=== PATIENT | male | born 1955 | race Caucasian/White ===

== ENCOUNTER 2017-09-30 18:08 | Inpatient (IN) | payer MEDICARE, MEDICAID ==
[2017-09-30 20:20] LABS: #Basophils 0.1 thou/uL (0.0-0.2); #Eosinphils 0.1 thou/uL (0.0-0.7); #Lymphocytes 2.4 thou/uL (1.20-3.40); #Monocytes 0.8 thou/uL (0.11-0.59); #Neutrophils 5.3 thou/uL (1.40-6.50); %Basophils 0.6 % (0.0-1.0); %Eosinophils 1.6 % (0.0-10.0); %Lymphocytes 27.9 % (21.0-51.0); %Monocytes 9.4 % (0.0-10.0); %Neutrophils 60.5 % (42.0-75.0); Hemoglobin 11.5 g/dL (14.0-18.0); Mean Corpuscular HGB CONC 32.8 g/dL (32.0-36.0); Mean Corpuscular Volume 88.3 fL (78.0-98.0); Mean Platelet Volume 5.9 fL (7.4-10.4); Platelet Count 207 thou/uL (130-400); RBC Distribution Width 13.7 % (11.5-14.5); Red Blood Cell (RBC) Count 3.98 mill/uL (4.70-6.10); White Blood Cell (WBC) Count 8.7 thou/uL (4.8-10.8)
[2017-09-30 20:42] LABS: ALT (SGPT) 8 U/L (8-55); AST (SGOT) 24 U/L (5-34); Albumin 3.3 g/dL (3.4-4.8); Alkaline Phosphatase 76 U/L (40-150); Anion Gap 13 mmol/L (10-20); BUN (Urea Nitrogen) 32 mg/dL (8.4-25.7); Bilirubin, Total 0.3 mg/dL (0.2-1.2); Calc. Creatinine Clearance 0 mL/min (70-130); Calcium 9.3 mg/dL (7.8-10.44); Carbon Dioxide 28 mmol/L (23-31); Chloride 96 mmol/L (98-107); Estimated GFR-MDRD 62; Globulin 5.5 g/dL (2.4-3.5); Glucose 188 mg/dL (80-115); Potassium 5.4 mmol/L (3.5-5.1); Protein, Total 8.8 g/dL (5.8-8.1); Sodium 132 mmol/L (136-145)
--- NOTE | 2017-09-30 20:57 | RAD ---
PORTABLE CHEST: 09/30/17 HISTORY: Sepsis protocol. Lungs appear clear with no evidence of infiltrate identified. The heart is mildly prominent. Vascula r markings are normal. IMPRESSION: No focal infiltrates seen on portable chest exam. POS: AGW
[2017-09-30 21:01] LABS: Bilirubin Negative (Negative); Blood, Urine Trace (Negative); Clarity CLOUDY (Clear); Glucose, Urine (Dipstick) 100 mg/dL (Negative); Leukocyte Large (Negative); Nitrite Negative (Negative); Protein, Urine (Dipstick) 30 mg/dL (Neg-Trace); pH, Urine 6.5 (5.0-9.0)
[2017-09-30 21:03] LABS: Bacteria/HPF None Seen HPF (None Seen); Hyaline Casts/LPF 0-3 HYALINE CAST LPF (0-3 Hyaline); RBC/HPF 0-3 HPF (0-3); Squamous Epithelial None Seen HPF (0-3)
[2017-09-30 21:04] LABS: Yeast-AUWi Flag 50.1 (0-25.0)
[2017-09-30] MEDS ORDERED: Clindamycin/D5W 900 mg/50 ml Premix Bag ONE (21:45)
[2017-09-30] MEDS ORDERED: Piperacillin/Tazobactam 4.5 GM VIAL ONE (21:45)
[2017-09-30] MEDS ORDERED: Sodium Chloride 0.9% 1,000 ML IV SCH (23:17)
[2017-10-01] MEDS ORDERED: Acetaminophen 325 MG TAB PO PRN (00:15)
[2017-10-01] MEDS ORDERED: HumaLOG 300 UNITS/3 ML VIAL SC PRN ×2 (00:24)
[2017-10-01] MEDS ORDERED: Dextrose 50% Abboject 50 ML SYRINGE SLOW IVP PRN (00:24)
[2017-10-01] MEDS ORDERED: Dextrose 5% in Water 1,000 ML IV PRN (00:24)
[2017-10-01] MEDS: Vancomycin HCl 1 GM in Premix Bag 1 BAG IVPB SCH ×2 (01:24→15:18)
[2017-10-01] MEDS: Lactated Ringer's 1,000 ML IV SCH ×3 (01:25→18:39)
--- NOTE | 2017-10-01 02:01 | PDOC.FPRHP ---
- History of Present Illness Chief Complaint: pressure ulcer History of Present Illness: Resident: Linda Glaser DO PCP: Juan Pettit DO Patient is a 62 yo M with PMH of T2DM, MR, HTN, HLD who presents from [facility] for evaluation of pressure ulcer. He is does not speak much and no family members are present at the time of evaluation, although per ER documentation has not had any fevers or signs of infection. He denies pain, change in urination, and trouble breathing. ED Course: In the ED he received Zosyn and Clindamycin as well as 1L NS. - Allergies/Adverse Reactions Allergies Allergy/AdvReac Type Severity Reaction Status Date / Time metformin Allergy Verified 10/01/17 02:11 - Home Medications Medication Instructions Recorded Confirmed Type Acetaminophen [Tylenol Extra 1,000 mg PO Q6H PRN 06/19/13 10/01/17 History Strength] Benzoyl Peroxide [Benzoyl Peroxide 1 applic TOP DAILY PRN 06/19/13 10/01/17 History 5% Wash] Clindamycin Phosphate [Clindamycin 1 applic TOP BID PRN 06/19/13 10/01/17 History Phosphate 1% Lotion] Docusate Sodium 100 mg PO DAILY 06/19/13 10/01/17 History Folic Acid 2 tab PO DAILY 06/19/13 10/01/17 History Furosemide [Lasix] 10 mg PO DAILY 06/19/13 10/01/17 History Insulin Aspart [NovoLOG Vial] 20 unit SQ TID 06/19/13 10/01/17 History Levothyroxine Sodium 100 mcg PO DAILY 06/19/13 10/01/17 History Lisinopril 20 mg PO HS 06/19/13 10/01/17 History Loratadine [Claritin] 10 mg PO HS PRN 06/19/13 10/01/17 History Milk Of Magnesia 80mg/mL Susp 30 ml PO DAILY PRN 06/19/13 10/01/17 History [Jacob' Milk Of Magnesia] Potassium Chloride 2 cap PO BID 06/19/13 10/01/17 History Triamcinolone Acetonide 1 applic TOP BID PRN 06/19/13 10/01/17 History [Triamcinolone Acetonide 0.1% Cream] ALButerol Sulfate [Ventolin Neb] 3 ml NEB Q4HR PRN 05/12/15 10/01/17 History Acyclovir [Zovirax 5% Ointment] 1 applic TOP TID PRN 05/12/15 10/01/17 History Container,Empty [Enema Bottle] 1 each CO DAILY PRN 05/12/15 10/01/[address] [Depakote] 20 ml PO BID 05/12/15 10/01/17 History Gabapentin [Neurontin] 300 mg PO TID 05/12/15 10/01/17 History Multivitamin [One-A-Day Essential] 1 tablet PO DAILY 05/12/15 10/01/17 History Mcfall-3 Acid Ethyl Esters [Lovaza] 1 gm PO BID 05/12/15 10/01/17 History Ranitidine HCl 150 mg PO DAILY 05/12/15 10/01/17 History Rosuvastatin [Crestor] 10 mg PO HS 05/12/15 10/01/17 History Tamsulosin HCl [Flomax] 0.4 mg PO HS 05/12/15 10/01/17 History guaiFENesin/Pseudoephedrne HCl 1 - 2 tab PO BID PRN 05/12/15 10/01/17 History [Mucinex D ER] sitaGLIPtin Phosphate [Januvia] 100 mg PO DAILY 05/12/15 10/01/17 History Acarbose 100 mg PO TID- 10/01/17 10/01/17 History Cephalexin [Keflex] 500 mg PO QID 10/01/17 10/01/17 History Cephalexin [Keflex] 500 mg PO QID 10/01/17 10/01/17 History - History PMHx: Mental Retardation T2DM Hypothyroidism Seizure DO HLD HTN PSHx: unk FHx: non-contributory Social: Lives at [facility]. - Review of Systems ROS unobtainable: due to mental status General: denies: fever/chills Respiratory: denies: shortness of breath Cardiovascular: denies: chest pain Genitourinary: reports: incontinence. denies: dysuria - Vital signs BP: 92/56 HR: 99 RR: 20 Tmax: 97.7 Pox: 98% on RA Wt: 90kg - Physical Exam Constitutional: NAD -Constitutional: AOx1, basically nonverbal, only responds with yes and no -HEENT: L eye with crusty yellow discharge and R eye remains closed at all times, dry MM Neck: supple Heart: RRR Lungs: CTAB, no respiratory distress, no wheezing, no retractions Abdomen: soft, non-tender, bowel sounds present Musculoskeletal: normal structure Neurological: no focal deficit -Skin: stage 3 pressure ulcer on L gluteal fold without pus drainage, and stage 1 ulcer which appears to be healing on R gluteal fold, surrounding erythema of the skin in these areas FMR H&P: Results - Labs Result Diagrams: 10/01/17 04:23 10/01/17 04:23 Lab results: WBC 8.7 thou/uL (4.8-10.8) 09/30/17 20:05 Hgb 11.5 g/dL (14.0-18.0) L 09/30/17 20:05 Hct 35.1 % (42.0-52.0) L 09/30/17 20:05 MCV 88.3 fL (78.0-98.0) 09/30/17 20:05 Plt Count 207 thou/uL (130-400) 09/30/17 20:05 Neutrophils % 60.5 % (42.0-75.0) 09/30/17 20:05 Sodium 132 mmol/L (136-145) L 09/30/17 20:05 Potassium 5.4 mmol/L (3.5-5.1) H 09/30/17 20:05 Chloride 96 mmol/L (98-107) L 09/30/17 20:05 Carbon Dioxide 28 mmol/L (23-31) 09/30/17 20:05 BUN 32 mg/dL (8.4-25.7) H 09/30/17 20:05 Creatinine 1.19 mg/dL (0.6-1.3) 09/30/17 20:05 Glucose 188 mg/dL (80-115) H 09/30/17 20:05 Lactic Acid 1.6 mmol/L (0.5-2.2) 09/30/17 20:05 Calcium 9.3 mg/dL (7.8-10.44) 09/30/17 20:05 Total Bilirubin 0.3 mg/dL (0.2-1.2) 09/30/17 20:05 AST 24 U/L (5-34) 09/30/17 20:05 ALT 8 U/L (8-55) 09/30/17 20:05 Alkaline Phosphatase 76 U/L (40-150) 09/30/17 20:05 Serum Total Protein 8.8 g/dL (5.8-8.1) H 09/30/17 20:05 Albumin 3.3 g/dL (3.4-4.8) L 09/30/17 20:05 Urine Ketones Negative mg/dL (Negative) 09/30/17 20:56 Urine Blood Trace (Negative) H 09/30/17 20:56 Urine Nitrite Negative (Negative) 09/30/17 20:56 Ur Leukocyte Esterase Large (Negative) H 09/30/17 20:56 Urine RBC 0-3 HPF (0-3) 09/30/17 20:56 Urine WBC Greater Than 50-TNTC HPF (0-3) H 09/30/17 20:56 Ur Squamous Epith Cells None Seen HPF (0-3) 09/30/17 20:56 Urine Bacteria None Seen HPF (None Seen) 09/30/17 20:56 - EKG Interpretation EKG: incomplete RBBB - Radiology Interpretation Chest x-ray Status: image reviewed by me, report reviewed by me Additional comment: no acute process FMR H&P: A/P - Problem List (1) Pressure ulcer Current Visit: Yes Status: Acute Code(s): L89.90 - PRESSURE ULCER OF UNSPECIFIED SITE, UNSPECIFIED STAGE (2) Sepsis due to urinary tract infection Current Visit: No Status: Acute Code(s): A41.9 - SEPSIS, UNSPECIFIED ORGANISM; N39.0 - URINARY TRACT INFECTION, SITE NOT SPECIFIED (3) Diabetes mellitus type 2, insulin dependent Current Visit: No Status: Chronic Code(s): E11.9 - TYPE 2 DIABETES MELLITUS WITHOUT COMPLICATIONS; Z79.4 - [facility] (CURRENT) USE OF INSULIN (4) HTN (hypertension) Current Visit: No Status: Chronic Code(s): I10 - ESSENTIAL (PRIMARY) HYPERTENSION Qualifiers: Hypertension type: essential hypertension Qualified Code(s): I10 - Essential (primary) hypertension (5) Hyperlipidemia Current Visit: No Status: Chronic Code(s): E78.5 - HYPERLIPIDEMIA, UNSPECIFIED Qualifiers: Hyperlipidemia type: mixed hyperlipidemia Qualified Code(s): E78.2 - Mixed hyperlipidemia (6) Hypothyroidism Current Visit: No Status: Chronic Code(s): E03.9 - HYPOTHYROIDISM, UNSPECIFIED Qualifiers: Hypothyroidism type: acquired Qualified Code(s): E03.9 - Hypothyroidism, unspecified (7) Seizure disorder Current Visit: No Status: Chronic Code(s): G40.909 - EPILEPSY, UNSP, NOT INTRACTABLE, WITHOUT STATUS EPILEPTICUS - Plan Sepsis 2/2 Pressure ulcer vs UTI - Patient with tachycardia and hypotension initially. 2 different sources: ulcer vs UTI. - blood and urine cx pending - S/p zosyn and clinda in ED, switch to Vanc and Zosyn - s/p 1 L in Ed, continues to be hypotensive, give 1 more liter and then maitenance - wound care and surgical consult for pressure ulcer. May need debridement. Normocytic Anemia - at baseline from prior visits - Fe studies suggest Anemia of Chronic Disease Hyperkalemia - hemoconcentrated at first lab draw - s/p 1 L now, redraw and consider Ca gluconate if continues to be high - EKG wnl MARIO - BUN/Cr suggests prerenal - give IVF and recheck Hypoalbuminemia - likely 2/2 malnutrition - consider prealbumin - doormaker consult - Ensures BID MR - makes obtaining hx difficult - call family in AM to discuss HTN - hypotensive now - hold home meds HLD - continue home meds T2DM - continue home insulin and SSI - CC diet Hypothyroidism - continue home meds Seizure DO - continue home meds VTE ppx: Lovenox Code Status: Full (discuss with family) Dispo: Likely >48h pending gen surg recs and sepsis resolution FMR H&P: Upper Level - Pertinent history 62 y/o M presenting from [place] for evaluation of sacral wounds found to be septic. No history provided by patient. No reports of fever per NH, only worsening sacral wound and low BPs. - Pertinent findings GEN: pt awake and alert lying in bed CARDIO: RRR, no MRG RESP: lungs CTAB, no wheezes or crackles EST: pt unable to move LE. no edema present. Pulses intact in LE - Plan Date/Time: 10/01/17 0201 IGeorge, have evaluated this patient and agree with findings/plan as outlined by internetworking technician resident. Pertinent changes/additions are listed here. # Sepsis 2/2 UTI vs sacral wound - Pressures have improved after IVF. Continue IVF and to monitor vitals - Continue IVF, broad spectrum abx - Blood/urine/wound cultures pending # Stage IV L Sacral Wound - Will place surgical consult for debridement # Hx/o Mental Retardation - Pt is bed bound and in NH care # T2DM: - Place on SSI and monitor BG # HTN - Hold BP meds while hypotensive # Seizure disorder - No Acute Issues Attending Addendum - Attending Addendum Date/Time: 10/01/17 1014 I personally evaluated the patient and discussed the management with Dr. Glaser I agree with the History, Examination, Assessment and Plan documented above with any addition or exceptions noted below.
[2017-10-01 03:48] VITALS: BMI 25.4
[2017-10-01 05:14] LABS: #Eosinphils 0.1 thou/uL (0.0-0.7); #Lymphocytes 2.2 thou/uL (1.20-3.40); #Monocytes 1.2 thou/uL (0.11-0.59); #Neutrophils 5.8 thou/uL (1.40-6.50); %Basophils 0.4 % (0.0-1.0); %Eosinophils 0.8 % (0.0-10.0); %Lymphocytes 23.6 % (21.0-51.0); %Monocytes 12.4 % (0.0-10.0); %Neutrophils 62.7 % (42.0-75.0); Hemoglobin 9.5 g/dL (14.0-18.0); Mean Corpuscular HGB CONC 32.8 g/dL (32.0-36.0); Mean Corpuscular Hemoglobin 28.9 pg (27.0-31.0); Mean Corpuscular Volume 88.2 fL (78.0-98.0); Mean Platelet Volume 5.8 fL (7.4-10.4); Platelet Count 178 thou/uL (130-400); RBC Distribution Width 13.5 % (11.5-14.5); Red Blood Cell (RBC) Count 3.27 mill/uL (4.70-6.10); White Blood Cell (WBC) Count 9.3 thou/uL (4.8-10.8)
[2017-10-01 05:21] LABS: Anion Gap 10 mmol/L (10-20); BUN (Urea Nitrogen) 31 mg/dL (8.4-25.7); Calc. Creatinine Clearance 85 mL/min (70-130); Calcium 8.7 mg/dL (7.8-10.44); Carbon Dioxide 26 mmol/L (23-31); Chloride 101 mmol/L (98-107); Estimated GFR-MDRD 84; Glucose 211 mg/dL (80-115); Potassium 5.3 mmol/L (3.5-5.1); Sodium 132 mmol/L (136-145)
[2017-10-01] MEDS: Levothyroxine Sodium 100 MCG TAB PO SCH (06:35)
[2017-10-01] MEDS: Piperacillin/Tazobactam 3.375 GM in Sodium Chloride 0.9% 100 ML IVPB SCH ×3 (06:36→18:10)
--- NOTE | 2017-10-01 06:54 | PDOC.EVN ---
Attending Addendum - Attending Addendum Date/Time: 10/01/17 0650 I personally evaluated the patient at appr 1150pm on 09/30/2017 and discussed the management with Dr. Glaser I agree with the History, Examination, Assessment and Plan documented above with any addition or exceptions noted below. 62 yo NH patient sent for further evaluation left sided stage 3 sacroiliac decubitus will admit for IV antibiotics and surgical consultation for formal debridement and wound care consultation.
[2017-10-01] MEDS ORDERED: Non-Formulary Item 1 EACH (Ranitidine Hcl [Ranitidine Hcl] 150 MG) PO SCH (09:00)
[2017-10-01] MEDS ORDERED: Famotidine 20 MG TAB PO SCH (09:00)
[2017-10-01] MEDS: HumaLOG 300 UNITS/3 ML VIAL SC SCH ×3 (10:54→17:38)
[2017-10-01] MEDS: Docusate 100 MG CAP PO SCH ×2 (10:55→21:00)
[2017-10-01] MEDS: Enoxaparin Sodium 40 MG/0.4 ML SYRINGE SC SCH (12:37)
[2017-10-01] MEDS: Divalproex Sodium DR 500 MG TAB PO SCH ×3 (12:37→23:20)
[2017-10-01] MEDS: Famotidine 20 MG TAB PO SCH ×2 (12:37→20:23)
[2017-10-01] MEDS: Gabapentin 300 MG CAP PO SCH ×3 (12:37→20:23)
[2017-10-01] MEDS: Folic Acid 1 MG TAB PO SCH (12:39)
--- NOTE | 2017-10-01 16:52 | RAD ---
TWO VIEWS SACRUM AND COCCYX: 10/01/17 HISTORY: Decubitus ulcer. Evaluate for osteomyelitis. COMPARISON: None. FINDINGS: There appears to be erosive change involving the distal aspect of the sacrum/coccyx. Possibility of i nfection in this region cannot be excluded. Better interrogation with MRI is recommended. IMPRESSION: Possible infection and erosion involving the distal sacrum/coccyx. POS: DERIK
[2017-10-01] MEDS: Tamsulosin HCl 0.4 MG CAP PO SCH (20:23)
[2017-10-01] MEDS: Lisinopril 10 MG TAB PO SCH (20:23)
[2017-10-01] MEDS: Rosuvastatin 20 MG TAB PO SCH (20:24)
[2017-10-01] MEDS: Sodium Chloride 0.9% 1,000 ML IV SCH (23:25)
[2017-10-02] MEDS: Vancomycin HCl 1 GM in Premix Bag 1 BAG IVPB SCH ×2 (01:53→13:11)
[2017-10-02] MEDS: Levothyroxine Sodium 100 MCG TAB PO SCH (05:16)
[2017-10-02] MEDS: Piperacillin/Tazobactam 3.375 GM in Sodium Chloride 0.9% 100 ML IVPB SCH ×6 (05:17→21:00)
[2017-10-02] MEDS: Sodium Chloride 0.9% 1,000 ML IV SCH ×4 (07:00→22:45)
[2017-10-02 07:24] LABS: #Basophils 0.1 thou/uL (0.0-0.2); #Eosinphils 0.1 thou/uL (0.0-0.7); #Lymphocytes 2.4 thou/uL (1.20-3.40); #Monocytes 0.7 thou/uL (0.11-0.59); #Neutrophils 2.9 thou/uL (1.40-6.50); %Basophils 1.5 % (0.0-1.0); %Eosinophils 1.7 % (0.0-10.0); %Lymphocytes 39.1 % (21.0-51.0); %Monocytes 11.7 % (0.0-10.0); %Neutrophils 46.1 % (42.0-75.0); Hemoglobin 9.6 g/dL (14.0-18.0); Mean Corpuscular HGB CONC 33.5 g/dL (32.0-36.0); Mean Corpuscular Hemoglobin 29.6 pg (27.0-31.0); Mean Corpuscular Volume 88.5 fL (78.0-98.0); Mean Platelet Volume 5.6 fL (7.4-10.4); Platelet Count 172 thou/uL (130-400); RBC Distribution Width 13.5 % (11.5-14.5); Red Blood Cell (RBC) Count 3.23 mill/uL (4.70-6.10); White Blood Cell (WBC) Count 6.2 thou/uL (4.8-10.8)
[2017-10-02 07:42] LABS: Anion Gap 11 mmol/L (10-20); BUN (Urea Nitrogen) 17 mg/dL (8.4-25.7); Calc. Creatinine Clearance 106 mL/min (70-130); Calcium 8.5 mg/dL (7.8-10.44); Carbon Dioxide 28 mmol/L (23-31); Chloride 103 mmol/L (98-107); Estimated GFR-MDRD Greater than 90; Glucose 135 mg/dL (80-115); Potassium 4.1 mmol/L (3.5-5.1); Sodium 138 mmol/L (136-145)
--- NOTE | 2017-10-02 09:52 | PDOC.FM ---
- Subjective Subjective: No acute events overnight. Pt denies pain and only complaint is he is hungry. - Objective Vital Signs & Weight: Weight Admit Weight 71.577 kg Weight 71.577 kg I&O: 10/01/17 10/02/17 10/03/17 06:59 06:59 06:59 Intake Total 952 800 Balance 952 800 Result Diagrams: 10/02/17 07:10 10/02/17 07:10 <Damien Pettit - Last Filed: 10/02/17 09:50> - Objective Vital Signs & Weight: Vital Signs (12 hours) Temp Pulse Resp Pulse Ox 10/02/17 08:00 98.5 F 80 16 98 Weight Admit Weight 71.577 kg Weight 71.577 kg I&O: 10/01/17 10/02/17 10/03/17 06:59 06:59 06:59 Intake Total 952 800 Balance 952 800 Result Diagrams: 10/02/17 07:10 10/02/17 07:10 <Andrew Barriga - Last Filed: 10/02/17 11:34> Phys Exam - Physical Examination Constitutional: NAD HEENT: PERRLA, sclera anicteric Neck: no nodes, no JVD Respiratory: no wheezing, no rales, no rhonchi, clear to auscultation bilateral Cardiovascular: RRR, no significant murmur, no rub Gastrointestinal: soft, non-tender, no distention, positive bowel sounds Musculoskeletal: no edema, pulses present Neurological: non-focal, moves all 4 limbs Skin: no rash, cap refill <2 seconds <Damien Pettit - Last Filed: 10/02/17 09:50> Dx/Plan (1) Pressure ulcer Code(s): L89.90 - PRESSURE ULCER OF UNSPECIFIED SITE, UNSPECIFIED STAGE Status : Acute (2) Sepsis due to urinary tract infection Code(s): A41.9 - SEPSIS, UNSPECIFIED ORGANISM; N39.0 - URINARY TRACT INFECTION, SITE NOT SPECIFIED Status: Resolved (3) Urinary tract infection Status: Acute QualifierTitle: Urinary tract infection type: acute cystitis Hematuria presence: with hematuria Qualified Code(s): N30.01 - Acute cystitis with hematuria (4) HTN (hypertension) Code(s): I10 - ESSENTIAL (PRIMARY) HYPERTENSION Status: Chronic QualifierTitle: Hypertension type: essential hypertension Qualified Code( s): I10 - Essential (primary) hypertension (5) Hyperlipidemia Code(s): E78.5 - HYPERLIPIDEMIA, UNSPECIFIED Status: Chronic QualifierTitle: Hyperlipidemia type: mixed hyperlipidemia Qualified Code( s): E78.2 - Mixed hyperlipidemia (6) Hypothyroidism Code(s): E03.9 - HYPOTHYROIDISM, UNSPECIFIED Status: Chronic QualifierTitle: Hypothyroidism type: acquired Qualified Code(s): E03.9 - Hypothyroidism, unspecified (7) Seizure disorder Code(s): G40.909 - EPILEPSY, UNSP, NOT INTRACTABLE, WITHOUT STATUS EPILEPTICUS Status: Chronic - Plan Plan: Sepsis 2/2 Pressure ulcer, sepsis resolved. Pressure ulcer persists - Patient with tachycardia and hypotension initially. 2 different sources: ulcer vs UTI. - blood and urine cx pending - S/p zosyn and clinda in ED, switch to Vanc and Zosyn -Sacrum coccyx xr showed possible osteo, will order MRI. Gen Surg consult pending - NPO Normocytic Anemia - at baseline from prior visits - Fe studies suggest Anemia of Chronic Disease Hyperkalemia - fluids switched from LR to NS, recheck in am. Given Kayex X1 MARIO - resolved. Hypoalbuminemia - likely 2/2 malnutrition - rest room matron consult - Ensures BID, currently NPO awaiting surgery consult HTN - stable, home meds held since currently NPO HLD - continue home meds T2DM - continue home insulin and SSI - CC diet Hypothyroidism - continue home meds Seizure DO - continue home meds <Damien Pettit - Last Filed: 10/02/17 09:50> (1) Pressure ulcer Code(s): L89.90 - PRESSURE ULCER OF UNSPECIFIED SITE, UNSPECIFIED STAGE Status : Acute (2) Diabetes mellitus type 2, insulin dependent Code(s): E11.9 - TYPE 2 DIABETES MELLITUS WITHOUT COMPLICATIONS; Z79.4 - [facility] (CURRENT) USE OF INSULIN Status: Chronic (3) HTN (hypertension) Code(s): I10 - ESSENTIAL (PRIMARY) HYPERTENSION Status: Chronic Qualifiers: Hypertension type: essential hypertension Qualified Code(s): I10 - Essential (primary) hypertension (4) Hyperlipidemia Code(s): E78.5 - HYPERLIPIDEMIA, UNSPECIFIED Status: Chronic Qualifiers: Hyperlipidemia type: mixed hyperlipidemia Qualified Code(s): E78.2 - Mixed hyperlipidemia (5) Hypothyroidism Code(s): E03.9 - HYPOTHYROIDISM, UNSPECIFIED Status: Chronic Qualifiers: Hypothyroidism type: acquired Qualified Code(s): E03.9 - Hypothyroidism, unspecified (6) Seizure disorder Code(s): G40.909 - EPILEPSY, UNSP, NOT INTRACTABLE, WITHOUT STATUS EPILEPTICUS Status: Chronic <Andrew Barriga - Last Filed: 10/02/17 11:34> Attending Addendum - Attending Addendum Date/Time: 10/02/17 1132 I personally evaluated the patient and discussed the management with Dr. Pettit I agree with the History, Examination, Assessment and Plan documented above with any addition or exceptions noted below.For MRI r/o osteo appreciate General surgery recommendation regard need for debridement. <Andrew Barriga - Last Filed: 10/02/17 11:34>
[2017-10-02] MEDS: HumaLOG 300 UNITS/3 ML VIAL SC SCH ×3 (10:26→16:59)
[2017-10-02] MEDS: Docusate 100 MG CAP PO SCH ×2 (10:27→21:00)
[2017-10-02] MEDS: Famotidine 20 MG TAB PO SCH ×2 (10:27→21:00)
[2017-10-02] MEDS: Folic Acid 1 MG TAB PO SCH (10:27)
[2017-10-02] MEDS: Divalproex Sodium DR 500 MG TAB PO SCH ×2 (10:27→21:00)
[2017-10-02] MEDS: Enoxaparin Sodium 40 MG/0.4 ML SYRINGE SC SCH (10:27)
[2017-10-02] MEDS: Gabapentin 300 MG CAP PO SCH ×3 (10:28→21:00)
[2017-10-02 12:29] LABS: Vancomycin, Trough 23.2 ug/mL
--- NOTE | 2017-10-02 13:20 | CON ---
DATE OF CONSULTATION: 10/02/2017 I have been consulted by the [facility] for a left buttock pressure ulcer. HISTORY OF PRESENT ILLNESS: This is a 62-year-old male with a history of chronic hypertension, type 2 diabetes, who is a resident [facility], who presents for evaluation of pressure ulcer , admitted to the [facility] for IV antibiotics, placed on IV antibiotics. He is unable to participate in the history exam, most of it is obtained from the chart. PAST MEDICAL HISTORY: Mental retardation, type 2 diabetes, hypothyroidism, seizure disorder, hyperte nsion. PAST SURGICAL HISTORY: PEG tube. SOCIAL HISTORY: Lives at [facility]. REVIEW OF SYSTEMS: Unable to obtain. PHYSICAL EXAMINATION: VITAL SIGNS: Blood pressure 110/70, his pulse is 80, respirations 16. He is afebrile. HEENT: Sclerae are anicteric. Oropharynx clear. NECK: No lymphadenopathy. CHEST: Clear. HEART: Regular rate and rhythm. ABDOMEN: Soft, nontender. PELVIS: Examination of his right buttock/ischial region reveals mild skin breakdown without obvious infection. Examination of the left side reveals there to be a stage II to stage III pressure ulcer. There is some minimal necrotic tissue at the base. No purulence, no abscess. No bulla or crepitanc e. LABORATORY AND X-RAY FINDINGS: White cell count is 6, hemoglobin is 9.6. Sodium 138, potassium 4.0, creatinine 0.74. ASSESSMENT: Left posterior buttock decubitus wound. PLAN: MRI to be done today unless that shows significant bone involvement likely does not need surgi tawanna debridement. I think that the wound can be managed with wound care and some enzymatic agents at first. We need to roll them and keep him off these wounds. We will follow with you.
--- NOTE | 2017-10-02 15:19 | MRI ---
PELVIC MRI WITHOUT IV CONTRAST: Date: 10/02/17 HISTORY: 62-year-old male with urinary tract infection, pressure ulcer x2, sepsis, hyponatremia, and hyperkale evan. Clinical concern for osteomyelitis. FINDINGS: Multiplanar, multisequence MRI examination of the pelvis is performed. There is a moderately distended, very trabeculated bladder, with a dilated left ureter visualized fro m the bladder extending up into a dilated left upper renal collecting system and associated left shea l hydronephrosis. This could be secondary to marked reflux or possibly some type of obstructing proce ss at the ureterovesical junction, although I do not see an obvious mass or calculus on this study. T here are some scattered areas of subcutaneous fat stranding noted surrounding the upper left thigh, a nteriorly, medially, laterally, and posteriorly, as well as some abnormal fat stranding in the workers compensation claims adjuster ior left perineal region with associated cutaneous finding. There appears to be a more remote appeari ng right perineal ulcer crater without a significant amount of adjacent abnormal fat stranding. There is a somewhat more focal area measuring approximately 2.8 x 4.3 cm of altered signal just caudal to the left inferior ischiopubic ramus, evidence for more focal phlegmon, but no evidence for an associa cate drainable abscess. No evidence for abnormal marrow signal to suggest osteomyelitis. There are yuliana e nonspecific edematous changes within the right and left obturator and adductor muscles, as well as right and left iliacus muscles. There is marked fatty replacement of the gluteal musculature, as well as other musculature of the upper thigh. The sacrum and coccyx region shows no evidence of abnormal marrow signal to suggest osteomyelitis. IMPRESSION: Moderately distended, very trabeculated urinary bladder, with some irregular bladder wall thickening, as well as fluid within a dilated left ureter, possibly related to reflux extending up into a dilate d left upper renal collecting system. Diffuse subcutaneous fat stranding the upper thigh, evidence fo r nonspecific cellulitis. Somewhat more focal area of abnormal soft tissue signal in the left upper p erineum, in fairly close proximity to the posterior portion of the left inferior ischial pubic ramus, probably focal phlegmon, without evidence for definitive drainable abscess or osteomyelitis. Old rig ht perineal ulcer/scar. Nonspecific edematous changes within right and left obturator and adductor an d iliacus musculature with severe muscle volume loss and fat replacement changes of the remaining mus culature of the pelvis, hips, and upper thighs. No evidence for osteomyelitis involving the sacrum or coccyx. POS: [facility]
[2017-10-02] MEDS: Lisinopril 10 MG TAB PO SCH (21:00)
[2017-10-02] MEDS: Tamsulosin HCl 0.4 MG CAP PO SCH (21:00)
[2017-10-02] MEDS: Rosuvastatin 20 MG TAB PO SCH (21:00)
[2017-10-03] MEDS: Piperacillin/Tazobactam 3.375 GM in Sodium Chloride 0.9% 100 ML IVPB SCH ×3 (00:47→14:23)
[2017-10-03] MEDS: Vancomycin HCl 1 GM in Premix Bag 1 BAG IVPB SCH (02:16)
[2017-10-03] MEDS: Levothyroxine Sodium 100 MCG TAB PO SCH (05:27)
--- NOTE | 2017-10-03 06:57 | PDOC.FM ---
- Subjective Subjective: Patient denies any pain. Nodded head when asked if he was hungry or wanted food. Per nurse, patient voided about 500mL immediately after placing chen overnight. - Objective MAR Reviewed: Yes Vital Signs & Weight: Vital Signs (12 hours) Temp Pulse Resp BP BP Pulse Ox 10/02/17 21:00 110/70 10/02/17 20:00 97.6 F 82 16 98 10/02/17 19:57 97.6 F 82 16 124/70 98 Weight Admit Weight 71.577 kg Weight 71.577 kg I&O: 10/01/17 10/02/17 10/03/17 06:59 06:59 06:59 Intake Total 151 240 5218 Output Total 1300 Balance 952 800 -100 Result Diagrams: 10/02/17 07:10 10/02/17 07:10 EKG Reviewed by me: Yes Radiology Reviewed by me: Yes Radiology: MRI of pelvis- No evidence of osteomyelitis or drainable abscess, just nonspecific cellulitis. Also noted a moderately distended, trabeculated bladder with irregular bladder wall thickening & a dilated L ureter w/ reflux. Phys Exam - Physical Examination Constitutional: NAD L-sided conjunctival injection with purulent discharge Respiratory: no wheezing, no rales, clear to auscultation bilateral Cardiovascular: RRR, no significant murmur Neurological: moves all 4 limbs Skin: no rash Deviation from normal: ~3cm healing eschar on R posterior inferior ischial pubis ramus. -: ~5-6cm stage III ulcer overlying L posterior inferior ischial ramus Dx/Plan (1) Pressure ulcer Code(s): L89.90 - PRESSURE ULCER OF UNSPECIFIED SITE, UNSPECIFIED STAGE Status : Acute Qualifiers: Pressure ulcer location: buttock Pressure ulcer stage: stage 3 Laterality : left Qualified Code(s): L89.323 - Pressure ulcer of left buttock, stage 3 Plan: Will continue with basic wound care per surgery recommendation. No debridement or I&D needed at this time. Will d/c IV Abx & discharge to residential with instructions to continue basic wound care. Proteus & enterococcus are likely just colonizing the wound rather than causing an infection and therefore do not require Abx treatment. (2) Sepsis affecting skin Code(s): A41.9 - SEPSIS, UNSPECIFIED ORGANISM Status: Acute Plan: Resolved. Patient has been hemodynamically stable since just after admission. Will continue with basic wound care for ulcer as stated above. Will advance to usual mechanical soft diet as tolerated and stop IVFs. (3) Urinary tract infection Status: Acute Qualifiers: Urinary tract infection type: acute cystitis Hematuria presence: with hematuria Qualified Code(s): N30.01 - Acute cystitis with hematuria Plan: Urinalysis significant for blood, WBCs & large Leuk. esterase. However, patient has not had any symptoms consistent with a UTI therefore does not require Abx treatment for this. Likely just asymptomatic bacteruria (4) Urinary retention with incomplete bladder emptying Code(s): R33.9 - RETENTION OF URINE, UNSPECIFIED Status: Chronic Plan: Will remove chen today and order bladder scans Q4H to ensure he can void on his own prior to discharge. Will continue home meds for BPH and check a baseline PSA before starting any new additional BPH meds. (5) Diabetes mellitus type 2, insulin dependent Code(s): E11.9 - TYPE 2 DIABETES MELLITUS WITHOUT COMPLICATIONS; Z79.4 - RETIREMENT (CURRENT) USE OF INSULIN Status: Chronic Plan: Will continue sliding scale insulin & home dose of insulin. (6) HTN (hypertension) Code(s): I10 - ESSENTIAL (PRIMARY) HYPERTENSION Status: Chronic Qualifiers: Hypertension type: essential hypertension Qualified Code(s): I10 - Essential (primary) hypertension Plan: Well controlled. Will continue home meds, lisinopril 20mg PO QD. (7) Hyperlipidemia Code(s): E78.5 - HYPERLIPIDEMIA, UNSPECIFIED Status: Chronic Qualifiers: Hyperlipidemia type: mixed hyperlipidemia Qualified Code(s): E78.2 - Mixed hyperlipidemia Plan: Will continue home dose of rosuvastatin 10mg QHS. (8) Hypothyroidism Code(s): E03.9 - HYPOTHYROIDISM, UNSPECIFIED Status: Chronic Qualifiers: Hypothyroidism type: acquired Qualified Code(s): E03.9 - Hypothyroidism, unspecified Plan: Will continue home dose of synthroid 100mcg QD. (9) Seizure disorder Code(s): G40.909 - EPILEPSY, UNSP, NOT INTRACTABLE, WITHOUT STATUS EPILEPTICUS Status: Chronic Plan: Will continue home dose of depakote 1000mg BID. (10) Eye infection Code(s): H44.009 - UNSPECIFIED PURULENT ENDOPHTHALMITIS, UNSPECIFIED EYE Status: Acute Qualifiers: Laterality: left Qualified Code(s): H44.002 - Unspecified purulent endophthalmitis, left eye Plan: Started on topical erythromycin QD to affected eye.
[2017-10-03 08:17] VITALS: BP 112/63; TEMP 98.5
[2017-10-03] MEDS: Sodium Chloride 0.9% 1,000 ML IV SCH (09:00)
--- NOTE | 2017-10-03 12:09 | HP ---
DATE OF SERVICE: 10/03/2017 This is an addendum to the note of Dr. Eunice Bowling. Mr. Felipe was admitted with a possible sacral ulcer infection and rule out osteomyelitis. His MRI d oes not demonstrate any evidence of osteomyelitis. His sacral wound does not appear to be infected, merely contaminated. He is clinically stable and will be discharged back to [facility] today.
[2017-10-03] MEDS ORDERED: Erythromycin Base 0.5% Oint 1 GM TUBE L EYE SCH (12:15)
[2017-10-03] MEDS: Docusate 100 MG CAP PO SCH (12:29)
[2017-10-03] MEDS: HumaLOG 300 UNITS/3 ML VIAL SC SCH ×2 (12:29→14:03)
[2017-10-03] MEDS: Divalproex Sodium DR 500 MG TAB PO SCH (12:29)
[2017-10-03] MEDS: Enoxaparin Sodium 40 MG/0.4 ML SYRINGE SC SCH (12:29)
[2017-10-03] MEDS: Gabapentin 300 MG CAP PO SCH ×2 (12:30→15:50)
[2017-10-03] MEDS: Folic Acid 1 MG TAB PO SCH (12:30)
[2017-10-03] MEDS: Famotidine 20 MG TAB PO SCH (12:30)
--- NOTE | 2017-10-03 13:58 | PRG ---
DATE OF SERVICE: 10/03/2017 Mr. Felipe's MRI showed no obvious osteomyelitis, distal most edematous changes in the area of the wo und. Physical exam is unchanged. His wounds were seen yesterday. My assessment is noninfected woun d with no obvious osteomyelitis. PLAN: Continue enzymatic local therapy, wet to dry or Medihoney. We will see on an as needed basis.
--- NOTE | 2017-10-04 08:25 | DIS-2 ---
DATE OF ADMISSION: 09/30/2017 DATE OF DISCHARGE: 10/03/2017 RESIDENT: Dr. Eunice Bowling. ADMITTING ATTENDING: Dr. Andrew Barriga. DISCHARGE ATTENDING: Dr. Miguel Lyman. CONSULTATIONS: 1. Dr. Brien Jenkins - General Surgery 2. speech evaluation 3. wound care. PROCEDURES: 1. x-ray of sacrum/coccyx- possible infection and erosion involving the distal sacrum/coccyx 2. MRI of pelvis- Moderately distended, very trabeculated bladder with irregular bladder wall thickening and possible reflux into the left upper renal collecting system. No evidence for definitive drainable abscess or osteomyelitis. PRIMARY DIAGNOSES: 1. sepsis secondary to urinary tract infection 2. pressure ulcer 3. left eye conjunctivitis 4. urinary tract infection 5. hyponatremia 6. hyperkalemia. SECONDARY DIAGNOSES: 1. chronic normocytic anemia 2. BPH 3. insulin-dependent type 2 diabetes mellitus 4. seizure disorder 5. hyperlipidemia 6. hypertension 7. hypothyroidism. DISCHARGE MEDICATIONS: 1. Loratadine 10 mg p.o. at bedtime p.r.n. 2. acetaminophen 500 mg p.o. q.6 hours p.r.n. 3. Milk of Magnesia 80 mg per mL suspension, 118 mL bottle, 30 mL p.o. daily p.r.n. 4. insulin aspart or NovoLog 20 units SQ t.i.d. 5. potassium chloride 10 mEq capsule 2 capsules p.o. b.i.d. 6. lisinopril 10 mg tablet 20 mg p.o. daily 7. furosemide 40 mg tab 10 mg p.o. daily 8. folic acid 0.4 mg tablet 2 tabs p.o. daily 9. docusate sodium 100 mg p.o. daily 10. levothyroxine sodium 100 mcg tablet p.o. daily 11. clindamycin, phosphate 60 mL bottle one application topical b.i.d. p.r.n. 12. triamcinolone acetonide 15 gram tube one application topically BID PRN 13. benzoyl peroxide 227 gram bottle 1 application topically daily p.r.n. 14. acyclovir 30 gram tube one application topically t.i.d. PRN 15. ranitidine HCL 300 mg tablet 150 mg p.o. daily 16. one multivitamin tablet p.o. daily 17. guaifenesin pseudoephedrine hydrochloride 600/60 mg tablet 1-2 tabs p.o. b.i.d. p.r.n. 18. omega 3 acid ethyl esters 1 gram p.o. b.i.d. 19. sitagliptin phosphate 100 mg p.o. daily 20. tamsulosin HCL 0.4 mg cap 0.8 mg p.o. daily 21. gabapentin 300 mg p.o. t.i.d. 22. Depakote 500 mg tablet 2 tablets p.o. b.i.d. 23. rosuvastatin 20 mg tablet 10 mg p.o. daily 24. albuterol sulfate 2.5 mg per 3 mL nebulized q.4 hours p.r.n. 25. acarbose 100 mg tablet 100 mg p.o. t.i.d. 26. Keflex 500 mg p.o. q.i.d. 27. erythromycin-base ointment 1g tube, apply thin layer in the left eye Q6H for 7 days 28. finasteride 5 mg tablet p.o. daily. DISCONTINUED MEDICATIONS: None. HOSPITAL COURSE: Mr. Felipe is a 62-year-old male with a past medical history significant for insulin-dependent type 2 diabetes, mental retardation, hypertension, hyperlipidemia, and BPH who presented to the ED on from [facility] for evaluation of a pressure ulcer. He did not speak very much and no family members who were present at the time of evaluation. However, he did deny any pain with urination or trouble breathing. Also per half-way, there were no reports of fever, just a worsening sacral wound and low blood pressures. Regarding the patient's sepsis, on admission he was found to be hypotensive and slightly tachycardic with a blood pressure of 92/56 and a heart rate of 99 with 2 possible sources of infection which included a stage III pressure ulcer on the left gluteal fold & a urinalysis significant for trace blood, large leukocyte esterase and greater than 50 white blood cells. In the ED, the patient was given 1 liter of normal saline and started on IV Zosyn and clindamycin. He was subsequently admitted to the floor and kept on Zosyn but switched from clindamycin to vancomycin. He was also started on IV NL Saline at a rate of 125mL/hr. By the day of discharge he was hemodynamically stable and afebrile. His blood and urine cultures were also negative and, consequently, both potential sources of infection were concluded to be sites that were simply colonized with bacteria and outpatient antibiotics were deemed not to be medically necessary. Regarding his pressure ulcer, the patient was started on IV antibiotics as outlined above and a sacrum/coccyx x-ray was obtained in the ED. The x-ray was determined to be inconclusive for a definitive diagnosis of drainable abscess or osteomyelitis. General surgery and wound care were both consulted and an MRI of the pelvis was ordered. The MRI did not show any signs of drainable abscess or osteomyelitis so surgery decided there was no need for debridement during his hospital stay. Wound cultures were positive for both proteus and enterococcus; however, the fact that the patient had negative blood cultures and was hemodynamically stable and afebrile prompted us to decide against continuing antibiotic therapy upon discharge. Per surgery's recommendation, the patient was instructed to use basic enzymatic local wound therapy, wet to dry or Medihoney upon discharge. Regarding the patient's electrolyte abnormalities, he was found to have a potassium of 5.4 on admission and was given 15g of kayexelate PO. By day of discharge his potassium was WNL at 4.1. The patient's sodium also normalized from 133 on admission to 138 on the day of discharge. Regarding the patient's BPH, he was noted to have a distended and trabeculated bladder with possible reflux into the left renal collecting system on MRI. In addition, the nurses reported constant dribbling of urine over the course of his hospital stay and requested that a Bran cath be placed in order to maintain adequate hygiene for proper wound care. However, the catheter was removed prior to discharge & the half-way was instructed to perform in and out straight caths PRN and to follow-up with a urologist on an outpatient basis if necessary. The patient was also discharged on a greater dose of tamsulosin and a new prescription for finasteride to help with his urinary retention. Lastly, a baseline PSA was ordered prior to discharge which should be reviewed prior to starting finasteride therapy. DISPOSITION: Stable DISCHARGE INSTRUCTIONS: 1. [facility] 2. Mechanical soft diet 3. Activity as tolerated 4. Follow-up recommended with Urology on an outpatient basis if urinary retention continued. Patient was stable and discharged to [facility] on a mechanical soft diet and allowed to do as much activity as tolerated. Follow up with Urology outpatient recommended if urinary retention continues to be a problem. MTDD
--- NOTE | 2017-10-08 16:14 | EKG ---
Test Reason : Blood Pressure : / mmHG Vent. Rate : 097 BPM Atrial Rate : 097 BPM P-R Int : 156 ms QRS Dur : 072 ms QT Int : 346 ms P-R-T Axes : 057 040 040 degrees QTc Int : 439 ms Normal sinus rhythm Low voltage QRS Borderline ECG Confirmed by JERMAINE STEEL ([id number]), purchasing expeditor SUSAN BALLESTEROS ([id number]) on 10/08/2017 4:13:54 PM Referred By: Confirmed By:JERMAINE STEEL
== END 2017-10-03 15:48 | DRG 871 ==
LOC: ERS 18:08 → 2NO 23:14 → ONC 10-01 18:36
PROVIDERS: ADMIT Family Medicine; ATTEND Family Medicine
DX: A41.9 Sepsis, unspecified organism (principal); L89.323 Pressure ulcer of left buttock, stage 3; N39.0 Urinary tract infection, site not specified; N17.9 Acute kidney failure, unspecified; E46 Unspecified protein-calorie malnutrition; E87.1 Hypo-osmolality and hyponatremia; H44.002 Unspecified purulent endophthalmitis, left eye; H10.9 Unspecified conjunctivitis; E87.5 Hyperkalemia; B96.89 Other specified bacterial agents as the cause of diseases classified elsewhere; E78.5 Hyperlipidemia, unspecified; G40.909 Epilepsy, unspecified, not intractable, without status epilepticus; E11.42 Type 2 diabetes mellitus with diabetic polyneuropathy; L89.220 Pressure ulcer of left hip, unstageable; L89.212 Pressure ulcer of right hip, stage 2; E03.9 Hypothyroidism, unspecified; L89.892 Pressure ulcer of other site, stage 2; R74.0 Nonspecific elevation of levels of transaminase and lactic acid dehydrogenase [LDH]; D64.9 Anemia, unspecified; N40.1 Benign prostatic hyperplasia with lower urinary tract symptoms; R39.14 Feeling of incomplete bladder emptying; F79 Unspecified intellectual disabilities; Z68.25 Body mass index [BMI] 25.0-25.9, adult; Z79.4 Long term (current) use of insulin
CPT/HCPCS: 36415; 36416; 51701; 71045; 72195; 72220; 80048; 80053; 80202; 81003; 81015; 83605; 84153; 85025; 85652; 86140; 87040; 87070; 87077; 87086; 87186; 87205; 93005; 96365; A4216; G8996-GN-CL; G8997-GN-CL; J1650; J2543; J3370; J3490; J7050

== ENCOUNTER 2017-11-28 15:57 | Inpatient (IN) | payer MEDICARE, MEDICAID ==
[2017-11-28] MEDS ORDERED: Acetaminophen 325 MG/10.15 ML UDCUP ONE (16:21)
[2017-11-28] MEDS ORDERED: Acetaminophen 500 MG TAB ONE (16:21)
[2017-11-28] MEDS ORDERED: Acetaminophen 325 MG Suppository ONE (16:22)
[2017-11-28] MEDS ORDERED: Acetaminophen 650 MG Suppository ONE (16:22)
[2017-11-28 16:38] LABS: #Eosinphils 0.1 thou/uL (0.0-0.7); #Lymphocytes 2.2 thou/uL (1.20-3.40); #Monocytes 1.8 thou/uL (0.11-0.59); #Neutrophils 12.4 thou/uL (1.40-6.50); %Basophils 0.2 % (0.0-1.0); %Eosinophils 0.3 % (0.0-10.0); %Lymphocytes 13.3 % (21.0-51.0); %Monocytes 11.1 % (0.0-10.0); %Neutrophils 75.1 % (42.0-75.0); Hemoglobin 10.8 g/dL (14.0-18.0); Mean Corpuscular HGB CONC 34.2 g/dL (32.0-36.0); Mean Corpuscular Volume 87.9 fL (78.0-98.0); Platelet Count 173 thou/uL (130-400); RBC Distribution Width 14.8 % (11.5-14.5); Red Blood Cell (RBC) Count 3.59 mill/uL (4.70-6.10); White Blood Cell (WBC) Count 16.5 thou/uL (4.8-10.8)
--- NOTE | 2017-11-28 16:58 | RAD ---
CHEST ONE VIEW: HISTORY: Chest pain. Emergency exam. COMPARISON: Chest radiograph from 09/30/2017. FINDINGS: The lungs are clear. No pneumothorax or effusion. The cardiac silhouette and mediastinal contour ar e within normal limits. No acute osseous abnormality. IMPRESSION: No significant change. POS: [facility]
[2017-11-28 17:05] LABS: ALT (SGPT) 19 U/L (8-55); AST (SGOT) 47 U/L (5-34); Albumin 2.8 g/dL (3.4-4.8); Alkaline Phosphatase 78 U/L (40-150); Anion Gap 15 mmol/L (10-20); BUN (Urea Nitrogen) 30 mg/dL (8.4-25.7); Bilirubin, Total 0.3 mg/dL (0.2-1.2); Calc. Creatinine Clearance 0 mL/min (70-130); Calcium 8.6 mg/dL (7.8-10.44); Carbon Dioxide 19 mmol/L (23-31); Chloride 104 mmol/L (98-107); Estimated GFR-MDRD 50; Globulin 4.3 g/dL (2.4-3.5); Glucose 210 mg/dL (80-115); Potassium 6.4 mmol/L (3.5-5.1); Protein, Total 7.1 g/dL (5.8-8.1); Sodium 132 mmol/L (136-145)
[2017-11-28] MEDS ORDERED: Cefepime 1 GM VIAL ONE (17:05)
[2017-11-28] MEDS ORDERED: Sodium Chloride 0.9% 0 ML ONE (17:06)
[2017-11-28] MEDS ORDERED: Cefepime 2 GM VIAL ONE (17:06)
[2017-11-28 17:26] LABS: Bilirubin Negative (Negative); Blood, Urine Large (Negative); Clarity TURBID (Clear); Glucose, Urine (Dipstick) Negative (Negative); Leukocyte Large (Negative); Nitrite Negative (Negative); Protein, Urine (Dipstick) 300 mg/dL (Neg-Trace); Specific Gravity, Urine 1.015 (1.002-1.036); Urobilinogen 0.2 mg/dL (0.2-1.0)
[2017-11-28 17:32] LABS: Bacteria/HPF 4+ HPF (None Seen); Squamous Epithelial 0-3 HPF (0-3)
[2017-11-28 17:36] LABS: Pathc Cast-AUWi Flag 124.44 (0-2.49); Yeast-AUWi Flag 857.8 (0-25.0)
[2017-11-28] MEDS ORDERED: Norepinephrine 8 MG/0.9% NS 250 ML ONE (17:46)
[2017-11-28 17:51] LABS: Hyaline Casts/LPF NONE SEEN LPF (0-3 Hyaline); Other Casts/LPF None Seen LPF (0-3 Hyaline); RBC/HPF 21-50 HPF (0-3)
[2017-11-28 17:52] LABS: Yeast-All Forms None Seen HPF (None Seen)
[2017-11-28] MEDS ORDERED: Insulin Regular 300 UNITS/3 ML VIAL ONE (17:59)
[2017-11-28] MEDS ORDERED: Dextrose 50% Abboject 50 ML SYRINGE ONE (17:59)
[2017-11-28] MEDS ORDERED: Sodium Bicarb 50 MEQ/50 ML Abboject 8.4% SYRINGE ONE (17:59)
[2017-11-28] MEDS ORDERED: Calcium Chloride 1 GM/10 ML Abboject SYRINGE ONE (17:59)
--- NOTE | 2017-11-28 18:35 | RAD ---
CHEST ONE VIEW: HISTORY: Central line placement. COMPARISON: Earlier exam on the same date. FINDINGS: The tip of a left subclavian central venous catheter overlies the superior vena cava. No evidence of pneumothorax. Other findings are stable. POS: [facility]
[2017-11-28 19:54] LABS: Anion Gap 10 mmol/L (10-20); BUN (Urea Nitrogen) 26 mg/dL (8.4-25.7); Calc. Creatinine Clearance 0 mL/min (70-130); Carbon Dioxide 22 mmol/L (23-31); Chloride 105 mmol/L (98-107); Estimated GFR-MDRD 68; Glucose 389 mg/dL (80-115); Potassium 4.2 mmol/L (3.5-5.1); Sodium 133 mmol/L (136-145)
--- NOTE | 2017-11-28 20:21 | PDOC.FPRHP ---
- History of Present Illness Chief Complaint: low BPs, AMS History of Present Illness: Mr. Fowler is a 62 yo M who was brought in by EMS from [facility] for hypotension, tachycardia, fever. Per EMS report pt. started acting woozy and measured SBP was 60/40. Patient non-verbal at time of examination and I was unable to elicit history from him. Per ED report was alert to painful stimuli but became alert to verbal stimuli upon arrival to ED. He is seen by Dr. Pettit who saw him on 11/10 and reported that pt. was on Vanc for C.diff. Patient' s sister was in room but she was unable to give much history as well. ED Course: Initial BP was 86/51, he was given 3L bolus of NS with BPs remaining in 60-70s and a MAP <65. Pt. had L subclavian line placed and was given lephophed. BPs improved to low 100s and MAP >65. UA showed bacteriuria, WBCs and pt was given Vanc 1g, Cefepime 2g, and levaquin 750mg. CXR was negative for acute changes. Chem showed hyperkalemia with K+ at 6.4 and EKG showed an isolated peaked T wave. Pt was given insulin/d5, calcium gluconate and admitted to CCU. - Allergies/Adverse Reactions Allergies Allergy/AdvReac Type Severity Reaction Status Date / Time metformin Allergy Verified 10/01/17 02:11 - Home Medications Medication Instructions Recorded Confirmed Type Acetaminophen [Tylenol Extra 1,000 mg PO Q6H PRN 06/19/13 10/01/17 History Strength] Benzoyl Peroxide [Benzoyl Peroxide 1 applic TOP DAILY PRN 06/19/13 10/01/17 History 5% Wash] Clindamycin Phosphate [Clindamycin 1 applic TOP BID PRN 06/19/13 10/01/17 History Phosphate 1% Lotion] Docusate Sodium 100 mg PO DAILY 06/19/13 10/01/17 History Folic Acid 2 tab PO DAILY 06/19/13 10/01/17 History Furosemide [Lasix] 10 mg PO DAILY 06/19/13 10/01/17 History Insulin Aspart [NovoLOG Vial] 20 unit SQ TID 06/19/13 10/01/17 History Levothyroxine Sodium 100 mcg PO DAILY 06/19/13 10/01/17 History Lisinopril 20 mg PO HS 06/19/13 10/01/17 History Loratadine [Claritin] 10 mg PO HS PRN 06/19/13 10/01/17 History Milk Of Magnesia 80mg/mL Susp 30 ml PO DAILY PRN 06/19/13 10/01/17 History [Jacob' Milk Of Magnesia] Potassium Chloride 2 cap PO BID 06/19/13 10/01/17 History Triamcinolone Acetonide 1 applic TOP BID PRN 06/19/13 10/01/17 History [Triamcinolone Acetonide 0.1% Cream] ALButerol Sulfate [Ventolin Neb] 3 ml NEB Q4HR PRN 05/12/15 10/01/17 History Acyclovir [Zovirax 5% Ointment] 1 applic TOP TID PRN 05/12/15 10/01/17 History Container,Empty [Enema Bottle] 1 each [place] DAILY PRN 05/12/15 10/01/[address] [Depakote] 20 ml PO BID 05/12/15 10/01/17 History Gabapentin [Neurontin] 300 mg PO TID 05/12/15 10/01/17 History Multivitamin [One-A-Day Essential] 1 tablet PO DAILY 05/12/15 10/01/17 History [place]-3 Acid Ethyl Esters [Lovaza] 1 gm PO BID 05/12/15 10/01/17 History Ranitidine HCl 150 mg PO DAILY 05/12/15 10/01/17 History Rosuvastatin [Crestor] 10 mg PO HS 05/12/15 10/01/17 History Tamsulosin HCl [Flomax] 0.4 mg PO HS 05/12/15 10/01/17 History guaiFENesin/Pseudoephedrne HCl 1 - 2 tab PO BID PRN 05/12/15 10/01/17 History [Mucinex D ER] sitaGLIPtin Phosphate [Januvia] 100 mg PO DAILY 05/12/15 10/01/17 History Acarbose 100 mg PO TID- 10/01/17 10/01/17 History Cephalexin [Keflex] 500 mg PO QID 10/01/17 10/01/17 History Cephalexin [Keflex] 500 mg PO QID 10/01/17 10/01/17 History Erythromycin Base 0.5% Oint 1 gm L EYE ONE 7 Days #1 tube 10/03/17 Rx [Erythromycin Base 0.5% Ophth Oint] Finasteride 5 mg PO DAILY #30 tablet 10/03/17 Rx Tamsulosin HCl [Flomax] 0.8 mg PO HS #30 cap 10/03/17 Rx - History PMHx: mental retardation, C.diff coloitis (resolved), seborrheic dermatitis, chronic constipation, HLD, chlamydial conjunctivitis, GERD, Diabetic peripheral neuropahty, Seizure disorder, Hypothyroidism, DM2, HTN, GERD PSHx: Dorsal slit for phimosis, urethral dilatin for stricture FHx: unable to obtain Social: Unable to elicit from pt. but per centricity record - Review of Systems ROS unobtainable: due to mental status - Vital signs BP: [114/55] HR: [94] RR: [18] Tmax: [97.1] Pox: [93]% on [3L] Wt: [74.3] - Physical Exam -Constitutional: Awake, fluctuating consciousness but not able to verbalize, A&O x 0 because unable to verbalize. GCS 9 (E2, V4, M6). HEENT: normocephalic and atraumatic -HEENT: left conjunctival growth on sclera with discharge, no conjunctival erythema Neck: supple, no JVD Heart: RRR, normal S1/S2, no murmurs/rubs/gallops Lungs: CTAB, no respiratory distress, good air movement Abdomen: soft, non-tender, bowel sounds present -Musculoskeletal: patient able to follow verbal commands with weak effort Neurological: CN II-XII intact Skin: capillary refill <2 seconds -Skin: sacral decubitus ulcer, unstable. but no overt signs of infection - erythema, purulence. back has multiple light brown papules. Heme/Lymphatic: no unusual bruising or bleeding, no petechia FMR H&P: Results - Labs Result Diagrams: 11/29/17 04:00 11/28/17 19:16 Lab results: WBC 16.5 thou/uL (4.8-10.8) H 11/28/17 16:25 Hgb 10.8 g/dL (14.0-18.0) L 11/28/17 16:25 Hct 31.6 % (42.0-52.0) L 11/28/17 16:25 MCV 87.9 fL (78.0-98.0) 11/28/17 16:25 Plt Count 173 thou/uL (130-400) 11/28/17 16:25 Neutrophils % 75.1 % (42.0-75.0) H 11/28/17 16:25 Sodium 133 mmol/L (136-145) L 11/28/17 19:16 Potassium 4.2 mmol/L (3.5-5.1) 11/28/17 19:16 Chloride 105 mmol/L (98-107) 11/28/17 19:16 Carbon Dioxide 22 mmol/L (23-31) L 11/28/17 19:16 BUN 26 mg/dL (8.4-25.7) H 11/28/17 19:16 Creatinine 1.10 mg/dL (0.6-1.3) 11/28/17 19:16 Glucose 389 mg/dL (80-115) H 11/28/17 19:16 Lactic Acid 3.2 mmol/L (0.5-2.2) H 11/28/17 16:25 Calcium 9.0 mg/dL (7.8-10.44) 11/28/17 19:16 Total Bilirubin 0.3 mg/dL (0.2-1.2) 11/28/17 16:25 AST 47 U/L (5-34) H 11/28/17 16:25 ALT 19 U/L (8-55) 11/28/17 16:25 Alkaline Phosphatase 78 U/L (40-150) 11/28/17 16:25 Serum Total Protein 7.1 g/dL (5.8-8.1) 11/28/17 16:25 Albumin 2.8 g/dL (3.4-4.8) L 11/28/17 16:25 Urine Ketones Negative mg/dL (Negative) 11/28/17 16:45 Urine Blood Large (Negative) H 11/28/17 16:45 Urine Nitrite Negative (Negative) 11/28/17 16:45 Ur Leukocyte Esterase Large (Negative) H 11/28/17 16:45 Urine RBC 21-50 HPF (0-3) H 11/28/17 16:45 Urine WBC Greater Than 50-TNTC HPF (0-3) H 11/28/17 16:45 Ur Squamous Epith Cells 0-3 HPF (0-3) 11/28/17 16:45 Urine Bacteria 4+ HPF (None Seen) H 11/28/17 16:45 - EKG Interpretation EKG: peaked T wave in V2, no ST elevations - Radiology Interpretation Chest x-ray Status: image reviewed by me, report reviewed by me FMR H&P: A/P - Problem List (1) Septic shock Current Visit: Yes Status: Acute Code(s): A41.9 - SEPSIS, UNSPECIFIED ORGANISM; R65.21 - SEVERE SEPSIS WITH SEPTIC SHOCK (2) Hyperkalemia Current Visit: Yes Status: Acute Code(s): E87.5 - HYPERKALEMIA (3) Lactic acidosis Current Visit: Yes Status: Acute Code(s): E87.2 - ACIDOSIS (4) MARIO (acute kidney injury) Current Visit: Yes Status: Acute Code(s): N17.9 - ACUTE KIDNEY FAILURE, UNSPECIFIED (5) Pressure ulcer Current Visit: Yes Status: Acute Code(s): L89.90 - PRESSURE ULCER OF UNSPECIFIED SITE, UNSPECIFIED STAGE (6) Diabetes mellitus type 2, insulin dependent Current Visit: No Status: Chronic Code(s): E11.9 - TYPE 2 DIABETES MELLITUS WITHOUT COMPLICATIONS; Z79.4 - LOSS CONTROL REPRESENTATIVE (CURRENT) USE OF INSULIN (7) HTN (hypertension) Current Visit: No Status: Chronic Code(s): I10 - ESSENTIAL (PRIMARY) HYPERTENSION Qualifiers: Hypertension type: essential hypertension Qualified Code(s): I10 - Essential (primary) hypertension (8) Mental retardation Current Visit: Yes Status: Acute Code(s): F79 - UNSPECIFIED INTELLECTUAL DISABILITIES (9) Chlamydial conjunctivitis Current Visit: Yes Status: Acute Code(s): A74.0 - CHLAMYDIAL CONJUNCTIVITIS (10) Seborrheic dermatitis Current Visit: Yes Status: Acute Code(s): L21.9 - SEBORRHEIC DERMATITIS, UNSPECIFIED - Plan 62 yo M with admitted for septic shock Septic shock 2/2 to UTI -likely source is UTI, confirmed with UA. Has a recent history of hospitalization for UTI -s/p vanc, levaquin and cefepime in ED. Will continue cefepime with blood Cx and urine cx pending. -procalcitonin wnl -CXR was negative for acute pulm. processes, other sources to consider is sacral /left buttock ulcer. Prior records show wound culture + for multiple organisms, but all senstive to vancomyin. Will continue vanc., can consider consulting wound care -Currently patient is stable at this time, GCS 9 at time of admission. Will admit to CCU to continue vasopressors. Will consult pulmonology in AM. Hyperkalemia, now resolved -K+ of 6.4 in ED, s/p calcium gluconate, sodium bicarb, 10 units insulin/d50 -Repeat BMP shows K+ at 4.2, recheck BMP in AM Lactic acidosis 2/2 UTI -LA 3.2, repeat lactic acid -expect to resolve with adqequate vasopressor support and treatment of UTI MARIO 2/2 end organ damage from septic shock -mIVF with LR@ 150 -Repeat BMP Seizure disorder -Pt. recently had depakote inc. to 1250mg BID -Depakote level within therapeutic range -Continue on home meds Hypothyroidism -TSH wnl, continue home meds IDDM -Hyperglycemia on admission with POC in 200s. Will continue SSI and accuchecks q2 Chronic microcytic anemia -Aware, patient stable with no signs of active bleeding. Continue to monitor with daily CBC Mental retardation -aware, no mgmt at this time Seborrheic dermatitis -aware, no mgmt at this time FMR H&P: Upper Level - Pertinent history 62 yo CM with a PMH of MR, HTN, IDDM2, recent treatment for c diff, and left buttock pressure ulcer presenting from [facility] for altered mental status , hypotension, fever, and tachycardia. EMS reports initial SBP in 70s. Please see plan for ER interventions. Pt's sister who is MPOA seen at bedside but has not visited patient in quite some time and states his mental status is near baseline. She knows he was recently treated for c diff with vancomycin but otherwise reports no problems or concerns. Further history unobtainable from patient. - Pertinent findings Vitals: BP 101/55 on levophed 13 mcg/min, HR 99, R 17, O2 99% on RA, Tmax 101.8 , wt 95kg Gen: well nourished in NAD, not communicative CV: tachycardic, regular rhythm, good S1, S2 Resp: good effort, no respiratory distress, CTAB Abd: BS+, soft, NTTP, no guarding, no rebound Skin: psoriatic changes to face, pressure ulcer to left buttock Neuro: GCS 12 (E3V3M6), PERRL, tone at baseline per sister EKG: sinus tachycardia 114, no ST changes, 1 isolated peaked T wave in V3 CXR: no acute process - Plan Date/Time: 11/28/172020 I, Andrés Stanley MD PGY3, have evaluated this patient and agree with findings/ plan as outlined by internet assessor resident. Pertinent changes/additions are listed here. 1. Septic shock likely secondary to UTI -Pt presented from [facility] with AMS, hypotension, tachycardia, and fever. Initial evaluation in ER revealed BP 86/51. Pt was adequately resuscitated with 3L NS, however, SBPs remained 60-70, lowest recorded 53/33 with MAP consistently <65. Pt had left subclavian CVC placed in ER and was started on levophed at that time. Vitals have responded well and MAP just above 65 at time of exam with levophed running at 13 mcg/min. -Initial evaluation revealed UTI as likely source with LE, WBC, and bacteria on UA. Blood and urine cultures obtained. Pt received vancomycin 1g, cefepime 2g, and levaquin 750mg. CXR showed no acute process. -Of note, pt was recently treated for clostridium difficile with 10 day course of PO vancomycin that was started on 11/09/17. Reports reveal diarrhea has resolved. -Pt also noted to have an unstageable left buttock pressure ulcer that could potentially be a source of infection. Review of previous wound, urine, and blood cultures reveal multiple bacteria but sensitive to vancomycin and cefepime , will continue at this time. -Admit to CCU for continued vasopressor support with goal MAP>65 and wean as tolerated. -Initial lactic acid 3.2. Procalcitonin and repeat lactic acid pending. -Pt is stable at this time and protecting airway, will plan on consulting pulmonology in AM. -Pt currently NPO awaiting speech evaluation. 2. Hyperkalemia in setting of IDDM2 -Potassium on presentation was 6.4. No EKG changes appreciated. -Pt received 1 amp of calcium gluconate, 1 amp of sodium bicarbonate, 10 units of humulin R, and 1 amp of D50. -Repeat BMP reveals K of 4.2. -CCU electrolyte protocol, plan to repeat BMP in AM. 3. Lactic acidosis secondary to #1 -Plan per above with IVF, repeat lactic acid pending. 4. MARIO likely secondary to #1 -Continue pt on mIVF with LR@150 -Repeat BMP also shows improvement in Cr and GFR -Continue to trend with AM BMP. 5. Left buttock pressure ulcer -Wound care consulted, appreciate assistance -Abx per above -Previous cultures revealed Proteus, MSSA, and Enterococcus. 6. Seizure disorder -Pt recently had depakote increased to 1250 mg BID -Check depakote level to ensure therapeutic range -Consideration for cause of AMS 7. Hypothyroidism -Potential cause of AMS, check TSH. 8. Chronic normocytic anemia -Stable, continue to monitor. 9. IDDM2 -Will initially proceed with accuchecks q2hr and space out if normalizing. -SSI. 10. Hx of HTN 11. Hx of MR CODE status: FULL, discussed with sister who is MPOA at bedside. disposition: Admit patient under inpatient status to CCU for anticipated length of stay greater than two midnights. Continue to monitor closely. Discussed case with admitting attending Dr. Ovidio Waldron.
[2017-11-28 20:35] LABS: Lactic Acid 1.5 mmol/L (0.5-2.2)
[2017-11-28] MEDS ORDERED: Dextrose 50% Abboject 50 ML SYRINGE SLOW IVP PRN (22:05)
[2017-11-28] MEDS ORDERED: Acetaminophen 650 MG Suppository PR PRN (22:05)
[2017-11-28] MEDS ORDERED: CCU Electrolyte Replacement 1 EACH FS SCH (22:05)
[2017-11-28] MEDS ORDERED: Norepinephrine 8 MG/0.9% NS 250 ML IVPB SCH (22:05)
[2017-11-28] MEDS ORDERED: Ondansetron HCl/PF 4 MG/2 ML Vial IVP PRN (22:05)
[2017-11-28] MEDS ORDERED: Dextrose 5% in Water 1,000 ML IV PRN (22:05)
[2017-11-28] MEDS ORDERED: HumaLOG 300 UNITS/3 ML VIAL SC PRN ×2 (22:05)
[2017-11-28 22:17] VITALS: BMI 23.5
[2017-11-28] MEDS ORDERED: Potassium Chloride 40 MEQ in Sodium Chloride 0.9% 250 ML 250 ML IVPB PRN (22:25)
[2017-11-28] MEDS ORDERED: Potassium Phosphate 9 MMOL in Sodium Chloride 0.9% 100 ML IVPB PRN (22:25)
[2017-11-28] MEDS ORDERED: CCU ELECTROLYTE REPLACEMENT PROTOCOL FS PRN (22:25)
[2017-11-28] MEDS ORDERED: Potassium Chloride 40 MEQ in Premix Bag 1 BAG IVPB PRN (22:25)
[2017-11-28] MEDS ORDERED: Magnesium 2 GM/NS 0.9% 100 ML 2 GM in Premix Bag 1 BAG IVPB PRN (22:25)
[2017-11-28] MEDS ORDERED: Potassium Phosphate 12 MMOL in Sodium Chloride 0.9% 250 ML 250 ML IV PRN (22:25)
[2017-11-28] MEDS ORDERED: Potassium Chloride 20 MEQ TAB PO PRN (22:25)
[2017-11-28] MEDS ORDERED: Potassium Phosphate 15 MMOL in Sodium Chloride 0.9% 250 ML 250 ML IV PRN (22:25)
[2017-11-28] MEDS ORDERED: Magnesium Oxide 400 MG TAB PO PRN ×2 (22:25)
[2017-11-28] MEDS ORDERED: Famotidine/PF 20 mg/2ml Vial SLOW IVP SCH (22:30)
[2017-11-28 22:32] LABS: Magnesium 2.2 mg/dL (1.6-2.6); Phosphorus 3.2 mg/dL (2.3-4.7); Valproic Acid (Depakene) 37.5 ug/mL (50.0-100.0)
[2017-11-28] MEDS: Lactated Ringer's 1,000 ML IV SCH (22:35)
[2017-11-28 23:44] LABS: Thyroid Stimulating Hormone 2.2043 uIU/mL (0.35-4.94)
[2017-11-29] MEDS ORDERED: Lactated Ringer's 1,000 ML IV SCH (01:15)
[2017-11-29 04:56] LABS: #Basophils 0.1 thou/uL (0.0-0.2); #Lymphocytes 2.2 thou/uL (1.20-3.40); #Monocytes 1.6 thou/uL (0.11-0.59); #Neutrophils 7.6 thou/uL (1.40-6.50); %Basophils 0.5 % (0.0-1.0); %Eosinophils 0.4 % (0.0-10.0); %Monocytes 13.6 % (0.0-10.0); %Neutrophils 66.4 % (42.0-75.0); Hemoglobin 9.5 g/dL (14.0-18.0); Mean Corpuscular HGB CONC 33.7 g/dL (32.0-36.0); Mean Corpuscular Hemoglobin 29.5 pg (27.0-31.0); Mean Corpuscular Volume 87.7 fL (78.0-98.0); Mean Platelet Volume 6.2 fL (7.4-10.4); Platelet Count 149 thou/uL (130-400); RBC Distribution Width 14.5 % (11.5-14.5); Red Blood Cell (RBC) Count 3.22 mill/uL (4.70-6.10); White Blood Cell (WBC) Count 11.4 thou/uL (4.8-10.8)
[2017-11-29] MEDS: Vancomycin HCl 1 GM in Premix Bag 1 BAG IVPB SCH ×2 (05:33→17:56)
[2017-11-29] MEDS: Lactated Ringer's 1,000 ML IV SCH ×4 (05:34→23:35)
[2017-11-29 06:01] LABS: Anion Gap 10 mmol/L (10-20); BUN (Urea Nitrogen) 23 mg/dL (8.4-25.7); Calc. Creatinine Clearance 106 mL/min (70-130); Calcium 9.2 mg/dL (7.8-10.44); Carbon Dioxide 28 mmol/L (23-31); Chloride 103 mmol/L (98-107); Estimated GFR-MDRD Greater than 90; Glucose 109 mg/dL (80-115); Potassium 4.5 mmol/L (3.5-5.1); Sodium 136 mmol/L (136-145)
--- NOTE | 2017-11-29 06:13 | PDOC.FM ---
- Subjective Subjective: Patient unable to give much history due to MR. Lying in bed comfortably in NAD. Denies any pain at this time. When asked what his name is he pointed to his bracelet. Per the nurse, he had no problems overnight. He was able to be weaned off of levophed at 0300 this AM. - Objective MAR Reviewed: Yes Vital Signs & Weight: Vital Signs (12 hours) Temp Pulse Resp Pulse Ox 11/29/17 04:00 97.9 F 11/29/17 00:00 98.1 F 11/28/17 22:05 99 11/28/17 22:00 97.6 F 11/28/17 21:30 97.6 F 86 15 100 Weight Weight 74.3 kg Most Recent Monitor Data Heart Rate from ECG 93 NIBP 107/69 NIBP BP-Mean 77 Respiration from ECG 17 SpO2 97 I&O: 11/27/17 11/28/17 11/29/17 06:59 06:59 06:59 Intake Total 1113.7 Output Total 865 Balance 248.7 Result Diagrams: 11/29/17 04:00 11/29/17 04:00 <Daphne Jeffery - Last Filed: 11/29/17 06:10> - Objective Vital Signs & Weight: Vital Signs (12 hours) Temp Pulse Resp 11/29/17 08:00 97.9 F 95 17 11/29/17 07:00 97.9 F 11/29/17 04:00 97.9 F 11/29/17 00:00 98.1 F Weight Weight 74.3 kg Most Recent Monitor Data Heart Rate from ECG 103 NIBP 139/75 NIBP BP-Mean 107 Respiration from ECG 15 SpO2 100 I&O: 11/28/17 11/29/17 11/30/17 06:59 06:59 06:59 Intake Total 1113.7 100 Output Total 865 180 Balance 248.7 -80 Result Diagrams: 11/29/17 04:00 11/29/17 04:00 <Donya Velazco - Last Filed: 11/29/17 11:05> Phys Exam - Physical Examination Constitutional: NAD (resting comfortably in bed on room air) cold appearing HEENT: moist MMs Neck: no nodes, supple Respiratory: no wheezing, no rales, no rhonchi, clear to auscultation bilateral Cardiovascular: RRR, no significant murmur, no rub Gastrointestinal: soft, non-tender, no distention, positive bowel sounds Musculoskeletal: no edema, pulses present Deviation from normal: MR, A&Ox1 Skin: normal turgor, cap refill <2 seconds <Daphne Jeffery - Last Filed: 11/29/17 06:10> Dx/Plan (1) Septic shock Code(s): A41.9 - SEPSIS, UNSPECIFIED ORGANISM; R65.21 - SEVERE SEPSIS WITH SEPTIC SHOCK Status: Acute (2) Urinary tract infection Status: Acute Qualifiers: Urinary tract infection type: acute cystitis Hematuria presence: with hematuria Qualified Code(s): N30.01 - Acute cystitis with hematuria (3) MARIO (acute kidney injury) Code(s): N17.9 - ACUTE KIDNEY FAILURE, UNSPECIFIED Status: Acute (4) Hyperkalemia Code(s): E87.5 - HYPERKALEMIA Status: Resolved (5) Lactic acidosis Code(s): E87.2 - ACIDOSIS Status: Resolved (6) Mental retardation Code(s): F79 - UNSPECIFIED INTELLECTUAL DISABILITIES Status: Acute (7) Pressure ulcer Code(s): L89.90 - PRESSURE ULCER OF UNSPECIFIED SITE, UNSPECIFIED STAGE Status : Acute Qualifiers: Pressure injury location: sacral region Pressure injury stage: unstageable Qualified Code(s): L89.150 - Pressure ulcer of sacral region, unstageable (8) Diabetes mellitus type 2, insulin dependent Code(s): E11.9 - TYPE 2 DIABETES MELLITUS WITHOUT COMPLICATIONS; Z79.4 - LONGTERM (CURRENT) USE OF INSULIN Status: Chronic (9) Seizure disorder Code(s): G40.909 - EPILEPSY, UNSP, NOT INTRACTABLE, WITHOUT STATUS EPILEPTICUS Status: Chronic - Plan Plan: Septic shock 2/2 to UTI UA showed large LE, >50WBC, 4+ bacteria, Large blood, 300 protein. Has a recent history of hospitalization for UTI as well as a h/o urinary retention 2/2 BPH. Initially hypotensive, tachycardic, tachypneic, and with WBC count of 16.5 and lactic acid of 3.2. Remained hypotensive despite fluid resuscitation with 3L NS. L subclavian central line placed in ED and pt was started on levophed. s/p vanc, levaquin and cefepime in ED. Other source to consider is sacral/left buttock ulcer. Prior records show wound culture + for multiple organisms, but all sensitive to vancomycin. -Continue cefepime and vanc -Blood Cx, Urine Cx -Consult wound care -LR @ 115 -Levophed was weaned off at 0300 this AM and BP's have been stable since that time. Hyperkalemia, resolved -K+ of 6.4 in ED (hemolyzed specimen), s/p calcium gluconate, sodium bicarb, 10 units insulin/d50 -Repeat BMP shows K+ at 4.2, recheck BMP in AM Lactic acidosis 2/2 UTI, resolved -LA 3.2, trended down to 1.5 s/p fluids MARIO -LR @ 115 -Monitor Seizure disorder -Pt recently had depakote increased -Continue on home meds Hypothyroidism -TSH wnl, continue home meds IDDM2 -Hyperglycemia on admission with POC in 200s. -Will continue SSI and accuchecks q4h Chronic microcytic anemia -Patient stable with no signs of active bleeding. -Continue to monitor with daily CBC Mental retardation -Sister is MPOA Lines/tubes: L subclavian CVC day 2, Bran day 2 GI ppx: Famotidine VTE ppx: Lovenox Code Status: Full Dispo: consider transfer to [facility] vs tele this PM if BP's remain stable <Daphne Jeffery - Last Filed: 11/29/17 06:10> Attending Addendum - Attending Addendum Date/Time: 11/29/17 1100 I personally evaluated the patient and discussed the management with Dr. Jeffery. I agree with the History, Examination, Assessment and Plan documented above with any addition or exceptions noted below- Patient denies any complaints. Afebrile BP 139/75 P 103 RR15 A/P: 1) Septic shock- resolved; off pressors and BP stable. 2) Sepsis secondary to UTI- continue current abx; urine and blood cultures pending. 3) MARIO- resolved. 4) DM- resume diet and home meds. 5) Seizure d/o - continue home meds. <Donya Velazco - Last Filed: 11/29/17 11:05>
[2017-11-29] MEDS ORDERED: Albuterol Sulfate 2.5 mg/3 ml Neb NEB PRN (06:35)
[2017-11-29 06:43] LABS: CKMB 5.4 ng/mL (0-6.6); Troponin I Less than 0.010 ng/mL (< 0.028)
[2017-11-29] MEDS ORDERED: Levothyroxine Sodium 100 MCG TAB PO SCH (07:15)
[2017-11-29] MEDS ORDERED: Cefepime 1 GM in Sodium Chloride 0.9% 100 ML IVPB SCH ×2 (09:00→11:00)
[2017-11-29] MEDS: Famotidine/PF 20 mg/2ml Vial SLOW IVP SCH ×2 (09:59→20:58)
[2017-11-29] MEDS: Docusate 100 MG CAP PO SCH (09:59)
[2017-11-29] MEDS: Erythromycin Base 0.5% Oint 1 GM TUBE L EYE SCH ×4 (09:59→21:03)
[2017-11-29] MEDS: Divalproex Sodium DR 500 MG TAB PO SCH ×2 (09:59→20:54)
[2017-11-29] MEDS: Enoxaparin Sodium 40 MG/0.4 ML SYRINGE SC SCH (10:00)
--- NOTE | 2017-11-29 10:36 | CON ---
DATE OF CONSULTATION: 11/29/2017 REASON FOR CONSULTATION: ICU placement and septic shock. HISTORY OF PRESENT ILLNESS: This is a 62-year-old male, who was brought in last night from the [facility] with septic shock. He was febrile and tachycardic and his blood pressure was as low as 60/40 . He was appropriately fluid resuscitated. He had a left subclavian central line placed and he was briefly on Levophed and that has now been weaned off. PAST MEDICAL HISTORY: 1. Mental retardation. 2. Recent Clostridium difficile colitis. 3. Diabetes mellitus, type 2. 4. Peripheral neuropathy. 5. Seizure disorder. 6. Hypothyroidism. 7. Hypotension. 8. Gastroesophageal reflux. PAST SURGICAL HISTORY: Dorsal slit for phimosis, ureteral dilatation of stricture. FAMILY MEDICAL HISTORY: Unknown. SOCIAL HISTORY: Does not abuse substances. Lives in a prison. REVIEW OF SYSTEMS: Cannot be obtained secondary to patient's mental status. MEDICATIONS PRIOR TO ADMISSION: Reviewed. Significant medications include folate, furosemide, NovoL og insulin, levothyroxine, lisinopril, albuterol, Depakote, Neurontin, ranitidine, Crestor, Flomax, J anuvia, acarbose, Keflex, finasteride, tamsulosin. PHYSICAL EXAMINATION: VITAL SIGNS: Temperature 97.9, pulse 93, blood pressure 107/69, O2 sat 97%, respiratory rate 17, int leopoldo since admission 1113 mL, output 865 mL, weight 163 pounds. GENERAL: He is awake. He is communicative. HEENT EXAM: Remarkable for some seborrheic changes on his cheeks. NECK: Without JVD. LUNGS: Clear without wheezing or rhonchi. CARDIAC: S1 and S2, regular. A 2/6 systolic murmur at the left sternal border. ABDOMEN: Soft, protuberant. GENITOURINARY: He has a Bran catheter in. EXTREMITIES: Without clubbing, cyanosis, or edema. He has an unstageable ulcer in the sacrum. LABORATORY AND X-RAY FINDINGS: White blood cell count 11.4, hematocrit 28.2, platelet count 149. So dium 136, potassium 4.5, chloride 103, CO2 of 28, BUN 23, creatinine 0.7, glucose 126. Troponin 0.01 . Cortisol 11.5. Urinalysis showed numerous red blood cells, too numerous to count white blood cell s. He had proteinuria. Valproic acid level was 37.5, which is below therapeutic range. Chest x-ray demonstrated no evidence of mass, effusion, or infiltrate. ASSESSMENT: 1. Septic shock. The likely source is urosepsis. Also, has a sacral decubitus ulcer that needs to be considered. 2. Inappropriately low cortisol for septic shock, which could indicate that he has relative adrenal insufficiency. 3. Anemia. 4. Mental retardation. 5. History of multiple medical problems as listed above including diabetes mellitus. PLAN: 1. The patient's blood pressure is now normalized. He is off vasopressors. I agree that he can be transferred out to the floor for continued antibiotic therapy. 2. ACTH stim test should be considered. 3. Agree with other aspects of medical care.
[2017-11-29] MEDS ORDERED: Cosyntropin 250 MCG VIAL SLOW IVP SCH (10:45)
[2017-11-29] MEDS ORDERED: Cefepime 2 GM in Sodium Chloride 0.9% 100 ML IVPB SCH (11:00)
[2017-11-29] MEDS ORDERED: Acetaminophen 325 MG TAB PO PRN (11:50)
[2017-11-29] MEDS: Ondansetron ODT 4 MG TAB SL SCH (20:56)
[2017-11-29] MEDS: Cefepime 2 GM in Sodium Chloride 0.9% 100 ML IVPB SCH (23:34)
[2017-11-30] MEDS: Erythromycin Base 0.5% Oint 1 GM TUBE L EYE SCH ×6 (01:03→21:03)
[2017-11-30 05:35] LABS: #Eosinphils 0.1 thou/uL (0.0-0.7); #Lymphocytes 2.9 thou/uL (1.20-3.40); #Monocytes 0.7 thou/uL (0.11-0.59); #Neutrophils 4.2 thou/uL (1.40-6.50); %Basophils 0.1 % (0.0-1.0); %Eosinophils 1.7 % (0.0-10.0); %Lymphocytes 36.5 % (21.0-51.0); %Monocytes 9.1 % (0.0-10.0); %Neutrophils 52.6 % (42.0-75.0); Hemoglobin 8.6 g/dL (14.0-18.0); Mean Corpuscular Hemoglobin 28.8 pg (27.0-31.0); Mean Corpuscular Volume 87.1 fL (78.0-98.0); Mean Platelet Volume 6.1 fL (7.4-10.4); Platelet Count 120 thou/uL (130-400); RBC Distribution Width 14.5 % (11.5-14.5); Red Blood Cell (RBC) Count 2.98 mill/uL (4.70-6.10)
[2017-11-30 05:52] LABS: Vancomycin, Trough 16.1 ug/mL
[2017-11-30 05:53] LABS: Anion Gap 13 mmol/L (10-20); BUN (Urea Nitrogen) 18 mg/dL (8.4-25.7); Calc. Creatinine Clearance 106 mL/min (70-130); Calcium 8.7 mg/dL (7.8-10.44); Carbon Dioxide 24 mmol/L (23-31); Chloride 104 mmol/L (98-107); Estimated GFR-MDRD Greater than 90; Glucose 121 mg/dL (80-115); Potassium 4.5 mmol/L (3.5-5.1); Sodium 136 mmol/L (136-145)
[2017-11-30] MEDS: Vancomycin HCl 1 GM in Premix Bag 1 BAG IVPB SCH (06:00)
[2017-11-30] MEDS: Levothyroxine Sodium 100 MCG TAB PO SCH (06:00)
--- NOTE | 2017-11-30 06:30 | PDOC.FM ---
- Subjective Subjective: Patient sleeping comfortably. Denies any pain, N/V, fevers, chills. He reports that he is tolerating food without difficulty. - Objective MAR Reviewed: Yes Vital Signs & Weight: Vital Signs (12 hours) Temp Pulse Resp BP Pulse Ox 11/30/17 04:00 98.4 F 101 H 18 94/59 L 97 11/30/17 00:00 98.0 F 94 18 101/62 94 L 11/29/17 20:00 98.6 F 101 H 18 11/29/17 19:27 98.6 F 101 H 18 113/74 96 Weight Admit Weight 73.936 kg Weight 74.3 kg Most Recent Monitor Data Heart Rate from ECG 107 NIBP 116/78 NIBP BP-Mean 88 Respiration from ECG 16 SpO2 97 I&O: 11/28/17 11/29/17 11/30/17 06:59 06:59 06:59 Intake Total 1113.7 1437 Output Total 865 1730 Balance 248.7 -293 Result Diagrams: 11/30/17 05:18 11/30/17 05:18 <Daphne Jeffery - Last Filed: 11/30/17 06:28> - Objective Vital Signs & Weight: Vital Signs (12 hours) Temp Pulse Resp BP Pulse Ox 11/30/17 07:37 96.8 F L 91 16 110/68 99 11/30/17 04:00 98.4 F 101 H 18 94/59 L 97 11/30/17 00:00 98.0 F 94 18 101/62 94 L Weight Admit Weight 73.936 kg Weight 74.3 kg Most Recent Monitor Data Heart Rate from ECG 107 NIBP 116/78 NIBP BP-Mean 88 Respiration from ECG 16 SpO2 97 I&O: 11/29/17 11/30/17 12/01/17 06:59 06:59 06:59 Intake Total 1113.7 1437 240 Output Total 865 1730 Balance 248.7 -293 240 Result Diagrams: 11/30/17 05:18 11/30/17 05:18 <Donya Velazco - Last Filed: 11/30/17 10:16> Phys Exam - Physical Examination Constitutional: NAD HEENT: moist MMs L eye with tearing and matting Respiratory: no wheezing, no rales, no rhonchi, clear to auscultation bilateral Cardiovascular: RRR, no significant murmur, no rub Gastrointestinal: soft, non-tender, no distention, positive bowel sounds Musculoskeletal: no edema, pulses present Neurological: non-focal, moves all 4 limbs Skin: normal turgor, cap refill <2 seconds Deviation from normal: reported unstageable sacral ulcer <Daphne Jeffery - Last Filed: 11/30/17 06:28> Dx/Plan (1) Septic shock Code(s): A41.9 - SEPSIS, UNSPECIFIED ORGANISM; R65.21 - SEVERE SEPSIS WITH SEPTIC SHOCK Status: Acute (2) Urinary tract infection Status: Acute Qualifiers: Urinary tract infection type: acute cystitis Hematuria presence: with hematuria Qualified Code(s): N30.01 - Acute cystitis with hematuria (3) MARIO (acute kidney injury) Code(s): N17.9 - ACUTE KIDNEY FAILURE, UNSPECIFIED Status: Resolved (4) Hyperkalemia Code(s): E87.5 - HYPERKALEMIA Status: Resolved (5) Lactic acidosis Code(s): E87.2 - ACIDOSIS Status: Resolved (6) Mental retardation Code(s): F79 - UNSPECIFIED INTELLECTUAL DISABILITIES Status: Acute (7) Pressure ulcer Code(s): L89.90 - PRESSURE ULCER OF UNSPECIFIED SITE, UNSPECIFIED STAGE Status : Acute Qualifiers: Pressure injury location: sacral region Pressure injury stage: unstageable Qualified Code(s): L89.150 - Pressure ulcer of sacral region, unstageable (8) Diabetes mellitus type 2, insulin dependent Code(s): E11.9 - TYPE 2 DIABETES MELLITUS WITHOUT COMPLICATIONS; Z79.4 - [employer] (CURRENT) USE OF INSULIN Status: Chronic (9) Seizure disorder Code(s): G40.909 - EPILEPSY, UNSP, NOT INTRACTABLE, WITHOUT STATUS EPILEPTICUS Status: Chronic - Plan Plan: Septic shock 2/2 to UTI UA showed large LE, >50WBC, 4+ bacteria, Large blood, 300 protein and is growing presumptive E. coli. Has a recent history of hospitalization for UTI as well as a h/o urinary retention 2/2 BPH. Initially hypotensive, tachycardic, tachypneic, and with WBC count of 16.5 and lactic acid of 3.2. Remained hypotensive despite fluid resuscitation with 3L NS. L subclavian central line placed in ED and pt was started on levophed. s/p vanc, levaquin and cefepime in ED. Other source to consider is sacral/left buttock ulcer. Prior records show wound culture + for multiple organisms, but all sensitive to vancomycin. -Continue cefepime and vanc, will tailor abx when sensitivities result -Blood Cx, Urine Cx -Consulted wound care -LR @ 115 -BP's have been stable off levophed for 24 hours, will d/c central line Hyperkalemia, resolved K+ of 6.4 in ED (hemolyzed specimen), s/p calcium gluconate, sodium bicarb, 10 units insulin/d50 in ED -Repeat K was WNL Lactic acidosis 2/2 UTI, resolved -LA 3.2, trended down to 1.5 s/p fluids MARIO, resolved -LR @ 115 -Monitor Seizure disorder -Pt recently had depakote increased -Continue on home meds Hypothyroidism -TSH wnl, continue home meds IDDM2 -Hyperglycemia on admission with POC in 200s. -Will continue SSI and accuchecks ACHS Chronic microcytic anemia -Patient stable with no signs of active bleeding. -Continue to monitor with daily CBC Mental retardation -Sister is MPOA Lines/tubes: L subclavian CVC day 3, Bran day 3 GI ppx: Famotidine VTE ppx: Lovenox Code Status: Full Dispo: d/c once sensitivities result from urine culture <Daphne Jeffery - Last Filed: 11/30/17 06:28> Attending Addendum - Attending Addendum Date/Time: 11/30/17 1013 I personally evaluated the patient and discussed the management with Dr. Jeffery I agree with the History, Examination, Assessment and Plan documented above with any addition or exceptions noted below- Pateint awake/alert. Afebrile VSS. A/P: 1) Sepsis secondary to E.coli UTI- continue IV abx for additional day and most likely transition to po tomorrow. 2) DM- stable; continue current meds. D/ c central line today if able to get peripheral access. <Donya Velazco - Last Filed: 11/30/17 10:16>
[2017-11-30] MEDS: Lactated Ringer's 1,000 ML IV SCH ×2 (08:47→16:27)
[2017-11-30] MEDS: Enoxaparin Sodium 40 MG/0.4 ML SYRINGE SC SCH (08:47)
[2017-11-30] MEDS: Famotidine/PF 20 mg/2ml Vial SLOW IVP SCH ×2 (08:48→21:03)
[2017-11-30] MEDS: Ondansetron ODT 4 MG TAB SL SCH ×2 (08:48→21:02)
[2017-11-30] MEDS: Docusate 100 MG CAP PO SCH (08:48)
[2017-11-30] MEDS: Divalproex Sodium DR 500 MG TAB PO SCH ×2 (08:57→21:02)
[2017-11-30] MEDS: Cefepime 2 GM in Sodium Chloride 0.9% 100 ML IVPB SCH ×2 (10:56→22:28)
--- NOTE | 2017-11-30 14:51 | EKG ---
Test Reason : Blood Pressure : / mmHG Vent. Rate : 114 BPM Atrial Rate : 114 BPM P-R Int : 146 ms QRS Dur : 070 ms QT Int : 336 ms P-R-T Axes : 045 013 044 degrees QTc Int : 463 ms Sinus tachycardia Low voltage QRS Borderline ECG Confirmed by DAVIS BUITRAGO ([id number]), science editor TESFAYE PIEDRA ([id number]) on 11/30/2017 2:51:16 PM Referred By: Confirmed By:DAVIS BUITRAGO
[2017-12-01] MEDS: Erythromycin Base 0.5% Oint 1 GM TUBE L EYE SCH ×4 (01:30→13:48)
[2017-12-01] MEDS: Lactated Ringer's 1,000 ML IV SCH (01:30)
[2017-12-01 04:54] LABS: #Eosinphils 0.2 thou/uL (0.0-0.7); #Lymphocytes 2.6 thou/uL (1.20-3.40); #Monocytes 0.7 thou/uL (0.11-0.59); #Neutrophils 3.4 thou/uL (1.40-6.50); %Basophils 0.1 % (0.0-1.0); %Eosinophils 2.9 % (0.0-10.0); %Monocytes 10.3 % (0.0-10.0); %Neutrophils 48.8 % (42.0-75.0); Hemoglobin 8.1 g/dL (14.0-18.0); Mean Corpuscular HGB CONC 33.4 g/dL (32.0-36.0); Mean Corpuscular Hemoglobin 29.4 pg (27.0-31.0); Mean Corpuscular Volume 87.8 fL (78.0-98.0); Mean Platelet Volume 6.4 fL (7.4-10.4); Platelet Count 136 thou/uL (130-400); RBC Distribution Width 14.5 % (11.5-14.5); Red Blood Cell (RBC) Count 2.77 mill/uL (4.70-6.10); White Blood Cell (WBC) Count 6.9 thou/uL (4.8-10.8)
[2017-12-01 05:13] LABS: Anion Gap 12 mmol/L (10-20); BUN (Urea Nitrogen) 17 mg/dL (8.4-25.7); Calc. Creatinine Clearance 115 mL/min (70-130); Calcium 8.4 mg/dL (7.8-10.44); Carbon Dioxide 25 mmol/L (23-31); Chloride 103 mmol/L (98-107); Estimated GFR-MDRD Greater than 90; Glucose 155 mg/dL (80-115); Potassium 4.1 mmol/L (3.5-5.1); Sodium 136 mmol/L (136-145)
[2017-12-01] MEDS: Levothyroxine Sodium 100 MCG TAB PO SCH (05:28)
--- NOTE | 2017-12-01 06:25 | PDOC.FM ---
- Subjective Subjective: Patient resting comfortably, denies any complaints. Reports that he is eating and drinking well. He denies any abdominal pain, fevers, chills. The nurse denies any issues overnight. - Objective MAR Reviewed: Yes Vital Signs & Weight: Vital Signs (12 hours) Temp Pulse Resp BP Pulse Ox 11/30/17 20:00 98.1 F 88 16 11/30/17 19:53 98.1 F 88 16 109/65 96 Weight Admit Weight 73.936 kg Weight 74.3 kg Most Recent Monitor Data Heart Rate from ECG 107 NIBP 116/78 NIBP BP-Mean 88 Respiration from ECG 16 SpO2 97 I&O: 11/29/17 11/30/17 12/01/17 06:59 06:59 06:59 Intake Total 1113.7 1437 720 Output Total 865 1730 650 Balance 248.7 -293 70 Result Diagrams: 12/01/17 04:07 12/01/17 04:07 <Daphne Jeffery - Last Filed: 12/01/17 06:22> - Objective Vital Signs & Weight: Vital Signs (12 hours) Temp Pulse Resp BP Pulse Ox 12/01/17 08:00 98.0 F 78 16 102/61 97 Weight Admit Weight 73.936 kg Weight 74.3 kg Most Recent Monitor Data Heart Rate from ECG 107 NIBP 116/78 NIBP BP-Mean 88 Respiration from ECG 16 SpO2 97 I&O: 11/30/17 12/01/17 12/02/17 06:59 06:59 06:59 Intake Total 1437 2400 360 Output Total 1730 1550 Balance -293 850 360 Result Diagrams: 12/01/17 04:07 12/01/17 04:07 <Donya Velazco - Last Filed: 12/01/17 09:48> Phys Exam - Physical Examination Constitutional: NAD HEENT: moist MMs L eye with tearing and matting Respiratory: no wheezing, no rales, no rhonchi, clear to auscultation bilateral Cardiovascular: RRR, no significant murmur, no rub Gastrointestinal: soft, non-tender, no distention, positive bowel sounds Musculoskeletal: no edema, pulses present Neurological: non-focal, moves all 4 limbs Skin: normal turgor, cap refill <2 seconds <Daphne Jeffery - Last Filed: 12/01/17 06:22> Dx/Plan (1) Septic shock Code(s): A41.9 - SEPSIS, UNSPECIFIED ORGANISM; R65.21 - SEVERE SEPSIS WITH SEPTIC SHOCK Status: Acute (2) Urinary tract infection Status: Acute Qualifiers: Urinary tract infection type: acute cystitis Hematuria presence: with hematuria Qualified Code(s): N30.01 - Acute cystitis with hematuria (3) MARIO (acute kidney injury) Code(s): N17.9 - ACUTE KIDNEY FAILURE, UNSPECIFIED Status: Resolved (4) Hyperkalemia Code(s): E87.5 - HYPERKALEMIA Status: Resolved (5) Lactic acidosis Code(s): E87.2 - ACIDOSIS Status: Resolved (6) Mental retardation Code(s): F79 - UNSPECIFIED INTELLECTUAL DISABILITIES Status: Acute (7) Pressure ulcer Code(s): L89.90 - PRESSURE ULCER OF UNSPECIFIED SITE, UNSPECIFIED STAGE Status : Acute Qualifiers: Pressure injury location: sacral region Pressure injury stage: unstageable Qualified Code(s): L89.150 - Pressure ulcer of sacral region, unstageable (8) Diabetes mellitus type 2, insulin dependent Code(s): E11.9 - TYPE 2 DIABETES MELLITUS WITHOUT COMPLICATIONS; Z79.4 - MCFP (CURRENT) USE OF INSULIN Status: Chronic (9) Seizure disorder Code(s): G40.909 - EPILEPSY, UNSP, NOT INTRACTABLE, WITHOUT STATUS EPILEPTICUS Status: Chronic - Plan Plan: Septic shock 2/2 to UTI UA showed large LE, >50WBC, 4+ bacteria, Large blood, 300 protein and grew E. coli. Has a recent history of hospitalization for UTI as well as a h/o urinary retention 2/2 BPH. Initially hypotensive, tachycardic, tachypneic, and with WBC count of 16.5 and lactic acid of 3.2. Remained hypotensive despite fluid resuscitation with 3L NS. L subclavian central line placed in ED and pt was started on levophed that has since been discontinued. s/p vanc, levaquin and cefepime in ED. -Will d/c IV abx today and switch to PO -Blood Cx, Urine Cx -d/c IVF Hyperkalemia, resolved K+ of 6.4 in ED (hemolyzed specimen), s/p calcium gluconate, sodium bicarb, 10 units insulin/d50 in ED -Repeat K was WNL Lactic acidosis 2/2 UTI, resolved -LA 3.2, trended down to 1.5 s/p fluids MARIO, resolved -Monitor Seizure disorder -Pt recently had depakote increased -Continue on home meds Hypothyroidism -TSH wnl, continue home meds IDDM2 -Hyperglycemia on admission with POC in 200s. -Will continue SSI and accuchecks ACHS Chronic microcytic anemia -Patient stable with no signs of active bleeding. -Continue to monitor with daily CBC Mental retardation -Sister is MPOA Lines/tubes: Bran day 4 GI ppx: Famotidine VTE ppx: Lovenox Code Status: Full Dispo: d/c back to NH on PO abx <Daphne Jeffery - Last Filed: 12/01/17 06:22> Attending Addendum - Attending Addendum Date/Time: 12/01/17 8619 I personally evaluated the patient and discussed the management with Dr. Jeffery I agree with the History, Examination, Assessment and Plan documented above with any addition or exceptions noted below- patient without complaints. Afebrile VSS. A/P: 1) Septic shock secondary to E.coli UTI- resolved. 2) Sepsis secondary to E. coli UTI- resolving; transition to po abx and D/c to NH today to complete abx course. 3) MARIO-resolved. 4) DM- stable. <Donya Velazco - Last Filed: 12/01/17 09:48>
[2017-12-01] MEDS: Famotidine/PF 20 mg/2ml Vial SLOW IVP SCH (07:50)
[2017-12-01] MEDS: Ondansetron ODT 4 MG TAB SL SCH (07:50)
[2017-12-01] MEDS: Enoxaparin Sodium 40 MG/0.4 ML SYRINGE SC SCH (07:50)
[2017-12-01] MEDS: Docusate 100 MG CAP PO SCH (07:51)
[2017-12-01] MEDS: Divalproex Sodium DR 500 MG TAB PO SCH (08:55)
[2017-12-01] MEDS: Cefepime 2 GM in Sodium Chloride 0.9% 100 ML IVPB SCH (11:07)
[2017-12-01 11:35] VITALS: BP 98/62; TEMP 97.6
--- NOTE | 2017-12-01 23:59 | DIS-2 ---
DATE OF ADMISSION: 11/28/2017 DATE OF DISCHARGE: 12/01/2017 ADMITTING ATTENDING: Ovidio Waldron M.D. DISCHARGE ATTENDING: Donya Velazco M.D. ADMITTING RESIDENT: Lucrecia Juan MD DISCHARGE RESIDENT: Daphne Jeffery MD CONSULTATIONS: Dr. Romo with Pulmonology. PROCEDURE: A left subclavian central line on 11/28/2017. PRIMARY DIAGNOSES: 1. Septic shock. 2. Urinary tract infection. 3. Hyperkalemia. 4. Lactic acidosis. 5. Acute kidney injury. SECONDARY DIAGNOSES: 1. Seizure disorder. 2. Hypothyroidism. 3. Insulin-dependent diabetes, type 2. 4. Chronic microcytic anemia. 5. Mental retardation. DISCHARGE MEDICATIONS: 1. Bactrim DS 1 p.o. b.i.d. for 7 days. 2. Albuterol sulfate 3 mL nebs q.4 hours p.r.n. shortness of breath or wheezing. 3. Depakote 1000 mg p.o. b.i.d. 4. Docusate 100 mg p.o. daily. 5. Erythromycin 0.5% ointment 1 gram in the left eye for 7 days. 6. Synthroid 100 mcg p.o. daily. 7. Acarbose 100 mg p.o. t.i.d. with meals. 8. Acyclovir 5% ointment, topical t.i.d. p.r.n. 9. Keflex 500 mg p.o. q.i.d. 10. Finasteride 5 mg p.o. daily. 11. Folic acid 0.8 mg p.o. daily. 12. Furosemide 10 mg p.o. daily. 13. Gabapentin 300 mg p.o. t.i.d. 14. NovoLog 20 units subcu t.i.d., with meals. 15. Lisinopril 20 mg p.o. at bedtime. 16. Loratadine 10 mg p.o. at bedtime, p.r.n. allergies. 17. Potassium chloride 20 mEq p.o. b.i.d. 18. Ranitidine 150 mg p.o. daily. 19. Rosuvastatin 10 mg p.o. at bedtime. 20. Januvia 100 mg p.o. daily. 21. Tamsulosin 0.8 mg p.o. at bedtime. DISCONTINUED MEDICATIONS: None. HISTORY OF PRESENT ILLNESS AND HOSPITAL COURSE: This is a 62-year-old male with past medical history of seizure disorder, mental retardation, who is a resident at [facility], who presented to the ER due to feeling woozy and was found to have a blood pressure of 60/40. He was found on present ation to the ER to be in septic shock with hypotension, tachycardia, tachypnea, fever. He had elevat ed white blood cell count to 16.5. The patient was fluid resuscitated, but remained hypotensive, so a left subclavian central line was placed and the patient was started on Levophed. The patient was a lso started on vancomycin and cefepime. The patient was found to have urinary tract infection with l eukocyte esterase, bacteria, white cells in his urine. The patient improved significantly after bein g started on antibiotics, fluids, and pressors. The patient was admitted to the ICU and monitored th ere. His Levophed was able to be weaned off by the next morning after his admission, and his blood p ressures remained stable. The patient remained afebrile the rest of his admission. His urine cultur e grew out E. coli, resistant only to ampicillin and nitrofurantoin. The patient was able to tolerat e p.o. and had good urine output. Patient's MARIO resolved and his lactic acidosis resolved. Patient will be discharged to the senior care on Bactrim for a 7-day course. DISPOSITION: Stable. DISCHARGE INSTRUCTIONS: 1. Location: To [facility]. 2. Diet: Diabetic diet. 3. Activity: As tolerated. 4. Followup: With Dr. Pettit within 3 days.
== END 2017-12-01 16:00 | DRG 871 ==
LOC: ERS 15:57 → CCU 21:31 → T4-B 11-29 13:11
PROVIDERS: ADMIT Family Medicine; ATTEND Family Medicine
PROC: 02HV33Z Insertion of Infusion Device into Superior Vena Cava, Percutaneous Approach (ICD-10-PCS; principal; 2017-11-28)
DX: A41.9 Sepsis, unspecified organism (principal); R65.21 Severe sepsis with septic shock; N39.0 Urinary tract infection, site not specified; E87.2 Acidosis; N17.9 Acute kidney failure, unspecified; E87.5 Hyperkalemia; G40.909 Epilepsy, unspecified, not intractable, without status epilepticus; Z79.4 Long term (current) use of insulin; D50.9 Iron deficiency anemia, unspecified; F79 Unspecified intellectual disabilities; E03.9 Hypothyroidism, unspecified; L89.150 Pressure ulcer of sacral region, unstageable; E11.622 Type 2 diabetes mellitus with other skin ulcer; E11.42 Type 2 diabetes mellitus with diabetic polyneuropathy; K21.9 Gastro-esophageal reflux disease without esophagitis; B96.20 Unspecified Escherichia coli [E. coli] as the cause of diseases classified elsewhere
CPT/HCPCS: 36415; 36416; 71045; 80048; 80053; 80164; 80202; 80400; 81003; 81015; 82533; 82553; 83605; 83735; 84100; 84145; 84443; 84484; 85025; 87040; 87077; 87086; 87149; 87186; 93005; 94760; A4216; G8978-GP-CN; G8979-GP-CL; G8987-GO-CM; G8988-GO-CM; G8989-GO-CM; G8996-GN-CK; G8997-GN-CK; J0692; J0834; J1650; J1815; J1956; J3370; J7050; Q0162; S0028

== ENCOUNTER 2017-12-14 15:41 | Emergency (ER) | payer MEDICARE, MEDICAID ==
[2017-12-14 17:18] LABS: CKMB 2.2 ng/mL (0-6.6); Troponin I Less than 0.010 ng/mL (< 0.028)
[2017-12-14 17:23] LABS: #Eosinphils 0.3 thou/uL (0.0-0.7); #Lymphocytes 3.8 thou/uL (1.20-3.40); #Monocytes 0.7 thou/uL (0.11-0.59); #Neutrophils 3.3 thou/uL (1.40-6.50); %Basophils 0.5 % (0.0-1.0); %Eosinophils 3.4 % (0.0-10.0); %Lymphocytes 46.7 % (21.0-51.0); %Monocytes 8.4 % (0.0-10.0); Hemoglobin 10.6 g/dL (14.0-18.0); Mean Corpuscular HGB CONC 33.9 g/dL (32.0-36.0); Mean Corpuscular Hemoglobin 30.4 pg (27.0-31.0); Mean Corpuscular Volume 89.6 fL (78.0-98.0); Mean Platelet Volume 6.9 fL (7.4-10.4); Platelet Count 163 thou/uL (130-400); RBC Distribution Width 14.9 % (11.5-14.5); Red Blood Cell (RBC) Count 3.48 mill/uL (4.70-6.10)
[2017-12-14 17:47] LABS: ALT (SGPT) 15 U/L (8-55); AST (SGOT) 30 U/L (5-34); Albumin 3.5 g/dL (3.4-4.8); Alkaline Phosphatase 69 U/L (40-150); Anion Gap 14 mmol/L (10-20); BUN (Urea Nitrogen) 24 mg/dL (8.4-25.7); Bilirubin, Total 0.2 mg/dL (0.2-1.2); Calc. Creatinine Clearance 0 mL/min (70-130); Calcium 9.2 mg/dL (7.8-10.44); Carbon Dioxide 25 mmol/L (23-31); Chloride 98 mmol/L (98-107); Estimated GFR-MDRD 89; Globulin 3.9 g/dL (2.4-3.5); Glucose 126 mg/dL (80-115); Magnesium 1.9 mg/dL (1.6-2.6); Potassium 4.9 mmol/L (3.5-5.1); Protein, Total 7.4 g/dL (5.8-8.1); Sodium 132 mmol/L (136-145)
--- NOTE | 2017-12-14 18:15 | RAD ---
SINGLE VIEW OF THE CHEST: 12/14/17 COMPARISON: 11/28/17 HISTORY: Hypertension. FINDINGS: Single view of the chest shows a normal sized cardiomediastinal silhouette. There is no evidence of c onsolidation, mass, or pleural effusion. Scoliotic curvature and degenerative changes are seen in the spine. IMPRESSION: No evidence of acute cardiopulmonary disease. POS: [facility]
[2017-12-14 19:04] LABS: Bilirubin Negative (Negative); Blood, Urine Negative (Negative); Clarity CLEAR (Clear); Glucose, Urine (Dipstick) Negative (Negative); Leukocyte Negative (Negative); Nitrite Negative (Negative); Protein, Urine (Dipstick) Negative (Neg-Trace); Specific Gravity, Urine 1.008 (1.002-1.036); Urobilinogen 0.2 mg/dL (0.2-1.0); pH, Urine 6.5 (5.0-9.0)
== END 2017-12-14 21:10 | disposition home or self-care (01) ==
LOC: ERS 15:41
DX: I95.9 Hypotension, unspecified (principal); K21.9 Gastro-esophageal reflux disease without esophagitis; E03.9 Hypothyroidism, unspecified; E78.5 Hyperlipidemia, unspecified; I10 Essential (primary) hypertension; G40.909 Epilepsy, unspecified, not intractable, without status epilepticus; E66.9 Obesity, unspecified; Z79.899 Other long term (current) drug therapy; Z79.4 Long term (current) use of insulin
CPT/HCPCS: 36415; 51701; 71045; 80053; 81003; 82553; 83605; 83735; 83880; 84443; 84484; 85025; 87040; 87086; 93005; 96360; 96361

== ENCOUNTER 2017-12-19 12:10 | Inpatient (IN) | payer MEDICARE, MEDICAID ==
[2017-12-19] MEDS ORDERED: Acetaminophen 650 MG Suppository ONE (12:29)
[2017-12-19 12:44] LABS: Bilirubin Negative (Negative); Blood, Urine Moderate (Negative); Clarity TURBID (Clear); Glucose, Urine (Dipstick) Negative (Negative); Leukocyte Large (Negative); Nitrite Positive (Negative); Protein, Urine (Dipstick) 300 mg/dL (Neg-Trace); Specific Gravity, Urine 1.012 (1.002-1.036); Urobilinogen 0.2 mg/dL (0.2-1.0)
[2017-12-19 12:46] LABS: Hyaline Casts/LPF 4-6 HYALINE CAST LPF (0-3 Hyaline); RBC/HPF 21-50 HPF (0-3); Squamous Epithelial None Seen HPF (0-3)
[2017-12-19 12:48] LABS: Yeast-AUWi Flag 231.2 (0-25.0)
[2017-12-19 13:02] LABS: CKMB 1.4 ng/mL (0-6.6); Troponin I Less than 0.010 ng/mL (< 0.028)
[2017-12-19 13:04] LABS: Band 34 % (5-11); Hemoglobin 10.4 g/dL (14.0-18.0); Lymphocytes 20 % (21-51); MDiff Complete? YES; Mean Corpuscular HGB CONC 31.6 g/dL (32.0-36.0); Mean Corpuscular Hemoglobin 28.6 pg (27.0-31.0); Mean Corpuscular Volume 90.6 fL (78.0-98.0); Mean Platelet Volume 7.3 fL (7.4-10.4); Metamyelocyte 2 % (0-0); Monocytes 27 % (0-10); Myelocyte 1 % (0-0); Neutrophil 15 % (42-75); PLT Morphology Comment Appears Decreased; Platelet Count 106 thou/uL (130-400); Polychromasia SLIGHT = 2-3 cells (100X) (0-2/hpf); RBC Distribution Width 14.8 % (11.5-14.5); Red Blood Cell (RBC) Count 3.63 mill/uL (4.70-6.10); Toxic Granulation SLIGHT; White Blood Cell (WBC) Count 6.6 thou/uL (4.8-10.8)
[2017-12-19 13:11] LABS: Bacteria/HPF 4+ HPF (None Seen); Yeast-All Forms None Seen HPF (None Seen)
[2017-12-19 13:20] LABS: Albumin 3.5 g/dL (3.4-4.8)
[2017-12-19 13:22] LABS: Calcium 9.5 mg/dL (7.8-10.44); Chloride 101 mmol/L (98-107); Potassium 4.6 mmol/L (3.5-5.1); Sodium 134 mmol/L (136-145)
[2017-12-19 13:23] LABS: Globulin 4.3 g/dL (2.4-3.5); Glucose 73 mg/dL (80-115); Protein, Total 7.8 g/dL (5.8-8.1)
[2017-12-19 13:24] LABS: Anion Gap 19 mmol/L (10-20); Carbon Dioxide 19 mmol/L (23-31)
[2017-12-19 13:25] LABS: Bilirubin, Total 0.3 mg/dL (0.2-1.2)
[2017-12-19 13:26] LABS: Alkaline Phosphatase 59 U/L (40-150); Calc. Creatinine Clearance 0 mL/min (70-130); Estimated GFR-MDRD 63
[2017-12-19 13:27] LABS: BUN (Urea Nitrogen) 29 mg/dL (8.4-25.7)
[2017-12-19 13:28] LABS: AST (SGOT) 43 U/L (5-34)
[2017-12-19 13:29] LABS: ALT (SGPT) 17 U/L (8-55); CK (CPK) 392 U/L (30-200); Lipase 49 U/L (8-78)
[2017-12-19] MEDS ORDERED: Norepinephrine 8 MG/0.9% NS 250 ML ONE (13:35)
[2017-12-19] MEDS ORDERED: Piperacillin/Tazobactam 4.5 GM VIAL ONE (13:55)
--- NOTE | 2017-12-19 13:58 | RAD ---
CHEST 1 VIEW: Date: 12/19/17 HISTORY: Hypotension. COMPARISON: Chest radiograph dated 12/14/17. FINDINGS: Right IJ central venous catheter is in place, tip projecting over the right atrium. Patient is rotate d to the left. IMPRESSION: Uncomplicated placement right IJ central venous catheter. POS: [facility]
[2017-12-19] MEDS ORDERED: EPINEPHrine 1 MG/ML AMP ONE (14:03)
[2017-12-19] MEDS ORDERED: Acetaminophen 325 MG TAB PO PRN ×2 (18:08→18:16)
[2017-12-19] MEDS ORDERED: Ondansetron ODT 4 MG TAB PO PRN (18:08)
[2017-12-19] MEDS ORDERED: Ondansetron HCl/PF 4 MG/2 ML Vial IVP PRN ×2 (18:08→18:16)
[2017-12-19 18:10] LABS: Troponin I Less than 0.010 ng/mL (< 0.028)
[2017-12-19] MEDS ORDERED: Norepinephrine 8 MG/0.9% NS 250 ML IVPB SCH (18:15)
[2017-12-19] MEDS ORDERED: Sodium Chloride 0.9% 1,000 ML IV SCH (18:15)
[2017-12-19] MEDS ORDERED: Ondansetron ODT 4 MG TAB SL PRN (18:16)
[2017-12-19] MEDS ORDERED: Dextrose 5% in Water 1,000 ML IV PRN (18:18)
[2017-12-19] MEDS ORDERED: HumaLOG 300 UNITS/3 ML VIAL SC PRN (18:18)
[2017-12-19] MEDS ORDERED: Dextrose 50% Abboject 50 ML SYRINGE SLOW IVP PRN (18:18)
--- NOTE | 2017-12-19 19:31 | PDOC.FPRHP ---
- History of Present Illness Chief Complaint: Fever, hypotension History of Present Illness: Patient presents from [facility] for fever. Otherwise no other history available. Patient A&Ox1 and does not speak much, which is reported to be baseline. Hypotension noted in ED with systolic BP 60s-80s. Failure to respond with adequate fluid resuscitation, R IJ placed and started on levophed drip. - Allergies/Adverse Reactions Allergies Allergy/AdvReac Type Severity Reaction Status Date / Time metformin Allergy Verified 10/01/17 02:11 - Home Medications Medication Instructions Recorded Confirmed Type Acetaminophen [Tylenol Extra 1,000 mg PO Q6H PRN 06/19/13 12/19/17 History Strength] Benzoyl Peroxide [Benzoyl Peroxide 1 applic TOP DAILY PRN 06/19/13 12/19/17 History 5% Wash] Clindamycin Phosphate [Clindamycin 1 applic TOP BID PRN 06/19/13 12/19/17 History Phosphate 1% Lotion] Docusate Sodium 100 mg PO DAILY 06/19/13 12/19/17 History Folic Acid 2 tab PO DAILY 06/19/13 12/19/17 History Furosemide [Lasix] 10 mg PO DAILY 06/19/13 12/19/17 History Insulin Aspart [NovoLOG Vial] 20 unit SQ AC 06/19/13 12/19/17 History Lisinopril 20 mg PO HS 06/19/13 12/19/17 History Loratadine [Claritin] 10 mg PO HS PRN 06/19/13 12/19/17 History Milk Of Magnesia 80mg/mL Susp 30 ml PO DAILY PRN 06/19/13 12/19/17 History [Jacob' Milk Of Magnesia] Potassium Chloride 2 cap PO BID 06/19/13 12/19/17 History Triamcinolone Acetonide 1 applic TOP BID PRN 06/19/13 12/19/17 History [Triamcinolone Acetonide 0.1% Cream] ALButerol Sulfate [Ventolin Neb] 3 ml NEB Q4HR PRN 05/12/15 12/19/17 History Acyclovir [Zovirax 5% Ointment] 1 applic TOP TID PRN 05/12/15 12/19/17 History Container,Empty [Enema Bottle] 1 each [place] DAILY PRN 05/12/15 12/19/[address] [Depakote] 25 ml PO BID 05/12/15 12/19/17 History Gabapentin [Neurontin] 300 mg PO TID 05/12/15 12/19/17 History Multivitamin [One-A-Day Essential] 1 tablet PO DAILY 05/12/15 12/19/17 History Ranitidine HCl 150 mg PO DAILY 05/12/15 12/19/17 History Rosuvastatin [Crestor] 10 mg PO HS 05/12/15 12/19/17 History sitaGLIPtin Phosphate [Januvia] 100 mg PO DAILY 05/12/15 12/19/17 History Acarbose 100 mg PO TID-WM 10/01/17 12/19/17 History Sulfamethoxazole/Trimethoprim 1 each PO BID #14 tablet 12/01/17 12/19/17 Rx [Bactrim Ds Tablet] Finasteride 5 mg PO DAILY 12/19/17 12/19/17 History Levothyroxine Sodium [Synthroid] 100 mcg PO DAILY 12/19/17 12/19/17 History Echo-3 Acid Ethyl Esters [Lovaza] 2 gm PO BID 12/19/17 12/19/17 History Salicylic Acid [Selsun Blue 1 applic TOP ASDIR 12/19/17 12/19/17 History Naturals 3% Shampoo] Tamsulosin HCl [Flomax] 0.8 mg PO HS 12/19/17 12/19/17 History guaiFENesin/Pseudoephedrne HCl 1 - 2 tab PO BID PRN 12/19/17 12/19/17 History [Mucinex D] - History PMHx: mental retardation, seborrheic dermatitis, chronic constipation, GERD, seizure disorder, diabetic peripheral neuropathy, T2DM, HTN, hypothyroid, HLD, hx of c diff colitis PSHx: urethral dilation for stricture, dorsal slit for phimosis FHx: unknown Social: Lives at [facility]. - Review of Systems ROS unobtainable: due to mental status - Vital signs BP: 130/70 HR: 89 RR: 17 Tmax: 98.6 Pox: 96% on 2L Wt: 73 kg - Physical Exam Constitutional: NAD, other (Oriented x1) HEENT: normocephalic and atraumatic -HEENT: chronic, abnormal L eye, no exudate Heart: RRR, normal S1/S2 Lungs: CTAB, no respiratory distress, good air movement Abdomen: soft, non-tender, bowel sounds present -Neurological: unable to move LE bilaterally -Skin: chronic sacral decubitus ulcer Heme/Lymphatic: no unusual bruising or bleeding FMR H&P: Results - Labs Result Diagrams: 12/20/17 04:00 12/20/17 04:00 Lab results: WBC 6.6 thou/uL (4.8-10.8) 12/19/17 12:21 Hgb 10.4 g/dL (14.0-18.0) L 12/19/17 12:21 Hct 32.9 % (42.0-52.0) L 12/19/17 12:21 MCV 90.6 fL (78.0-98.0) 12/19/17 12:21 Plt Count 106 thou/uL (130-400) L 12/19/17 12:21 Band Neuts % (Manual) 34 % (5-11) H 12/19/17 12:21 Sodium 134 mmol/L (136-145) L 12/19/17 12:21 Potassium 4.6 mmol/L (3.5-5.1) 12/19/17 12:21 Chloride 101 mmol/L (98-107) 12/19/17 12:21 Carbon Dioxide 19 mmol/L (23-31) L 12/19/17 12:21 BUN 29 mg/dL (8.4-25.7) H 12/19/17 12:21 Creatinine 1.18 mg/dL (0.6-1.3) 12/19/17 12:21 Glucose 73 mg/dL (80-115) L 12/19/17 12:21 Lactic Acid 1.7 mmol/L (0.5-2.2) 12/19/17 12:21 Calcium 9.5 mg/dL (7.8-10.44) 12/19/17 12:21 Total Bilirubin 0.3 mg/dL (0.2-1.2) 12/19/17 12:21 AST 43 U/L (5-34) H 12/19/17 12:21 ALT 17 U/L (8-55) 12/19/17 12:21 Alkaline Phosphatase 59 U/L (40-150) 12/19/17 12:21 Creatine Kinase 392 U/L (30-200) H 12/19/17 12:21 CK-MB (CK-2) 1.4 ng/mL (0-6.6) 12/19/17 12:21 Serum Total Protein 7.8 g/dL (5.8-8.1) 12/19/17 12:21 Albumin 3.5 g/dL (3.4-4.8) 12/19/17 12:21 Lipase 49 U/L (8-78) 12/19/17 12:21 Urine Ketones Negative mg/dL (Negative) 12/19/17 12:35 Urine Blood Moderate (Negative) H 12/19/17 12:35 Urine Nitrite Positive (Negative) H 12/19/17 12:35 Ur Leukocyte Esterase Large (Negative) H 12/19/17 12:35 Urine RBC 21-50 HPF (0-3) H 12/19/17 12:35 Urine WBC Greater Than 50-TNTC HPF (0-3) H 12/19/17 12:35 Ur Squamous Epith Cells None Seen HPF (0-3) 12/19/17 12:35 Urine Bacteria 4+ HPF (None Seen) H 12/19/17 12:35 FMR H&P: A/P - Plan 62 yo M presenting from [place] for fever and hypotension admitted for sepsis and UTI. Septic shock 2/2 UTI - Tachycardia, hypotension unresponsive to fluid rescucitation, R IJ placed in ED, on pressors - levophed drip @ 19. wean as tolerated to maintain MAP >65 - will consult pulmonology in am - received 2L in ED, continue maintenance LR @ 110. Will consider increasing rate if pressor unable to be weaned. - UA pos for UTI, Ucx pending - vanc and zosyn started in ED, continue. May consider deescalating. - chen in place, will monitor for adequate urine output Chronic decubitus ulcer - wound care consulted - appears to have worsened since last admission - unknown if wound infection could additionally be contributing to presentation - thiamine and vitamin C for wound healing - nutrition consulted for recommendations T2DM - continue home meds - accuchecks - mild SSI Normocytic anemia, chronic - Hg 10.4 on admission, at baseline when compared to previous - monitor CBC Mental retardation - appears to be at baseline Hypothyroid - continue home synthroid GERD - continue home med HLD - continue home statin HTN - hold home lisinopril Hx urine retention - cehn in place, held home flomax Chronic constipation - continue home bowel regimen Epilepsy - continue home depakote Diet: CC Ppx: Lovenox Dispo: admit to ICU FMR H&P: Upper Level - Pertinent history 62M resident of [facility] who presents for fever and hypotension. Patient with a recent history of hospitalization for sepsis due to UTI. Patient initially presented with systolic blood pressures around 80 mmHg. Despite adequate IVF resuscitation (30cc/kg) his pressures did not improve. A right IJ CVC was placed and a norepinephrine drip was started. Patient is arousable and will answer yes/no questions. He will localize to pain and follow basic commands. According to his PCP, his baseline is A&Ox1 and he speaks very little. ED:Vanc 1G, Zosyn 4.5G, Tylenol 650mg, NS 2L, levophed gtt - Pertinent findings Vitals: 112/60 mmHg 91 bpm 16 RR 96 % on 1L Gen: A&Ox1; somnolent HEENT: left palpebral swelling CV: RRR; no murmurs Pulm: CTA-B Abd: soft; non tender; non distended neuro: follows commands; answers simple questions; localizes pain - Plan Date/Time: 12/19/171928 1. Septic Shock 2/2 UTI -continue levaphed gtt and titrate down per protocol -consult pulmonology in am -continue IVF, empiric antibiotics, and monitor need for second pressor -cultures pending 2. Decubitus ulcer -wound care consulted to probe wound and assess need for osteo work up -cover with empiric antibiotics as mentioned above 3. Lactic Acidosis -continue IVF 4. DMII -continue home meds -accuchecks qACHS -mild SSI I, Alex Garcia, have evaluated this patient and agree with findings/plan as outlined by analytics intern resident. Pertinent changes/additions are listed here. Attending Addendum - Attending Addendum Date/Time: 12/20/17 0808. Seen on 12/19, day of admission. I personally evaluated the patient and discussed the management with Dr. Rebollar and Jose. I agree with and repeated the History, Examination, Assessment and Plan documented above with any addition or exceptions noted below. Septic shock d/t urinary source with stg 3 decubitus and multiple comorbidities. Continue IVF, IVABx, levophed to maintain map >65. NC to maintain sats. 45 minutes of critical care time.
[2017-12-19 20:32] LABS: Troponin I Less than 0.010 ng/mL (< 0.028)
[2017-12-19] MEDS: Piperacillin/Tazobactam 3.375 GM in Sodium Chloride 0.9% 100 ML IVPB SCH (21:02)
[2017-12-19] MEDS: Lactated Ringer's 1,000 ML IV SCH (21:02)
[2017-12-20] MEDS ORDERED: Vancomycin HCl 1 GM in Sodium Chloride 0.9% 250 ML 300 ML IVPB SCH (01:45)
[2017-12-20] MEDS: Vancomycin HCl 1 GM in Premix Bag 1 BAG IVPB SCH ×2 (02:03→13:35)
[2017-12-20] MEDS: Piperacillin/Tazobactam 3.375 GM in Sodium Chloride 0.9% 100 ML IVPB SCH ×4 (02:03→21:49)
[2017-12-20] MEDS: Lactated Ringer's 1,000 ML IV SCH ×4 (04:12→15:32)
[2017-12-20 04:44] LABS: Anion Gap 12 mmol/L (10-20); BUN (Urea Nitrogen) 18 mg/dL (8.4-25.7); Calc. Creatinine Clearance 112 mL/min (70-130); Calcium 8.6 mg/dL (7.8-10.44); Carbon Dioxide 23 mmol/L (23-31); Chloride 106 mmol/L (98-107); Estimated GFR-MDRD Greater than 90; Glucose 121 mg/dL (80-115); Sodium 137 mmol/L (136-145)
[2017-12-20] MEDS ORDERED: BENZOYL PEROXIDE TOP PRN (05:13)
[2017-12-20] MEDS ORDERED: Albuterol Sulfate 2.5 mg/3 ml Neb NEB PRN (05:13)
[2017-12-20] MEDS ORDERED: Loratadine 10 MG TAB PO PRN (05:13)
[2017-12-20] MEDS ORDERED: CLINDAMYCIN PHOSPHATE TOP PRN (05:13)
[2017-12-20] MEDS ORDERED: Milk Of Magnesia 30 ML UDCUP PO PRN (05:13)
[2017-12-20] MEDS ORDERED: SALICYLIC ACID TOP SCH (05:15)
[2017-12-20 05:20] LABS: Band 33 % (5-11); Eosinophils 1 % (0-10); Hemoglobin 9.3 g/dL (14.0-18.0); Lymphocytes 20 % (21-51); MDiff Complete? YES; Mean Corpuscular HGB CONC 32.7 g/dL (32.0-36.0); Mean Corpuscular Hemoglobin 29.4 pg (27.0-31.0); Mean Platelet Volume 6.8 fL (7.4-10.4); Monocytes 13 % (0-10); Neutrophil 31 % (42-75); PLT Morphology Comment Appears Decreased; Platelet Count 99 thou/uL (130-400); RBC Distribution Width 14.5 % (11.5-14.5); Red Blood Cell (RBC) Count 3.17 mill/uL (4.70-6.10); White Blood Cell (WBC) Count 6.6 thou/uL (4.8-10.8)
--- NOTE | 2017-12-20 06:28 | PDOC.FM ---
- Subjective Subjective: Patient is more alert and talkative this morning per nursing staff. He recognized some old nurses from his NH. He is responding to questions appropriately. Overnight, he has been weaned down to 1mcg of Levophed. He did require O2 overnight for what sounds like some underlying TRACY with snoring and desaturations off O2. This morning, patient denies any pain. - Objective MAR Reviewed: Yes Vital Signs & Weight: Vital Signs (12 hours) Temp Pulse Ox 12/20/17 04:00 99.2 F 12/20/17 00:00 97.6 F 12/19/17 20:53 100 12/19/17 20:00 97.7 F 100 Weight Weight 69.5 kg Most Recent Monitor Data Heart Rate from ECG 88 NIBP 114/77 NIBP BP-Mean 89 Respiration from ECG 19 SpO2 100 I&O: 12/18/17 12/19/17 12/20/17 06:59 06:59 06:59 Intake Total 2177 Output Total 1365 Balance 812 Result Diagrams: 12/20/17 04:00 12/20/17 04:00 Radiology Reviewed by me: Yes <Linda Glaser - Last Filed: 12/20/17 07:54> - Objective Vital Signs & Weight: Vital Signs (12 hours) Temp Pulse Ox 12/20/17 07:29 100 12/20/17 07:00 98.6 F 12/20/17 04:00 99.2 F 12/20/17 00:00 97.6 F Weight Admit Weight 69.4 kg Weight 69.5 kg Most Recent Monitor Data Heart Rate from ECG 102 NIBP 81/57 NIBP BP-Mean 65 Respiration from ECG 25 SpO2 100 I&O: 12/19/17 12/20/17 12/21/17 06:59 06:59 06:59 Intake Total 2177 2064 Output Total 1400 355 Balance 777 1709 Result Diagrams: 12/20/17 04:00 12/20/17 04:00 <Andrew Barriga - Last Filed: 12/20/17 11:47> Phys Exam - Physical Examination Constitutional: NAD HEENT: moist MMs L eye with some conjunctival injection and matting Neck: no nodes, supple, full ROM Respiratory: no wheezing, no rales, no rhonchi Cardiovascular: RRR, no significant murmur distended, guarding, ttp throughout, not able to assess rebound Musculoskeletal: no edema, pulses present does not move LE (baseline per hx), UE strength 5/5 b/l, slow to respond MR at baseline. Deviation from normal: AOx2 Deviation from normal: deep ulceration 3-4cm, of L proximal posterior thigh at gluteal crease -: no drainage or surrounding erythema <Linda Glaser - Last Filed: 12/20/17 07:54> Dx/Plan (1) Septic shock Code(s): A41.9 - SEPSIS, UNSPECIFIED ORGANISM; R65.21 - SEVERE SEPSIS WITH SEPTIC SHOCK Status: Acute (2) Urinary tract infection Status: Acute Qualifiers: Urinary tract infection type: acute cystitis Hematuria presence: with hematuria Qualified Code(s): N30.01 - Acute cystitis with hematuria (3) Pressure ulcer Code(s): L89.90 - PRESSURE ULCER OF UNSPECIFIED SITE, UNSPECIFIED STAGE Status : Acute Qualifiers: Laterality: left (4) MARIO (acute kidney injury) Code(s): N17.9 - ACUTE KIDNEY FAILURE, UNSPECIFIED Status: Resolved (5) Mental retardation Code(s): F79 - UNSPECIFIED INTELLECTUAL DISABILITIES Status: Acute (6) Diabetes mellitus type 2, insulin dependent Code(s): E11.9 - TYPE 2 DIABETES MELLITUS WITHOUT COMPLICATIONS; Z79.4 - FINANCE EXECUTIVE (CURRENT) USE OF INSULIN Status: Chronic (7) Hypothyroidism Code(s): E03.9 - HYPOTHYROIDISM, UNSPECIFIED Status: Chronic Qualifiers: Hypothyroidism type: acquired Qualified Code(s): E03.9 - Hypothyroidism, unspecified (8) Seizure disorder Code(s): G40.909 - EPILEPSY, UNSP, NOT INTRACTABLE, WITHOUT STATUS EPILEPTICUS Status: Chronic (9) Distended abdomen Code(s): R14.0 - ABDOMINAL DISTENSION (GASEOUS) Status: Acute - Plan Plan: Septic Shock 2/2 UTI: - initially presented with tachycardia, hypotension, and fever at [place]. Has been afebrile since admission, HR normalized, and BP at goal MAP. - WBC wnl but with significant left shift ( bands 33), LA wnl. - started on Vanc and Zosyn, consider transitioning to Cefepime with last UTI sensitivities. - Pulm consult for CCU admission - urine, blood cx pending, prior isolation of E. Coli at last admission - with recurrent UTI's and no chen use, concern for retention. Chen in place at this time. Patient currently on Finasteride, continue. - Wean off Levophed, will watch this afternoon and if pressures hold, can transfer to [facility]. Abdominal Distension: - Patient with guarding and overt distension - will get KUB to evaluate. Ulceration of L Proximal Posterior Thigh - likely from strap from lift at [place]. - Wound care consulted - wound cx pending. - I do not believe this to be the primary source. MARIO, resolved - Cr 0.68 today Hx of Urinary Retention - evaluate further with KUB and prostate exam. Plan for bladder scans once the chen is out. - continue finasteride - review med list for any medications that can exacerbate this issue. Chronic Anemia - stable from prior admissions DM2 - SSI - home meds of Acarbose and Alogliptin HTN: - hold home Lisinopril while hypotensive HLD: - continue home statin Hypothyroidism - continue home Synthroid Epilepsy - Continue home Depakote MR Marly CHAVEZ is sister who reports full code. DVT PPx: Lovenox GI PPx: Pepcid IVF: LR @ 110 Lines: R IJ central line (12/19) Code Status: Full PCP: Juan Pettit DO at [facility] Dispo: d/c pending stable blood pressures and resolution to baseline. <Linda Glaser - Last Filed: 12/20/17 07:54> Attending Addendum - Attending Addendum Date/Time: 12/20/17 1144 I personally evaluated the patient and discussed the management with Dr. Glaser I agree with the History, Examination, Assessment and Plan documented above with any addition or exceptions noted below. Patient BP improved stable off pressors should be stable transfer out of unit at this time. Wound care consulted for left sided sacral decubitus ,regard urosepsis will await urine C& S prior to change antibiotic profile (prior E. Coli ) note history of urinary retention now complicated UTI will need further evaluation with repeated episodes. <Anrdew Barriga - Last Filed: 12/20/17 11:47>
[2017-12-20] MEDS: Levothyroxine Sodium 100 MCG TAB PO SCH (06:50)
[2017-12-20] MEDS: HumaLOG 300 UNITS/3 ML VIAL SC SCH ×3 (08:10→16:04)
[2017-12-20] MEDS: Divalproex Sodium 250 MG (DR) TAB PO SCH ×2 (08:17→21:53)
[2017-12-20] MEDS: Multivit, Therapeutic 1 TAB PO SCH (08:18)
[2017-12-20] MEDS: Finasteride 5 MG TAB PO SCH (08:18)
[2017-12-20] MEDS: Folic Acid 1 MG TAB PO SCH (08:19)
[2017-12-20] MEDS: Alogliptin 25 MG TAB PO SCH (08:19)
[2017-12-20] MEDS: Docusate 100 MG CAP PO SCH (08:19)
[2017-12-20] MEDS: Gabapentin 300 MG CAP PO SCH ×3 (08:19→21:50)
[2017-12-20] MEDS: Famotidine 20 MG TAB PO SCH (08:19)
[2017-12-20] MEDS: Fish Oil 1,000 MG CAP PO SCH ×2 (08:20→21:49)
[2017-12-20] MEDS: Potassium Chloride 20 MEQ TAB PO SCH ×2 (08:20→16:04)
[2017-12-20] MEDS: Enoxaparin Sodium 40 MG/0.4 ML SYRINGE SC SCH (08:22)
[2017-12-20] MEDS: ASCORBIC ACID IVPB SCH ×2 (08:44→22:02)
[2017-12-20] MEDS: SODIUM CHLORIDE 0.9% IVPB SCH ×2 (08:44→22:02)
[2017-12-20] MEDS ORDERED: Furosemide 20 MG TAB PO SCH (09:00)
--- NOTE | 2017-12-20 10:16 | RAD ---
ABDOMEN 1 VIEW: HISTORY: A 62-year-old male with a history of abdominal distention. FINDINGS: There is some minimal gas and fecal material in the colon. There does appear to be some air in nondi lated small bowel as well as some air in the stomach. There is bone demineralization with arthrosis changes of both hip joints and lumbar spine spondylosis. IMPRESSION: Nonspecific abdomen gas pattern. No overt bowel obstruction. Significant bone demineralization with arthrosis changes of the hips and lumbar spondylosis. Consider additional imaging depending upon co ncern. POS: [facility]
--- NOTE | 2017-12-20 14:19 | CON ---
DATE OF CONSULTATION: 12/20/2017 HISTORY: David Felipe is a 62-year-old gentleman who has a significant learning disability. He is f unctionally I am told to a small child. He presented with fever upon referral from [place] [facility]. He has a limited ability to speak and responds in one word sentences when asked direct questions. He is very pleasant and cooperative. He has had a central line placed and was initially placed on pressors, but with volume resuscitation was very quickly weaned off pressors. PAST MEDICAL HISTORY: 1. Remarkable for chronic decubitus ulcer. He had a workup in October for sacral osteomyelitis. An MR I of his sacrum did not show bone infection according to one of the old notes. 2. History of diabetes. 3. History of seizure disorder. 4. Lipid disorder. 5. Hypertension. 6. History of severe learning disability. He apparently has always required care. I think his near est relative is his sister. 7. History of admissions in the past for intravascular volume depletion. 8. History of peripheral neuropathy. 9. History of reflux disease. 10. History of hypothyroidism. 11. History of urethral stricture requiring dilation in the past. ALLERGIES: It is reported in the that he has metformin intolerance. FAMILY HISTORY: Noncontributory, cannot accurately be obtained from him. SOCIAL HISTORY: He is a nonsmoker, nondrinker. REVIEW OF SYSTEMS: Not accurately obtainable. PHYSICAL EXAMINATION: VITAL SIGNS: Heart rate 74, blood pressure 78/56, respiratory rate 26, O2 sats 88. HEENT: Pupils react. Sclerae is anicteric. Extraocular movements appear to be full. GENERAL: He is cooperative. He has an intention tremor. LUNGS: Remarkable for clear breath sounds. HEART: Regular rhythm. S1 and S2 are normal. ABDOMEN: Soft and nontender. EXTREMITIES: Without clubbing, cyanosis, or asymmetry. He moves all of his extremities equal. NEURO: A true neurological exam cannot be performed. LABORATORY: White count 6.6, hemoglobin 9.3, platelets 99,000. Electrolytes were normal. IMPRESSION: 1. Intravascular volume depletion. 2. ? Urinary tract infection. Straight cath of his bladder did not reveal a single pathogen. There are multiple organisms that are being grown. Culture of his sacral decubitus was revealing a gram ne gative mariella which is not surprising. PLAN: If he remains stable he can be transferred out of the Critical Care Unit to a medical bed. An tibiotics can be simplified as cultures come back. Apparently has some purulent drainage out of his urethra. Urology consultation might be an issue. I would take him off of his diuretic. He is on a tiny dose of Lasix and with his intravascular volum e depletion and living in a detention he probably does not need to be on a diuretic. His pressors have been weaned off. He will continue with his thyroid replacement. It is not clear to me why he is on thiamine IV. I do ubt vancomycin is needed in this setting. As long as his decubitus ulcer is not draining purulent ex udate and does not appear infected, we probably need to keep antibiotics as simple as possible. If he remains stable throughout the afternoon he can be transferred to a medical bed. This is a 70-minute consult, 50% of the time was spent in coordinating care.
[2017-12-20] MEDS ORDERED: Lactated Ringer's 1,000 ML IV SCH (15:00)
--- NOTE | 2017-12-20 17:26 | ULT ---
RENAL ULTRASOUND: 12/20/17 HISTORY: Evaluate for hydronephrosis versus obstructive uropathy. COMPARISON: None. TECHNIQUE: Sagittal and transverse imaging of the kidneys is performed. FINDINGS: Bilaterally, no hydronephrosis. Right kidney measures 10.8 x 5.4 x 5.8 cm. Left kidney measures 1.3 x 5.2 x 5.3 cm. Both kidneys have a normal cortical echotexture. Limited evaluation of the urinary bladder due to Bran catheterization. The bladder wall appears to be markedly thickened. IMPRESSION: Marked thickening of the urinary bladder. Consider cystoscopy. No evidence of hydronephrosis. POS: [facility]
[2017-12-20] MEDS: Rosuvastatin 10 MG TAB PO SCH (21:50)
[2017-12-21] MEDS: Lactated Ringer's 1,000 ML IV SCH ×2 (01:03→06:16)
[2017-12-21] MEDS: Piperacillin/Tazobactam 3.375 GM in Sodium Chloride 0.9% 100 ML IVPB SCH ×4 (03:03→20:14)
[2017-12-21 03:15] LABS: Vancomycin, Trough 12.9 ug/mL
[2017-12-21 03:29] LABS: Anion Gap 11 mmol/L (10-20); BUN (Urea Nitrogen) 14 mg/dL (8.4-25.7); Calc. Creatinine Clearance 127 mL/min (70-130); Calcium 8.2 mg/dL (7.8-10.44); Carbon Dioxide 24 mmol/L (23-31); Chloride 103 mmol/L (98-107); Estimated GFR-MDRD Greater than 90; Glucose 77 mg/dL (80-115); Potassium 3.3 mmol/L (3.5-5.1); Sodium 135 mmol/L (136-145)
[2017-12-21] MEDS: Vancomycin HCl 1 GM in Premix Bag 1 BAG IVPB SCH (03:30)
[2017-12-21] MEDS ORDERED: Vancomycin HCl 1.25 GM in Premix Bag 1 BAG IVPB SCH (03:31)
[2017-12-21 03:34] LABS: Band 24 % (5-11); Eosinophils 1 % (0-10); Hemoglobin 7.9 g/dL (14.0-18.0); Lymphocytes 33 % (21-51); MDiff Complete? YES; Mean Corpuscular HGB CONC 32.3 g/dL (32.0-36.0); Mean Corpuscular Hemoglobin 29.1 pg (27.0-31.0); Mean Corpuscular Volume 90.2 fL (78.0-98.0); Mean Platelet Volume 7.3 fL (7.4-10.4); Monocytes 12 % (0-10); Neutrophil 30 % (42-75); PLT Morphology Comment Appears Decreased; Platelet Count 74 thou/uL (130-400); RBC Distribution Width 14.5 % (11.5-14.5); Red Blood Cell (RBC) Count 2.72 mill/uL (4.70-6.10); White Blood Cell (WBC) Count 5.4 thou/uL (4.8-10.8)
[2017-12-21] MEDS ORDERED: Vancomycin HCl 1.25 GM in Sodium Chloride 0.9% 250 ML 250 ML IVPB SCH ×2 (05:00→14:00)
[2017-12-21] MEDS: Levothyroxine Sodium 100 MCG TAB PO SCH (06:15)
--- NOTE | 2017-12-21 06:38 | PDOC.FM ---
- Subjective Subjective: Patient is doing well this morning, denies pain. BP's have been stable overnight. Nursing staff reports no issues. Yesterday did have some purulent drainage from urethra. Otherwise no issues. - Objective MAR Reviewed: Yes Vital Signs & Weight: Vital Signs (12 hours) Temp Pulse Resp BP BP Pulse Ox 12/21/17 04:09 97.4 F L 84 18 99/60 99 12/21/17 00:03 97.1 F L 77 20 91/61 99 12/20/17 19:40 97.8 F 80 20 98/57 L 96 Weight Admit Weight 69.4 kg Weight 78.7 kg Most Recent Monitor Data Heart Rate from ECG 86 NIBP 75/45 NIBP BP-Mean 55 Respiration from ECG 22 SpO2 96 I&O: 12/19/17 12/20/17 12/21/17 06:59 06:59 06:59 Intake Total 2177 7425 Output Total 1400 1430 Balance 777 5995 Result Diagrams: 12/21/17 01:40 12/21/17 01:40 <Linda Glaser - Last Filed: 12/21/17 06:46> - Objective Vital Signs & Weight: Vital Signs (12 hours) Temp Pulse Resp BP Pulse Ox 12/21/17 07:53 99 12/21/17 07:16 97.0 F L 71 17 103/67 97 12/21/17 04:09 97.4 F L 84 18 99/60 99 12/21/17 00:03 97.1 F L 77 20 91/61 99 Weight Admit Weight 69.4 kg Weight 78.7 kg Most Recent Monitor Data Heart Rate from ECG 86 NIBP 75/45 NIBP BP-Mean 55 Respiration from ECG 22 SpO2 96 I&O: 12/20/17 12/21/17 12/22/17 06:59 06:59 06:59 Intake Total 2177 7425 360 Output Total 1400 1430 Balance 777 5995 360 Result Diagrams: 12/21/17 01:40 12/21/17 01:40 <Andrew Barriga - Last Filed: 12/21/17 10:13> Phys Exam - Physical Examination Constitutional: NAD HEENT: moist MMs Respiratory: no wheezing, no rales, clear to auscultation bilateral Cardiovascular: RRR, no significant murmur Gastrointestinal: soft, non-tender, positive bowel sounds Musculoskeletal: no edema, pulses present does not move LE (baseline), moves UE. Psychiatric: normal affect Deviation from normal: AOx1 Skin: cap refill <2 seconds <Linda Glaser - Last Filed: 12/21/17 06:46> Dx/Plan (1) Urinary tract infection Status: Acute Qualifiers: Urinary tract infection type: acute cystitis Hematuria presence: with hematuria Qualified Code(s): N30.01 - Acute cystitis with hematuria (2) Dehydration Code(s): E86.0 - DEHYDRATION Status: Resolved (3) Pressure ulcer Code(s): L89.90 - PRESSURE ULCER OF UNSPECIFIED SITE, UNSPECIFIED STAGE Status : Acute Qualifiers: Laterality: left (4) MARIO (acute kidney injury) Code(s): N17.9 - ACUTE KIDNEY FAILURE, UNSPECIFIED Status: Resolved (5) Septic shock Code(s): A41.9 - SEPSIS, UNSPECIFIED ORGANISM; R65.21 - SEVERE SEPSIS WITH SEPTIC SHOCK Status: Resolved (6) Mental retardation Code(s): F79 - UNSPECIFIED INTELLECTUAL DISABILITIES Status: Acute (7) Diabetes mellitus type 2, insulin dependent Code(s): E11.9 - TYPE 2 DIABETES MELLITUS WITHOUT COMPLICATIONS; Z79.4 - CHCF (CURRENT) USE OF INSULIN Status: Chronic (8) Hypothyroidism Code(s): E03.9 - HYPOTHYROIDISM, UNSPECIFIED Status: Chronic Qualifiers: Hypothyroidism type: acquired Qualified Code(s): E03.9 - Hypothyroidism, unspecified (9) Seizure disorder Code(s): G40.909 - EPILEPSY, UNSP, NOT INTRACTABLE, WITHOUT STATUS EPILEPTICUS Status: Chronic - Plan Plan: Recurrent UTI: (shock resolved) - initially presented with tachycardia, hypotension, and fever at [place]. Has been afebrile since admission, HR normalized, and BP at goal MAP. - WBC wnl but with significant left shift yesterday, improved today - started on Vanc and Zosyn, consider transitioning to Cefepime with last UTI sensitivities. - Pulm consult for CCU admission, appreciate recs - urine, blood cx pending, prior isolation of E. Coli at last admission - with recurrent UTI's and no chen use, concern for retention. Chen in place at this time. Patient currently on Finasteride, continue. Consult urology today. - Okay to transfer to telemetry today. - Renal US shows thickened bladder wall. Volume Depletion: (resolved) - d/c IVF. Ulceration of L Proximal Posterior Thigh - likely from strap from lift at [place]. - Wound care consulted - wound cx pending. - I do not believe this to be the primary source. Thrombocytopenia - today is 70. Continue Lovenox with increased risk of DVT's. Likely due to acute reaction vs some dilution. - continue to trend MARIO, resolved - Cr 0.68 today Hx of Urinary Retention - evaluate further with KUB and prostate exam. Plan for bladder scans once the chen is out. - continue finasteride - review med list for any medications that can exacerbate this issue. Chronic Anemia - stable from prior admissions DM2 - SSI - home meds of Acarbose and Alogliptin HTN: - hold home Lisinopril while hypotensive HLD: - continue home statin Hypothyroidism - continue home Synthroid Epilepsy - Continue home Depakote MR Marly CHAVEZ is sister who reports full code. DVT PPx: Lovenox GI PPx: Pepcid IVF: LR @ 110 Lines: R IJ central line (12/19) Code Status: Full PCP: Juan Pettit, at [facility] Dispo: d/c pending Urology consult and urine/blood cx results. <Linda Glaser - Last Filed: 12/21/17 06:46> Attending Addendum - Attending Addendum Date/Time: 12/21/17 1009 I personally evaluated the patient and discussed the management with I agree with the History, Examination, Assessment and Plan documented above with any addition or exceptions noted below. patient responding well to fluid challenge note probable dilutional effects on blood counts will continue to trend . Pending urine sensitivity regard conversion antibiotic choice and wound care. Diabetes management with basal and short acting insulin as needed. Urology consultation for any further recommendations with BPH and note bladder wall thickening questionable sign interstitial cystitis. <Andrew Barriga - Last Filed: 12/21/17 10:13>
[2017-12-21] MEDS: SODIUM CHLORIDE 0.9% IVPB SCH (08:32)
[2017-12-21] MEDS: ASCORBIC ACID IVPB SCH (08:32)
[2017-12-21] MEDS: Famotidine 20 MG TAB PO SCH (08:35)
[2017-12-21] MEDS: Divalproex Sodium 250 MG (DR) TAB PO SCH ×2 (08:36→20:15)
[2017-12-21] MEDS: Enoxaparin Sodium 40 MG/0.4 ML SYRINGE SC SCH (08:36)
[2017-12-21] MEDS: Alogliptin 25 MG TAB PO SCH (08:37)
[2017-12-21] MEDS: Folic Acid 1 MG TAB PO SCH (08:37)
[2017-12-21] MEDS: Finasteride 5 MG TAB PO SCH (08:37)
[2017-12-21] MEDS: Gabapentin 300 MG CAP PO SCH ×3 (08:37→20:15)
[2017-12-21] MEDS: Multivit, Therapeutic 1 TAB PO SCH (08:37)
[2017-12-21] MEDS: Fish Oil 1,000 MG CAP PO SCH ×2 (08:37→20:15)
[2017-12-21] MEDS: Docusate 100 MG CAP PO SCH (08:37)
[2017-12-21] MEDS: Potassium Chloride 20 MEQ TAB PO SCH ×2 (08:37→16:37)
[2017-12-21] MEDS ORDERED: Potassium Chloride 20 MEQ TAB PO SCH (10:30)
[2017-12-21 11:11] LABS: Magnesium 1.4 mg/dL (1.6-2.6); Phosphorus 3.2 mg/dL (2.3-4.7)
--- NOTE | 2017-12-21 18:35 | PRG ---
DATE OF SERVICE: 12/21/2017 Mr. Felipe feels about the same. He is intermittently tachypneic, but denies having labored respirations. This afternoon, he was afeb rile, heart rate 70, respiratory rate 16, oximetry 98 on 2 liters, blood pressure 99/74. Cultures have been reviewed. He is growing Proteus from his urine. He also growing Proteus from his buttocks which I suspect is urinary contamination of his decubitus ulcer. He is in no distress. He has been fed by the nurses when I rounded on him today. His white count is 5.4, hemoglobin 7.9, platelets 74,000. Electrolytes are unremarkable. IMPRESSION: 1. Severe learning disability with large decubitus ulcer. 2. Intravascular volume depletion on presentation. 3. Diabetes. 4. Hypothyroidism. 5. History of seizure disorder. PLAN: Continue current care. Antimicrobial therapy that should be simplified as soon as possible. He appears to be hemodynamically stable and can probably transfer to a non-monitored bed. There is n o real clear indication for heart monitoring at this point.
[2017-12-21] MEDS: Rosuvastatin 10 MG TAB PO SCH (20:15)
[2017-12-22] MEDS: Piperacillin/Tazobactam 3.375 GM in Sodium Chloride 0.9% 100 ML IVPB SCH ×2 (03:26→09:17)
[2017-12-22 03:38] LABS: #Eosinphils 0.1 thou/uL (0.0-0.7); #Lymphocytes 1.2 thou/uL (1.20-3.40); #Monocytes 0.6 thou/uL (0.11-0.59); #Neutrophils 2.6 thou/uL (1.40-6.50); %Basophils 0.5 % (0.0-1.0); %Eosinophils 1.8 % (0.0-10.0); %Lymphocytes 27.7 % (21.0-51.0); %Monocytes 12.8 % (0.0-10.0); %Neutrophils 57.2 % (42.0-75.0); Hemoglobin 8.4 g/dL (14.0-18.0); Mean Corpuscular HGB CONC 31.8 g/dL (32.0-36.0); Mean Corpuscular Hemoglobin 28.8 pg (27.0-31.0); Mean Corpuscular Volume 90.5 fL (78.0-98.0); Mean Platelet Volume 7.9 fL (7.4-10.4); Platelet Count 81 thou/uL (130-400); RBC Distribution Width 14.7 % (11.5-14.5); Red Blood Cell (RBC) Count 2.91 mill/uL (4.70-6.10); White Blood Cell (WBC) Count 4.5 thou/uL (4.8-10.8)
[2017-12-22 03:54] LABS: Anion Gap 11 mmol/L (10-20); BUN (Urea Nitrogen) 12 mg/dL (8.4-25.7); Calc. Creatinine Clearance 142 mL/min (70-130); Calcium 8.3 mg/dL (7.8-10.44); Carbon Dioxide 27 mmol/L (23-31); Chloride 102 mmol/L (98-107); Estimated GFR-MDRD Greater than 90; Glucose 104 mg/dL (80-115); Potassium 4.2 mmol/L (3.5-5.1); Sodium 136 mmol/L (136-145)
[2017-12-22] MEDS: Levothyroxine Sodium 100 MCG TAB PO SCH (06:07)
[2017-12-22 07:28] VITALS: TEMP 98
--- NOTE | 2017-12-22 08:45 | PDOC.FM ---
- Subjective Subjective: Pt doing well. Denies any problems at this time. Eating well. BP have remained stable. No acute events overnight. Unable to obtain fully accurate hx due to pts mental disability. - Objective MAR Reviewed: Yes Vital Signs & Weight: Vital Signs (12 hours) Temp Pulse Resp BP Pulse Ox 12/22/17 08:00 98 12/22/17 07:27 98.0 F 84 25 H 91/54 L 98 12/22/17 03:57 97.4 F L 83 16 100/66 97 12/22/17 00:10 79 92/63 12/21/17 23:55 98.2 F 77 18 83/51 L 100 Weight Admit Weight 69.4 kg Weight 80.4 kg Most Recent Monitor Data Heart Rate from ECG 86 NIBP 75/45 NIBP BP-Mean 55 Respiration from ECG 22 SpO2 96 I&O: 12/21/17 12/22/17 12/23/17 06:59 06:59 06:59 Intake Total 7425 2418 Output Total 1430 700 Balance 5995 1718 Result Diagrams: 12/22/17 03:25 12/22/17 03:25 Radiology Reviewed by me: Yes Radiology: Renal U/S shows bladder thickening and recommends cystoscopy. <Tariq Lao - Last Filed: 12/22/17 08:47> - Objective Vital Signs & Weight: Vital Signs (12 hours) Temp Pulse Resp BP Pulse Ox 12/22/17 08:00 98 12/22/17 07:27 98.0 F 84 25 H 91/54 L 98 12/22/17 03:57 97.4 F L 83 16 100/66 97 12/22/17 00:10 79 92/63 12/21/17 23:55 98.2 F 77 18 83/51 L 100 Weight Admit Weight 69.4 kg Weight 80.4 kg Most Recent Monitor Data Heart Rate from ECG 86 NIBP 75/45 NIBP BP-Mean 55 Respiration from ECG 22 SpO2 96 I&O: 12/21/17 12/22/17 12/23/17 06:59 06:59 06:59 Intake Total 7425 2418 Output Total 1430 700 Balance 5995 1718 Result Diagrams: 12/22/17 03:25 12/22/17 03:25 <Andrew Barriga - Last Filed: 12/22/17 11:37> Phys Exam - Physical Examination Constitutional: NAD HEENT: PERRLA, moist MMs Neck: no nodes, supple, full ROM Respiratory: no wheezing, clear to auscultation bilateral Cardiovascular: RRR, no significant murmur, no rub Gastrointestinal: soft Mildly distended. Pt reports some pain to palpation Musculoskeletal: no edema, pulses present Neurological: non-focal, moves all 4 limbs Psychiatric: normal affect Deviation from normal: Pt sacral wound ulcer dressed at this time. No sign of redness -: No sign of increasing infection <Tariq Lao - Last Filed: 12/22/17 08:47> Dx/Plan (1) Urinary tract infection Status: Acute Qualifiers: Urinary tract infection type: acute cystitis Hematuria presence: with hematuria Qualified Code(s): N30.01 - Acute cystitis with hematuria (2) Dehydration Code(s): E86.0 - DEHYDRATION Status: Resolved (3) Mental retardation Code(s): F79 - UNSPECIFIED INTELLECTUAL DISABILITIES Status: Acute (4) Pressure ulcer Code(s): L89.90 - PRESSURE ULCER OF UNSPECIFIED SITE, UNSPECIFIED STAGE Status : Acute Qualifiers: Laterality: left (5) Diabetes mellitus type 2, insulin dependent Code(s): E11.9 - TYPE 2 DIABETES MELLITUS WITHOUT COMPLICATIONS; Z79.4 - SENIOR MATERIALS SCIENTIST (CURRENT) USE OF INSULIN Status: Chronic (6) HTN (hypertension) Code(s): I10 - ESSENTIAL (PRIMARY) HYPERTENSION Status: Chronic Qualifiers: Hypertension type: essential hypertension Qualified Code(s): I10 - Essential (primary) hypertension (7) Hyperlipidemia Code(s): E78.5 - HYPERLIPIDEMIA, UNSPECIFIED Status: Chronic Qualifiers: Hyperlipidemia type: mixed hyperlipidemia Qualified Code(s): E78.2 - Mixed hyperlipidemia (8) Hypothyroidism Code(s): E03.9 - HYPOTHYROIDISM, UNSPECIFIED Status: Chronic Qualifiers: Hypothyroidism type: acquired Qualified Code(s): E03.9 - Hypothyroidism, unspecified (9) Urinary retention with incomplete bladder emptying Code(s): R33.9 - RETENTION OF URINE, UNSPECIFIED Status: Chronic (10) Septic shock Code(s): A41.9 - SEPSIS, UNSPECIFIED ORGANISM; R65.21 - SEVERE SEPSIS WITH SEPTIC SHOCK Status: Resolved - Plan Plan: Recurrent UTI: (shock resolved) - initially presented with tachycardia, hypotension, and fever at [place]. Has been afebrile since admission, HR normalized, and BP at goal MAP. - started on Vanc and Zosyn, per sensitivities could transition to a cephalosporin - Pulm consult for CCU admission, appreciate recs - urine- Proteus growth. Has some resistance. sensitive to current tx. -Blood cx-NGTD - with recurrent UTI's and no chen use, concern for retention. Chen in place at this time. Patient currently on Finasteride, continue. -Renal U/S shows wall thickening and recommends cystosocopy. Urology consulted- Dr. Salas. Awaiting recs. Volume Depletion: (resolved) - d/c IVF. Ulceration of L Proximal Posterior Thigh -Has had for months - Wound care consulted - wound cx shows proteus and E. coli Thrombocytopenia - staying stable. Continue with lovenox as high risk of clotting - continue to trend MARIO, resolved -Cr stable. Continue to trend Hx of Urinary Retention - continue finasteride Chronic Anemia - stable from prior admissions DM2 - SSI - home meds of Alogliptin. d/c acarbose as sugars on low side HTN: - hold home Lisinopril while hypotensive HLD: - continue home statin Hypothyroidism - continue home Synthroid Epilepsy - Continue home Depakote MR Marly CHAVEZ is sister who reports full code. <Tariq Lao - Last Filed: 12/22/17 08:47> Attending Addendum - Attending Addendum Date/Time: 12/22/17 [id number] I personally evaluated the patient and discussed the management with Dr. Lao I agree with the History, Examination, Assessment and Plan documented above with any addition or exceptions noted below.Pending Urology rec rec continue chen and po antibiotic for 10 additional days. Will need to encourage adequate po fluid intake at [place] and should be ready for discharge soon. <Andrew Barriga - Last Filed: 12/22/17 11:37>
[2017-12-22] MEDS ORDERED: Ascorbic Acid 500 mg Chewable Tablet PO SCH (09:00)
[2017-12-22] MEDS: Enoxaparin Sodium 40 MG/0.4 ML SYRINGE SC SCH (09:17)
[2017-12-22] MEDS: Alogliptin 25 MG TAB PO SCH (09:18)
[2017-12-22] MEDS: Famotidine 20 MG TAB PO SCH (09:18)
[2017-12-22] MEDS: Fish Oil 1,000 MG CAP PO SCH (09:18)
[2017-12-22] MEDS: Folic Acid 1 MG TAB PO SCH (09:18)
[2017-12-22] MEDS: Gabapentin 300 MG CAP PO SCH ×2 (09:18→14:29)
[2017-12-22] MEDS: Docusate 100 MG CAP PO SCH (09:18)
[2017-12-22] MEDS: Multivit, Therapeutic 1 TAB PO SCH (09:18)
[2017-12-22] MEDS: Finasteride 5 MG TAB PO SCH (09:18)
[2017-12-22] MEDS: Divalproex Sodium 250 MG (DR) TAB PO SCH (09:19)
[2017-12-22] MEDS: Potassium Chloride 20 MEQ TAB PO SCH (09:19)
[2017-12-22] MEDS ORDERED: Cephalexin 250 MG CAP PO SCH ×2 (10:45→21:00)
[2017-12-22 11:50] VITALS: BP 98/58
[2017-12-22 14:31] VITALS: BMI 30.4
--- NOTE | 2017-12-22 17:28 | PRG ---
DATE OF SERVICE: 12/22/2017 SUBJECTIVE: Mr. David Felipe states he is feeling fine. He is tentatively on the schedule to be [facility]. He is going back with a Bran. He has no complaints. OBJECTIVE: VITAL SIGNS: Have been stable. LUNGS: Clear. IMPRESSION: 1. Large decubitus present on admission. 2. Frequent urinary tract infections, being discharged with a Bran. PLAN: At some point in time, he probably needs to be evaluated by Urology. It is unclear to me whet her or not a suprapubic catheter would be appropriate, but it would eliminate the hygiene issues asso ciated with his decubitus ulcer and his urine. It is unclear why he is having frequent urinary tract infections, but it may be prostate related. In any event, he appears to be medically stable for dis charge, but he will need close outpatient followup.
--- NOTE | 2017-12-23 00:10 | CON ---
DATE OF CONSULTATION: 12/22/2017 HISTORY OF PRESENT ILLNESS: This is a 62-year-old white male who I was asked to see by the [facility]. I actually saw him yesterday as well as today, I am dictating the consult today . He was admitted on 12/19/2017 with sepsis. He is a senior care patient because of mental retarda tion. He came in with hypertension. In the emergency room, blood pressures in the 60s to the 80s, w as not responding well. He had a central line placed and was actually started on a Levophed drip. Waldemar gergg has a sacral decubitus I believe, and that was cultured, and he had a urine culture set up. The de cubitus grew out a Proteus and an E. coli. The urine culture grew out a Providencia and a Proteus. The Providencia had sensitivities to amikacin, cefepime, ceftazidime, ceftriaxone, Mefoxin and pipera cillin/tazobactam. The Proteus had sensitivities to nearly all antibiotics except for Bactrim, samantha lones and Macrodantin. He was placed on piperacillin/tazobactam and then was switched I believe to K eflex prior to discharge. His white blood cell count when he came in was normal; however, he did hav e a left shift. He maintained a normal blood pressure and pulse after I think the first night of his admission. He did have a renal ultrasound done and that ultrasound I reviewed. He had no evidence of hydronephrosis. He had no evidence of urinary tract calculi or renal cyst or solid masses. There was some nondistention of the bladder. He did have a Bran catheter in place and then felt that the bladder wall was thickened. This was I think one of the reasons that Urology was consulted. In add ition to that, the other was that he was admitted with sepsis for a urinary tract infection in late A ugust of this year. At which point, his urine grew out an E. coli that was resistant to Macrodantin and ampicillin/Augmentin. On that admission plus this admission, he had no positive blood cultures. PAST MEDICAL HISTORY: As mentioned, he has mental retardation, he is obese, I do not think he is amb ulatory. I am assuming his bladder is normally maintained with a diaper. He does have a history of diabetes, history of seizure disorder, hypertension, hyperlipidemia, peripheral neuropathy, reflux di sease, hypothyroidism. He has a distant history of urethral stricture disease; in fact, I saw him, I think 4 years ago for this and we required urethral dilatation at time of the cystoscopy that was ot herwise normal. He had an MRI in evaluation of the decubitus and it is not felt to be osteomyelitis. ALLERGIES: He may have an allergy to METFORMIN. SOCIAL HISTORY: He does not smoke, does not drink. PHYSICAL EXAMINATION: ABDOMEN: His abdomen is obese. EXTREMITIES: His lower extremities are obese. GENITOURINARY: He does have some edema of the scrotum and penis, the penis is somewhat buried. It i s probably circumcised, although there is some swelling of the foreskin, but not paraphimosis. The g lans looks normal. The Bran catheter is indwelling. His urine is clear. The testicles are both de scended without any mass or tenderness on exam. IMPRESSION AND PLAN: 1. Two urinary tract infections in the last 2 months, different organisms with an upper tract study showed no evidence of hydronephrosis or stones. 2. Uncertainty as to whether the patient empties his bladder or not. He is going to go home with a catheter in, I think for a week, and I would like to go ahead and get a cystoscopic exam set up for h im, I can do this as an outpatient. Ultimately this catheter cannot be left in, I think he has a set up for urethral erosion as well as for possible lower urinary tract abscesses including epididymo-or chitis or periurethral abscess. It would be difficult to place a suprapubic tube on him using lousy technique because of his size and it would seem that an open procedure for this would put him at some risks in terms of anesthetic, what we can do though if it was under the opinion of his primary care team that it would be better to have his urine diverted rather having urinating into a diaper, then maricruz gregg could consider getting Radiology to pass a suprapubic tube under CT guidance. I think this would p robably be better addressed from his primary care physician as time goes on. In any event, I think t hat he will need to be placed back in a diaper once his Bran was discontinued and that it would be n ice if he could actually check some residual urines with a bladder scan to see how well he is emptyin g. He is I think currently on finasteride, which is a medicine for lower urinary tract symptoms and he is also on Flomax. So he is already on these medications and if he is having trouble with emptyin g while still on those, then a suprapubic tube may be a reasonable option for him. So, right now I t hink the only thing he definitely needs is to get a cystoscopic exam set up and will look at getting that set up to my office, I do not know that we will be able to do that in the office with his mental state, I think we will prior have to set up to be done as an outpatient in and out, I would like to do it once he has been on appropriate antibiotics for at least a week .
== END 2017-12-22 14:58 | DRG 871 ==
LOC: ERS 12:10 → CCU 17:05 → IMCU/EMU 12-20 18:08
PROVIDERS: ADMIT Emergency Medicine; ATTEND Emergency Medicine
PROC: 02H633Z Insertion of Infusion Device into Right Atrium, Percutaneous Approach (ICD-10-PCS; principal; 2017-12-19)
PROC: 3E043XZ Introduction of Vasopressor into Central Vein, Percutaneous Approach (ICD-10-PCS; 2017-12-19)
DX: A41.9 Sepsis, unspecified organism (principal); L89.153 Pressure ulcer of sacral region, stage 3; R65.21 Severe sepsis with septic shock; E87.2 Acidosis; N30.01 Acute cystitis with hematuria; N17.9 Acute kidney failure, unspecified; L97.129 Non-pressure chronic ulcer of left thigh with unspecified severity; E86.0 Dehydration; E11.42 Type 2 diabetes mellitus with diabetic polyneuropathy; F79 Unspecified intellectual disabilities; D69.6 Thrombocytopenia, unspecified; I10 Essential (primary) hypertension; K59.09 Other constipation; K21.9 Gastro-esophageal reflux disease without esophagitis; G40.909 Epilepsy, unspecified, not intractable, without status epilepticus; B96.4 Proteus (mirabilis) (morganii) as the cause of diseases classified elsewhere; B96.20 Unspecified Escherichia coli [E. coli] as the cause of diseases classified elsewhere; B96.89 Other specified bacterial agents as the cause of diseases classified elsewhere; D64.9 Anemia, unspecified; E66.9 Obesity, unspecified; E03.9 Hypothyroidism, unspecified; E78.5 Hyperlipidemia, unspecified; Z68.30 Body mass index [BMI] 30.0-30.9, adult; G47.33 Obstructive sleep apnea (adult) (pediatric); Z79.4 Long term (current) use of insulin
CPT/HCPCS: 36415; 36416; 36556; 51701; 71045; 74018; 76770; 80048; 80053; 80202; 81003; 81015; 82553; 83605; 83690; 83735; 84100; 84484; 85025; 87070; 87077; 87086; 87186; 87205; 96361; 96365; 96366; 96368; G8996-GN-CJ; G8997-GN-CI; J0171; J1650; J2543; J3370; J3411; J7050

== ENCOUNTER 2017-12-30 06:02 | Day surgery (SDC) | payer MEDICARE, MEDICAID ==
[2017-12-29 14:34] VITALS: BMI 28.5
[2017-12-30] MEDS ORDERED: Midazolam HCl 2 mg/2 ml Vial ONE (06:43)
[2017-12-30] MEDS ORDERED: Fentanyl 100 MCG/2 ML VIAL ONE (06:43)
[2017-12-30 07:00] LABS: #Eosinphils 0.2 thou/uL (0.0-0.7); #Lymphocytes 3.1 thou/uL (1.20-3.40); #Monocytes 1.2 thou/uL (0.11-0.59); #Neutrophils 6.9 thou/uL (1.40-6.50); %Basophils 0.2 % (0.0-1.0); %Eosinophils 1.8 % (0.0-10.0); %Lymphocytes 27.1 % (21.0-51.0); %Monocytes 10.6 % (0.0-10.0); %Neutrophils 60.2 % (42.0-75.0); Hemoglobin 10.1 g/dL (14.0-18.0); Mean Corpuscular HGB CONC 30.8 g/dL (32.0-36.0); Mean Corpuscular Volume 90.7 fL (78.0-98.0); Platelet Count 291 thou/uL (130-400); RBC Distribution Width 15.7 % (11.5-14.5); Red Blood Cell (RBC) Count 3.62 mill/uL (4.70-6.10); White Blood Cell (WBC) Count 11.5 thou/uL (4.8-10.8)
[2017-12-30 07:08] LABS: INR-International Normal Ratio 1.1; PTT 36.9 SEC (22.9-36.1)
[2017-12-30 07:21] LABS: Anion Gap 12 mmol/L (10-20); BUN (Urea Nitrogen) 13 mg/dL (8.4-25.7); Calc. Creatinine Clearance 129 mL/min (70-130); Calcium 9.4 mg/dL (7.8-10.44); Carbon Dioxide 27 mmol/L (23-31); Chloride 98 mmol/L (98-107); Estimated GFR-MDRD Greater than 90; Glucose 91 mg/dL (80-115); Potassium 3.9 mmol/L (3.5-5.1); Sodium 133 mmol/L (136-145)
[2017-12-30] MEDS ORDERED: Iothalamate Meglumine 60% 50 ML VIAL FS ONE ×2 (07:30→12:33)
[2017-12-30] MEDS ORDERED: CEFAZOLIN/Water 2 GM/20 ML SYRINGE ONE (07:33)
[2017-12-30] MEDS ORDERED: Ondansetron HCl/PF 4 MG/2 ML Vial ONE (08:48)
--- NOTE | 2017-12-30 09:29 | OP ---
DATE OF PROCEDURE: 12/30/2017 PREOPERATIVE DIAGNOSES: Recent urinary tract infections. History of some microscopic hematuria, pyu vaishnavi and history of renal ultrasound showing some thickening of the bladder wall. POSTOPERATIVE DIAGNOSES: Recent urinary tract infections. History of some microscopic hematuria, py uria and history of renal ultrasound showing some thickening of the bladder wall. PROCEDURE PERFORMED: Cystoscopy, bilateral retrograde. SURGEON: Dr. Tom Montero. ANESTHETIC: General. ESTIMATED BLOOD LOSS: Minimal. DRAINS PLACED: A 16 Puerto Rican Bran catheter with 20 mL in balloon. FINDINGS: There is no evidence of urethral stricture. He had a urethral stricture 4 years ago, but there is no evidence of stricture. Currently, he has a wide open prostatic urethra and a small prost ate. He had 1+ bladder trabeculation, two ureteral orifices with clear reflux. No evidence of bladd er tumor, foreign body, or stone. Retrograde studies revealed no persistent filling defect or area o f obstruction. The left ureter and renal caliceal system are mildly dilated compared to the right, b ut each side drains well and there is no bloody drainage from either side. OPERATIVE TECHNIQUE: After obtaining written and verbal consent from the patient's sister and after receiving IV antibiotics, he was taken to the operating suite. He was placed in supine position on t he treatment table. General anesthetic, oral intubation was given. He was then placed in the dorsal lithotomy position and sterilely prepped and draped. The C-arm was brought in for imaging. Cystosc opy was performed with a 22 Puerto Rican sheath. His indwelling Bran catheter had been removed and then h e was sterilely prepped and draped. A 22 [place] sheath was passed, well lubricated under direct visi on with aid of 30-degree lens and a video camera and monitor through the male urethra and into the bl adder. The bladder was filled and emptied and examined with both the 30 and the 70 degree lens. Goi ng back to the 30 degree lens, we brought in a 5-Puerto Rican cone tip catheter and flushed with contrast, it was placed into the right ureteral orifice about a centimeter and contrast was injected in a retro grade manner slowly filling out this collecting system and ureter and drainage films were taken. Als o, the left side was done in the same way. These were sent for permanent reading and my impression i s already mentioned above. At this point, the bladder was drained. Instruments were removed. Bran catheter was sterilely placed 20 mL were placed in the balloon. A rectal exam was done that reveals no rectal lesions. Prostate that is small and of normal texture without evidence of fluctuance or n odularity. The patient was taken out of the dorsal lithotomy position, awakened, extubated, and take n by stretcher to the recovery room.
--- NOTE | 2017-12-30 09:55 | RAD ---
RETROGRADE URETEROGRAM: HISTORY: Urinary tract obstruction. FINDINGS/IMPRESSION: Intraoperative fluoroscopy was provided for retrograde study as performed by Dr. Montero. Spot fluoro scopic images show contrast opacification of a nondilated left ureter and renal collecting system. N o filling defects are reliably demonstrated. Subtle irregularity along the distal ureter is noted bu t could represent peristalsis. Correlation with real-time imaging is required. POS: DERIK
[2017-12-30] MEDS ORDERED: ePHEDrine/0.9% NaCl/PF SYRINGE 50 mg/10 ml ONE (15:23)
[2017-12-30] MEDS ORDERED: Lidocaine 1% PF 5 ML VIAL ONE (15:23)
[2017-12-30] MEDS ORDERED: Glycopyrrolate 0.2 MG/ML 5 ML SYRINGE ONE (15:23)
[2017-12-30] MEDS ORDERED: PHENYLEPHRINE-NS 100 MCG/ML 10 ML SYRINGE ONE (15:23)
[2017-12-30] MEDS ORDERED: PROPOFOL 200 MG/20 ML VIAL ONE (15:23)
== END 2017-12-30 10:42 | disposition home or self-care (01) ==
LOC: SDC 06:02
PROVIDERS: ATTEND Urology
PROC: 0TJB8ZZ Inspection of Bladder, Via Natural or Artificial Opening Endoscopic (ICD-10-PCS; principal; 2017-12-30)
PROC: BT14ZZZ Fluoroscopy of Kidneys, Ureters and Bladder (ICD-10-PCS; 2017-12-30)
DX: R31.0 Gross hematuria (principal); N39.0 Urinary tract infection, site not specified; E11.9 Type 2 diabetes mellitus without complications; E66.9 Obesity, unspecified; I10 Essential (primary) hypertension; Z88.8 Allergy status to other drugs, medicaments and biological substances
CPT/HCPCS: 36415; 74420; 80048; 85025; 85610; 85730; 96374; J2001; J2250; J2405; J2704; J3010; Q9961

== ENCOUNTER 2018-04-17 14:37 | Outpatient (CLI) | payer MEDICARE, MEDICAID ==
--- NOTE | 2018-04-17 16:32 | PRG ---
DATE OF SERVICE: 04/17/2018 HISTORY: Mr. David Felipe is a 62-year-old gentleman, who presents to the [facility] for evaluation of a wound of the left ischium. Since the patient's last visit, the patient underwent intraoperative debridement of the ulceration including bone on 02/06/[address] Gould. The patient underwent intraoperative debridement after technetium triple-phase bone scan revealed osteomyelitis of the left ischial tuberosity. The patient upon discharge from [facility], was transferred to [facility], where he is receiving negative pressure therapy. The patient has also received IV antibiotics as per Dr. Denzel Cage of Infectious Diseases. PHYSICAL EXAMINATION: VITAL SIGNS: Temperature 97.8, pulse 83, respirations 14, and blood pressure 142/93. BACK: A pressure ulceration of the left ischium is present, which measures approximately 3.2 x 6.0 cm. Necrotic and nonviable tissue present within the wound margins was debrided with an excisional full-thickness debridement. No purulent drainage is associated with the wound. No cellulitis of the left ischial region is appreciated. No maceration of the skin of the periwound is noted. No bone is palpable within the wound margins on exam today. ASSESSMENT AND PLAN: 1. Left ischial pressure ulceration as described above. Negative pressure therapy will be continued with dressing changes of the wound VAC 3 times per week at [facility]. Santyl may also be applied to the wound bed at the time of wound VAC dressing changes. I will discuss the treatment plan with Dr. Paez. 2. MR. 3. Hypertension. 4. Diabetes mellitus. 5. Seizure disorder. 6. Hypothyroidism. 7. Gastroesophageal reflux disease. 8. Anemia. Job ID: [id number]
[2018-04-20] MEDS ORDERED: Sodium Chloride 0.9% 15 ML NEB ONE (14:01)
== END 2018-04-17 14:38 | disposition home or self-care (01) ==
LOC: WCC 14:37
PROVIDERS: ATTEND Family Medicine
DX: E11.622 Type 2 diabetes mellitus with other skin ulcer (principal); L89.899 Pressure ulcer of other site, unspecified stage; I34.0 Nonrheumatic mitral (valve) insufficiency; I10 Essential (primary) hypertension; G40.909 Epilepsy, unspecified, not intractable, without status epilepticus; E03.9 Hypothyroidism, unspecified; K21.9 Gastro-esophageal reflux disease without esophagitis; D64.9 Anemia, unspecified
CPT/HCPCS: 11042

== ENCOUNTER 2018-05-05 03:14 | Inpatient (IN) | payer MEDICARE, MEDICAID ==
[2018-05-05] MEDS ORDERED: Rocuronium Bromide 10 MG/ML (10ML VIAL) ONE (03:22)
[2018-05-05] MEDS ORDERED: Acetaminophen 650 MG Suppository ONE (03:29)
[2018-05-05 04:07] LABS: Actual Bicarbonate (HCO3a) 14.9 mEq/L (22-28); Analyzer IN Cardio ER; Base Excess (BEa) -8.7 mEq/L (-2.0 to +3.0); CO2 Tension 26.4 mmHg (35.0-45.0); Calcium, Ionized 1.11 mmol/L (1.12-1.30); Carboxyhemoglobin (COHb) 0.3 gm% (0.0-3.0); Hemoglobin (Hb) 13.4 g/dL (14.0-18.0); O2 Tension (PaO2) 347.6 mmHg (> 80.0); Potassium - ABG Lab 5.35 mmol/L (3.70-5.30); pH, Arterial 7.37 (7.35-7.45)
[2018-05-05 04:15] LABS: Puncture Site LRA
[2018-05-05 04:19] LABS: Hemoglobin 12.9 g/dL (14.0-18.0); Mean Corpuscular HGB CONC 31.2 g/dL (32.0-36.0); Mean Corpuscular Hemoglobin 25.8 pg (27.0-31.0); Mean Corpuscular Volume 82.9 fL (78.0-98.0); Mean Platelet Volume 9.3 fL (7.4-10.4); Platelet Count 233 thou/uL (130-400); RBC Distribution Width 16.1 % (11.5-14.5); White Blood Cell (WBC) Count 13.1 thou/uL (4.8-10.8)
[2018-05-05] MEDS ORDERED: Piperacillin/Tazobactam 4.5 GM VIAL ONE (04:29)
[2018-05-05] MEDS ORDERED: methylPREDNISolone Sod Succ/PF 125 MG/2 ML VIAL ONE (04:29)
[2018-05-05] MEDS ORDERED: fentaNYL Citrate/PF 2,000 MCG in Sodium Chloride 0.9% 60 ML IV SCH (04:30)
[2018-05-05 04:31] LABS: INR-International Normal Ratio 1.8; PTT 46.4 SEC (22.9-36.1); Prothrombin Time 20.9 SEC (12.0-14.7)
[2018-05-05 04:34] LABS: Base Excess-Venous -7.2 mmol/L (0 (+/- 2.5)); Bicarbonate (HCO3v) 18.5 mmol/L (22.0-29.0); CO2 Tension (PvCO2) 37.5 mmHg (41.0-51.0); Calcium, Ionized 1.09 mmol/L (1.12-1.32); Hemoglobin - Calc 14.6 g/dL (12.0-18.0); O2 Tension (PvO2) 99.4 mmHg (35.0-45.0); T. Carbon Dioxide 19.7 mmol/L (1.0-85.0); pH (Venous) 7.302 (7.35-7.45)
[2018-05-05 04:39] LABS: Acetaminophen Less than 6.0 mcg/mL (10.0-30.0); Alcohol Less than 10 mg/dL (Less than 10); Salicylate Less than 8.0 mg/dL (15.0-30.0)
[2018-05-05] MEDS ORDERED: Vasopressin 40 UNIT, Admixture Fee 1 EACH in Sodium Chloride 0.9% 100 ML IV SCH (04:45)
[2018-05-05 04:50] LABS: ALT (SGPT) 13 U/L (8-55); AST (SGOT) 32 U/L (5-34); Albumin 2.2 g/dL (3.4-4.8); Alkaline Phosphatase 108 U/L (40-150); Anion Gap 21 mmol/L (10-20); BUN (Urea Nitrogen) 46 mg/dL (8.4-25.7); Bilirubin, Total 0.4 mg/dL (0.2-1.2); Calc. Creatinine Clearance 0 mL/min (70-130); Calcium 7.6 mg/dL (7.8-10.44); Carbon Dioxide 18 mmol/L (23-31); Chloride 110 mmol/L (98-107); Estimated GFR-MDRD 42; Globulin 2.2 g/dL (2.4-3.5); Glucose 326 mg/dL (80-115); Lipase 15 U/L (8-78); Magnesium 1.5 mg/dL (1.6-2.6); Protein, Total 4.4 g/dL (5.8-8.1); Sodium 143 mmol/L (136-145)
[2018-05-05 05:03] LABS: Band 53 % (5-11); Dohle Bodies SLIGHT; Lymphocytes 21 % (21-51); MDiff Complete? YES; Metamyelocyte 2 % (0-0); Monocytes 12 % (0-10); Myelocyte 4 % (0-0); Neutrophil 7 % (42-75); Platelet Morphology Comment Appears Adequate; Reactive Lymphocytes 1 % (0-10); Reflex for Review?? YES; Toxic Granulation SLIGHT; Vacuoles SLIGHT
[2018-05-05 05:09] LABS: Bilirubin Moderate (Negative); Blood, Urine Small (Negative); Clarity TURBID (Clear); Glucose, Urine (Dipstick) 100 mg/dL (Negative); Leukocyte Moderate (Negative); Nitrite Positive (Negative); Protein, Urine (Dipstick) 100 mg/dL (Neg-Trace); Specific Gravity, Urine 1.033 (1.002-1.036)
[2018-05-05 05:15] LABS: Yeast-AUWi Flag 1857.2 (0-25.0)
[2018-05-05 05:16] LABS: Pathc Cast-AUWi Flag 35.39 (0-2.49)
[2018-05-05 05:20] LABS: Medtox Reader # READER 1
[2018-05-05 05:21] LABS: Cocaine Metabolite Screen Not Detected (NotDetected); Phencyclidine (PCP) Not Detected (NotDetected); THC/Cannabinoid Screen Not Detected (NotDetected)
[2018-05-05 05:22] LABS: Amphetamine Detected (NotDetected); Barbiturates Screen Not Detected (NotDetected); Benzodiazepine Screen Not Detected (NotDetected); Medtox Control Line Valid? VALID (VALID); Methadone Not Detected (NotDetected); Methamphetamine Not Detected (NotDetected); Opiate Screen Not Detected (NotDetected); Oxycodone Screen Not Detected (NotDetected); Tricyclic Screen Not Detected (NotDetected)
[2018-05-05 05:34] LABS: Phosphorus 3.2 mg/dL (2.3-4.7)
[2018-05-05 05:44] LABS: Renal Epithelial 0-3 HPF (0-3)
[2018-05-05 05:45] LABS: Bacteria/HPF 1+ HPF (None Seen); Crystals/HPF 2+ AMORPH URATES HPF (Negative); Hyaline Casts/LPF 0-3 HYALINE CAST LPF (0-3 Hyaline); Trichomonas/HPF None Seen HPF (None Seen); Yeast-All Forms None Seen HPF (None Seen)
[2018-05-05 05:46] LABS: Other Casts/LPF 0-3 COARSE GRAN LPF (0-3 Hyaline)
[2018-05-05 05:47] LABS: Transitional Epithelial NONE SEEN HPF (0-3)
[2018-05-05 05:48] LABS: Oval Fat Bodies/HPF None Seen HPF (None Seen)
[2018-05-05] MEDS ORDERED: Acetaminophen 650 MG Suppository PR PRN (06:09)
[2018-05-05] MEDS ORDERED: Acetaminophen 325 MG TAB PO PRN (06:09)
[2018-05-05] MEDS ORDERED: CCU Electrolyte Replacement 1 EACH FS SCH (06:11)
[2018-05-05] MEDS ORDERED: Ventilator Sedation Protocol 1 EACH FS SCH (06:15)
--- NOTE | 2018-05-05 06:32 | PDOC.FPRHP ---
- History of Present Illness Chief Complaint: Unresponsive History of Present Illness: DH is a 62 year old with profound mental retardation and recurrent UTIs presents to the ED after being found unresponsive at [facility]. Per ER records, pt was found unresponsive at 2:15 am. Upon arrival to ED he was only responsive to manual stimuli. He was hypotensive and bradycardic and had a fever of 103 per EMS. He was given atrophine and push doses of pressors and epi prior to arrival in ED. He was sedated and intubated in ED. He was given Vanc, Zosyn, 1L NS, Solumedrol, and started on Levophed. 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 He had debridement and woundvac placed and was discharged to [facility] with 6 weeks of IV abx (Vanc, Rocephin, and Flagyl). Was discharged on 04/19 to [facility]. ED Course: As described above. - Allergies/Adverse Reactions Allergies Allergy/AdvReac Type Severity Reaction Status Date / Time metformin Allergy Verified 12/29/17 14:35 - Home Medications Medication Instructions Recorded Confirmed Type Acetaminophen [Tylenol Extra 1,000 mg PO Q6H PRN 06/19/13 12/29/17 History Strength] Benzoyl Peroxide [Benzoyl Peroxide 1 applic TOP DAILY PRN 06/19/13 12/29/17 History 5% Wash] Clindamycin Phosphate [Clindamycin 1 applic TOP BID PRN 06/19/13 12/29/17 History Phosphate 1% Lotion] Docusate Sodium 100 mg PO DAILY 06/19/13 12/29/17 History Folic Acid 2 tab PO DAILY 06/19/13 12/29/17 History Insulin Aspart [NovoLOG Vial] 20 unit SQ AC 06/19/13 12/29/17 History Loratadine [Claritin] 10 mg PO HS PRN 06/19/13 12/29/17 History Milk Of Magnesia 80mg/mL Susp 30 ml PO DAILY PRN 06/19/13 12/29/17 History [Jacob' Milk Of Magnesia] Potassium Chloride 2 cap PO BID 06/19/13 12/29/17 History Triamcinolone Acetonide 1 applic TOP BID PRN 06/19/13 12/29/17 History [Triamcinolone Acetonide 0.1% Cream] ALButerol Sulfate [Ventolin Neb] 3 ml NEB Q4HR PRN 05/12/15 12/29/17 History Acyclovir [Zovirax 5% Ointment] 1 applic TOP TID PRN 05/12/15 12/29/17 History Container,Empty [Enema Bottle] 1 each WA DAILY PRN 05/12/15 12/29/[address] [Depakote] 25 ml PO BID 05/12/15 12/29/17 History Gabapentin [Neurontin] 300 mg PO TID 05/12/15 12/29/17 History Multivitamin [One-A-Day Essential] 1 tablet PO DAILY 05/12/15 12/29/17 History Ranitidine HCl 150 mg PO DAILY 05/12/15 12/29/17 History Rosuvastatin [Crestor] 10 mg PO HS 05/12/15 12/29/17 History Sulfamethoxazole/Trimethoprim 1 each PO BID #14 tablet 12/01/17 12/29/17 Rx [Bactrim Ds Tablet] Finasteride 5 mg PO DAILY 12/19/17 12/29/17 History Levothyroxine Sodium [Synthroid] 100 mcg PO DAILY 12/19/17 12/29/17 History Salicylic Acid [Selsun Blue 1 applic TOP ASDIR 12/19/17 12/29/17 History Naturals 3% Shampoo] Tamsulosin HCl [Flomax] 0.8 mg PO HS 12/19/17 12/29/17 History Cephalexin [Keflex] 500 mg PO BID #20 cap 12/22/17 12/29/17 Rx Furosemide [Lasix] 0.5 tab PO DAILY 12/29/17 12/29/17 History Lisinopril [Zestril] 1 tab PO HS 12/29/17 12/29/17 History Winona-3 Acid Ethyl Esters [Lovaza] 1 cap PO BID 12/29/17 12/29/17 History Sulfamethoxazole/Trimethoprim 1 tab PO BID 12/29/17 12/29/17 History [Bactrim DS] guaiFENesin/Pseudoephedrne HCl 1 tab PO BID PRN 12/29/17 12/29/17 History [Mucinex D ER] sitaGLIPtin Phosphate [Januvia] 1 tab PO DAILY 12/29/17 12/29/17 History - History PMHx: Hypertension, Hyperlipidemia, Seizure disorder, GERD, Cognitive impairment , Chronic constipation, Hypothyroidism, Diabetes Mellitus, Chronic sacral decubitus ulcer s/p debridement PSHx: Dorsal slit for phimosis, urethral dilation for stricture, sacral decubitus ulcer debridement FHx: Non-contributory Social: [place] resident since 2008. Sister (Laxmi Berger) is MPOA - Review of Systems ROS unobtainable: due to endotracheal tube - Vital signs BP: 85/58 HR: 126 Tmax: 103.2 Pox: 97% on Vent Wt: 75 kg - Physical Exam Constitutional: other (Intubated and sedated) HEENT: other (left corneal abrasion) Heart: other (tachycardic; no murmurs, rubs, or gallops) Lungs: CTAB Abdomen: soft, bowel sounds present (moderately distended, tympany), other (d) Musculoskeletal: other (lower extremities contracted) -Skin: wound vac to left ischium. Heme/Lymphatic: no unusual bruising or bleeding, no purpura FMR H&P: Results - Labs Result Diagrams: 05/05/18 03:55 05/05/18 03:55 Lab results: WBC 13.1 thou/uL (4.8-10.8) H 05/05/18 03:55 Hgb 12.9 g/dL (14.0-18.0) L 05/05/18 03:55 Hct 41.4 % (42.0-52.0) L 05/05/18 03:55 MCV 82.9 fL (78.0-98.0) 05/05/18 03:55 Plt Count 233 thou/uL (130-400) 05/05/18 03:55 Band Neuts % (Manual) 53 % (5-11) H 05/05/18 03:55 ABG pH 7.37 (7.35-7.45) 05/05/18 04:00 ABG pCO2 26.4 mmHg (35.0-45.0) L 05/05/18 04:00 ABG pO2 347.6 mmHg (> 80.0) H 05/05/18 04:00 VBG pCO2 37.5 mmHg (41.0-51.0) L 05/05/18 04:03 VBG pO2 99.4 mmHg (35.0-45.0) H 05/05/18 04:03 Sodium 143 mmol/L (136-145) 05/05/18 03:55 Potassium 6.0 mmol/L (3.5-5.1) H 05/05/18 03:55 Chloride 110 mmol/L (98-107) H 05/05/18 03:55 Carbon Dioxide 18 mmol/L (23-31) L 05/05/18 03:55 BUN 46 mg/dL (8.4-25.7) H 05/05/18 03:55 Creatinine 1.67 mg/dL (0.7-1.3) H 05/05/18 03:55 Glucose 326 mg/dL (80-115) H 05/05/18 03:55 Lactic Acid 8.6 mmol/L (0.5-2.2) H* 05/05/18 03:55 Calcium 7.6 mg/dL (7.8-10.44) L 05/05/18 03:55 Total Bilirubin 0.4 mg/dL (0.2-1.2) 05/05/18 03:55 AST 32 U/L (5-34) 05/05/18 03:55 ALT 13 U/L (8-55) 05/05/18 03:55 Alkaline Phosphatase 108 U/L (40-150) 05/05/18 03:55 Serum Total Protein 4.4 g/dL (5.8-8.1) L 05/05/18 03:55 Albumin 2.2 g/dL (3.4-4.8) L 05/05/18 03:55 Lipase 15 U/L (8-78) 05/05/18 03:55 Urine Ketones Trace mg/dL (Negative) H 05/05/18 04:54 Urine Blood Small (Negative) H 05/05/18 04:54 Urine Nitrite Positive (Negative) H 05/05/18 04:54 Ur Leukocyte Esterase Moderate (Negative) H 05/05/18 04:54 Urine RBC 7-10 HPF (0-3) H 05/05/18 04:54 Urine WBC 7-10 HPF (0-3) H 05/05/18 04:54 Ur Squamous Epith Cells 4-6 HPF (0-3) H 05/05/18 04:54 Urine Bacteria 1+ HPF (None Seen) H 05/05/18 04:54 FMR H&P: A/P - Problem List (1) Mental retardation Current Visit: No Status: Acute Code(s): F79 - UNSPECIFIED INTELLECTUAL DISABILITIES (2) Seizure disorder Current Visit: No Status: Chronic Code(s): G40.909 - EPILEPSY, UNSP, NOT INTRACTABLE, WITHOUT STATUS EPILEPTICUS - Plan Septic Shock - will admit to ICU. Per ER record, Pulmonology made aware of patient. - pt sedated and intubated in ED. - s/p 5L NS. Pt now on vasopressors. Urine output has improved. Will wean pressors as tolerated. - source presumably urinary given UA. CXR/CT abd/pelvis appear negative, official reads pending. - will treat empirically with Vanc/Zosyn. - strict Is&Os. Will repeat Lactate. - Vent managment per pulm Hyperkalemia - no EKG changes. - Will administer Ca to protect cardiac myocytes. - will hold off on lasx given hypovolemia; will hold off on lactulose/ kayexalate given profound diarrhea - will repeat BMP. Acute renal failure - likely related to hypoperfusion from sepsis. - will repeat BMP Chronic UTIs - continue IV antibiotics. - may consider discussion with Dr. Regan. Diarrhea - purulent fecal material - will check for C diff, given recent hospitalization. Diabetes Mellitus - will resume home regimen Seizure disorder - resume home meds. Hypothyroidism -resume home meds. Hyperlipidemia - continue home meds DVT PPx: Heparin GI PPx: Protonix. Addendum - Attending - Attending Attestation Date/Time: 05/05/18 0109 I personally evaluated the patient and discussed the management with Dr. Manley I agree with the History, Examination, Assessment and Plan documented above with any addition or exceptions noted below.Osteomyelitis left ischial confirmed during last admit this patient with 2 different medical records and need to be merged for future clarity of medical record review.Previous concern/ discussion placement of suprapubic cath. Patient family aware of severity of disease and discussing revised code status at benefits; of this point patient continues full code status.
[2018-05-05] MEDS ORDERED: DISCONTINUE PREVIOUS NARCOTIC PAIN MEDICATIONS AND BENZODIAZEPINES FS SCH (06:57)
[2018-05-05] MEDS ORDERED: Lorazepam 2 MG/ML VIAL SLOW IVP PRN (06:57)
[2018-05-05] MEDS ORDERED: Morphine 2 MG/ML SYRINGE SLOW IVP PRN (06:57)
[2018-05-05] MEDS ORDERED: Fentanyl BOLUS 250 ML IVPB PRN (06:57)
[2018-05-05] MEDS ORDERED: Propofol BOLUS 1,000 MG/100 ML VIAL IV PRN (06:57)
[2018-05-05] MEDS ORDERED: Potassium Phosphate 9 MMOL in Sodium Chloride 0.9% 100 ML IVPB PRN (06:59)
[2018-05-05] MEDS ORDERED: Potassium Phosphate 12 MMOL in Sodium Chloride 0.9% 250 ML 250 ML IV PRN (06:59)
[2018-05-05] MEDS ORDERED: Potassium Chloride 40 MEQ in Sodium Chloride 0.9% 250 ML 250 ML IVPB PRN (06:59)
[2018-05-05] MEDS ORDERED: Magnesium 2 GM/NS 0.9% 100 ML 2 GM in Premix Bag 1 BAG IVPB PRN (06:59)
[2018-05-05] MEDS ORDERED: Potassium Chloride 20 MEQ TAB PO PRN (06:59)
[2018-05-05] MEDS ORDERED: Magnesium Oxide 400 MG TAB PO PRN ×2 (06:59)
[2018-05-05] MEDS ORDERED: CCU ELECTROLYTE REPLACEMENT PROTOCOL FS PRN (06:59)
[2018-05-05] MEDS ORDERED: Potassium Phosphate 15 MMOL in Sodium Chloride 0.9% 250 ML 250 ML IV PRN (06:59)
[2018-05-05 07:10] LABS: Lactic Acid 6.4 mmol/L (0.5-2.2)
[2018-05-05] MEDS ORDERED: Sodium Chloride 0.9% 1,000 ML IV SCH (07:15)
--- NOTE | 2018-05-05 07:26 | PDOC.EVN ---
Addendum - Attending - Attending Attestation Date/Time: 05/05/18 5207 I personally evaluated the patient and discussed the management with Dr. Valentin Manley I agree with the separate resident History, Examination, Assessment and Plan documented for specific detail please refer Resident HX & PE 62 yo MR Male found unresponsive at [facility].last known responsive approxiamately 1 hour previously. Patient with BP 48/30 HR 30s given atropine and two epinephrine by EMS Patient at arrival with temp 103.2 patient intubated and CL placed and fluid resuscitated with 6L NS and started on levophed and vasopressin drips, Vancomycin and zosyn administered. Blood and urine cultures obtained Lab: Lactate 8.6 BUN 46/creatinine 1.6 coags prolonged Exam intubated unresponsive BP 75/50 HR 115 left eye with questionable corneal ulceration Lungs Clear Heart sinus tachycardia abdomen slightly distended , soft BS diminished chen in place left ishial sacral region with tunneling wound. Patient was admitted Dec 19, 2017 with urosepsis hx recurrent UTI cystoscopy per Dr Salas no obvious pathology for repeated UTI pt did have hx urethral stricture in past. PMHX MR,HTN,DM2 Hypothyroidism SZ d/o dyslipidemia. Patient currently full code discussed with MPOA sister Laxmi Berger the critical status of patient. Patient after last discharge with swing bed at [place] x 6 weeks had prolonged antibiotic for ? osteomyletis then transferred to [facility]. Patient in grave condition septic shock with probable Urinary source verse osteomyelitis. will be move to CCU attempt improve BP more fluids and repeat lactate level. rec check stool for C. Dificile and appreciate care per Critical care /policy specialist.
[2018-05-05] MEDS ORDERED: Calcium Gluc 4.6 MEQ/10 ML (100 MG/ML) SLOW IVP ONE (07:40)
--- NOTE | 2018-05-05 08:13 | CT ---
PRELIMINARY REPORT/[facility]/EMERGENTY AFTER-HOURS PROCEDURE CT Head Without Contrast EXAM DATE/TIME: 05/05/2018 5:41 AM CLINICAL HISTORY: 62 years old, male; Signs and symptoms; Other: Unresponsive, sepsis; Patient HX: Patient found unresp onsive, sepsis TECHNIQUE: Axial computed tomography images of the head/brain without contrast. COMPARISON: No relevant prior studies available. FINDINGS: Brain: Normal. No hemorrhage. No significant white matter disease. No edema. Ventricles: Normal. No ventriculomegaly. Bones/joints: Unremarkable. No acute fracture. Sinuses: Mild mucosal thickening is seen in the left maxilla sinus and ethmoid air cells. Mastoid air cells: Visualized mastoid air cells are unremarkable. No mastoid effusion. Soft tissues: Unremarkable. IMPRESSION: 1. No acute findings. 2. Nonspecific mucosal thickening in the left maxillary sinus and ethmoid air cells. Thank you for allowing us to participate in the care of your patient. Dictated and Authenticated by: Hannah Rodriguez MD 05/05/2018 6:15 AM Central Time ([place] & [place]) CT HEAD NONCONTRAST PERFORMED ON AN EMERGENCY BASIS: 05/05/2018 0542 HOURS HISTORY: Unresponsive. Altered mental status. COMPARISON: 07/24/2014 FINDINGS: I agree with the preliminary report by Dr. Green from [facility]. Chronic type findings are s table. No acute intracranial abnormalities are demonstrated. POS: [facility]
--- NOTE | 2018-05-05 08:15 | CT ---
PRELIMINARY REPORT/[facility]/EMERGENTY AFTER-HOURS PROCEDURE CT Abdomen and Pelvis Without Contrast EXAM DATE/TIME: 05/05/2018 5:44 AM CLINICAL HISTORY: 62 years old, male; Condition or disease; Other: Sepsis, unresponsive. ; Patient HX: Patient was foun d unresponsive, sepsis. TECHNIQUE: Axial computed tomography images of the abdomen and pelvis without contrast. Coronal reformatted images were created and reviewed. COMPARISON: No relevant prior studies available. FINDINGS: Tubes, catheters and devices: The NG tube ends in the stomach. A right-sided femoral line is seen. Mi ld air within the vein around the catheter is nonspecific. Lower thorax: Bibasilar opacities likely represent atelectasis or infection. Bilateral small pleural effusions are seen. ABDOMEN: Liver: Normal. No mass. Gallbladder and bile ducts: Normal. No calcified stones. No ductal dilation. Pancreas: Normal. No ductal dilation. Spleen: Normal. No splenomegaly. Adrenals: Normal. No mass. Kidneys and ureters: Normal. No hydronephrosis. Stomach and bowel: Moderate wall thickening involving the colon worse in the ascending colon and cecu m likely represents colitis. Moderate wall thickening involving the rectum and sigmoid colon with ext ensive surrounding fat stranding likely represents of colitis. The sigmoid colon is moderately dilated but is not show definite evidence of volvulus. Appendix: No evidence of appendicitis. PELVIS: Bladder: Moderate urinary bladder wall thickening the is likely underdistention. Cystitis is not excl uded. A Bran catheter is seen in the urinary bladder. Reproductive: Unremarkable as visualized. ABDOMEN and PELVIS: Intraperitoneal space: No evidence of free air in the abdomen. Bones/joints: Moderate degenerative changes affect the spine. Mild levoscoliosis of the thoracolumbar junction is seen. Soft tissues: Unremarkable. Vasculature: Mild atherosclerotic calcifications affect the aorta and its branches. Lymph nodes: Normal. No enlarged lymph nodes. IMPRESSION: 1. Evaluation of the upper abdomen is limited due to streak artifacts. 2. Moderate wall thickening involving the colon worse in the ascending colon and cecum likely represe nts colitis. Moderate wall thickening involving the rectum and sigmoid colon with extensive surroundi ng fat stranding likely represents colitis. The sigmoid colon is moderately dilated but is not show definite evidence of volvulus. Differential diagnosis includes infectious, ischemic or inflammat ory. A colonoscopy is recommended to exclude malignancy after the acute episode has subsided. 3. Moderate urinary bladder wall thickening is likely due to underdistention. Cystitis is not exclude d. 4. Right-sided femoral line. Mild air within the femoral vein around the line may be due to line plac ement. 5. Bibasilar opacities likely represent atelectasis or infection. Bilateral small pleural effusions. Thank you for allowing us to participate in the care of your patient. Dictated and Authenticated by: Hannah Rodriguez MD 05/05/2018 6:44 AM Central Time ([place] & [place]) FINAL REPORT CT ABDOMEN AND PELVIS NONCONTRAST PERFORMED ON AN EMERGENCY BASIS: Date: 05/05/18 Time: 0545 hours HISTORY: Unresponsive. Abdominal pain. Sepsis. FINDINGS: Findings agree with the preliminary report by Joel. No CT evidence of urinary tract obstruction or ca lcification. Lack of contrast decreases sensitivity of exam for other abnormalities. Circumferential wall thickening and adjacent inflammation involving primarily the cecum and rectum. Clinical correlat ion regarding other signs and symptoms of multifocal colitis is required. Cause is not apparent. POS: DERIK
[2018-05-05] MEDS ORDERED: Norepinephrine 8 MG/0.9% NS 250 ML ONE (08:31)
--- NOTE | 2018-05-05 08:31 | RAD ---
AP CHEST: HISTORY: Bradycardia, unresponsive. Post femoral line placement. COMPARISON: 12/19/2017 FINDINGS: ET tube and NG tube have been placed. The lungs appear well aerated and clear. No infiltrate or vas cular congestion is seen. IMPRESSION: No acute lung process. POS: OFF
[2018-05-05] MEDS ORDERED: Enoxaparin Sodium 40 MG/0.4 ML SYRINGE SC SCH (09:00)
[2018-05-05] MEDS ORDERED: Piperacillin/Tazobactam 2.25 GM in Sodium Chloride 0.9% 100 ML IVPB SCH (09:00)
[2018-05-05] MEDS: Heparin 5,000 UNITS/ML VIAL SC SCH ×3 (09:17→21:21)
[2018-05-05] MEDS: Pantoprazole 40 MG VIAL IVP SCH (09:18)
--- NOTE | 2018-05-05 10:08 | CON ---
DATE OF CONSULTATION: 05/05/2018 PULMONARY CRITICAL CARE CONSULTATION TIME SPENT: 45 minutes critical care time. CONSULTING PHYSICIAN: [facility]. REASON FOR CONSULTATION: Septic shock, respiratory failure. HISTORY OF PRESENT ILLNESS: The patient is a 62-year-old male, who came to the emergency room earlier today with profound hypotension. He was intubated. Central line was placed in the right femoral area. He was started on vasopressor therapy and has received over 6 L of fluids. He has been cared for by Dr. Reese in our group in the past. He is currently on mechanical ventilation. PAST MEDICAL HISTORY: 1. Mental retardation. 2. Clostridium difficile colitis. 3. Diabetes mellitus type 2. 4. Peripheral neuropathy. 5. Seizure disorder. 6. Hypothyroidism. 7. Hypertension. 8. Gastroesophageal reflux. PAST SURGICAL HISTORY: 1. Dorsal slit for phimosis of the penis. 2. Ureteral dilation of stricture. SOCIAL HISTORY: Apparently, lives in a snf. Does not abuse substances. FAMILY MEDICAL HISTORY: Unknown. REVIEW OF SYSTEMS: Cannot be obtained secondary to the patient's mental status. MEDICATIONS LIST: 1. Acarbose. 2. Albuterol. 3. Claritin. 4. Clindamycin gel. 5. Crestor. 6. Docusate. 7. Folate. 8. Gabapentin. 9. Januvia. 10. Lasix. 11. Lisinopril. 12. Lovaza. 13. Milk of magnesia. 14. Mucinex D. 15. Multivitamin. 16. NovoLog. 17. Potassium chloride. 18. Depakene. 19. Finasteride. 20. Ranitidine. 21. Synthroid. 22. Tamsulosin. 23. Tylenol. PHYSICAL EXAMINATION: VITAL SIGNS: Blood pressure 85/50, pulse 123, O2 saturation 100%, respiratory rate 16. He is currently intubated and on mechanical ventilation. HEENT: Pupils reactive. Sclerae anicteric. Oropharynx, endotracheal tube in place. NECK: No JVD. LUNGS: Clear to auscultation anteriorly. CARDIOVASCULAR: S1 and S2. Tachycardic. ABDOMEN: Distended. Bowel sounds quiet. EXTREMITIES: No clubbing or cyanosis. He has a large left ischial stage IV decubitus ulcer. He has a stage I right medial malleolus ulcer on his foot. LABORATORY DATA: White blood cell count 13.1, hemoglobin 12, hematocrit 41.4, and platelet count 233, with 53% bands. INR is 1.8. PH 7.37, pCO2 of 26, pO2 of 347, on SIMV rate 16, tidal volume 500, PEEP 5, pressure support 10, FiO2 100%. Sodium 144, potassium 6.0, chloride 116, CO2 of 18, BUN 46, creatinine 1.6, lactate 8.3. ASSESSMENT: 1. The patient is presenting with septic shock, which may be from stage IV decubitus ulcer. Clostridium difficile colitis would also have to be in the differential given his diarrhea. 2. Other medical problems as listed above. 3. Hyperkalemia, which is probably being aggravated by the metabolic acidosis. RECOMMENDATIONS: 1. Continue mechanical ventilation at current settings. 2. Broad-spectrum IV antibiotics. 3. If Clostridium difficile toxin is positive, then start oral vancomycin. 4. Recheck potassium later today. 5. Start vitamin C and thiamine for sepsis. 6. Vasopressors as needed. 7. Consider starting steroids for refractory hypotension if necessary. Job ID: [id number]
[2018-05-05 10:53] LABS: Lactic Acid 6.8 mmol/L (0.5-2.2)
[2018-05-05 11:02] LABS: Anion Gap 18 mmol/L (10-20); BUN (Urea Nitrogen) 35 mg/dL (8.4-25.7); Calc. Creatinine Clearance 64 mL/min (70-130); Calcium 7.6 mg/dL (7.8-10.44); Carbon Dioxide 12 mmol/L (23-31); Chloride 117 mmol/L (98-107); Estimated GFR-MDRD 60; Glucose 317 mg/dL (80-115); Potassium 5.4 mmol/L (3.5-5.1); Sodium 142 mmol/L (136-145)
[2018-05-05] MEDS ORDERED: Dextrose 50% Abboject 50 ML SYRINGE SLOW IVP PRN (11:03)
[2018-05-05] MEDS ORDERED: Dextrose 5% in Water 1,000 ML IV PRN (11:03)
[2018-05-05 11:07] LABS: Troponin I 0.011 ng/mL (< 0.028)
[2018-05-05] MEDS: Insulin Regular 300 UNITS/3 ML VIAL SC PRN ×4 (12:53→23:57)
[2018-05-05] MEDS: Norepinephrine 8 MG/250 ML IVPB SCH ×2 (13:03→20:12)
[2018-05-05] MEDS: Piperacillin/Tazobactam 3.375 GM in Sodium Chloride 0.9% 100 ML IVPB SCH ×3 (13:13→23:57)
[2018-05-05 13:45] LABS: Troponin I 0.014 ng/mL (< 0.028)
[2018-05-05 15:44] LABS: Potassium 5.5 mmol/L (3.5-5.1)
[2018-05-05] MEDS: Vancomycin HCl 1 GM in Premix Bag 1 BAG IVPB SCH (17:28)
[2018-05-05] MEDS: Acetaminophen 650 MG/20.3 ML UDCUP PO PRN (17:28)
[2018-05-06] MEDS ORDERED: Sodium Chloride 0.9% 1,000 ML IV SCH (00:30)
[2018-05-06] MEDS ORDERED: Lactated Ringer's 1,000 ML IV SCH ×4 (00:30→13:00)
[2018-05-06] MEDS: metroNIDAZOLE 500 MG in Premix Bag 1 BAG IVPB SCH ×3 (03:05→17:06)
[2018-05-06] MEDS: Acetaminophen 650 MG/20.3 ML UDCUP PO PRN ×2 (04:02→12:52)
[2018-05-06] MEDS: Insulin Regular 300 UNITS/3 ML VIAL SC PRN ×6 (04:02→23:35)
[2018-05-06] MEDS: Norepinephrine 8 MG/250 ML IVPB SCH ×4 (04:32→20:49)
[2018-05-06 04:55] LABS: Anion Gap 15 mmol/L (10-20); BUN (Urea Nitrogen) 44 mg/dL (8.4-25.7); Calc. Creatinine Clearance 56 mL/min (70-130); Calcium 7.2 mg/dL (7.8-10.44); Carbon Dioxide 16 mmol/L (23-31); Chloride 119 mmol/L (98-107); Estimated GFR-MDRD 51; Glucose 283 mg/dL (80-115); Potassium 4.4 mmol/L (3.5-5.1); Sodium 146 mmol/L (136-145)
[2018-05-06 05:30] LABS: Anisocytosis SLIGHT = 6-15 cells (100X) (0-5/hpf); Band 31 % (5-11); Hemoglobin 13.5 g/dL (14.0-18.0); Hypochromia SLIGHT = 6-15 cells (100X) (0-5/hpf); Lymphocytes 27 % (21-51); MDiff Complete? YES; Mean Corpuscular HGB CONC 30.7 g/dL (32.0-36.0); Mean Corpuscular Hemoglobin 25.6 pg (27.0-31.0); Mean Corpuscular Volume 83.3 fL (78.0-98.0); Mean Platelet Volume 9.1 fL (7.4-10.4); Metamyelocyte 5 % (0-0); Monocytes 6 % (0-10); Neutrophil 30 % (42-75); Platelet Count 247 thou/uL (130-400); Platelet Morphology Comment Appears Adequate; RBC Distribution Width 16.5 % (11.5-14.5); Reactive Lymphocytes 1 % (0-10); Red Blood Cell (RBC) Count 5.27 mill/uL (4.70-6.10); Toxic Granulation SLIGHT; Vacuoles SLIGHT; White Blood Cell (WBC) Count 16.6 thou/uL (4.8-10.8)
[2018-05-06] MEDS: Piperacillin/Tazobactam 3.375 GM in Sodium Chloride 0.9% 100 ML IVPB SCH ×4 (05:34→23:23)
[2018-05-06] MEDS: Vancomycin HCl 1 GM in Premix Bag 1 BAG IVPB SCH ×2 (05:36→16:28)
[2018-05-06] MEDS ORDERED: metroNIDAZOLE 500 MG in Premix Bag 1 BAG IVPB SCH (06:00)
--- NOTE | 2018-05-06 07:12 | PDOC.FM ---
- Subjective Subjective: 62M, ICU day 2, seen for sepsis, possible source include diabetic skin ulcer, osteomyelitis and UTI. Per nursing, overnight he had lowering urinary output, inadequate for body weight. Intervention with increased fluid, LR. He also had issue with fever, with highest of 103.2F. He was treated with tylenol, cooling blanket, repeat culture and addition of flagyl to cover anerobes. His map has remain stable above 60. Nuerologically, nursing state he appear to be unchanged, eye open, respond to pain, nods yes/no though not always appropriately. - Objective MAR Reviewed: Yes Vital Signs & Weight: Vital Signs (12 hours) Pulse Resp BP Pulse Ox 05/06/18 06:39 134 H 91/69 05/06/18 06:00 13 05/06/18 04:00 13 05/06/18 03:14 124 H 116/72 05/06/18 02:00 13 05/06/18 00:00 18 05/05/18 22:16 142 H 05/05/18 22:00 16 05/05/18 20:00 15 100 05/05/18 19:16 135 H 86/60 L 100 Weight Admit Weight 71.214 kg Weight 34.292 kg Most Recent Monitor Data Heart Rate from ECG 131 NIBP 86/66 NIBP BP-Mean 72 Respiration from ECG 15 SpO2 100 I&O: 05/05/18 05/06/18 05/07/18 06:59 06:59 06:59 Intake Total 2476 Output Total 1385 Balance 1091 Result Diagrams: 05/06/18 04:00 05/06/18 04:00 EKG Reviewed by me: Yes Radiology Reviewed by me: Yes Phys Exam - Physical Examination Constitutional: NAD HEENT: moist MMs, sclera anicteric Neck: no nodes, supple Respiratory: no wheezing, no rales, no rhonchi Ventilator Cardiovascular: RRR, no significant murmur, no rub Tachy, NSR. Gastrointestinal: soft, non-tender, positive bowel sounds Distended, tympanic on percussion 1+ edema GCS 9, withdraw, spontaneous eye open Deviation from normal: Awake, responds to outside stimuli. Not sedated Deviation from normal: See wound care notes in regard to pressure wound Dx/Plan (1) Septic shock Code(s): A41.9 - SEPSIS, UNSPECIFIED ORGANISM; R65.21 - SEVERE SEPSIS WITH SEPTIC SHOCK Status: Resolved Plan: - Today has improved as patient responded to vasopressin, levophed and fluid. Map has been consistently above 60 - Treatment of suspected underlying infection is being covered with vanc, zosyn and flagyl. - Will continue to monitor and escalate with steroid as needed. Have already tried thiamin and vit c. (2) Urinary tract infection Status: Acute Qualifiers: Urinary tract infection type: acute cystitis Hematuria presence: with hematuria Qualified Code(s): N30.01 - Acute cystitis with hematuria Plan: Recent hospitialization shows e. coli and proteus infection. Past sensitivity will be covered by zosyn Plan to continue with current abx, adjust pending culture. (3) Pressure ulcer Code(s): L89.90 - PRESSURE ULCER OF UNSPECIFIED SITE, UNSPECIFIED STAGE Status : Acute Qualifiers: Laterality: left Plan: Please see nursing note. As of now, noted to have sacral ulcer, illiac crest ulcer and heel ulcer. Abx used will cover for most skin infection. Continue wound care. (4) Diabetes mellitus type 2, insulin dependent Code(s): E11.9 - TYPE 2 DIABETES MELLITUS WITHOUT COMPLICATIONS; Z79.4 - LONGTERM (CURRENT) USE OF INSULIN Status: Chronic Plan: Patient is currently NPO due to need for vent, his critically ill state. Covering with SSI insulin. Required 37 unit last night. His glucose is currently 283. Once patient is appropriate for feeding, will gradually switch to long acting/ home medication to cover. (5) Hyperlipidemia Code(s): E78.5 - HYPERLIPIDEMIA, UNSPECIFIED Status: Chronic Qualifiers: Hyperlipidemia type: mixed hyperlipidemia Qualified Code(s): E78.2 - Mixed hyperlipidemia Plan: Chronic issue on admission. Resume home med when patient not NPO. (6) Hypothyroidism Code(s): E03.9 - HYPOTHYROIDISM, UNSPECIFIED Status: Chronic Qualifiers: Hypothyroidism type: acquired Qualified Code(s): E03.9 - Hypothyroidism, unspecified Plan: Chronic stable issue. TSH in appropriate range on admission Restart home med when patient is no longer NPO (7) Seizure disorder Code(s): G40.909 - EPILEPSY, UNSP, NOT INTRACTABLE, WITHOUT STATUS EPILEPTICUS Status: Chronic Plan: Chronic issue on admission. Have had no seizure activity At this time, plan to reconcil med, and convert to IV if there is an alternative. (8) Hyperkalemia Code(s): E87.5 - HYPERKALEMIA Status: Resolved Plan: Improved from 5.5 to 4.4. Considered resolved. Will continue with daily lab and reevaluate as needed. (9) Metabolic acidosis Code(s): E87.2 - ACIDOSIS Status: Acute Plan: Improving. Bicarb from 12 to 16. ABG is 7.3. CO2 37. Will continue with LR (10) Mental retardation Code(s): F79 - UNSPECIFIED INTELLECTUAL DISABILITIES Status: Acute Plan: Chronic stable issue. Plan to get in touch with family to help establish baseline
[2018-05-06] MEDS: Heparin 5,000 UNITS/ML VIAL SC SCH ×3 (08:52→20:16)
[2018-05-06] MEDS: Pantoprazole 40 MG VIAL IVP SCH (08:52)
[2018-05-06] MEDS: fentaNYL Citrate/PF 2,000 MCG in Sodium Chloride 0.9% 60 ML IV SCH (08:53)
[2018-05-06] MEDS: Dextrose 5% in Water 1,000 ML IV SCH ×2 (10:02→20:51)
--- NOTE | 2018-05-06 10:44 | PRG ---
DATE OF SERVICE: 05/06/2018 SERVICE: Pulmonary Medicine. INTERVAL HISTORY: The patient is doing fine from respiratory standpoint. Breathing comfortably. He has no complaints of chest pain, nausea, vomiting, fevers, or chills. He is responsive. He is following some simple commands and moving all 4 extremities. There has been no interval change to his condition. He remains on a little bit of Levophed, but we are titrating off this medicine through time. PHYSICAL EXAMINATION: VITAL SIGNS: Afebrile with a T-max of 103.2, pulse 138, respirations 15, saturation 100% on 37% FiO2 and PEEP of 5. GENERAL: The patient is awake and alert, in no apparent distress. LUNGS: Decent air entry. Rhonchi are present. There is no prolonged expiratory phase or wheezing present. HEART: Normal rate and regular. ABDOMEN: Soft, nontender, nondistended. Bowel sounds are positive. MUSCULOSKELETAL: No cyanosis or clubbing. There is trace to 1+ pitting in the bilateral lower extremities noted. NEUROLOGIC: Grossly nonfocal. He has been witnessed to move all 4 extremities and following some simple commands. He is comfortably overbreathing the ventilator and his pupils are equal, round, and reactive. LABORATORY DATA: WBC 16.2, hemoglobin 13.5, platelets 247,000. Band count is falling off to 31%. Creatinine 1.41 and once again gently uptrending, BUN 44, chloride 119, sodium 146, calcium 7.2, glucose 243. Coag-negative staph is growing in 1 out of 2. Urine culture is otherwise unremarkable. ASSESSMENT: 1. Septic shock. 2. Cellulitis. 3. Stage IV decubitus ulcer. 4. Acute kidney injury. DISCUSSION AND PLAN: We will continue to wean away pressors as tolerated. The patient's sodium and chloride have gone up significantly. As such, we will introduce some free water to prevent additional hypernatremia or hyperchloremia. The patient will remain on mechanical ventilation today. His abdomen is increasingly distended. As such, we will keep a close eye on this and if things turn for the worse, additional imaging of the belly will be considered. Pulmonary Critical Care will continue to follow along otherwise. CRITICAL CARE TIME: 30 minutes. Job ID: [id number]
[2018-05-06] MEDS ORDERED: Hydrocortisone Sod Succ/PF 100 mg/2 ml Vial ONE (12:44)
[2018-05-06 13:02] LABS: Actual Bicarbonate (HCO3a) 11.7 mEq/L (22-28); Base Excess (BEa) -13.7 mEq/L (-2.0 to +3.0); CO2 Tension 26.8 mmHg (35.0-45.0); Calcium, Ionized 1.07 mmol/L (1.12-1.30); Carboxyhemoglobin (COHb) 0.8 gm% (0.0-3.0); Hemoglobin (Hb) 13.2 g/dL (14.0-18.0); O2 Tension (PaO2) 113.6 mmHg (> 80.0); Potassium - ABG Lab 4.56 mmol/L (3.70-5.30); pH, Arterial 7.26 (7.35-7.45)
[2018-05-06 13:04] LABS: Puncture Site LRA
[2018-05-06] MEDS: SYSTANE 3.5 GM TUBE EA EYE PRN (13:25)
[2018-05-06] MEDS: Hydrocortisone Sod Succ/PF 100 mg/2 ml Vial IVP SCH ×2 (17:06→23:24)
[2018-05-06] MEDS: Vancomycin HCl 25 MG/ML Oral PO SCH (20:16)
[2018-05-07] MEDS: Acetaminophen 650 MG/20.3 ML UDCUP PO PRN ×3 (00:26→23:14)
[2018-05-07] MEDS: metroNIDAZOLE 500 MG in Premix Bag 1 BAG IVPB SCH ×3 (02:24→18:47)
[2018-05-07] MEDS: Norepinephrine 8 MG/250 ML IVPB SCH ×6 (02:46→21:10)
[2018-05-07 04:24] LABS: Anion Gap 18 mmol/L (10-20); BUN (Urea Nitrogen) 44 mg/dL (8.4-25.7); Calc. Creatinine Clearance 20 mL/min (70-130); Calcium 6.4 mg/dL (7.8-10.44); Carbon Dioxide 11 mmol/L (23-31); Chloride 113 mmol/L (98-107); Estimated GFR-MDRD 36; Glucose 169 mg/dL (80-115); Potassium 4.8 mmol/L (3.5-5.1); Sodium 137 mmol/L (136-145)
[2018-05-07 04:27] LABS: Band 52 % (5-11); Eosinophils 1 % (0-10); Hemoglobin 13.6 g/dL (14.0-18.0); Lymphocytes 13 % (21-51); MDiff Complete? YES; Mean Corpuscular HGB CONC 30.4 g/dL (32.0-36.0); Mean Corpuscular Hemoglobin 25.5 pg (27.0-31.0); Mean Corpuscular Volume 83.6 fL (78.0-98.0); Mean Platelet Volume 10.3 fL (7.4-10.4); Metamyelocyte 3 % (0-0); Monocytes 3 % (0-10); Neutrophil 28 % (42-75); Nucleated RBC 1 % (0); Platelet Count 142 thou/uL (130-400); Platelet Morphology Comment Appears Adequate; RBC Distribution Width 17.4 % (11.5-14.5); Red Blood Cell (RBC) Count 5.35 mill/uL (4.70-6.10); Toxic Granulation SLIGHT; Vacuoles SLIGHT; White Blood Cell (WBC) Count 33.6 thou/uL (4.8-10.8)
[2018-05-07] MEDS: Vancomycin HCl 1 GM in Premix Bag 1 BAG IVPB SCH (04:37)
[2018-05-07] MEDS: Insulin Regular 300 UNITS/3 ML VIAL SC PRN (04:45)
[2018-05-07] MEDS ORDERED: Vancomycin HCl 1 GM in Premix Bag 1 BAG IVPB SCH (05:00)
[2018-05-07] MEDS: Piperacillin/Tazobactam 3.375 GM in Sodium Chloride 0.9% 100 ML IVPB SCH ×4 (05:33→23:14)
[2018-05-07] MEDS: Hydrocortisone Sod Succ/PF 100 mg/2 ml Vial IVP SCH ×4 (05:33→23:14)
[2018-05-07] MEDS: Dextrose 5% in Water 1,000 ML IV SCH (05:45)
--- NOTE | 2018-05-07 07:30 | PDOC.FM ---
- Subjective Subjective: Overnight, there has been no major acute event per nursing. It does appear he required a fluid bolus overnight and his levophed has been increased to maximum of 30 mcg and vasopressin at 0.04. His recorded urine output is about 15 ml/hr and there were recorded fever requiring cooling blanket. - Objective MAR Reviewed: Yes Vital Signs & Weight: Vital Signs (12 hours) Temp Pulse Resp BP Pulse Ox 05/07/18 07:01 121 H 94/74 05/07/18 06:00 13 100 05/07/18 04:00 101.1 F H 15 05/07/18 03:43 127 H 05/07/18 02:00 13 05/07/18 00:00 100.7 F H 12 05/06/18 22:59 126 H 78/63 L 05/06/18 22:00 12 05/06/18 20:00 99.8 F H 10 L 100 Weight Admit Weight 71.214 kg Weight 81 kg Most Recent Monitor Data Heart Rate from ECG 123 NIBP 93/71 NIBP BP-Mean 78 Respiration from ECG 15 SpO2 100 I&O: 05/06/18 05/07/18 05/08/18 06:59 06:59 06:59 Intake Total 2476 6237.8 Output Total 1385 1515 Balance 1091 4722.8 Result Diagrams: 05/07/18 03:45 05/07/18 03:45 Radiology Reviewed by me: Yes Phys Exam - Physical Examination Constitutional: NAD HEENT: moist MMs Entubated. Left eye is always open, being covered to prevent drying out PERRL. Neck: no nodes Rhonchi on auscultation Cardiovascular: RRR Tachycardic Gastrointestinal: soft, non-tender, positive bowel sounds Distended, tympanic sound on precussion 1+ pitting edema GCS 9, intubated, withdraw, spontaneous eye opening Deviation from normal: intubated, not vocal or respond to command Deviation from normal: Decubitis ulcer, unchanged from previously Dx/Plan (1) Sepsis Code(s): A41.9 - SEPSIS, UNSPECIFIED ORGANISM Status: Acute Plan: Patient has required increased pressors and fluid bolus. His map is currently stable over 65. He has received thiamin, vit c and steroid. Abx is being continued broadly, with new addition of vancomycin orally for c diff diarrhea Vanc IV is being held as he is supratherapeutic. Will resume dosage likely tomorrow after repeat trough. He continues to receive 150 D5. 1 L bolus this morning for pressure. His renal function doesn't appear to be improving, low urine output. Partly could be due to pressor use and will consider additional fluid bolus Family came by last night. Will discuss with family when they are next available on patient's current condition (2) Urinary tract infection Status: Acute Qualifiers: Urinary tract infection type: acute cystitis Hematuria presence: with hematuria Qualified Code(s): N30.01 - Acute cystitis with hematuria Plan: Recent hospitalization shows e. coli and proteus infection. Past sensitivity will be covered by zosyn Today, culture found gram positive cocci, consider strep/staph. Both should be covered by vancomycin. At this time, will continue with current coverage but will adjust as culture results finalize. (3) Pressure ulcer Code(s): L89.90 - PRESSURE ULCER OF UNSPECIFIED SITE, UNSPECIFIED STAGE Status : Acute Qualifiers: Laterality: left Plan: Please see wound care note. As of now, noted to have sacral ulcer, illiac crest ulcer and heel ulcer. Abx used will cover for most skin infection. Continue wound care. (4) Diabetes mellitus type 2, insulin dependent Code(s): E11.9 - TYPE 2 DIABETES MELLITUS WITHOUT COMPLICATIONS; Z79.4 - DYNAMICS AX TECHNICAL ARCHITECT (CURRENT) USE OF INSULIN Status: Chronic Plan: Patient is currently NPO due to need for vent, his critically ill state. He is getting D5 by IV Covering with SSI insulin. For past day, his glucose is usuall ybetween 150-200. Once patient is appropriate for feeding, will gradually switch to long acting/ home medication to cover. (5) Hyperlipidemia Code(s): E78.5 - HYPERLIPIDEMIA, UNSPECIFIED Status: Chronic Qualifiers: Hyperlipidemia type: mixed hyperlipidemia Qualified Code(s): E78.2 - Mixed hyperlipidemia Plan: Chronic issue on admission. Resume home med when patient not NPO. (6) Hypothyroidism Code(s): E03.9 - HYPOTHYROIDISM, UNSPECIFIED Status: Chronic Qualifiers: Hypothyroidism type: acquired Qualified Code(s): E03.9 - Hypothyroidism, unspecified Plan: Chronic stable issue. TSH in appropriate range on admission Restart home med when patient is no longer NPO (7) Seizure disorder Code(s): G40.909 - EPILEPSY, UNSP, NOT INTRACTABLE, WITHOUT STATUS EPILEPTICUS Status: Chronic Plan: Chronic issue on admission. Have had no seizure activity (8) Metabolic acidosis Code(s): E87.2 - ACIDOSIS Status: Acute Plan: Metabolic acidosis status is fluctuating. His fluid is now D5 to minimize acidosis. His sodium drop by 9 in 24 hours. Will monitor sodium. (9) Mental retardation Code(s): F79 - UNSPECIFIED INTELLECTUAL DISABILITIES Status: Acute Plan: Chronic stable issue. Plan to get in touch with family to help establish baseline (10) C. difficile diarrhea Code(s): A04.72 - ENTEROCOLITIS D/T CLOSTRIDIUM DIFFICILE, NOT SPCF RECUR Status: Acute Plan: Test returned for toxin positive. He has now been started on vancomycin orally.
[2018-05-07] MEDS: Heparin 5,000 UNITS/ML VIAL SC SCH ×3 (09:24→20:00)
[2018-05-07] MEDS: Pantoprazole 40 MG VIAL IVP SCH (09:25)
[2018-05-07] MEDS ORDERED: Dextrose 5% in Water 1,000 ML IV SCH (09:25)
[2018-05-07] MEDS: Vancomycin HCl 25 MG/ML Oral PO SCH ×4 (09:27→19:59)
--- NOTE | 2018-05-07 09:38 | PRG ---
DATE OF SERVICE: 05/07/2018 SERVICE: Pulmonary Medicine. INTERVAL HISTORY: We had a lot issues with the patient's blood pressure yesterday. Ultimately, he was titrated up on 2 separate pressors, we started up stress dose of steroids. Ultimately, his blood pressure stabilized ever so slightly. We found out that the C diff was never collected. We finally sent that thing off, it came back positive. He ended up getting put on appropriate antibiotic therapy. The patient cannot provide any additional elements of the history right now, he requires a little bit of sedation to maintain comfort. Otherwise, there has been no interval change to his condition. PHYSICAL EXAMINATION: VITAL SIGNS: T-max 101.3. Pulse 119, blood pressure 100/63, respirations 15, saturation 100% on 27% FiO2 and PEEP of 5. GENERAL: The patient is intubated and sedated. HEENT: Normocephalic and atraumatic. Sclerae white. Conjunctivae pink. Oral mucosa is moist without lesions. LUNGS: Decent air entry. No prolonged expiratory phase or wheezing is appreciated. HEART: Normal rate and regular. ABDOMEN: Soft. Tender to palpation. A little distended. Bowel sounds are hypoactive. GENITOURINARY: Rban catheter in place. NEUROLOGICAL: Nonfocal. LABORATORY DATA: WBC 33.6, and up-trending. Hemoglobin 13.6, platelets 142, 000. Band count is increasing once again to 52% on top of 28% neutrophils. Creatinine 1.92 and significantly up trending, BUN 44. Basic metabolic profile is otherwise unremarkable. Calcium 6.4. Vancomycin 42. Gram-positive cocci growing in the urine, central line is growing coag-negative Staph. Other blood cultures negative. C diff antigen and toxin are both positive. ASSESSMENT: 1. Septic shock. 2. Urinary tract infection secondary to gram-positive cocci. 3. Clostridium difficile colitis. 4. Stage IV decubitus ulcer. 5. Acute kidney injury. 6. Toxicity with vancomycin. DISCUSSION AND PLAN: I will discontinue the vancomycin altogether. The acute kidney injury is likely secondary to acute tubular necrosis, secondary to low blood pressure, in combination with vancomycin toxicity. That being said, I think it is reasonable for us to do ultrasound of the kidneys, and check eosinophils of the urine. We can spend the urine and look it under microscope to make certain we see the appropriate cast. Urine electrolytes can also be obtained. I will replace the patient's calcium. Otherwise, supportive care and avoiding additional nephrotoxins is indicated. At this point, there is no acute indication for dialysis intervention. Pulmonary Critical Care will continue to follow along. Critical care time: 30 minutes. Job ID: [id number] [id number]
[2018-05-07] MEDS: Calcium Gluc 4.6 MEQ/10 ML (100 MG/ML) SLOW IVP SCH ×2 (10:48→13:02)
[2018-05-07 12:39] LABS: Creatinine, Urine 69.16 mg/dL (63-166)
[2018-05-08] MEDS: metroNIDAZOLE 500 MG in Premix Bag 1 BAG IVPB SCH ×3 (02:16→16:37)
[2018-05-08] MEDS: Norepinephrine 8 MG/250 ML IVPB SCH ×3 (02:17→16:45)
[2018-05-08] MEDS: Hydrocortisone Sod Succ/PF 100 mg/2 ml Vial IVP SCH ×4 (05:24→22:59)
[2018-05-08] MEDS: Piperacillin/Tazobactam 3.375 GM in Sodium Chloride 0.9% 100 ML IVPB SCH (05:24)
--- NOTE | 2018-05-08 05:45 | PDOC.FM ---
- Subjective Subjective: Pt intubated at this time. Nurse denies any acute events overnight. Denies any elevated fevers overnight. Pt not in any acute distress at this time. Unable to obtain further ROS due to pt being intubated - Objective MAR Reviewed: Yes Vital Signs & Weight: Vital Signs (12 hours) Temp Pulse Resp BP Pulse Ox 05/08/18 04:00 16 05/08/18 03:33 110 H 05/08/18 02:00 16 05/08/18 00:00 100.5 F H 17 05/07/18 22:52 112 H 101/64 05/07/18 22:00 15 05/07/18 20:00 99.8 F H 12 100 05/07/18 18:52 109 H 05/07/18 18:00 12 Weight Admit Weight 71.214 kg Weight 81.4 kg Most Recent Monitor Data Heart Rate from ECG 108 NIBP 95/69 NIBP BP-Mean 77 Respiration from ECG 17 SpO2 100 I&O: 05/06/18 05/07/18 05/08/18 06:59 06:59 06:59 Intake Total 2476 6237.8 2573.6 Output Total 1385 1515 641 Balance 1091 4722.8 1932.6 Result Diagrams: 05/08/18 Unknown 05/08/18 Unknown EKG Reviewed by me: Yes (Tachycardic) Radiology Reviewed by me: Yes (No new imaging to review at this time. ) Phys Exam - Physical Examination Constitutional: NAD HEENT: PERRLA, moist MMs Neck: no nodes, supple Ventilator sounds noted. No acute crackles Cardiovascular: no significant murmur, no rub Tachycardic Gastrointestinal: soft, no distention, positive bowel sounds Musculoskeletal: no edema, pulses present Unable to fully assess Skin: no rash, normal turgor, cap refill <2 seconds Dx/Plan (1) Sepsis Code(s): A41.9 - SEPSIS, UNSPECIFIED ORGANISM Status: Acute (2) Urinary tract infection Status: Acute Qualifiers: Urinary tract infection type: acute cystitis Hematuria presence: with hematuria Qualified Code(s): N30.01 - Acute cystitis with hematuria (3) C. difficile diarrhea Code(s): A04.72 - ENTEROCOLITIS D/T CLOSTRIDIUM DIFFICILE, NOT SPCF RECUR Status: Acute (4) Metabolic acidosis Code(s): E87.2 - ACIDOSIS Status: Acute (5) Pressure ulcer Code(s): L89.90 - PRESSURE ULCER OF UNSPECIFIED SITE, UNSPECIFIED STAGE Status : Acute Qualifiers: Laterality: left (6) Diabetes mellitus type 2, insulin dependent Code(s): E11.9 - TYPE 2 DIABETES MELLITUS WITHOUT COMPLICATIONS; Z79.4 - NEURO INTENSIVIST PHYSICIAN (CURRENT) USE OF INSULIN Status: Chronic (7) HTN (hypertension) Code(s): I10 - ESSENTIAL (PRIMARY) HYPERTENSION Status: Chronic Qualifiers: Hypertension type: essential hypertension Qualified Code(s): I10 - Essential (primary) hypertension (8) Hyperlipidemia Code(s): E78.5 - HYPERLIPIDEMIA, UNSPECIFIED Status: Chronic Qualifiers: Hyperlipidemia type: mixed hyperlipidemia Qualified Code(s): E78.2 - Mixed hyperlipidemia (9) MARIO (acute kidney injury) Code(s): N17.9 - ACUTE KIDNEY FAILURE, UNSPECIFIED Status: Resolved (10) Sepsis due to urinary tract infection Code(s): A41.9 - SEPSIS, UNSPECIFIED ORGANISM; N39.0 - URINARY TRACT INFECTION, SITE NOT SPECIFIED Status: Resolved - Plan Plan: Sepsis Patient has required increased pressors and fluid bolus. His map is currently stable over 65. Have decreased levophed dose at this time. He has received thiamin, vit c and steroid. Abx is being continued broadly, with new addition of vancomycin orally for c diff diarrhea Vanc IV is being held as he is supratherapeutic. Will d/c at this time as concern for ATN D5 @ 75 mls hr. Will increased at this time. -WBC elevated yesterday. Trended down today. Sens to current tx. His renal function doesn't appear to be improving, low urine output. Likely due to recent Vanc and decreased blood flow. Will possibly consult nephrology if continues to worsen. will continue to monitor at this time. Palliative care consulted to help with goals of care discussion with family. Urinary tract infection Pt Urine Cx shows E. Faecalis. Sensitive to current tx. Blood culture found gram positive cocci, consider strep/staph. Blood cx /2. Likely contaminant. Will await final results At this time, will continue with current coverage but will adjust as culture results finalize. MARIO 2/2 ATN Believed to have ATN at this time. critical care believes we need to stop Vancomycin at this time. Possibly consult nephrology at this time. Pressure ulcer Please see wound care note. As of now, noted to have sacral ulcer, illiac crest ulcer and heel ulcer. Abx used will cover for most skin infection. Continue wound care. Diabetes mellitus type 2, insulin dependent Patient is currently NPO due to need for vent, his critically ill state. D5@ 75mls/hr. Covering with SSI insulin. Once patient is appropriate for feeding, will gradually switch to long acting/ home medication to cover. Hyperlipidemia Chronic issue on admission. Resume home med when patient not NPO. Hypothyroidism Chronic stable issue. TSH in appropriate range on admission Restart home med when patient is no longer NPO Seizure disorder Chronic issue on admission. Have had no seizure activity Metabolic acidosis Metabolic acidosis status is fluctuating. CO2 decreased to 9 this AM. Increased Anion Gap. On abx per above. Mental retardation Chronic stable issue. C. difficile diarrhea Test returned for toxin positive. He has now been started on vancomycin orally. Addendum - Attending - Attending Attestation Date/Time: 05/08/18 [id number] I personally evaluated the patient and discussed the management with Dr. Lao. I agree with the History, Examination, Assessment and Plan documented above with any addition or exceptions noted below. Patient here with septic shock secondary to enterococcus UTI in setting of chronic UTI. Continues on appropriate abx therapy per culture results. PCT checked and is downtrending which is reassuring. Suspect ATN given hypotension and worsening creatinine. No indication for HD at this rime but will need to withhold further nephrotoxins. His urine output is borderline, and acidosis worsening. I suspect he is still volume down and is the reason for continued need for pressors. WBC finally downtrending and fever curve lower. Will also need to complete therapy for Cdiff colitis, which could be further contributing to his leukocytosis and critical illness. Continue specialist recs but overall maintain current course pending clinical change. Increase fluid rate somewhat.
[2018-05-08 06:28] LABS: Anion Gap 20 mmol/L (10-20); BUN (Urea Nitrogen) 52 mg/dL (8.4-25.7); Calc. Creatinine Clearance 42 mL/min (70-130); Calcium 6.5 mg/dL (7.8-10.44); Chloride 112 mmol/L (98-107); Estimated GFR-MDRD 32; Glucose 150 mg/dL (80-115); Magnesium 1.7 mg/dL (1.6-2.6); Phosphorus 6.5 mg/dL (2.3-4.7); Potassium 4.6 mmol/L (3.5-5.1); Sodium 136 mmol/L (136-145)
[2018-05-08 06:33] LABS: Carbon Dioxide 9 mmol/L (23-31)
[2018-05-08 07:00] LABS: Actual Bicarbonate (HCO3a) 9.3 mEq/L (22-28); Base Excess (BEa) -15.2 mEq/L (-2.0 to +3.0); Calcium, Ionized 0.99 mmol/L (1.12-1.30); Carboxyhemoglobin (COHb) 0.9 gm% (0.0-3.0); Hemoglobin (Hb) 12.8 g/dL (14.0-18.0); Potassium - ABG Lab 4.25 mmol/L (3.70-5.30); pH, Arterial 7.28 (7.35-7.45)
[2018-05-08 07:18] LABS: Band 23 % (5-11); Crenated RBC SLIGHT = 1-5 cells (100X) (None Seen); Elliptocytes SLIGHT = 2-5 cells (100X) (0-1/hpf); Hemoglobin 13.1 g/dL (14.0-18.0); Lymphocytes 8 % (21-51); MDiff Complete? YES; Mean Corpuscular HGB CONC 30.9 g/dL (32.0-36.0); Mean Corpuscular Hemoglobin 25.6 pg (27.0-31.0); Mean Platelet Volume 7.8 fL (7.4-10.4); Metamyelocyte 3 % (0-0); Monocytes 3 % (0-10); Neutrophil 63 % (42-75); Platelet Count 65 thou/uL (130-400); Platelet Morphology Comment Appears Decreased; RBC Distribution Width 17.5 % (11.5-14.5); Red Blood Cell (RBC) Count 5.12 mill/uL (4.70-6.10); Toxic Granulation SLIGHT; Vacuoles MODERATE; White Blood Cell (WBC) Count 20.1 thou/uL (4.8-10.8)
[2018-05-08 07:38] LABS: Puncture Site LRA
--- NOTE | 2018-05-08 07:39 | PRG ---
DATE OF SERVICE: 05/08/2018 TIME: 35 minutes critical care time. SUBJECTIVE: The patient remains intubated on mechanical ventilation. He is on a vasopressin and norepinephrine drip both at maximum doses. OBJECTIVE: VITAL SIGNS: His temperature is 100.0 with a T-max of 100.8, pulse of 106, blood pressure of 100/62. A 24-hour intake 3711, output 986. Weight 179 pounds. HEENT: Remarkable for periorbital edema. NECK: No adenopathy, JVD, or bruits. LUNGS: Clear anteriorly. CARDIAC: S1, S2. Slightly tachycardic. No murmur. ABDOMEN: Soft. Nontender to palpation. EXTREMITIES: Edematous. LABORATORY DATA: Sodium 136, potassium 4.6, chloride 112, CO2 of 9, anion gap is 20, BUN 52, creatinine 2.1, glucose 150. CBC was not done. So far on cultures, we have coag-negative Staph, Enterococcus faecalis, and C. diff toxin. ASSESSMENT: 1. Acute respiratory failure requiring mechanical ventilation. 2. Severe metabolic acidosis, which is worsening. 3. Septic shock. 4. Clostridium difficile colitis. 5. Stage IV decubitus ulcer. 6. Acute kidney injury. PLAN: 1. In my opinion, the patient is not weanable until his hemodynamics have improved. 2. Adjust dose of Zosyn given developing renal insufficiency. 3. Try to wean basal pressures at all possible. 4. See if we can put the patient on bicarbonate given the severe metabolic acidosis. Job ID: [id number]
[2018-05-08] MEDS: Sodium Bicarbonate 100 MEQ in Dextrose 5% in Water 1,000 ML IV SCH ×2 (08:04→22:48)
[2018-05-08] MEDS ORDERED: Dextrose 5 % And 0.9 % NaCl 1,000 ML IV SCH (08:30)
[2018-05-08] MEDS: Heparin 5,000 UNITS/ML VIAL SC SCH ×2 (08:49→15:58)
[2018-05-08] MEDS: Pantoprazole 40 MG VIAL IVP SCH (09:52)
--- NOTE | 2018-05-08 10:04 | PRG ---
DATE OF SERVICE: ADDENDUM: Please see the note from Dr. Cruz, for which I concur. The patient was seen, evaluated, examined, and discussed with the residents by bedside. SUBJECTIVE: This is an unfortunate 62-year-old, currently in ICU for assumed urosepsis, septic shock basically needing pressors including vasopressin and Levophed. Still spiking fevers up to 103, so Flagyl was added to the vancomycin and Zosyn just for better coverage. Starting to have diarrhea and negative C. diff on him. Urine output decreased a little bit, so increase in fluids was given. Appreciate Pulmonary's input on this obviously as he is still on the ventilator. No major change in physical exam on him. Cultures are still pending and I will probably dictate a lot of our management. But for now, we will keep him obviously in the unit on the ventilator. Job ID: [id number]
[2018-05-08] MEDS: Vancomycin HCl 25 MG/ML Oral PO SCH ×4 (10:09→20:34)
--- NOTE | 2018-05-08 10:14 | PRG ---
DATE OF SERVICE: ADDENDUM: Please see note from Dr. Cruz, for which I agree. Basically, he has had no improvement over the last 24 hours. Actually needed higher pressors this morning, even up to 40 mcg of Levophed to get his blood pressure up, although in the room and it come up to 102/66 by the time we saw him. The low urinary output, likely acute tubular necrosis, injury to his kidneys as the creatinine had bumped up some. Now has C. diff in his stool. Creatinine is up to 1.9. On exam, chest has decreased breath sounds and just fairly coarse with occasional crackles and is intubated and still getting pressors. Abdomen is a little bit distended as well, but some bowel sounds. So basically, the plan is to keep him intubated obviously still on maximum pressors. Seems to be having some multisystem issues. His creatinine is elevating. Treating the C. diff with p.o. vancomycin. He is still on IV vancomycin until we get his cultures back from his blood and urine. Family has been notified and understand that he has a very grave prognosis at this point in time, considering all the numerous medical issues that are going on after this significant infection and appreciate raw shellfish preparer input and help on this case. Job ID: [id number]
[2018-05-08] MEDS: Piperacillin/Tazobactam 2.25 GM in Sodium Chloride 0.9% 100 ML IVPB SCH ×3 (14:02→22:10)
[2018-05-08] MEDS: Insulin Regular 300 UNITS/3 ML VIAL SC PRN ×4 (14:07→23:46)
[2018-05-08] MEDS ORDERED: Piperacillin/Tazobactam 3.375 GM VIAL ONE (21:49)
[2018-05-09] MEDS: Norepinephrine 8 MG/250 ML IVPB SCH ×3 (00:51→21:01)
[2018-05-09] MEDS: metroNIDAZOLE 500 MG in Premix Bag 1 BAG IVPB SCH ×3 (02:17→17:40)
[2018-05-09] MEDS: Hydrocortisone Sod Succ/PF 100 mg/2 ml Vial IVP SCH ×4 (05:10→23:05)
[2018-05-09] MEDS: Piperacillin/Tazobactam 2.25 GM in Sodium Chloride 0.9% 100 ML IVPB SCH ×3 (06:12→21:01)
[2018-05-09] MEDS: Insulin Regular 300 UNITS/3 ML VIAL SC PRN ×5 (06:19→23:12)
[2018-05-09 06:41] LABS: Hemoglobin 12.6 g/dL (14.0-18.0); Mean Corpuscular HGB CONC 30.7 g/dL (32.0-36.0); Mean Corpuscular Hemoglobin 25.1 pg (27.0-31.0); Mean Platelet Volume 6.3 fL (7.4-10.4); Platelet Count 62 thou/uL (130-400); RBC Distribution Width 17.6 % (11.5-14.5); Red Blood Cell (RBC) Count 5.02 mill/uL (4.70-6.10); White Blood Cell (WBC) Count 16.8 thou/uL (4.8-10.8)
[2018-05-09 06:45] LABS: Anion Gap 18 mmol/L (10-20); BUN (Urea Nitrogen) 59 mg/dL (8.4-25.7); Calc. Creatinine Clearance 45 mL/min (70-130); Calcium 6.1 mg/dL (7.8-10.44); Carbon Dioxide 14 mmol/L (23-31); Chloride 109 mmol/L (98-107); Estimated GFR-MDRD 33; Glucose 199 mg/dL (80-115); Magnesium 2.5 mg/dL (1.6-2.6); Phosphorus 5.7 mg/dL (2.3-4.7); Potassium 3.8 mmol/L (3.5-5.1); Sodium 137 mmol/L (136-145)
[2018-05-09 06:58] LABS: Band 21 % (5-11); Lymphocytes 5 % (21-51); MDiff Complete? YES; Monocytes 5 % (0-10); Myelocyte 2 % (0-0); Neutrophil 67 % (42-75); Platelet Morphology Comment Appears Decreased; Toxic Granulation SLIGHT
[2018-05-09 07:12] LABS: Actual Bicarbonate (HCO3a) 12.3 mEq/L (22-28); Base Excess (BEa) -11.6 mEq/L (-2.0 to +3.0); Calcium, Ionized 0.94 mmol/L (1.12-1.30); Hemoglobin (Hb) 12.5 g/dL (14.0-18.0); O2 Tension (PaO2) 91.2 mmHg (> 80.0); Potassium - ABG Lab 3.55 mmol/L (3.70-5.30); pH, Arterial 7.34 (7.35-7.45)
[2018-05-09 07:14] LABS: ALV-art Gradient 86.195 (0-20); CO2 Tension 23.5 mmHg (35.0-45.0); Puncture Site LR
--- NOTE | 2018-05-09 07:37 | PDOC.FM ---
- Subjective Subjective: Pt intubated at this time. Off sedation and not very responsive. Nurse reports BP dropping a little bit overnight and having to increase pressors. Nurse reports pt getting much more edematous all over, overnight. - Objective MAR Reviewed: Yes Vital Signs & Weight: Vital Signs (12 hours) Temp Pulse Resp BP Pulse Ox 05/09/18 07:00 97.8 F 05/09/18 06:49 81 113/68 05/09/18 06:00 15 05/09/18 04:00 14 05/09/18 03:36 80 05/09/18 02:00 13 05/09/18 00:50 87 80/48 L 05/09/18 00:00 97.8 F 13 05/08/18 22:00 12 05/08/18 20:00 98.8 F 16 100 Weight Admit Weight 71.214 kg Weight 83.2 kg Most Recent Monitor Data Heart Rate from ECG 87 NIBP 124/88 NIBP BP-Mean 100 Respiration from ECG 15 SpO2 100 I&O: 05/08/18 05/09/18 05/10/18 06:59 06:59 06:59 Intake Total 3711.6 3773.2 Output Total 986 675 20 Balance 2725.6 3098.2 -20 Result Diagrams: 05/09/18 05:20 05/09/18 05:20 EKG Reviewed by me: Yes (Sinus tachycardia) Radiology Reviewed by me: Yes (No new imaging at this time) Phys Exam - Physical Examination Constitutional: NAD HEENT: PERRLA, moist MMs Hard to auscultate. Rales noted bilaterally Cardiovascular: RRR, no significant murmur, no rub Pt moderately distended. Has pitting edema all over Musculoskeletal: pulses present +1-2 pitting edema in extremities and abdomen Unable to fully assess due to intubation and mental state Deviation from normal: Intubated Deviation from normal: Sacral ulcer red. no sign redness or increasing infection. Dx/Plan (1) Sepsis Code(s): A41.9 - SEPSIS, UNSPECIFIED ORGANISM Status: Acute (2) Urinary tract infection Status: Acute Qualifiers: Urinary tract infection type: acute cystitis Hematuria presence: with hematuria Qualified Code(s): N30.01 - Acute cystitis with hematuria (3) C. difficile diarrhea Code(s): A04.72 - ENTEROCOLITIS D/T CLOSTRIDIUM DIFFICILE, NOT SPCF RECUR Status: Acute (4) Metabolic acidosis Code(s): E87.2 - ACIDOSIS Status: Acute (5) Pressure ulcer Code(s): L89.90 - PRESSURE ULCER OF UNSPECIFIED SITE, UNSPECIFIED STAGE Status : Acute Qualifiers: Laterality: left (6) Diabetes mellitus type 2, insulin dependent Code(s): E11.9 - TYPE 2 DIABETES MELLITUS WITHOUT COMPLICATIONS; Z79.4 - [facility] (CURRENT) USE OF INSULIN Status: Chronic (7) HTN (hypertension) Code(s): I10 - ESSENTIAL (PRIMARY) HYPERTENSION Status: Chronic Qualifiers: Hypertension type: essential hypertension Qualified Code(s): I10 - Essential (primary) hypertension (8) Hyperlipidemia Code(s): E78.5 - HYPERLIPIDEMIA, UNSPECIFIED Status: Chronic Qualifiers: Hyperlipidemia type: mixed hyperlipidemia Qualified Code(s): E78.2 - Mixed hyperlipidemia (9) MARIO (acute kidney injury) Code(s): N17.9 - ACUTE KIDNEY FAILURE, UNSPECIFIED Status: Resolved (10) Sepsis due to urinary tract infection Code(s): A41.9 - SEPSIS, UNSPECIFIED ORGANISM; N39.0 - URINARY TRACT INFECTION, SITE NOT SPECIFIED Status: Resolved - Plan Plan: Sepsis Patient has required increased pressors. His map is currently stable over 65. Pressors had to be slightly increased overnight. Abx is being continued broadly, with new addition of vancomycin orally for c diff diarrhea Vanc IV is being held as he is supratherapeutic. Will d/c at this time as concern for ATN D/c IV fluids for short period as pt is very edematous all over. Pt recieving lots of fluids through pressors and abx. -WBC Trended down today. Sens to current tx. Cr trending down this am. ATN suspected due Likely due to recent Vanc and decreased blood flow. Will possibly consult nephrology if continues to worsen. Palliative care consulted to help with goals of care discussion with family- Pt still full code at this time. Urinary tract infection Pt Urine Cx shows E. Faecalis. Sensitive to current tx. Blood culture found gram positive cocci, consider strep/staph. Blood cx 1/2. Likely contaminant. At this time, will continue with current coverage but will adjust as culture results finalize. MARIO 2/2 ATN Believed to have ATN at this time. Cr improved this AM. Will continue to monitor. Fluids held for short period due to increasing edema. Continue to trend urine output. Pressure ulcer Please see wound care note. As of now, noted to have sacral ulcer, illiac crest ulcer and heel ulcer. Abx used will cover for most skin infection. Continue wound care. Diabetes mellitus type 2, insulin dependent Patient is currently NPO due to need for vent, his critically ill state. Covering with SSI insulin. Once patient is appropriate for feeding, will gradually switch to long acting/ home medication to cover. Hyperlipidemia Chronic issue on admission. Resume home med when patient not NPO. Hypothyroidism Chronic stable issue. TSH in appropriate range on admission Restart home med when patient is no longer NPO Seizure disorder Chronic issue on admission. Have had no seizure activity Metabolic acidosis Metabolic acidosis status is fluctuating. CO2 decreased to improved to 14 today. Given sodium bicarb. On abx per above. Mental retardation Chronic stable issue. C. difficile diarrhea Test returned for toxin positive. He has now been started on vancomycin orally. Addendum - Attending - Attending Attestation Date/Time: 05/09/18 3969 I personally evaluated the patient and discussed the management with Dr. Lao. I agree with the History, Examination, Assessment and Plan documented above with any addition or exceptions noted below. Patient continues to be critically ill. Continues on treatment for septic shock 2/2 enterococcus as well as Cdiff colitis. Continues on appropriate abx therapy. PCT downtrending which is reassuring, but patient continues to require dual pressor support to maintain appropriate MAP. Fluids decreased due to mild volume overload. Cr downtrending some and hopeful that urine output will increase. Acidemia somewhat improved with bicarb drip that is now being held. WBC downtrending. UOP marginal. Continue abx, BP support, and will consult GI due to concern for possible complications associated with Cdiff colitis. Prognosis guarded to poor. Palliative care on board.
--- NOTE | 2018-05-09 08:26 | PRG ---
DATE OF SERVICE: 05/09/2018 SUBJECTIVE: The patient remains intubated on mechanical ventilation. There have been no acute changes overnight. OBJECTIVE: VITAL SIGNS: On exam, his temperature is 97.8, pulse 87, blood pressure 124/80, O2 saturation 100%, respiratory rate 13. Intake in 24 hours 3773, output 675. Weight 183 pounds. NEUROLOGIC: He will respond to commands by squeezing with his hands. HEENT: There is a cataract formation in his left eye. Oropharynx, he has an endotracheal tube in place. NECK: No JVD. LUNGS: Fairly clear breath sounds anteriorly. CARDIAC: S1 and S2, regular. ABDOMEN: Distended, tympanic, slightly painful to palpation. EXTREMITIES: Edematous throughout. LABORATORY DATA: White blood cell count is down to 16.8, hemoglobin 12.6, hematocrit 41.2, platelet count 62. A pH 7.34, pCO2 of 23, pO2 of 91, that is on SIMV, pressure control with a rate of 7, inspiratory pressure of 9, FiO2 of 29%. Sodium 137, potassium 3.8, chloride 109, CO2 of 14, BUN 59, creatinine 2.0, glucose 199. His procalcitonin level was 7.43. Vancomycin trough 2 days ago was 42. ASSESSMENT: 1. Septic shock, thought secondary to Clostridium difficile colitis. Still requiring 2 vasopressors. 2. Acute respiratory failure requiring mechanical ventilation. 3. Severe metabolic acidosis, which is somewhat better after bicarbonate administration. 4. Stage IV decubitus ulcer. 5. Acute kidney injury. PLAN: 1. I will speak with Residency Service. I think the patient may benefit from a GI consult. I am somewhat worried about him having necrotizing colitis from the Clostridium difficile and perhaps needing a colonoscopy for further workup to rule out bowel. 2. Continue the IV antibiotics as you are doing. 3. He is not weanable from mechanical ventilation. 4. Try to wean vasopressors. 5. He needs nutritional support at some point, and at this time, I would not give him tube feeds. I think TPN will be reasonable to start given that he has been almost 5 days without nutritional support. Job ID: [id number]
[2018-05-09 08:28] LABS: PTT 34.4 SEC (22.9-36.1)
[2018-05-09 08:29] LABS: INR-International Normal Ratio 1.5; Prothrombin Time 18.6 SEC (12.0-14.7)
--- NOTE | 2018-05-09 08:36 | RAD ---
KUB: HISTORY: Colon distention. Clostridium difficile colitis. COMPARISON: 12/20/2017 FINDINGS: A single view of the abdomen shows a nonspecific, nonobstructed bowel gas pattern. There is an air-f illed loop of sigmoid colon. No small bowel loops are distended or air-filled. An NG tube is seen i n the stomach. A central venous catheter is seen in the right inguinal region. A catheter is seen i n the urinary bladder. IMPRESSION: Nonspecific, nonobstructed bowel gas pattern. POS: DERIK
[2018-05-09] MEDS: Vancomycin HCl 25 MG/ML Oral PO SCH ×4 (08:45→21:01)
[2018-05-09 08:46] LABS: Cholesterol Less than 9 mg/dl (< 200 Desired); HDL Cholesterol Less than 8 mg/dL (>60 Neg Risk); Triglycerides 35 mg/dL (Less than 150)
[2018-05-09] MEDS: Pantoprazole 40 MG VIAL IVP SCH (08:46)
[2018-05-09] MEDS: POTASSIUM ACETATE IV SCH (13:47)
[2018-05-09] MEDS: [UNRECOGNIZED DRUG - OTHER] IV SCH (13:47)
[2018-05-09] MEDS: CALCIUM CHLORIDE IV SCH (13:47)
[2018-05-09] MEDS: SODIUM ACETATE IV SCH (13:47)
[2018-05-09] MEDS: Propofol 1,000 MG/100 ML VIAL IV PRN ×2 (16:51→18:01)
--- NOTE | 2018-05-09 18:10 | CON ---
DATE OF CONSULTATION: 05/09/2018 REASON FOR CONSULTATION: Clostridium difficile infection with possible megacolon. CONSULTING PHYSICIAN: Dr. Tariq Lao. HISTORY OF PRESENT ILLNESS: The patient is a 62-year-old male with past medical history of mental retardation, recurrent UTIs with recent admission for urosepsis, E coli bacteremia, stage IV sacral decubitus ulceration with resultant osteomyelitis, diabetes, hypertension, hyperlipidemia, GERD, hypothyroidism, and seizure disorder, initially presenting with altered mental status. The patient is currently intubated, but not sedated and unable to contribute any meaningful information to my evaluation with all information obtained from chart review. Per chart review, the patient was found unresponsive at the shelter he resides at [place]. On May 05, 2018, EMS was called to the scene, where he was minimally responsive to noxious stimuli and noted to be hypotensive and bradycardic with a fever of 103. He was subsequently transferred to [facility] and en route, was placed on pressor support, intubated and sedated. During the course of this hospitalization, he has been noted to have blood cultures positive for coagulase-negative Staph, urine culture positive for enterococcus faecalis, but more recently was noted to have watery stools that were tested and positive for Clostridium difficile. Upon evaluation of the patient's diarrhea, he was subsequently placed on oral vancomycin versus via an OG tube at 125 mg q.i.d., but over the course of the last 24 to 48 hours, has been having increased abdominal distention concerning for toxic megacolon. At the current point in time, the patient is minimally responsive again, minimally responsive to questioning, but does not appear to be in any acute distress and currently the working diagnosis is septic shock secondary to Clostridium difficile colitis requiring vasopressor support and aggressive antibiotic therapy associated with severe metabolic acidosis. REVIEW OF SYSTEMS: Review of systems cannot be obtained due to the patient's intubated status. PAST MEDICAL HISTORY: As per HPI. PAST SURGICAL HISTORY: Urethral dilation for stricture, sacral decubitus ulcer debridement, and phimosis repair. FAMILY HISTORY: Could not find any mention of any GI malignancies per chart review. SOCIAL HISTORY: No mention of tobacco, alcohol, or illicit drug use per chart review with the patient being a shelter resident since 2008. OUTPATIENT MEDICATIONS: Reviewed. ALLERGIES: METFORMIN. PHYSICAL EXAMINATION: VITAL SIGNS: Temperature 97.8, pulse 89, blood pressure 114/79, respiratory rate 18, and saturating 97% on mechanical ventilation. GENERAL: The patient is lying in bed, in no apparent distress, unable to contribute any meaningful responses except to noxious stimuli. NECK: Supple. No scleral icterus noted. CARDIOVASCULAR: Regular rate and rhythm with no discernible murmurs, gallops, or rubs. RESPIRATORY: Coarse breath sounds heard in all lung hensley consistent with mechanical ventilation. ABDOMEN: Hypoactive bowel sounds, mildly tense to palpation that is tympanic to percussion and noted to be significantly distended on visual examination. Mild tenderness to palpation in the midepigastric region. EXTREMITIES: 2+ bilateral lower extremity edema extending up into the groin as well as significant scrotal edema. LABORATORY DATA: CBC with a white blood cell count of 16.8, hemoglobin 12.6, hematocrit 41.2, and platelets are 62. INR 1.5. Chemistry with a sodium of 137, potassium 3.8, chloride 109, CO2 of 14, BUN 59, creatinine 2.04, and glucose 199. Stool studies positive for Clostridium difficile with urine culture positive for E faecalis and blood cultures positive for coag-negative staph, but repeat blood cultures since admission have been negative to date. IMAGING DATA: CT of the abdomen and pelvis obtained on May 05, 2018 showed bilateral small pleural effusions, moderate wall thickening of the colon, worse in the ascending colon and cecum, moderate wall thickening involving the rectum and sigmoid colon was also seen with extensive fat stranding in this region. Moderate dilation was also seen of the sigmoid colon with no free air in the abdomen. KUB obtained on May 09, 2018 showed air-filled loops of sigmoid colon, but no evidence of free air or perforation. ASSESSMENT AND PLAN: The patient is a 62-year-old male with past medical history of mental retardation, recurrent UTIs with history of urosepsis, E coli bacteremia, stage IV decubitus ulcerations with osteomyelitis, hypertension, hyperlipidemia, seizure disorder, GERD, hypothyroidism, and diabetes, presenting with septic shock related to severe/fulminant Clostridium difficile colitis. Clostridium difficile colitis. The patient is presenting with a history of being found unresponsive in the shelter with an elevated fever and white blood cell count shortly after admission with stool studies positive for Clostridium difficile. He was subsequently placed on oral vancomycin 125 mg daily along with IV metronidazole 500 mg t.i.d. as part of treatment for this condition. However, he does have evidence on CT scan on admission and more recently KUB of significant abdominal distention and more importantly colonic distention centered around the sigmoid colon. At this point, there does not appear to be any findings consistent with perforation or necrotizing colitis, but the most recent CT scan was on admission that could confirm this diagnosis. At this point, I would consider this severe/fulminant Clostridium difficile associated disease and would require aggressive therapy in terms of antibiotic administration as well as probable colorectal surgery consultation. Colonoscopy is not indicated at this time due to increased risk of perforation with any endoscopic instrumentation in light of an active C diff infection. RECOMMENDATIONS: 1. Would obtain an updated CT scan of the abdomen and pelvis to evaluate for possible perforation versus pneumatosis coli that may indicate necrotizing colitis. 2. Would obtain an LDH/lactate level again to help further delineate if there is possible necrotizing colitis. 3. Would continue IV metronidazole 500 mg t.i.d., but given his fulminant disease, would increase oral vancomycin to 500 mg q.i.d. 4. Would consult General Surgery Service for evaluation of this patient in case surgical evaluation/resection is needed. 5. There are no plans for colonoscopy intervention given a significantly increased risk of perforation associated with this modality. We will continue to follow. Please call with any questions. Job ID: [id number]
--- NOTE | 2018-05-09 18:20 | CT ---
NONCONTRAST ENHANCED CT IMAGES ABDOMEN AND PELVIS: 05/09/18 HISTORY: Patient has ischemic bowel and C. Difficile. Oral and IV contrast was not given. CT images abdomen and pelvis demonstrate small bilateral pleural effusions. Bibasilar areas of atelec tasis seen. A moderate amount of free intraperitoneal fluid is seen. The liver and spleen are unremarkable. There is an NG tube in place. The gallbladder and pancreas are unremarkable. Adrenal glands are unremarkable. No evidence of a renal calculi seen. No evidence of hydronephrosis s een. The loops of small bowel are not significantly dilated. There is marked and extensive thickening, compatible with extensive colitis throughout the entire col on involving the ascending, transverse, descending and sigmoid colon. No evidence of periaortic lymphadenopathy seen. Calcification seen in the abdominal aorta. IMPRESSION: Extensive and marked colonic wall thickening concerning for extensive colitis. Edema is seen in the s ubcutaneous fat and extends into the scrotum. Rectal tube as well as indwelling Bran catheter are al so in place. There is also a right femoral central line in place. Coronary artery calcification seen in the origin of the LAD. POS: [facility]
[2018-05-10] MEDS: metroNIDAZOLE 500 MG in Premix Bag 1 BAG IVPB SCH ×3 (01:33→18:27)
[2018-05-10] MEDS: Piperacillin/Tazobactam 2.25 GM in Sodium Chloride 0.9% 100 ML IVPB SCH ×3 (05:26→21:40)
[2018-05-10] MEDS: Hydrocortisone Sod Succ/PF 100 mg/2 ml Vial IVP SCH ×3 (05:26→20:36)
[2018-05-10] MEDS: Insulin Regular 300 UNITS/3 ML VIAL SC PRN ×3 (05:53→22:17)
[2018-05-10 06:32] LABS: Anion Gap 17 mmol/L (10-20); BUN (Urea Nitrogen) 69 mg/dL (8.4-25.7); Calc. Creatinine Clearance 46 mL/min (70-130); Calcium 6.3 mg/dL (7.8-10.44); Carbon Dioxide 13 mmol/L (23-31); Chloride 108 mmol/L (98-107); Estimated GFR-MDRD 35; Glucose 367 mg/dL (80-115); Magnesium 1.9 mg/dL (1.6-2.6); Phosphorus 4.4 mg/dL (2.3-4.7); Potassium 3.1 mmol/L (3.5-5.1); Sodium 135 mmol/L (136-145)
[2018-05-10 06:36] LABS: Anisocytosis SLIGHT = 6-15 cells (100X) (0-5/hpf); Band 17 % (5-11); Hemoglobin 12.9 g/dL (14.0-18.0); Lymphocytes 14 % (21-51); MDiff Complete? YES; Mean Corpuscular HGB CONC 31.6 g/dL (32.0-36.0); Mean Corpuscular Hemoglobin 25.7 pg (27.0-31.0); Mean Corpuscular Volume 81.4 fL (78.0-98.0); Mean Platelet Volume 7.5 fL (7.4-10.4); Monocytes 6 % (0-10); Neutrophil 63 % (42-75); Platelet Count 58 thou/uL (130-400); Platelet Morphology Comment Appears Decreased; RBC Distribution Width 17.4 % (11.5-14.5); Red Blood Cell (RBC) Count 5.03 mill/uL (4.70-6.10); White Blood Cell (WBC) Count 9.6 thou/uL (4.8-10.8)
[2018-05-10] MEDS: Potassium Chloride 40 MEQ in Premix Bag 1 BAG IVPB PRN (06:45)
--- NOTE | 2018-05-10 07:46 | PRG ---
DATE OF SERVICE: 05/10/2018 TIME SPENT: 35 minutes critical care time. SUBJECTIVE: The patient remains intubated on mechanical ventilation. He has been successfully weaned off of the vasopressin and Levophed. OBJECTIVE: VITAL SIGNS: On exam, his temperature is 97.8, pulse 112, blood pressure 106/74. A 24-intake 3618, output 990. Weight 180 pounds. HEENT: Remarkable for cataract, left eye. Oropharynx with ET tube and OG tube in place. NECK: No JVD. LUNGS: Clear anteriorly. CARDIOVASCULAR: S1, S2. Slightly tachycardic. ABDOMEN: Distended, tympanic. No bowel sounds. EXTREMITIES: Edematous. LABORATORY DATA: White blood cell count 9.6, hemoglobin 12, hematocrit 40.9, and platelet count 58. ABG pending. Sodium 135, potassium 3.1, chloride 108, CO2 of 13, BUN 69, creatinine 1.9, glucose 367. ASSESSMENT: 1. Acute respiratory failure, requiring mechanical ventilation. 2. Severe colitis. 3. Clostridium difficile positive. 4. Continued metabolic acidosis. 5. Stage IV decubitus ulcer. 6. Acute kidney injury. 7. Hypokalemia. 8. Hyperglycemia. PLAN: 1. I have added NPH to his sliding scale insulin. 2. Trial CPAP, but I do not think he is a candidate for extubation. 3. General surgical consultation. 4. Continue TPN. Job ID: [id number]
--- NOTE | 2018-05-10 08:04 | PDOC.FM ---
- Subjective Subjective: Pt intubated but not sedated at this time. Unable to obtain ROS due to intubation and mental state. Nurse reports doing well overnight. No acute events. Has weaned off vasopressin. Working on weaning off levophed. - Objective MAR Reviewed: Yes Vital Signs & Weight: Vital Signs (12 hours) Temp Pulse Resp BP 05/10/18 07:42 119 H 118/86 05/10/18 06:00 22 H 05/10/18 05:00 97.8 F 05/10/18 04:00 24 H 05/10/18 02:00 23 H 05/10/18 00:00 97.9 F 23 H 05/09/18 22:00 20 Weight Admit Weight 71.214 kg Weight 81.9 kg Most Recent Monitor Data Heart Rate from ECG 112 NIBP 106/74 NIBP BP-Mean 84 Respiration from ECG 20 SpO2 98 I&O: 05/09/18 05/10/18 05/11/18 06:59 06:59 06:59 Intake Total 3773.2 3618.2 Output Total 675 990 Balance 3098.2 2628.2 Result Diagrams: 05/10/18 05:25 05/10/18 05:25 EKG Reviewed by me: Yes (Tachycardic) Radiology Reviewed by me: Yes (Extensive, marked colonic wall thickening concern for extensive colitis) Phys Exam - Physical Examination Constitutional: NAD HEENT: PERRLA, moist MMs Neck: no nodes, supple Respiratory: no wheezing, clear to auscultation bilateral Ventilatro sounds noted Cardiovascular: no significant murmur, no rub Regular rhythm. tachy rate Pt winces to palpation. Belly very taught. Belly very distended Pitting edema noted in abdomen, on arms and in lower extremities Unable to fully assess due to patient mental state Deviation from normal: Pt able to react when I speak to him. Skin: no rash, normal turgor, cap refill <2 seconds Dx/Plan (1) Sepsis Code(s): A41.9 - SEPSIS, UNSPECIFIED ORGANISM Status: Acute (2) Urinary tract infection Status: Acute Qualifiers: Urinary tract infection type: acute cystitis Hematuria presence: with hematuria Qualified Code(s): N30.01 - Acute cystitis with hematuria (3) C. difficile diarrhea Code(s): A04.72 - ENTEROCOLITIS D/T CLOSTRIDIUM DIFFICILE, NOT SPCF RECUR Status: Acute (4) Metabolic acidosis Code(s): E87.2 - ACIDOSIS Status: Acute (5) Pressure ulcer Code(s): L89.90 - PRESSURE ULCER OF UNSPECIFIED SITE, UNSPECIFIED STAGE Status : Acute Qualifiers: Laterality: left (6) Diabetes mellitus type 2, insulin dependent Code(s): E11.9 - TYPE 2 DIABETES MELLITUS WITHOUT COMPLICATIONS; Z79.4 - FPC (CURRENT) USE OF INSULIN Status: Chronic (7) HTN (hypertension) Code(s): I10 - ESSENTIAL (PRIMARY) HYPERTENSION Status: Chronic Qualifiers: Hypertension type: essential hypertension Qualified Code(s): I10 - Essential (primary) hypertension (8) Hyperlipidemia Code(s): E78.5 - HYPERLIPIDEMIA, UNSPECIFIED Status: Chronic Qualifiers: Hyperlipidemia type: mixed hyperlipidemia Qualified Code(s): E78.2 - Mixed hyperlipidemia (9) MARIO (acute kidney injury) Code(s): N17.9 - ACUTE KIDNEY FAILURE, UNSPECIFIED Status: Resolved (10) Sepsis due to urinary tract infection Code(s): A41.9 - SEPSIS, UNSPECIFIED ORGANISM; N39.0 - URINARY TRACT INFECTION, SITE NOT SPECIFIED Status: Resolved - Plan Plan: Sepsis Patient has continued to be weaned off pressors. WBC improving. Abx is being continued broadly, with new addition of vancomycin orally for c diff diarrhea. Increased dose of oral vanc per GI Vanc IV is being held as he is supratherapeutic. Will d/c at this time as concern for ATN D/c IV fluids for short period as pt is very edematous all over. Pt recieving lots of fluids through pressors and abx. Cr trending down this am. ATN suspected due Likely due to recent Vanc and decreased blood flow. Will possibly consult nephrology if continues to worsen. Palliative care consulted to help with goals of care discussion with family- Pt still full code at this time. Colitis 2/2 C.diff w/ concern of Necrotizing Colitis -GI consulted- Roberto- follow recs. Oral Vanc dose continued at this time. -CT abdomen findings noted above. -General Surgery consulted- will await recs Urinary tract infection Pt Urine Cx shows E. Faecalis. Sensitive to current tx. Blood culture found gram positive cocci, consider strep/staph. Blood cx 1/2. Likely contaminant. At this time, will continue with current coverage but will adjust as culture results finalize. MARIO 2/2 ATN Believed to have ATN at this time. Cr improved this AM. Will continue to monitor. Fluids held for short period due to increasing edema. Continue to trend urine output. Pressure ulcer Please see wound care note. As of now, noted to have sacral ulcer, illiac crest ulcer and heel ulcer. Abx used will cover for most skin infection. Continue wound care. Diabetes mellitus type 2, insulin dependent Patient is currently NPO due to need for vent, his critically ill state. Switched to NPH insulin as TPN was started for nutrition. Once patient is appropriate for feeding, will gradually switch to long acting/ home medication to cover. Hyperlipidemia Chronic issue on admission. Resume home med when patient not NPO. Hypothyroidism Chronic stable issue. TSH in appropriate range on admission Restart home med when patient is no longer NPO Seizure disorder Chronic issue on admission. Have had no seizure activity Metabolic acidosis Metabolic acidosis status is fluctuating. CO2 decreased to improved to 13 today. Stable On abx per above. Mental retardation Chronic stable issue. Addendum - Attending - Attending Attestation Date/Time: 05/10/18 9432 I personally evaluated the patient and discussed the management with Dr. Lao. I agree with the History, Examination, Assessment and Plan documented above with any addition or exceptions noted below. Continues to be minimally responsible and continues on ventilator. Some changes related to infection appear to be improving. PCT continues to downtrend, WBC downtrending, and patient has been afebrile for 24 hours now. Cultures showing Enterococcus UTI and Cdiff colitis as likely causes of his septic shock. Currently off pressors and making urine. His abdominal distention is worse associated with possible megacolon from Cdiff. Awaiting GI and Gen Surg recs. TPN started yesterday and patient hyperglycemic likely 2/2 that as well as steroid use. Insulin started today. Prognosis poor and will communicate that with the family today.
[2018-05-10 08:06] LABS: Actual Bicarbonate (HCO3a) 11.7 mEq/L (22-28); Calcium, Ionized 0.96 mmol/L (1.12-1.30); Hemoglobin (Hb) 12.5 g/dL (14.0-18.0); O2 Tension (PaO2) 68.8 mmHg (> 80.0); Potassium - ABG Lab 3.73 mmol/L (3.70-5.30); pH, Arterial 7.34 (7.35-7.45)
[2018-05-10 08:10] LABS: ALV-art Gradient 110.595 (0-20); CO2 Tension 21.9 mmHg (35.0-45.0); Puncture Site LRA
[2018-05-10] MEDS: Vancomycin HCl 25 MG/ML Oral PO SCH ×3 (08:28→20:37)
[2018-05-10] MEDS: Pantoprazole 40 MG VIAL IVP SCH (08:28)
[2018-05-10] MEDS ORDERED: Norepinephrine 8 MG/0.9% NS 250 ML ONE (10:56)
[2018-05-10] MEDS ORDERED: Fentanyl 250 MCG/5 ML VIAL ONE (10:56)
[2018-05-10] MEDS ORDERED: Midazolam HCl 2 mg/2 ml Vial ONE (10:56)
[2018-05-10] MEDS: NPH, Human Insulin Isophane 300 UNIT/3 ML VIAL SC SCH ×2 (11:33→20:52)
[2018-05-10] MEDS ORDERED: Calcium Chloride 1 GM/10 ML Abboject SYRINGE ONE ×3 (11:49→17:53)
[2018-05-10] MEDS ORDERED: Rocuronium Bromide 10 MG/ML (10ML VIAL) ONE (11:49)
[2018-05-10] MEDS ORDERED: EPINEPHrine 1 MG/10 ML Abboject SYRINGE ONE (11:49)
[2018-05-10] MEDS ORDERED: PHENYLEPHRINE-NS 100 MCG/ML 10 ML SYRINGE ONE (11:49)
[2018-05-10] MEDS ORDERED: Esmolol 100 MG/10 ML VIAL ONE (11:49)
--- NOTE | 2018-05-10 12:15 | CON ---
DATE OF CONSULTATION: 05/10/2018 HISTORY: This is a 62-year-old man with history of severe mental retardation. The patient was admitted on 05/05/2018, having been found unresponsive at the alf in [place]. His initial presentation was consistent with acute severe sepsis with septic shock requiring vasopressor and inotropic support. The patient has a history of recurrent urinary tract infection. He was most recently discharged from the hospital on 04/19/2018, following a prolonged hospitalization in February of 2018 for urosepsis and stage IV decubitus ulcer, which required surgical debridement. Although, the patient is currently on no vasopressor or inotropic support since last night, he is being treated for Clostridium difficile colitis. His urinary output has been marginal at approximately 0.3 mL/kg per hour. Overall, the renal function remains abnormal at 35, albeit stable. Note that the patient had a normal GFR back in December of 2017. Currently, the patient is somnolent on mechanical ventilator support. He is able to squeeze my hand on command. The [place] Coma Scale therefore is noted at E4, M6, V1T. PAST MEDICAL HISTORY: Pertinent for severe mental retardation, essential hypertension, chronic constipation, type 2 diabetes mellitus, hyperlipidemia, multiple urinary tract infections, chronic sacral/ischial decubitus ulcers. PAST SURGICAL HISTORY: Pertinent for excisional debridement of sacral and ischial decubitus ulcers, dilatation of urethral stricture, and dorsal slit for phimosis. REVIEW OF SYSTEMS: Could not be obtained as the patient is currently on mechanical ventilator support. PHYSICAL EXAMINATION: GENERAL: This reveals a 62-year-old man with history of profound mental retardation, who is somnolent, but appears to be in no acute distress at the time of my evaluation. VITAL SIGNS: Current vital signs include blood pressure 111/80, pulse 114, respiratory rate 23, maximum temperature in last 24 hours is 98.2 degrees Fahrenheit, and oxygen saturation is 100% on FiO2 of 28% on mechanical ventilator support. HEENT: Pupils are equal, round, and reactive to light bilaterally. He has no jugular venous distention noted. HEART: Reveals regular rate with sinus tachycardia. No murmurs or gallops auscultated. LUNGS: Clear to auscultation bilaterally. Breathing, regular and nonlabored. ABDOMEN: Markedly distended and firm. He has no peritoneal signs on examination nevertheless. Bowel sounds are absent. EXTREMITIES: 2+ radial and pedal pulses. He has bilateral pedal and ankle edema present. NEUROLOGICAL: Reveals no significant focal deficits present. Lower extremities could not be tested. The patient was previously wheelchair-bound and it appears that there is a poor lower extremity movements at baseline. LABORATORY DATA: Pertinent laboratory findings today includes a CBC with 9600 white blood cells, hemoglobin and hematocrit of 12.9 and 40.9 respectively. Platelet count is 58,000. Differential count as follows; 63 segmented neutrophils, 17 bands, 14 lymphocytes, and 6 monocytes. Metabolic profile; sodium 135, potassium is 3.1, chloride is 108, bicarbonate is 13, BUN 69, creatinine is 1.96, glucose is 367, phosphorus is 4.4, magnesium is 1.9. Pre-albumin is low at 8.0. CT scan of the abdomen and pelvis, which was obtained yesterday reveals markedly distended colon with significant colonic wall thickening. There is extensive amount of mesenteric fat stranding. There is a moderate amount of free fluid within the peritoneal cavity. No pneumoperitoneum or pneumatosis intestinalis is noted. IMPRESSIONS: 1. Acute toxic megacolon. 2. Stable acute tubular necrosis secondary to acute septicemia. RECOMMENDATIONS: Given this patient's baseline comorbidities and potential for recurrent urinary tract infection or requiring antibiotic exposure, it is unlikely that this patient's Clostridium difficile colitis will resolve with just medical management. Furthermore, this patient's profound abdominal distention makes it unlikely for ventilatory liberation. All these combined with the risk for perforation and associated increase in morbidity and mortality lead me to conclude that a total colectomy with permanent ileostomy is warranted at this juncture. There is also a secondary benefit to colectomy with ileostomy in this patient given his history of immobility, stage IV sacral decubitus ulcer, and history of chronic constipation. The above findings and recommendations have been discussed with the patient's sister, Laxmi Berger by telephone conversation. I provided her a second option, which is to continue to observe the patient in hopes that this condition will resolve. I think this is less likely. The patient's sister have indicated understanding of information I provided her today. She favors proceeding with total colectomy with permanent ileostomy. I did answer all her questions. Thank you again, Dr. Mejia, for allowing me the opportunity to participate in the care of this patient. Job ID: [id number]
[2018-05-10] MEDS ORDERED: Sodium Bicarbonate 2.5 MEQ/5 ML VIAL ONE (14:21)
[2018-05-10] MEDS ORDERED: Sodium Bicarb 50 MEQ/50 ML Abboject 8.4% SYRINGE ONE (14:21)
[2018-05-10] MEDS ORDERED: Insulin Regular 300 UNITS/3 ML VIAL ONE (14:58)
--- NOTE | 2018-05-10 16:27 | PRG ---
DATE OF SERVICE: 05/10/2018 REASON FOR CONSULTATION: Clostridium difficile colitis with megacolon. SUBJECTIVE: The patient had already been taken to the operating room for a total colectomy at the time of evaluation. Per chart review, there were no acute events or problems overnight with the patient being able to be weaned from pressor support. However, he was evaluated by the General Surgery Service, who felt that the patient was in impending risk for perforation and was taken urgently to the operating room for subtotal colectomy. OBJECTIVE: VITAL SIGNS: Temperature 98.2, pulse 115, blood pressure 118/80, respiratory rate 25, and saturating 100% on mechanical ventilation. Physical exam unable to perform due to the patient had already been in the OR. LABORATORY DATA: CBC with a white blood cell count of 9.6, hemoglobin 12.9, hematocrit 40.9, and platelets 58. Chemistry with a sodium of 135, potassium 3.1, chloride 108, CO2 of 13, BUN 69, creatinine 1.96, and glucose 367. IMAGING DATA: CT of the abdomen and pelvis obtained on May 09, 2018, showed extensive marked colonic wall thickening consistent with extensive colitis with edema seen in the subcutaneous fat and extending into the rectum. There was also moderate amount of free intraperitoneal fluid seen with the bowel management system also seen in place. ASSESSMENT AND PLAN: The patient is a 62-year-old male with past medical history of mental retardation, recurrent UTIs with history of urosepsis, E coli bacteremia, stage IV decubitus ulceration with osteomyelitis, hypertension, hyperlipidemia, seizure disorder, GERD, hypothyroidism, and diabetes, presenting with septic shock related to severe/fulminant Clostridium difficile colitis with megacolon. Clostridium difficile colitis. The patient initially presented to the hospital after [facility] with elevated fever and white blood cell count, seen after transferred the patient to the [facility]. Infectious stool studies were positive for Clostridium difficile and he was subsequently placed on oral vancomycin of 125 mg 4 times daily along with IV metronidazole. However, recent CT scan showed significant/marked colonic wall thickening as well as significant distention of the colonic wall consistent with megacolon. Given the impending risk of perforation and further decompensation, the patient was evaluated by the General Surgery Service and taken urgently to the operating room for subtotal colectomy and ileostomy placement. At this point, there was no evidence of necrotizing colitis seen on the most recent CT scan, and while he was on aggressive antibiotic therapy, I think a surgical approach with subtotal colectomy is reasonable at this time. RECOMMENDATIONS: 1. We would continue IV metronidazole 500 t.i.d. and oral vancomycin for 7 days after subtotal colectomy to ensure antibiotic therapy. 2. Agree with subtotal colectomy for removal of the colon given marked dilation of the colon and megacolon. 3. Colonoscopy would not have been a reasonable option due to increased risk of perforation and/or complication. We will sign off at this time. Please call with any additional questions. Job ID: [id number]
[2018-05-10 16:51] LABS: INR-International Normal Ratio 1.4; PTT 33.6 SEC (22.9-36.1); Prothrombin Time 17.5 SEC (12.0-14.7)
[2018-05-10] MEDS: CALCIUM CHLORIDE IV SCH (16:58)
[2018-05-10] MEDS: SODIUM ACETATE IV SCH (16:58)
[2018-05-10] MEDS: [UNRECOGNIZED DRUG - OTHER] IV SCH (16:58)
[2018-05-10] MEDS: POTASSIUM ACETATE IV SCH (16:58)
[2018-05-10] MEDS: fentaNYL Citrate/PF 2,000 MCG in Sodium Chloride 0.9% 60 ML IV SCH (17:01)
[2018-05-10 17:13] LABS: Anisocytosis SLIGHT = 6-15 cells (100X) (0-5/hpf); Band 8 % (5-11); Hemoglobin 9.6 g/dL (14.0-18.0); Hypochromia SLIGHT = 6-15 cells (100X) (0-5/hpf); Lymphocytes 2 % (21-51); MDiff Complete? YES; Mean Corpuscular HGB CONC 32.8 g/dL (32.0-36.0); Mean Corpuscular Volume 85.4 fL (78.0-98.0); Mean Platelet Volume 10.1 fL (7.4-10.4); Monocytes 1 % (0-10); Neutrophil 89 % (42-75); Platelet Count 76 thou/uL (130-400); Platelet Morphology Comment Appears Decreased; RBC Distribution Width 15.3 % (11.5-14.5); Red Blood Cell (RBC) Count 3.42 mill/uL (4.70-6.10); Toxic Granulation SLIGHT; White Blood Cell (WBC) Count 10.5 thou/uL (4.8-10.8)
[2018-05-10 17:23] LABS: Actual Bicarbonate (HCO3a) 14.4 mEq/L (22-28); Base Excess (BEa) -9.1 mEq/L (-2.0 to +3.0); CO2 Tension 23.5 mmHg (35.0-45.0); O2 Tension (PaO2) 103.1 mmHg (> 80.0)
[2018-05-10 17:24] LABS: Carboxyhemoglobin (COHb) 1.2 gm% (0.0-3.0); Hemoglobin (Hb) 8.6 g/dL (14.0-18.0)
[2018-05-10 17:25] LABS: ALV-art Gradient 74.295 (0-20); Calcium, Ionized 1.03 mmol/L (1.12-1.30); Potassium - ABG Lab 2.81 mmol/L (3.70-5.30); Puncture Site LINE
[2018-05-10] MEDS ORDERED: Sodium Bicarb 50 MEQ/50 ML VIAL ONE ×2 (17:52→17:54)
[2018-05-10] MEDS: Norepinephrine 8 MG/250 ML IVPB SCH (20:48)
--- NOTE | 2018-05-10 20:51 | OP ---
DATE OF PROCEDURE: 05/10/2018 PREOPERATIVE DIAGNOSES: Acute toxic megacolon secondary to Clostridium difficile colitis. POSTOPERATIVE DIAGNOSES: Acute toxic megacolon secondary to Clostridium difficile colitis. PROCEDURES PERFORMED: 1. Exploratory laparotomy. 2. Total colectomy with end ileostomy. ANESTHESIA: General endotracheal. ESTIMATED BLOOD LOSS: 500 mL. FLUIDS GIVEN: Two units packed red blood cells, 2 units fresh frozen plasma, 6 packs of platelets, and 2000 mL of crystalloids. COUNTS: Sponge and instrument counts were verified as correct x2. COMPLICATIONS: None apparent at the time of operation. INDICATIONS FOR OPERATION: This is a 62-year-old man, who was recently admitted with acute septic shock secondary to Clostridium difficile colitis. Abdomen is markedly distended and firm. Renal function has remained abnormal since admission. CT scan of the abdomen and pelvis, which was obtained yesterday revealed a markedly distended and thick-walled colon with extensive amount of intraperitoneal inflammation. Decision was made to bring the patient to the operating room for a total colectomy with ileostomy. Findings are consistent with a markedly distended colon, thick-walled completely sucked in to both lateral gutters as well as the hepatic and splenic flexures. This required meticulous, but tedious dissection resulted in extensive amount of oozing from the operative field. Preoperatively, the patient was known with thrombocytopenia. Therefore, a transfusion of platelet was anticipated once oozing of blood from the venous bed was noted. DESCRIPTION OF PROCEDURE: Informed consent obtained from the patient's sister, power of consumer attorney, the patient was brought to the operating room and placed in supine position. Following general anesthesia, abdomen was sterilely prepped and draped in usual fashion. A midline incision was made using #10 scalpel. The incision was carried through subcutaneous tissues maintaining hemostasis using cautery. The fascia was incised midline exposing the peritoneum beneath, which was grasped x2 with hemostats. Peritoneal cavity was sharply entered using Metzenbaum scissors. Over 4 L of straw-colored ascites was readily evacuated from the peritoneal cavity. Incision was then extended superiorly and inferiorly. Bookwalter was put in place to gain exposure. Small bowel was run from ligament of Treitz down to terminal ileum. No pathology identified. Normal ecstatic appendix was noted in the usual anatomic location. All the colon from the cecum through the ascending, transverse, descending, and sigmoid colon and rectum were markedly thick walled. The rectum was markedly dilated. There was no evidence of necrotizing infection, especially from the cirrhosis surface. Clearly, no evidence of a bowel perforation. Decision was made to proceed with direct colectomy. Evaluation of the colon revealed extensive amount of entrapment and adhesion from the inflammation involving both lateral gutters, as well as the hepatic and splenic flexures. We proceeded first to mobilize the right colon along the white line of Toldt using Metzenbaum scissors alternated with cautery. We then made a rent at the distal ileum approximately 6 inches from the ileocecal junction through the mesenteric rent. MARKIE stapler was introduced and bowel was divided. The remainder of the colon was then mobilized upwards. The hepatic flexure was taken down. Care was taken to avoid injury to underlying duodenum. The remainder of the colon was then mobilized free in the transverse colon from the gastrocolic ligament. Splenic flexure was taken down again using Metzenbaum scissors alternated with cautery. The left colon was then mobilized along the white line of Toldt using Metzenbaum scissors alternated with cautery. This mobilization was carried down to the level of the rectosigmoid junction. We were then able to dissect the proximal rectum approximately 2 inches below the peritoneal reflection. We created a rent through the mesorectum, through this a MARKIE stapler was introduced and the rectum was serially divided. Mesentery of the entire colon was then serially divided using LigaSure device. The markedly enlarged colon was passed off the operative field followed by transmission to Pathology. There was a significant amount of oozing from all the raw surfaces in the operative field. We were able to maintain pressures using the multiple laparotomy packs until Anesthesia was able to catch up with transfusion of blood, platelets, and fresh frozen plasma. At this juncture, the operative field was reinspected, good hemostasis was noted in place. The abdomen was then copiously irrigated clear with saline solution and minor bleeding points were controlled using cautery. The raw surface over the inferolateral aspect of the liver was noted with oozing. Hemostasis was achieved here using Arixtra. We used the Arixtra also in the lateral gutters. All laparotomy pads and instruments were removed and accounted for. The previous nasogastric tube was palpated within the gastric lumen. Finding no other pathology, exploration was terminated. A core incision was made in the right lower quadrant in the area chosen for placement of ileostomy. I then introduced a tonsil clamp through this to create a defect through the fascia. The fascia defect was dilated to 2 fingerbreadths. Evie forceps was introduced into the peritoneal cavity through this cord defect grasping the staple end of the terminal ileum, which was pulled through and secured within the abdominal cavity using stay sutures of 3-0 silk. Fascia was then approximated in the midline using a running stitch of #1 single stranded PDS. Subcutaneous tissue was irrigated clear with saline solution, perfected hemostasis using cautery. Skin was closed using ned. Sterile dressing was applied here. I then excised the staple line over the distal ileum and the functional Nell ileostomy was perfected using interrupted sutures of 2-0 chromic. Ostomy appliance was put in place. The patient tolerated this operation without any apparent complication and was returned to the intensive care unit in critical, but stable condition. Job ID: [id number]
[2018-05-11] MEDS: metroNIDAZOLE 500 MG in Premix Bag 1 BAG IVPB SCH ×3 (02:21→17:05)
[2018-05-11] MEDS: Norepinephrine 8 MG/250 ML IVPB SCH ×2 (02:22→22:34)
[2018-05-11 05:16] LABS: Anion Gap 16 mmol/L (10-20); BUN (Urea Nitrogen) 69 mg/dL (8.4-25.7); Calc. Creatinine Clearance 52 mL/min (70-130); Calcium 7.6 mg/dL (7.8-10.44); Carbon Dioxide 18 mmol/L (23-31); Chloride 114 mmol/L (98-107); Estimated GFR-MDRD 41; Glucose 503 mg/dL (80-115); Magnesium 1.4 mg/dL (1.6-2.6); Phosphorus 1.9 mg/dL (2.3-4.7); Potassium 2.5 mmol/L (3.5-5.1); Sodium 145 mmol/L (136-145)
[2018-05-11 05:20] LABS: Band 3 % (5-11); Hemoglobin 7.5 g/dL (14.0-18.0); Lymphocytes 9 % (21-51); MDiff Complete? YES; Mean Corpuscular HGB CONC 34.7 g/dL (32.0-36.0); Mean Corpuscular Volume 80.6 fL (78.0-98.0); Mean Platelet Volume 10.7 fL (7.4-10.4); Monocytes 1 % (0-10); Neutrophil 87 % (42-75); Platelet Count 74 thou/uL (130-400); RBC Distribution Width 16.7 % (11.5-14.5); Red Blood Cell (RBC) Count 2.68 mill/uL (4.70-6.10); White Blood Cell (WBC) Count 7.6 thou/uL (4.8-10.8)
[2018-05-11] MEDS: Piperacillin/Tazobactam 2.25 GM in Sodium Chloride 0.9% 100 ML IVPB SCH ×3 (05:20→22:33)
[2018-05-11] MEDS: Potassium Chloride 40 MEQ in Premix Bag 1 BAG IVPB PRN ×3 (06:04→17:06)
[2018-05-11] MEDS: Insulin Regular 300 UNITS/3 ML VIAL SC PRN ×3 (06:04→15:11)
--- NOTE | 2018-05-11 07:11 | PDOC.FM ---
- Subjective Subjective: Pt intubated at this time and has history of mental delay. Unable to obtain full ROS. Pt responds to name and able to look my way in response. Pt on rate of 15 of levophed. Nurse reports unable to wean overnight. - Objective MAR Reviewed: Yes Vital Signs & Weight: Vital Signs (12 hours) Temp Resp Pulse Ox 05/11/18 06:00 20 05/11/18 04:00 20 05/11/18 02:00 20 05/11/18 00:00 20 05/10/18 22:00 20 05/10/18 20:00 20 05/10/18 19:45 97.9 F 20 100 05/10/18 19:35 100 Weight Admit Weight 71.214 kg Weight 81.3 kg Most Recent Monitor Data Heart Rate from ECG 122 NIBP 64/35 NIBP BP-Mean 44 Respiration from ECG 20 SpO2 100 I&O: 05/10/18 05/11/18 05/12/18 06:59 06:59 06:59 Intake Total 3618.2 3455 37.3 Output Total 990 1700 Balance 2628.2 1755 37.3 Result Diagrams: 05/11/18 04:35 05/11/18 04:35 EKG Reviewed by me: Yes (Tachycardic) Radiology Reviewed by me: Yes (No new imaging to review today) Phys Exam - Physical Examination Constitutional: NAD HEENT: PERRLA Neck: no JVD, supple, full ROM Respiratory: no wheezing Mild rales noted bilaterally. Venilator sounds noted Cardiovascular: no significant murmur, no rub Pt sinus tachycardic. Gastrointestinal: positive bowel sounds Incision dressed at this time. No sign of drainage or redness at this time. Mildly distended. Ileostomy draining at this time. Musculoskeletal: pulses present +2 pitting edema up to scrotum Unable to fully assess due to intubation and mental delay Skin: no rash, normal turgor, cap refill <2 seconds Dx/Plan (1) Toxic megacolon due to Clostridium difficile Code(s): A04.72 - ENTEROCOLITIS D/T CLOSTRIDIUM DIFFICILE, NOT SPCF RECUR Status: Acute (2) Sepsis Code(s): A41.9 - SEPSIS, UNSPECIFIED ORGANISM Status: Acute (3) Urinary tract infection Status: Acute Qualifiers: Urinary tract infection type: acute cystitis Hematuria presence: with hematuria Qualified Code(s): N30.01 - Acute cystitis with hematuria (4) C. difficile diarrhea Code(s): A04.72 - ENTEROCOLITIS D/T CLOSTRIDIUM DIFFICILE, NOT SPCF RECUR Status: Acute (5) Metabolic acidosis Code(s): E87.2 - ACIDOSIS Status: Acute (6) Pressure ulcer Code(s): L89.90 - PRESSURE ULCER OF UNSPECIFIED SITE, UNSPECIFIED STAGE Status : Acute Qualifiers: Laterality: left (7) Diabetes mellitus type 2, insulin dependent Code(s): E11.9 - TYPE 2 DIABETES MELLITUS WITHOUT COMPLICATIONS; Z79.4 - LONGTERM (CURRENT) USE OF INSULIN Status: Chronic (8) HTN (hypertension) Code(s): I10 - ESSENTIAL (PRIMARY) HYPERTENSION Status: Chronic Qualifiers: Hypertension type: essential hypertension Qualified Code(s): I10 - Essential (primary) hypertension (9) Hyperlipidemia Code(s): E78.5 - HYPERLIPIDEMIA, UNSPECIFIED Status: Chronic Qualifiers: Hyperlipidemia type: mixed hyperlipidemia Qualified Code(s): E78.2 - Mixed hyperlipidemia (10) MARIO (acute kidney injury) Code(s): N17.9 - ACUTE KIDNEY FAILURE, UNSPECIFIED Status: Resolved (11) Sepsis due to urinary tract infection Code(s): A41.9 - SEPSIS, UNSPECIFIED ORGANISM; N39.0 - URINARY TRACT INFECTION, SITE NOT SPECIFIED Status: Resolved - Plan Plan: Toxic Megacolon 2/2 C. diff infection -Post Op Day 1 total colectomy with ileostomy. Ileostomy draining at this time. -Will continue for 7 days of abx, Flagyl and oral Vancomycin to cover for infection Per GI -GI consulted- Sultz- follow recs -General Surgery Consulted- Ohaju- follow recs Sepsis Pt tachycardic with hypotension requiring pressors. Abx is being continued broadly, Oral Vanc Vanc IV was discontinued early in stay as he was supratherapeutic. And concern caused ATN Cr trending down this am. ATN suspected due Likely due to recent Vanc and decreased blood flow. Palliative care consulted to help with goals of care discussion with family- Pt still full code at this time. Urinary tract infection Pt Urine Cx shows E. Faecalis. Sensitive to current tx. Blood culture found gram positive cocci, consider strep/staph. Blood cx /2. Likely contaminant. At this time, will continue with current coverage- sens to current treatment MARIO 2/2 ATN Believed to have ATN at this time. Cr improved this AM. Will continue to monitor. Continue to trend urine output. Improving this moringin Pressure ulcer Please see wound care note. As of now, noted to have sacral ulcer, illiac crest ulcer and heel ulcer. Abx used will cover for most skin infection. Continue wound care. Diabetes mellitus type 2, insulin dependent Pt TPN restarted a few days ago. Blood glucose very high. May want to stop for the time. Being. NPH 20 units BID. Will add Levemir 5 units. Will continue to adjust blood glucose regimen at this time. Hyperlipidemia Chronic issue on admission. Resume home med when patient not NPO. Hypothyroidism Chronic stable issue. TSH in appropriate range on admission Restart home med when patient is no longer NPO Seizure disorder Chronic issue on admission. Have had no seizure activity Metabolic acidosis Metabolic acidosis status is fluctuating. CO2 improved. Likely due to infectious state and recent surgery. On abx per above. Mental retardation Chronic stable issue. Addendum - Attending - Attending Attestation Date/Time: 05/11/18 0904 I personally evaluated the patient and discussed the management with Dr. Lao. I agree with the History, Examination, Assessment and Plan documented above with any addition or exceptions noted below. Patient currently PD1 from total colectomy and end ileostomy due to septic shock and toxic megacolon from Cdiff colitis. Good ileostomy output this morning. He is back on pressors and having issues maintaining his BP. He is making adequate urine and creatinine stable from yesterday. Hypokalemia noted and likely secondary to increase pressor use. WBC and PCT downtrending, continuing on Vanc and Zosyn for Cdiff and for his enterococcus UTI. Continues to need ventilatory supoort. Family interested in discussing DNR status today and will have that conversation with them. S/p blood transfusion during surgery yesterday and Hgb running low and may necessitate another transfusion.
[2018-05-11 07:21] LABS: Actual Bicarbonate (HCO3a) 17.1 mEq/L (22-28); Base Excess (BEa) -4.9 mEq/L (-2.0 to +3.0); Calcium, Ionized 1.06 mmol/L (1.12-1.30); Carboxyhemoglobin (COHb) 1.7 gm% (0.0-3.0); Hemoglobin (Hb) 7.3 g/dL (14.0-18.0); Potassium - ABG Lab 2.69 mmol/L (3.70-5.30); pH, Arterial 7.52 (7.35-7.45)
[2018-05-11 07:22] LABS: CO2 Tension 21.2 mmHg (35.0-45.0); Puncture Site ALINE
[2018-05-11] MEDS ORDERED: NPH, Human Insulin Isophane 300 UNIT/3 ML VIAL SC SCH ×2 (07:45→21:00)
[2018-05-11] MEDS ORDERED: Calcium Gluconate 10 MEQ in Sodium Chloride 0.9% 100 ML IVPB SCH (08:00)
--- NOTE | 2018-05-11 08:15 | PRG ---
DATE OF SERVICE: 05/11/2018 TIME SPENT: 35 minutes of critical care time. SUBJECTIVE: This patient remains intubated on mechanical ventilation. He had a colectomy yesterday. OBJECTIVE: VITAL SIGNS: His temperature is 99.1 with no fever overnight, blood pressure 121/57, O2 sat 99%, and pulse 106. Intake for 24 hours 3455, output 1700. HEENT: He has cloudy cataract, left eye. Oropharynx had ET tube and OG tube in place. NECK: No JVD. LUNGS: Clear anteriorly. CARDIAC: S1 and S2, regular, but tachycardic. ABDOMEN: Softer. There is a colostomy present in left lower quadrant. EXTREMITIES: No clubbing, cyanosis, or edema. LABORATORY DATA: PH of 7.52, pCO2 of 21, pO2 of 95 on SIMV rate of 20, tidal volume of 500, PEEP 5, pressure support 10, and FiO2 of 29%. White blood cell count 7.6, hemoglobin 7.5, and hematocrit 21.6. INR 1.4. Sodium 145, potassium 2.5, chloride 114, CO2 of 18, BUN 69, creatinine 1.7, and glucose 503. Pre-albumin is 11.0. ASSESSMENT: 1. Septic shock secondary to Clostridium difficile colitis. 2. Severe anemia postoperative and surgery yesterday. 3. Acute respiratory failure, requiring mechanical ventilation. 4. Hyperglycemia secondary to sepsis, TPN administration. PLAN: The patient will receive blood today. We will go ahead and recalibrate his TPN as to add more insulin. I have also gone up in NPH insulin. I have adjusted mechanical ventilation parameters downward. Primary Care Team needs to talk to family as they understood the DNAR status. Job ID: [id number]
[2018-05-11] MEDS: Hydrocortisone Sod Succ/PF 100 mg/2 ml Vial IVP SCH ×2 (08:48→20:07)
[2018-05-11] MEDS: Pantoprazole 40 MG VIAL IVP SCH (08:49)
[2018-05-11] MEDS ORDERED: Levemir Flexpen 100 UNITS/ML PEN SC SCH (09:00)
[2018-05-11] MEDS ORDERED: Insulin Glargine 5 UNITS in Pre-Filled Syringe 1 EACH SC SCH (09:00)
[2018-05-11] MEDS: Vancomycin HCl 25 MG/ML Oral PO SCH ×4 (09:20→20:06)
[2018-05-11 09:28] LABS: Actual Bicarbonate (HCO3a) 15.4 mEq/L (22-28); Analyzer IN Cardio OR; Base Excess (BEa) -9.8 mEq/L (-2.0 to +3.0); CO2 Tension 31.6 mmHg (35.0-45.0); Carboxyhemoglobin (COHb) 0.3 gm% (0.0-3.0); Hemoglobin (Hb) 11.7 g/dL (14.0-18.0); O2 Tension (PaO2) 444.2 mmHg (> 80.0); Potassium - ABG Lab 2.52 mmol/L (3.70-5.30); pH, Arterial 7.31 (7.35-7.45)
[2018-05-11 09:29] LABS: Actual Bicarbonate (HCO3v) 13 mEq/L (22-28); Analyzer IN Cardio OR; Base Excess -14.7 mEq/L (-2.0 to +3.0); Calcium, Ionized 0.93 mmol/L (1.16-1.32); Chloride (ABG LAB) 109 mmol/L (98-106); Hemoglobin (Hb) 8.9 g/dL (13.1-17.2); Potassium - ABG Lab 3.51 mmol/L (3.70-5.30); Sodium 133.3 mmol/L (133-146)
[2018-05-11 09:29] LABS: Actual Bicarbonate (HCO3a) 13.4 mEq/L (22-28); Analyzer IN Cardio OR; Base Excess (BEa) -12.7 mEq/L (-2.0 to +3.0); CO2 Tension 31.8 mmHg (35.0-45.0); Calcium, Ionized 1.25 mmol/L (1.12-1.30); Carboxyhemoglobin (COHb) 0.6 gm% (0.0-3.0); Hemoglobin (Hb) 12.6 g/dL (14.0-18.0); O2 Tension (PaO2) 416.4 mmHg (> 80.0); Potassium - ABG Lab 3.34 mmol/L (3.70-5.30)
[2018-05-11 09:30] LABS: Puncture Site ALINE
[2018-05-11 09:30] LABS: pH (venous) 7.14 (7.32-7.43)
[2018-05-11 09:31] LABS: Puncture Site ALINE; pH, Arterial 7.24 (7.35-7.45)
[2018-05-11 11:53] LABS: Potassium 2.9 mmol/L (3.5-5.1)
[2018-05-11] MEDS: POTASSIUM ACETATE IV SCH (13:14)
[2018-05-11] MEDS: SODIUM ACETATE IV SCH (13:14)
[2018-05-11] MEDS: [UNRECOGNIZED DRUG - OTHER] IV SCH (13:14)
[2018-05-11] MEDS ORDERED: [UNRECOGNIZED DRUG - OTHER] IV SCH (14:00)
[2018-05-11] MEDS ORDERED: SODIUM ACETATE IV SCH (14:00)
[2018-05-11] MEDS ORDERED: POTASSIUM ACETATE IV SCH (14:00)
--- NOTE | 2018-05-11 15:07 | PRG ---
DATE OF SERVICE: 05/11/2018 SUBJECTIVE: The patient is a 62-year-old male with history of severe mental retardation. Yesterday, we were consulted by nanosystems engineer, Dr. Mejia due to concerns for diverticulitis with toxic megacolon and potential perforation. The patient was taken back for ex lap with total colectomy and ileostomy. Today, he is postop day #1. Currently the patient's BP is stable but overnight dropped and was placed back on Levophed. Per Dr. Mejia, antibiotics are being continued to ensure clearance of the C. diff infection. OBJECTIVE: VITAL SIGNS: Heart rate 114, blood pressure 156/91, MAPs 112, respiratory rate currently intubated, O2 saturation 96. GENERAL: The patient is resting in bed and currently intubated for respiratory ventilation. His eyes are opened, however, he is verbally nonresponsive at this time, which is his baseline due to history of severe mental retardation. HEENT: Unremarkable. HEART: Tachycardic with no murmurs or gallops. ABDOMEN: Soft, nontender. Active bowel sounds. Mildly distended. Ex lap incision was covered by bandaging, which got clean and dry with no active signs of infection or bleeding. Permanent ileostomy is present, which showing adequate drainage. Ostomy site shows no signs of infection with pink, moist, and [id number] consistency of intestine. EXTREMITIES: Upper extremities, able to squeeze fingers when verbally commanded. However, no other movement, which is per patient's baseline. : Presence of Bran catheter within scrotal swelling. LUNGS: Currently mechanically ventilated. LABORATORY FINDINGS: WBC 7.6, hemoglobin 7.5, hematocrit 21.6, platelets 74, neutrophils 87%, bands 3%. Sodium 145, potassium 2.5, chloride 114, carbon dioxide 18, BUN 69, creatinine 1.72. GFR 41, glucose 503, calcium 7.6, phosphorus 1.9. Magnesium 1.4. DIAGNOSTIC FINDINGS: There are no new diagnostic imaging to review this morning. ASSESSMENT: 1. Acute toxic megacolon status post colectomy with permanent ileostomy, postop day #1. 2. Stable acute tubular necrosis secondary to acute septicemia. 3. Hypokalemia. 4. Hyperglycemia in the setting of insulin-dependent diabetes mellitus 2. 5. Hypophosphatemia. 6. Hypomagnesemia. 7. Anemia. PLAN: 1. To receive two PRBCs today. 2. Diverticulitis and toxic megacolon status post ex lap with permanent ileostomy. Continue caring and cleaning of the ostomy site. Continue to monitor for signs of infection. We will reassess in the morning. Continue antibiotics per Dr. Mejia recommendations. 3. Electrolyte derangements: ICU electrolyte replacement protocol in place. ICU team plans to replace as appropriate. The patient was examined by Dr. Manley and plan discussed with the team. Job ID: [id number] [facility]
[2018-05-11 15:32] LABS: Potassium 3.3 mmol/L (3.5-5.1)
[2018-05-12] MEDS: Insulin Regular 300 UNITS/3 ML VIAL SC PRN ×7 (00:14→23:40)
[2018-05-12] MEDS: metroNIDAZOLE 500 MG in Premix Bag 1 BAG IVPB SCH ×3 (02:31→17:25)
[2018-05-12] MEDS: fentaNYL Citrate/PF 2,000 MCG in Sodium Chloride 0.9% 60 ML IV SCH (04:38)
[2018-05-12 05:39] LABS: Band 11 % (5-11); Lymphocytes 19 % (21-51); MDiff Complete? YES; Mean Corpuscular HGB CONC 34.1 g/dL (32.0-36.0); Mean Corpuscular Hemoglobin 28.2 pg (27.0-31.0); Mean Corpuscular Volume 82.8 fL (78.0-98.0); Mean Platelet Volume 10.3 fL (7.4-10.4); Metamyelocyte 2 % (0-0); Monocytes 3 % (0-10); Neutrophil 65 % (42-75); Platelet Count 92 thou/uL (130-400); Platelet Morphology Comment Appears Decreased; RBC Distribution Width 16.1 % (11.5-14.5); Red Blood Cell (RBC) Count 3.91 mill/uL (4.70-6.10); White Blood Cell (WBC) Count 10.7 thou/uL (4.8-10.8)
[2018-05-12 05:44] LABS: Anion Gap 11 mmol/L (10-20); BUN (Urea Nitrogen) 59 mg/dL (8.4-25.7); Calc. Creatinine Clearance 73 mL/min (70-130); Calcium 7.8 mg/dL (7.8-10.44); Carbon Dioxide 22 mmol/L (23-31); Chloride 117 mmol/L (98-107); Estimated GFR-MDRD 60; Glucose 399 mg/dL (80-115); Magnesium 1.6 mg/dL (1.6-2.6); Potassium 3.6 mmol/L (3.5-5.1); Sodium 146 mmol/L (136-145)
[2018-05-12 05:47] LABS: Phosphorus 1.4 mg/dL (2.3-4.7)
[2018-05-12] MEDS: Piperacillin/Tazobactam 2.25 GM in Sodium Chloride 0.9% 100 ML IVPB SCH (05:54)
--- NOTE | 2018-05-12 06:10 | PDOC.FM ---
- Subjective Subjective: Pt still intubated today. Pt more active and alert. Responds to name. Appears to have some pain when you palpate his abdomen. Nurse reports getting more agitated overnight and having to go up on fentanyl. No other acute events overnight. Unable to obtain further ROS due to intubation and mental delay - Objective MAR Reviewed: Yes Vital Signs & Weight: Vital Signs (12 hours) Temp Pulse Resp BP Pulse Ox 05/12/18 04:00 97 F L 05/12/18 02:33 80 137/63 05/12/18 02:00 15 05/12/18 00:00 98.1 F 15 05/11/18 22:54 103 H 138/72 05/11/18 22:00 15 05/11/18 20:00 98.5 F 18 97 05/11/18 18:47 76 135/64 Weight Admit Weight 71.214 kg Weight 81.3 kg Most Recent Monitor Data Heart Rate from ECG 114 NIBP 124/72 NIBP BP-Mean 89 Respiration from ECG 21 SpO2 100 I&O: 05/10/18 05/11/18 05/12/18 06:59 06:59 06:59 Intake Total 3618.2 3455 2238.3 Output Total 990 1700 2250 Balance 2628.2 1755 -11.7 Result Diagrams: 05/12/18 05:20 05/12/18 05:20 EKG Reviewed by me: Yes Radiology Reviewed by me: Yes (No new imaging to review) Phys Exam - Physical Examination Constitutional: NAD HEENT: PERRLA, moist MMs Neck: no nodes, supple, full ROM Cardiovascular: RRR, no significant murmur, no rub Moderately distended, Tender to palpation Ileostomy draining, Incision dry, dressed and intact. no redness +3 pitting edema in legs. +2 in hands. Scrotom still very swollen Unable to fully assess Deviation from normal: Pt more alert and agitated this morning Skin: no rash Dx/Plan (1) Toxic megacolon due to Clostridium difficile Code(s): A04.72 - ENTEROCOLITIS D/T CLOSTRIDIUM DIFFICILE, NOT SPCF RECUR Status: Acute (2) Sepsis Code(s): A41.9 - SEPSIS, UNSPECIFIED ORGANISM Status: Acute (3) Urinary tract infection Status: Acute Qualifiers: Urinary tract infection type: acute cystitis Hematuria presence: with hematuria Qualified Code(s): N30.01 - Acute cystitis with hematuria (4) C. difficile diarrhea Code(s): A04.72 - ENTEROCOLITIS D/T CLOSTRIDIUM DIFFICILE, NOT SPCF RECUR Status: Acute (5) Metabolic acidosis Code(s): E87.2 - ACIDOSIS Status: Acute (6) Pressure ulcer Code(s): L89.90 - PRESSURE ULCER OF UNSPECIFIED SITE, UNSPECIFIED STAGE Status : Acute Qualifiers: Laterality: left (7) Diabetes mellitus type 2, insulin dependent Code(s): E11.9 - TYPE 2 DIABETES MELLITUS WITHOUT COMPLICATIONS; Z79.4 - SALESPERSON TERRAZZO TILES (CURRENT) USE OF INSULIN Status: Chronic (8) HTN (hypertension) Code(s): I10 - ESSENTIAL (PRIMARY) HYPERTENSION Status: Chronic Qualifiers: Hypertension type: essential hypertension Qualified Code(s): I10 - Essential (primary) hypertension (9) Hyperlipidemia Code(s): E78.5 - HYPERLIPIDEMIA, UNSPECIFIED Status: Chronic Qualifiers: Hyperlipidemia type: mixed hyperlipidemia Qualified Code(s): E78.2 - Mixed hyperlipidemia (10) MARIO (acute kidney injury) Code(s): N17.9 - ACUTE KIDNEY FAILURE, UNSPECIFIED Status: Resolved (11) Sepsis due to urinary tract infection Code(s): A41.9 - SEPSIS, UNSPECIFIED ORGANISM; N39.0 - URINARY TRACT INFECTION, SITE NOT SPECIFIED Status: Resolved - Plan Plan: Toxic Megacolon 2/2 C. diff infection -Post Op Day 2 total colectomy with ileostomy. Ileostomy draining at this time. -Will continue for 7 days of abx, Flagyl and oral Vancomycin to cover for infection Per GI -GI consulted- Roberto- follow recs -General Surgery Consulted- Ohaju- follow recs Sepsis (resolved) Abx is being continued broadly, Oral Vanc Vanc IV was discontinued early in stay as he was supratherapeutic. And concern caused ATN Cr trending down this am. ATN suspected due Likely due to recent Vanc and decreased blood flow. Palliative care consulted to help with goals of care discussion with family- Pt still full code at this time. Urinary tract infection Pt Urine Cx shows E. Faecalis. Sensitive to current tx. Blood culture found gram positive cocci, consider strep/staph. Blood cx /2. Likely contaminant. At this time, will continue with current coverage- sens to current treatment MARIO 2/2 ATN Believed to have ATN at this time. Cr improved this AM. Will continue to monitor. Continue to trend urine output. Having good urine output at this time. Pressure ulcer Please see wound care note. As of now, noted to have sacral ulcer, illiac crest ulcer and heel ulcer. Abx used will cover for most skin infection. Continue wound care. Diabetes mellitus type 2, insulin dependent Pt TPN restarted a few days ago. Blood glucose still elevated. NPH increased. will want to increase insulin in the TPN today. Also still receiving Hydrocortisone Hyperlipidemia Chronic issue on admission. Resume home med when patient not NPO. Hypothyroidism Chronic stable issue. TSH in appropriate range on admission -continue home meds when able Seizure disorder Chronic issue on admission. Have had no seizure activity Metabolic acidosis (resolved) CO2 improved. Likely due to infectious state and recent surgery. On abx per above. Mental retardation Chronic stable issue. Addendum - Attending - Attending Attestation Date/Time: 05/12/18 9487 I personally evaluated the patient and discussed the management with Dr. Lao. I agree with the History, Examination, Assessment and Plan documented above with any addition or exceptions noted below. Patient has been successfully weaned from Levophed again this morning. He is more awake and requiring more fentanyl for sedation. Labs continue to trend down , continue Zosyn, Flagyl, and PO Vanc for Cdiff and Enterococcus coverage. PCT pending but has continued to downtrend. Blood sugars remain uncontrolled, will increase TPN insulin as well as NPH today. Renal values improve and UOP continues to remain adequate. Ileostomy making good output, patient has some voluntary guarding on abdominal exam. H/H stable.
[2018-05-12 07:44] LABS: Actual Bicarbonate (HCO3a) 21.8 mEq/L (22-28); Base Excess (BEa) -1.7 mEq/L (-2.0 to +3.0); CO2 Tension 32.5 mmHg (35.0-45.0); Carboxyhemoglobin (COHb) 0.4 gm% (0.0-3.0); O2 Tension (PaO2) 88.6 mmHg (> 80.0); Potassium - ABG Lab 3.42 mmol/L (3.70-5.30); pH, Arterial 7.44 (7.35-7.45)
[2018-05-12 07:45] LABS: ALV-art Gradient 77.545 (0-20); Puncture Site LINE
[2018-05-12] MEDS ORDERED: Magnesium Sulfate 3 GM, Potassium Phosphate 30 MMOL in Sodium Chloride 0.9% 250 ML 250 ML IVPB SCH (08:00)
--- NOTE | 2018-05-12 08:38 | PRG ---
DATE OF SERVICE: 05/12/2018 TIME SPENT: 35 minutes of critical care time. SUBJECTIVE: The patient is awake. He is lifting his head off the bed. He is looking around today. OBJECTIVE: VITAL SIGNS: On exam, his temperature is 97.2 with no fever overnight, pulse 108, blood pressure 135/80. A 24-hour intake 3545, output 2400. HEENT EXAM: He has a cataract, left eye. Oropharynx, there is an endotracheal tube in place. NECK: No adenopathy or JVD. LUNGS: Coarse breath sounds anteriorly bilaterally. CARDIOVASCULAR: S1, S2. Slightly tachycardic. ABDOMEN: Slightly distended. Tender. Ileostomy site noted, looks to be healing well. EXTREMITIES: 3+ edema throughout. LABORATORY DATA: Sodium 146, potassium 3.6, chloride 117, CO2 of 22, BUN 59, creatinine 1.2, glucose 399. Pre-albumin 13. PH 7.44, pCO2 of 32, PO2 88 on SIMV rate of 15, PEEP of 5, pressure support 10, FiO2 29%. White blood cell count 10.7, hematocrit 32.4, and platelet count 92. ASSESSMENT: 1. Acute respiratory failure, requiring mechanical ventilation. 2. Septic shock secondary to Clostridium difficile colitis. This is now resolving. 3. Severe anemia, which is improved after transfusion yesterday. 4. Hyperglycemia secondary to sepsis, TPN administration. PLAN: 1. The patient's insulin was increased. 2. Will begin trying spontaneous breathing trial to see if we can work toward extubation. 3. Begin diuresing. 4. Replace electrolytes. 5. Discontinue A-line. 6. The patient may need another central line. We will speak to the residents about that. Job ID: [id number]
[2018-05-12] MEDS: Vancomycin HCl 25 MG/ML Oral PO SCH ×4 (08:45→20:50)
[2018-05-12] MEDS: Pantoprazole 40 MG VIAL IVP SCH (08:46)
[2018-05-12] MEDS: NPH, Human Insulin Isophane 300 UNIT/3 ML VIAL SC SCH ×2 (08:53→20:47)
[2018-05-12] MEDS: Hydrocortisone Sod Succ/PF 100 mg/2 ml Vial IVP SCH ×2 (08:59→20:46)
[2018-05-12] MEDS: Furosemide 40 MG/4 ML VIAL SLOW IVP SCH (09:00)
[2018-05-12] MEDS: [UNRECOGNIZED DRUG - OTHER] IV SCH (13:56)
[2018-05-12] MEDS: SODIUM ACETATE IV SCH (13:56)
[2018-05-12] MEDS: POTASSIUM ACETATE IV SCH (13:56)
--- NOTE | 2018-05-12 15:11 | PRG ---
DATE OF SERVICE: 05/12/2018 SUBJECTIVE: The patient was seen this morning, sitting up in bed, and intubated. No signs of acute distress. Off Levophed since 4 a.m. today. Positive small amount of stool coming from his ileostomy. The patient had no acute events overnight. Midline dressing intact and unsoiled. PHYSICAL EXAMINATION: VITAL SIGNS: Blood pressure 135/99, heart rate 111, respirations 16, oxygen saturation 100%, and temperature 95.4. GENERAL: Alert male, sitting up in bed and intubated. NEUROLOGIC: Gross motor and sensation intact. Pupils equal, round, and reactive to light. PULMONARY: Intubated with clear equal breath sounds bilaterally. Equal chest rise and fall. HEART: Tachycardic, but with regular rhythm. No murmurs, gallops, or rubs. GI: Abdomen is soft, appropriately tender to palpation, minimally distended. Ileostomy in right lower quadrant appears nonnecrotic and well-healing. Midline abdominal wound clean, dry, and intact. EXTREMITIES: Gross motor sensation intact. 2+ pulses in all extremities. 2+ swelling noted in bilateral lower extremities. LABORATORY FINDINGS: White count 10.7, hemoglobin 11.0, hematocrit 32.4, and platelets 92. Sodium 146, potassium 3.6, chloride 111, carbon dioxide 22, BUN 59, creatinine 1.32, glucose 399, phosphorus 1.4, and magnesium 1.6. DIAGNOSTIC FINDINGS: There are no diagnostic findings to report. ASSESSMENT: 1. Clostridium difficile colitis. 2. Acute toxic megacolon, status post total colectomy and ileostomy. 3. Electrolyte derangements. 4. Urinary tract infection, septic shock, acute tubular necrosis. PLAN: The patient is status post total colectomy and ileostomy. Ileostomy appears to be well perfused and non-necrotic. Has a small amount of stool and gas in bag. Continue dressing to midline incision for now. We will discontinue midline ned 7 to 10 days' postop. Continue electrolyte replacement per ICU Team. Continue antibiotics per ICU Team. Surgery will continue to evaluate the patient's wounds and provide support to the ICU Team. The patient was seen and examined by Dr. Oliveira this morning during rounds. Job ID: [id number]
[2018-05-13] MEDS: metroNIDAZOLE 500 MG in Premix Bag 1 BAG IVPB SCH ×3 (01:20→17:47)
[2018-05-13] MEDS: Insulin Regular 300 UNITS/3 ML VIAL SC PRN ×4 (04:29→21:19)
[2018-05-13 06:27] LABS: #Eosinphils 0.1 thou/uL (0.0-0.7); #Lymphocytes 1.6 thou/uL (1.20-3.40); #Monocytes 0.5 thou/uL (0.11-0.59); #Neutrophils 9.7 thou/uL (1.40-6.50); %Basophils 0.2 % (0.0-1.0); %Eosinophils 0.7 % (0.0-10.0); %Lymphocytes 13.6 % (21.0-51.0); %Monocytes 4.1 % (0.0-10.0); %Neutrophils 81.4 % (42.0-75.0); Hemoglobin 10.6 g/dL (14.0-18.0); Mean Corpuscular HGB CONC 32.9 g/dL (32.0-36.0); Mean Corpuscular Volume 85.2 fL (78.0-98.0); Mean Platelet Volume 10.1 fL (7.4-10.4); Platelet Count 122 thou/uL (130-400); RBC Distribution Width 16.4 % (11.5-14.5); Red Blood Cell (RBC) Count 3.79 mill/uL (4.70-6.10); White Blood Cell (WBC) Count 11.9 thou/uL (4.8-10.8)
[2018-05-13 06:41] LABS: Anion Gap 13 mmol/L (10-20); BUN (Urea Nitrogen) 57 mg/dL (8.4-25.7); Calc. Creatinine Clearance 109 mL/min (70-130); Calcium 7.5 mg/dL (7.8-10.44); Carbon Dioxide 24 mmol/L (23-31); Chloride 117 mmol/L (98-107); Estimated GFR-MDRD 90; Glucose 258 mg/dL (80-115); Magnesium 2.1 mg/dL (1.6-2.6); Phosphorus 2.8 mg/dL (2.3-4.7); Sodium 150 mmol/L (136-145)
[2018-05-13 06:45] LABS: Base Excess (BEa) 1.5 mEq/L (-2.0 to +3.0); CO2 Tension 40.5 mmHg (35.0-45.0); Calcium, Ionized 1.11 mmol/L (1.12-1.30); Carboxyhemoglobin (COHb) 0.9 gm% (0.0-3.0); Hemoglobin (Hb) 11.1 g/dL (14.0-18.0); O2 Tension (PaO2) 75.1 mmHg (> 80.0); Potassium - ABG Lab 3.74 mmol/L (3.70-5.30); pH, Arterial 7.43 (7.35-7.45)
[2018-05-13 06:46] LABS: ALV-art Gradient 81.045 (0-20); Puncture Site RRA
--- NOTE | 2018-05-13 07:17 | PDOC.FM ---
- Subjective Subjective: Pt intubated at this time. Pt alert and responds to his name. No acute events reported by nursing. No acute concerns at this time. - Objective MAR Reviewed: Yes Vital Signs & Weight: Vital Signs (12 hours) Temp Pulse Resp BP Pulse Ox 05/13/18 06:39 114 H 05/13/18 06:00 19 05/13/18 04:00 16 05/13/18 03:00 97.6 F 05/13/18 02:52 92 88/41 L 05/13/18 02:00 10 L 05/13/18 00:00 11 L 05/12/18 23:00 97.4 F L 05/12/18 22:45 95 130/74 05/12/18 22:00 12 05/12/18 20:00 11 L 98 05/12/18 19:17 114 H 130/97 H Weight Admit Weight 71.214 kg Weight 85.8 kg Most Recent Monitor Data Heart Rate from ECG 106 NIBP 142/80 NIBP BP-Mean 100 Respiration from ECG 14 SpO2 97 I&O: 05/12/18 05/13/18 05/14/18 06:59 06:59 06:59 Intake Total 3549.3 3410.4 Output Total 2400 2285 Balance 1149.3 1125.4 Result Diagrams: 05/13/18 06:16 05/13/18 06:16 EKG Reviewed by me: Yes (Tachycardic) Radiology Reviewed by me: Yes (CXR official read pending. Appears to have some decreased lung volume) Phys Exam - Physical Examination Constitutional: NAD Neck: no nodes, supple, full ROM Respiratory: no wheezing Some mild rales noted bilaterally. Cardiovascular: no significant murmur, no rub Tachycardic, regular rhythme Slightly distneded. Ileostomy draining. Some mild drainage from incision No sign of redness or infection Musculoskeletal: pulses present +4 edema in LE. Scrotum swollen. +2 pitting edema in UE Unable to fully assess due to mental delay and intubation Lymphatic: no nodes Deviation from normal: Pt has underlying mental delay Skin: no rash, normal turgor, cap refill <2 seconds Dx/Plan (1) Toxic megacolon due to Clostridium difficile Code(s): A04.72 - ENTEROCOLITIS D/T CLOSTRIDIUM DIFFICILE, NOT SPCF RECUR Status: Acute (2) Sepsis Code(s): A41.9 - SEPSIS, UNSPECIFIED ORGANISM Status: Acute (3) Urinary tract infection Status: Acute Qualifiers: Urinary tract infection type: acute cystitis Hematuria presence: with hematuria Qualified Code(s): N30.01 - Acute cystitis with hematuria (4) C. difficile diarrhea Code(s): A04.72 - ENTEROCOLITIS D/T CLOSTRIDIUM DIFFICILE, NOT SPCF RECUR Status: Acute (5) Metabolic acidosis Code(s): E87.2 - ACIDOSIS Status: Acute (6) Pressure ulcer Code(s): L89.90 - PRESSURE ULCER OF UNSPECIFIED SITE, UNSPECIFIED STAGE Status : Acute Qualifiers: Laterality: left (7) Diabetes mellitus type 2, insulin dependent Code(s): E11.9 - TYPE 2 DIABETES MELLITUS WITHOUT COMPLICATIONS; Z79.4 - SENIOR CARE (CURRENT) USE OF INSULIN Status: Chronic (8) HTN (hypertension) Code(s): I10 - ESSENTIAL (PRIMARY) HYPERTENSION Status: Chronic Qualifiers: Hypertension type: essential hypertension Qualified Code(s): I10 - Essential (primary) hypertension (9) Hyperlipidemia Code(s): E78.5 - HYPERLIPIDEMIA, UNSPECIFIED Status: Chronic Qualifiers: Hyperlipidemia type: mixed hyperlipidemia Qualified Code(s): E78.2 - Mixed hyperlipidemia - Plan Plan: Toxic Megacolon 2/2 C. diff infection -Post Op Day 3 total colectomy with ileostomy. Ileostomy draining at this time. -Will continue for 7 days of abx, Flagyl and oral Vancomycin to cover for infection Per GI -GI consulted- Roberto- follow recs -General Surgery Consulted- Ohaju- follow recs Sepsis (resolved) Abx is being continued broadly, Oral Vanc Vanc IV was discontinued early in stay as he was supratherapeutic. And concern caused ATN. ATN suspected due Likely due to recent Vanc and decreased blood flow. Cr trending down this am. Palliative care consulted to help with goals of care discussion with family- Pt DNR at this time. Urinary tract infection Pt Urine Cx shows E. Faecalis. Sensitive to current tx. Blood culture found gram positive cocci, consider strep/staph. Blood cx 1/2. Likely contaminant. At this time, will continue with current coverage- sens to current treatment MARIO 2/2 ATN Pt had ATN Cr normal at this time. Continue to trend urine output. Having adequate urine output Pressure ulcer Please see wound care note. As of now, noted to have sacral ulcer, illiac crest ulcer and heel ulcer. Abx used will cover for most skin infection. Continue wound care. Diabetes mellitus type 2, insulin dependent Pt TPN restarted a few days ago. Blood glucose still elevated. will want to increase insulin needs at this time as Blood sugar still elevated Also still receiving Hydrocortisone Hypernatremia -On minimal fluids and TPN. Na 150. will want to continue to trend. Hyperlipidemia Chronic issue on admission. -continue home meds Hypothyroidism Chronic stable issue. TSH in appropriate range on admission -continue home meds Seizure disorder Chronic issue on admission. Have had no seizure activity Metabolic acidosis (resolved) CO2 improved. Likely due to infectious state and recent surgery. On abx per above. Mental retardation Chronic stable issue.
--- NOTE | 2018-05-13 08:36 | RAD ---
SINGLE VIEW OF THE CHEST: COMPARISON: 05/05/2018. HISTORY: Ventilated patient with respiratory failure. FINDINGS: A single view of the chest shows a normal-size cardiomediastinal silhouette. An endotracheal tube is seen with its tip in good position between the clavicles. An NG tube is seen in the stomach. There is no evidence of consolidation or mass. There may be a small left pleural effusion. IMPRESSION: Small left pleural effusion. POS: MITZY
--- NOTE | 2018-05-13 09:06 | PRG ---
DATE OF SERVICE: 05/13/2018 SUBJECTIVE: David Felipe remains in the ICU, intubated on the vent, minimum responsive. Opens his eyes. He is on low-dose fentanyl at 40 mcg/hour. OBJECTIVE: VITAL SIGNS: His temperature is 98, respirations 14, pulse 103, blood pressure is 132/60, sats 100%. CHEST: Extensive rhonchi and crackles. CARDIAC: Sinus tach. ABDOMEN: Distended, but soft. LABORATORY DATA: White count 14686, H and H 10 and 32, platelet count is normal. His PO2 is 75, pCO2 40_PH 7.43. X-ray shows a left-sided infiltrate. His sodium is 150. BUN and creatinine now slightly elevated. IMPRESSION: 1. Status post septic shock, Clostridium difficile, slowly improving. 2. Respiratory failure, left-sided infiltrate. 3. Encephalopathy, azotemia. Continue present supportive care, CPAP trial. Unless he is more awake, he will not be weaned. _START empiric neb treatments because he has extensive rhonchi. P.o. vancomycin, supportive care. One-half hour of critical time. Job ID: [id number] MTDD
[2018-05-13] MEDS: Hydrocortisone Sod Succ/PF 100 mg/2 ml Vial IVP SCH ×2 (09:07→21:15)
[2018-05-13] MEDS: Furosemide 40 MG/4 ML VIAL SLOW IVP SCH (09:07)
[2018-05-13] MEDS: NPH, Human Insulin Isophane 300 UNIT/3 ML VIAL SC SCH ×2 (09:08→21:18)
[2018-05-13] MEDS: Pantoprazole 40 MG VIAL IVP SCH (09:08)
--- NOTE | 2018-05-13 09:50 | PRG ---
DATE OF SERVICE: Mr. Felipe is a very unfortunate 62-year-old white man, who is in the ICU status post septic shock with C. diff. He also had respiratory failure and encephalopathy with azotemia. We are continuing supportive care. His current clinical status is stable. Blood pressure is 113/60, and he is afebrile. We will continue to follow with the Intensive Care service. Job ID: [id number]
[2018-05-13] MEDS: Vancomycin HCl 25 MG/ML Oral PO SCH ×4 (10:31→21:14)
[2018-05-13] MEDS: fentaNYL Citrate/PF 2,000 MCG in Sodium Chloride 0.9% 60 ML IV SCH (10:35)
[2018-05-13] MEDS: [UNRECOGNIZED DRUG - OTHER] IV SCH (14:16)
[2018-05-13] MEDS: SODIUM ACETATE IV SCH (14:16)
[2018-05-13] MEDS: POTASSIUM ACETATE IV SCH (14:16)
--- NOTE | 2018-05-13 14:48 | PRG ---
DATE OF SERVICE: 05/13/2018 SUBJECTIVE: The patient was seen this morning sitting up in bed and intubated. No acute signs of distress. Not on any new pressors. Positive stool in the ileostomy bag. The patient had no acute events overnight. Midline dressing was clean, dry, and intact. OBJECTIVE: VITAL SIGNS: Temperature 98.1, blood pressure 145/77, respirations 15, heart rate 118, oxygen saturation 98%, currently on ventilator. GENERAL: Alert male, sitting up in bed and intubated. NEUROLOGIC: Gross motor and sensation intact. Pupils are equal, round, reactive to light. PULMONARY: Intubated with clear breath sounds bilaterally. Equal chest rise and fall. HEART: Regular rate and rhythm. No murmurs, gallops, or rubs. GI: Abdomen is soft, appropriately tender to palpation, minimally distended. Ileostomy in right lower quadrant appears nonnecrotic and well-healing. Midline abdominal wound is clean, dry, and intact. EXTREMITIES: Gross motor and sensation intact. 2+ pulses in all extremities. 2+ swelling noted in bilateral lower extremities. LABORATORY FINDINGS: White blood cell count 11.9, hemoglobin 10.6, hematocrit 32.3, platelets 122. Sodium 150, potassium 4.0, chloride 117, carbon dioxide 24, BUN 27, creatinine 0.86, glucose 258. DIAGNOSTIC FINDINGS: There are no diagnostic findings to report. ASSESSMENT: 1. Clostridium difficile colitis. 2. Acute toxic megacolon, status post total colectomy and ileostomy. 3. Electrolyte derangements. 4. Urinary tract infection, septic shock, acute tubular necrosis. PLAN: The patient is status post total colectomy and ileostomy. Ileostomy appears to be well perfused and non-necrotic, has positive stool in the bag along with a little bit of gas. Continue dressing changes to midline for now. We will discontinue midline ned on postop day #7 to #10. Continue electrolyte replacement per ICU Team. Continue antibiotics per ICU Team. Surgery will continue to evaluate the patient's wound and provide supportive care to the ICU Team. The patient was seen and examined by Dr. Oliveira this morning during rounds. Job ID: [id number]
--- NOTE | 2018-05-13 15:34 | EKG ---
Test Reason : Blood Pressure : / mmHG Vent. Rate : 161 BPM Atrial Rate : 161 BPM P-R Int : 116 ms QRS Dur : 072 ms QT Int : 248 ms P-R-T Axes : 031 -10 036 degrees QTc Int : 405 ms Sinus tachycardia Inferior infarct , age undetermined Abnormal ECG Confirmed by ARNALDO HUI M.D. ([id number]), department editor TESFAYE PIEDRA ([id number]) on 05/13/2018 3:34:01 PM Referred By: Confirmed By:ARNALDO HUI M.D.
[2018-05-14] MEDS: Insulin Regular 300 UNITS/3 ML VIAL SC PRN ×2 (00:23→05:14)
[2018-05-14] MEDS: metroNIDAZOLE 500 MG in Premix Bag 1 BAG IVPB SCH ×3 (01:13→17:38)
[2018-05-14] MEDS ORDERED: Lorazepam 2 MG/ML VIAL SLOW IVP PRN (02:26)
[2018-05-14 06:59] LABS: Actual Bicarbonate (HCO3a) 27.7 mEq/L (22-28); Base Excess (BEa) 3.7 mEq/L (-2.0 to +3.0); CO2 Tension 39.9 mmHg (35.0-45.0); Calcium, Ionized 1.11 mmol/L (1.12-1.30); Carboxyhemoglobin (COHb) 0.6 gm% (0.0-3.0); Potassium - ABG Lab 3.61 mmol/L (3.70-5.30); pH, Arterial 7.46 (7.35-7.45)
[2018-05-14 07:01] LABS: Puncture Site RRA
[2018-05-14 07:03] LABS: ALV-art Gradient 89.895 (0-20)
--- NOTE | 2018-05-14 07:14 | PDOC.FM ---
- Subjective Subjective: Pt intubated at this time. Unable to obtain full ROS. Nurse reports patient had 2 episodes of seizure activity. He is now back on assist control on the ventilator. Not on any pressors. - Objective MAR Reviewed: Yes Vital Signs & Weight: Vital Signs (12 hours) Temp Pulse Resp BP Pulse Ox 05/14/18 06:39 107 H 05/14/18 06:00 15 05/14/18 04:00 15 05/14/18 03:00 98.4 F 05/14/18 02:22 97 92/53 L 05/14/18 02:00 15 05/14/18 00:18 116 H 15 98 05/14/18 00:00 98.3 F 15 05/13/18 22:08 101 H 94/64 05/13/18 22:00 15 05/13/18 20:00 98.1 F 10 L 100 Weight Admit Weight 71.214 kg Weight 85.2 kg Most Recent Monitor Data Heart Rate from ECG 101 NIBP 97/59 NIBP BP-Mean 71 Respiration from ECG 15 SpO2 100 I&O: 05/13/18 05/14/18 05/15/18 06:59 06:59 06:59 Intake Total 3410.4 2910 Output Total 2285 2275 Balance 1125.4 635 Result Diagrams: 05/13/18 06:16 05/13/18 06:16 EKG Reviewed by me: Yes (tachycardic) Radiology Reviewed by me: Yes (05/13 cxray- small pleural effusion) Phys Exam - Physical Examination Constitutional: NAD HEENT: PERRLA, moist MMs Neck: no nodes, supple Crackles and rales noted bilaterally Cardiovascular: no significant murmur, no rub Regular Rhythm, Tachycardic Moderately distended. Ileostomy draining Incision dressed, no drainage, bleeding or dehiscence noted +4 pitting edema in LE. +2 edema in arms. Testicles still swollen Skin: no rash Dx/Plan (1) Toxic megacolon due to Clostridium difficile Code(s): A04.72 - ENTEROCOLITIS D/T CLOSTRIDIUM DIFFICILE, NOT SPCF RECUR Status: Acute (2) Sepsis Code(s): A41.9 - SEPSIS, UNSPECIFIED ORGANISM Status: Acute (3) Urinary tract infection Status: Acute Qualifiers: Urinary tract infection type: acute cystitis Hematuria presence: with hematuria Qualified Code(s): N30.01 - Acute cystitis with hematuria (4) C. difficile diarrhea Code(s): A04.72 - ENTEROCOLITIS D/T CLOSTRIDIUM DIFFICILE, NOT SPCF RECUR Status: Acute (5) Metabolic acidosis Code(s): E87.2 - ACIDOSIS Status: Acute (6) Pressure ulcer Code(s): L89.90 - PRESSURE ULCER OF UNSPECIFIED SITE, UNSPECIFIED STAGE Status : Acute Qualifiers: Laterality: left (7) Diabetes mellitus type 2, insulin dependent Code(s): E11.9 - TYPE 2 DIABETES MELLITUS WITHOUT COMPLICATIONS; Z79.4 - FRONT OFFICE ASSOCIATE (CURRENT) USE OF INSULIN Status: Chronic (8) HTN (hypertension) Code(s): I10 - ESSENTIAL (PRIMARY) HYPERTENSION Status: Chronic Qualifiers: Hypertension type: essential hypertension Qualified Code(s): I10 - Essential (primary) hypertension (9) Hyperlipidemia Code(s): E78.5 - HYPERLIPIDEMIA, UNSPECIFIED Status: Chronic Qualifiers: Hyperlipidemia type: mixed hyperlipidemia Qualified Code(s): E78.2 - Mixed hyperlipidemia (10) Seizure Code(s): R56.9 - UNSPECIFIED CONVULSIONS Status: Acute - Plan Plan: Toxic Megacolon 2/2 C. diff infection -Post Op Day 4 total colectomy with ileostomy. Ileostomy draining at this time. -Will continue for 7 days of abx after surgery, Flagyl and oral Vancomycin to cover for infection Per GI -GI consulted- Sultz- follow recs -General Surgery Consulted- Ohaju- follow recs Sepsis (resolved) Abx is being continued broadly, Oral Vanc Vanc IV was discontinued early in stay as he was supratherapeutic. And concern caused ATN. ATN suspected due Likely due to recent Vanc and decreased blood flow. Cr trending down this am. Palliative care consulted to help with goals of care discussion with family- Pt DNR at this time. Urinary tract infection Pt Urine Cx shows E. Faecalis. Sensitive to current tx. Blood culture found gram positive cocci, consider strep/staph. Blood cx 1/2. Likely contaminant. At this time, will continue with current coverage- sens to current treatment Seizure Activity -Nurse reported 2 seizures overnight -If continues may want to start on medication Pt on sedation -Continue to monitor. Likely due to ICU state MARIO 2/2 ATN Pt had ATN Cr normal at this time. Continue to trend urine output. Having adequate urine output Pressure ulcer Please see wound care note. As of now, noted to have sacral ulcer, illiac crest ulcer and heel ulcer. Abx used will cover for most skin infection. Continue wound care. Diabetes mellitus type 2, insulin dependent Pt TPN restarted a few days ago. Blood glucosestable. Will keep regimen as is. No longer on steroid. Will want to watch and make sure sugars do not drop too low. Hypernatremia -On minimal fluids and TPN. Na 150. will want to continue to trend. Hyperlipidemia Chronic issue on admission. -continue home meds Hypothyroidism Chronic stable issue. TSH in appropriate range on admission -continue home meds Seizure disorder Chronic issue on admission. Have had no seizure activity Metabolic acidosis (resolved) CO2 improved. Likely due to infectious state and recent surgery. Awaiting morning labs. On abx per above. Mental retardation Chronic stable issue.
[2018-05-14 07:37] LABS: Anion Gap 13 mmol/L (10-20); BUN (Urea Nitrogen) 50 mg/dL (8.4-25.7); Calc. Creatinine Clearance 134 mL/min (70-130); Calcium 7.9 mg/dL (7.8-10.44); Carbon Dioxide 25 mmol/L (23-31); Chloride 115 mmol/L (98-107); Estimated GFR-MDRD Greater than 90; Glucose 147 mg/dL (80-115); Magnesium 2.2 mg/dL (1.6-2.6); Sodium 149 mmol/L (136-145)
[2018-05-14 07:49] LABS: Phosphorus 2.5 mg/dL (2.3-4.7)
[2018-05-14 09:02] LABS: Hemoglobin 10.4 g/dL (14.0-18.0); Mean Corpuscular HGB CONC 32.5 g/dL (32.0-36.0); Mean Corpuscular Hemoglobin 27.7 pg (27.0-31.0); Mean Corpuscular Volume 85.2 fL (78.0-98.0); Mean Platelet Volume 10.2 fL (7.4-10.4); Platelet Count 159 thou/uL (130-400); RBC Distribution Width 16.7 % (11.5-14.5); Red Blood Cell (RBC) Count 3.76 mill/uL (4.70-6.10); White Blood Cell (WBC) Count 13.7 thou/uL (4.8-10.8)
[2018-05-14 09:29] LABS: Eosinophils 4 % (0-10); Large Platelets SLIGHT; Lymphocytes 12 % (21-51); MDiff Complete? YES; Macrocytosis SLIGHT = 6-15 cells (100X) (0-5/hpf); Monocytes 8 % (0-10); Neutrophil 70 % (42-75); Nucleated RBC 1 % (0); Ovalocytes SLIGHT = 2-5 cells (100X) (0-1/hpf); Platelet Morphology Comment Appears Adequate; Polychromasia MODERATE = 3-4 cells (100X) (0-2/hpf); Reactive Lymphocytes 6 % (0-10)
[2018-05-14] MEDS: Vancomycin HCl 25 MG/ML Oral PO SCH ×4 (09:36→21:28)
[2018-05-14] MEDS: Hydrocortisone Sod Succ/PF 100 mg/2 ml Vial IVP SCH ×2 (09:36→21:29)
[2018-05-14] MEDS: NPH, Human Insulin Isophane 300 UNIT/3 ML VIAL SC SCH ×2 (09:37→21:41)
[2018-05-14] MEDS: Furosemide 40 MG/4 ML VIAL SLOW IVP SCH (09:37)
[2018-05-14] MEDS: Pantoprazole 40 MG VIAL IVP SCH (09:38)
[2018-05-14] MEDS: POTASSIUM ACETATE IV SCH (13:57)
[2018-05-14] MEDS: [UNRECOGNIZED DRUG - OTHER] IV SCH (13:57)
[2018-05-14] MEDS: SODIUM ACETATE IV SCH (13:57)
--- NOTE | 2018-05-14 16:00 | PRG ---
DATE OF SERVICE: 05/14/2018 SUBJECTIVE: The patient was seen this morning sitting up in bed without any signs of distress, not currently on any pressors. Positive stool in the ileostomy bag. He had multiple seizures overnight and has a history of seizures. Midline dressing is clean, dry, and intact with no signs of infection noted. PHYSICAL EXAMINATION: VITAL SIGNS: Blood pressure 106/55, heart rate 107, respirations 16, oxygen saturation 96%. GENERAL: Alert male, sitting up in bed. NEURO: Gross motor and sensation intact. HEENT: Pupils equal, round, reactive to light. PULMONARY: Clear breath sounds bilaterally. Equal chest rise and fall. No signs of acute distress. HEART: Regular rate and rhythm. No murmurs, gallops, or rubs. GI: Abdomen is soft, nontender, nondistended. Ileostomy in right lower quadrant appears non necrotic and well healing. Midline wound clean, dry, and intact. EXTREMITIES: Gross motor sensation intact. 2+ pulses in all extremities. 2+ swelling noted in bilateral lower extremities. LABORATORY FINDINGS: White count 13.7, hemoglobin 10.4, hematocrit 32, platelets 159. Sodium 149, potassium 4, chloride 115, carbon dioxide 25, BUN 50, creatinine 0.70, glucose 147, magnesium 2.2, phos 2.5. DIAGNOSTIC FINDINGS: There are no diagnostic findings to report. ASSESSMENT: 1. Clostridium difficile colitis. 2. Acute toxic megacolon, status post total colectomy and ileostomy. 3. Electrolyte derangements. 4. Urinary tract infection, septic shock, acute tubular necrosis. The patient is status post total colectomy and ileostomy. Ileostomy appears to be well perfused and non necrotic with positive stool in bag. Continue dressing changes to midline as needed, but can leave midline incision open to air if no drainage. We will discontinue midline ned on postop day 7 to 10. Continue electrolyte management per ICU Team. Continue antibiotics per ICU Team. Surgery will continue to monitor the patient's wounds and provide supportive care to the ICU Team. The patient was seen and examined by Dr. Oliveira this morning during rounds. Job ID: [id number]
--- NOTE | 2018-05-14 18:19 | RAD ---
CHEST ONE VIEW: History: Central line placement. Comparison: Radiograph same day. FINDINGS: New right subclavian central venous catheter is in place with tip projecting over the right atrium. L ayering effusions. Mild edema. No pneumothorax. Endotracheal tube tip just above the level of the cla vicles. Enteric tube tip below the diaphragm out of the field of view. IMPRESSION: Uncomplicated placement of right subclavian central venous catheter. POS: MITZY
--- NOTE | 2018-05-14 19:05 | PDOC.CNTRL ---
Central Line Procedure Note - Procedure Date: 05/14/18 Time: 16:30 - PreProcedure Diagnosis: toxic megacolon s/p colectomy - PostProcedure Diagnosis: toxic megacolon s/p colectomy - Description Focused site: subclavian vein: Right Ultrasound guidance: No Patient tolerated procedure: well Procedure in Details: INDICATION: use of pressors PROCEDURE STAMPING PRESS OPERATOR: Colton Manley ATTENDING PHYSICIAN: Dr. Brayden Manley In Attendance (Y/N) Y Ultrasound Used: N CONSENT: obtained from [facility] Consent was obtained from [facility] of compliance attorney prior to the procedure. Indications, risks, and benefits were explained at length. PROCEDURE SUMMARY: First handwash prior to starting sterile technique. A time out was performed. My hands were washed immediately prior to the procedure. I wore a surgical cap, mask with protective eyewear, sterile gown and sterile gloves throughout the procedure. The patient was placed in Trendelenburg position. The R chest region was prepped using chlorhexidine scrub and draped in sterile fashion using a full drape. Anesthesia was achieved with 1% lidocaine. The introducer needle was inserted approximately two centimeters lateral to and 1 cm inferior to the normal curvature of the patient's clavicle. Venous blood was withdrawn. The syringe was removed and a guidewire was advanced into the introducer needle. A small incision was made at the skin surface with a scalpel and the introducer needle was exchanged for a dilator over the guidewire. After appropriate dilation was obtained, the dilator was exchanged over the wire for a triple lumen central venous catheter. The wire was removed and the catheter was sutured in place. A sterile dressing was placed over the catheter at the insertion site. The patient tolerated the procedure without any hemodynamic compromise. At time of procedure completion, all ports aspirated and flushed properly. Post-procedure chest x-ray was done and shows proper placement of catheter. Estimated blood loss is 1ml.
[2018-05-15] MEDS: fentaNYL Citrate/PF 2,000 MCG in Sodium Chloride 0.9% 60 ML IV SCH (01:23)
[2018-05-15] MEDS: metroNIDAZOLE 500 MG in Premix Bag 1 BAG IVPB SCH ×3 (01:41→18:16)
--- NOTE | 2018-05-15 05:20 | PDOC.FM ---
- Subjective Subjective: last night patient had 1 seizure episode with reported "head shaking, nystagmus , and tachycardia." The episode resolved after a dose of ativan. This morning the patient is still fairly somnulent. 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 Corneal reflex intact. Patient is not able to indicate whether or not he is experiencing pain. He is reported to be A&O x1 at baseline. - Objective Vital Signs & Weight: Vital Signs (12 hours) Temp Pulse Resp BP Pulse Ox 05/15/18 04:00 97.6 F 12 05/15/18 02:02 103 H 99/53 L 05/15/18 02:00 12 05/15/18 00:10 101 H 18 99 05/15/18 00:00 18 05/14/18 23:00 97.6 F 05/14/18 22:28 108 H 134/74 05/14/18 22:00 14 05/14/18 20:00 17 99 05/14/18 19:00 98.6 F 05/14/18 18:25 115 H 112/66 05/14/18 18:23 115 H 19 100 05/14/18 18:00 19 Weight Admit Weight 71.214 kg Weight 85.7 kg Most Recent Monitor Data Heart Rate from ECG 110 NIBP 117/85 NIBP BP-Mean 95 Respiration from ECG 21 SpO2 97 I&O: 05/13/18 05/14/18 05/15/18 06:59 06:59 06:59 Intake Total 3410.4 2910 1611.5 Output Total 2285 2275 2930 Balance 1125.4 635 -1318.5 Result Diagrams: 05/15/18 04:25 05/15/18 04:25 Phys Exam - Physical Examination Constitutional: NAD HEENT: moist MMs rhonchorous throughout, no wheezings, on ventilator Cardiovascular: RRR, no significant murmur, no rub Gastrointestinal: soft, positive bowel sounds stool in pouch, wound dressed, no redness or erythema +4 edema of the feet bilaterally, weeping on L foot corneal reflex intact, washcloth folder hands Deviation from normal: sacral decubitus ulcer, L ischial wound, see photo Dx/Plan (1) C. difficile diarrhea Code(s): A04.72 - ENTEROCOLITIS D/T CLOSTRIDIUM DIFFICILE, NOT SPCF RECUR Status: Acute (2) Seizure Code(s): R56.9 - UNSPECIFIED CONVULSIONS Status: Acute (3) Sepsis Code(s): A41.9 - SEPSIS, UNSPECIFIED ORGANISM Status: Acute (4) Toxic megacolon due to Clostridium difficile Code(s): A04.72 - ENTEROCOLITIS D/T CLOSTRIDIUM DIFFICILE, NOT SPCF RECUR Status: Acute (5) Mental retardation Code(s): F79 - UNSPECIFIED INTELLECTUAL DISABILITIES Status: Acute (6) Pressure ulcer Code(s): L89.90 - PRESSURE ULCER OF UNSPECIFIED SITE, UNSPECIFIED STAGE Status : Acute Qualifiers: Laterality: left (7) Diabetes mellitus type 2, insulin dependent Code(s): E11.9 - TYPE 2 DIABETES MELLITUS WITHOUT COMPLICATIONS; Z79.4 - USP (CURRENT) USE OF INSULIN Status: Chronic (8) HTN (hypertension) Code(s): I10 - ESSENTIAL (PRIMARY) HYPERTENSION Status: Chronic Qualifiers: Hypertension type: essential hypertension Qualified Code(s): I10 - Essential (primary) hypertension (9) Hyperlipidemia Code(s): E78.5 - HYPERLIPIDEMIA, UNSPECIFIED Status: Chronic Qualifiers: Hyperlipidemia type: mixed hyperlipidemia Qualified Code(s): E78.2 - Mixed hyperlipidemia (10) Urinary retention with incomplete bladder emptying Code(s): R33.9 - RETENTION OF URINE, UNSPECIFIED Status: Chronic (11) MARIO (acute kidney injury) Code(s): N17.9 - ACUTE KIDNEY FAILURE, UNSPECIFIED Status: Resolved (12) Septic shock Code(s): A41.9 - SEPSIS, UNSPECIFIED ORGANISM; R65.21 - SEVERE SEPSIS WITH SEPTIC SHOCK Status: Resolved - Plan Plan: This is a 62 yo M admitted for septic shock 2/2 uti, toxic megacolon 2/2 c diff. He has a pertinent history including: Mental retardation (baseline AxOx1), [place] resident since 2008, HTN, seizure disorder, chronic urinary retention, dmII Toxic Megacolon 2/2 C. diff infection -Post Op Day 5 total colectomy with ileostomy. Ileostomy draining at this time. -Will continue for 7 days of abx after surgery, Flagyl and oral Vancomycin to cover for infection Per GI -GI consulted- Sultz- follow recs -General Surgery Consulted- Ohaju- follow recs Seizure Activity, chronic seizure disorder - seizure activity last 2 nights, resolved w/ ativan - will discuss keppra on rounds - chronic seizure disorder vs anoxic brain injury Acute Hypoxic respiratory failure - on vent - 15-20 minutes weaning trial yesterday, apneic episodes - f 12, Peep 5, O2 29% - will attempt weaning again today - sister, SCOTT, is not interested in trach/LTAC - will attempt to setup family meeting this week MARIO 2/2 ATN Pt had ATN likley 2/2 hypotension vs supratherapeutic vanc Continue to trend urine output Sepsis (resolved) On flaggyl, oral vanc Vanc IV was discontinued early in stay as he was supratherapeutic. Palliative care consulted to help with goals of care discussion with family- Pt DNR at this time. Urinary tract infection (resolved) Pt Urine Cx shows E. Faecalis. Sensitive to current tx. Blood culture found gram positive cocci, consider strep/staph. Blood cx 04/05. Likely contaminant. Pressure ulcer Please see wound care note. As of now, noted to have sacral ulcer, illiac crest ulcer and heel ulcer. Diabetes mellitus type 2, insulin dependent - On TPN, will monitor, glucose - on hydrocortisone 25mg BID - titrate down NPH Hypernatremia -On minimal fluids and TPN. Na 150. will want to continue to trend. Hyperlipidemia Chronic issue on admission. -continue home meds Hypothyroidism Chronic stable issue. TSH in appropriate range on admission -continue home meds Metabolic acidosis (resolved) CO2 improved. Likely due to infectious state and recent surgery. Awaiting morning labs. On abx per above. Mental retardation Chronic stable issue. Lines/Tubes: rt subclavian 05/14, indwelling catheter chronic Code status: DNR PPx: Protonix Dispo: off pressors, cont to wean vent, POD 5, continue to monitor, will attempt to schedule family meeting this week Addendum - Attending - Attending Attestation Date/Time: 05/15/18 3635 I personally evaluated the patient and discussed the management with Dr. Miller and team. I agree with and repeated the History, Examination, Assessment and Plan documented above with any addition or exceptions noted below. Neuro -seizure acitivity x 2. Will consult neuro and plan ECG. BZD prn. Keppra added. Resp -attempting wean but with periods of apnea. Currently on PSV. Monitor. FEN/GI -ostomy with output -on TPN, begin TF and see if we can transition off TPN -monitor glucose Renal -improved, monitor Heme -stable -IVC filter in place with known clot there -dvt ppx ID -c. diff colitis, on PO Vanc and IV flagyl to complete course Skin -h/o sacral decub being followed -incision c/d/i Lines -d/c CVC when able, currently on TPN. Guarded prognosis. I have unfortunately seen Mr. Felipe in the hospital many times. Will monitor him closely for extubation readiness and have another family meeting in 1-2 days if no improvement.
[2018-05-15 05:36] LABS: Band 2 % (5-11); Hemoglobin 8.9 g/dL (14.0-18.0); Hypochromia SLIGHT = 6-15 cells (100X) (0-5/hpf); Lymphocytes 12 % (21-51); MDiff Complete? YES; Mean Corpuscular HGB CONC 32.6 g/dL (32.0-36.0); Mean Corpuscular Hemoglobin 28.4 pg (27.0-31.0); Mean Corpuscular Volume 87.1 fL (78.0-98.0); Mean Platelet Volume 9.6 fL (7.4-10.4); Monocytes 1 % (0-10); Neutrophil 85 % (42-75); Platelet Count 136 thou/uL (130-400); Platelet Morphology Comment Appears Adequate; RBC Distribution Width 16.9 % (11.5-14.5); Red Blood Cell (RBC) Count 3.15 mill/uL (4.70-6.10); White Blood Cell (WBC) Count 10.8 thou/uL (4.8-10.8)
[2018-05-15 05:42] LABS: Anion Gap 8 mmol/L (10-20); BUN (Urea Nitrogen) 48 mg/dL (8.4-25.7); Calc. Creatinine Clearance 154 mL/min (70-130); Calcium 7.4 mg/dL (7.8-10.44); Carbon Dioxide 31 mmol/L (23-31); Chloride 113 mmol/L (98-107); Estimated GFR-MDRD Greater than 90; Glucose 116 mg/dL (80-115); Magnesium 1.7 mg/dL (1.6-2.6); Potassium 4.1 mmol/L (3.5-5.1); Sodium 148 mmol/L (136-145)
[2018-05-15 05:45] LABS: Phosphorus 3.3 mg/dL (2.3-4.7)
[2018-05-15 06:40] LABS: Base Excess (BEa) 7.2 mEq/L (-2.0 to +3.0); CO2 Tension 46.4 mmHg (35.0-45.0); Calcium, Ionized 1.11 mmol/L (1.12-1.30); Carboxyhemoglobin (COHb) 0.6 gm% (0.0-3.0); Hemoglobin (Hb) 10.2 g/dL (14.0-18.0); O2 Tension (PaO2) 67.9 mmHg (> 80.0); Potassium - ABG Lab 3.99 mmol/L (3.70-5.30); pH, Arterial 7.46 (7.35-7.45)
[2018-05-15 06:42] LABS: Puncture Site RRA
--- NOTE | 2018-05-15 07:30 | PRG ---
DATE OF SERVICE: 05/14/2018 SUBJECTIVE: This morning, the patient is still on the vent, intubated. His right groin central line is apparently nonfunctional, getting TPN through that. Surgery was here this morning. They have asked to put a new central line possibly in the right neck. OBJECTIVE: VITAL SIGNS: Respirations 15, blood pressure 106/55, pulse 72. His I's and O's have been 3410 and 2285. CHEST: Decreased breath sounds without any wheezing. CARDIAC: Normal S1, S2. No gallops. ABDOMEN: No masses. LABORATORY DATA: His lytes are normal. BUN is 50. PO2 of 67, pCO2 of 30, pH 7.46 at a rate of 15. IMPRESSION: 1. Status post laparotomy. 2. Severe deconditioning, respiratory failure, left lower lung infiltrate, effusion. PLAN: Vent being adjusted. Continue TPN, diuretics, Flagyl, vancomycin. One-half hour of critical time. Job ID: [id number]
--- NOTE | 2018-05-15 08:12 | PRG ---
DATE OF SERVICE: 05/15/2018 TIME SPENT: 35 minutes of critical care time. SUBJECTIVE: The patient remains intubated on mechanical ventilation. He had seizure-type episode over the weekend and he was placed back on a rate on the ventilator to rest and CPAP. This morning, he is awake. He is able to follow commands for me. OBJECTIVE: VITAL SIGNS: On exam, his temperature is 97.6 with no fever over the last 24 hours, pulse 117, blood pressure 103/69. A 24-hour intake 3109, output 3050. HEENT: He has a cataract over his left eye. Oropharynx, ET tube in place. NECK: No JVD. CHEST: Clear anteriorly. CARDIAC: S1, S2. Slightly tachycardic. ABDOMEN: Midline wound seems to be healing well. Left-sided colostomy. EXTREMITIES: Edematous extremities and scrotal area. LABORATORY DATA: White blood cell count 10.8, hemoglobin 8.9, hematocrit 27.4, and platelet count 136. PH 7.46, pCO2 of 46, PO2 of 67 on SIMV rate 12, tidal volume 500, PEEP 5, pressure support 10, FiO2 29%. Sodium 148, potassium 4.1, chloride 113, CO2 31, BUN 48, creatinine 0.6, and glucose 116. ASSESSMENT: 1. Acute respiratory failure requiring mechanical ventilation. 2. Severe neuromuscular weakness. 3. Status post laparotomy for toxic megacolon. 4. Gross fluid overload. PLAN: The patient's family has made him a DNAR, refused entertaining notion of tracheostomy or long-term feeding tube placement. I feel the patient is going to be very difficult to wean from the vent by traditional methods. I will attempt to put him on pressure support ventilation again. He is continuing oral Flagyl and vancomycin for clostridium difficile colitis. Dr. Manley has cleared starting enteral tube feeds, so we will ask Nutrition to make some recommendations in that regard. Once the patient is able to tolerate tube feeds, then we can stop the bicarbonate. Job ID: [id number]
[2018-05-15] MEDS: Vancomycin HCl 25 MG/ML Oral PO SCH ×4 (08:38→20:54)
[2018-05-15] MEDS: Enoxaparin Sodium 40 MG/0.4 ML SYRINGE SC SCH (08:38)
[2018-05-15] MEDS: levETIRAcetam 500 mg/5 ml Oral Solution PER TUBE SCH ×2 (08:38→20:54)
[2018-05-15] MEDS: Pantoprazole 40 MG VIAL IVP SCH (08:39)
[2018-05-15] MEDS: Furosemide 40 MG/4 ML VIAL SLOW IVP SCH (08:39)
[2018-05-15] MEDS ORDERED: levETIRAcetam 500 MG TAB PO SCH (09:00)
[2018-05-15] MEDS ORDERED: NPH, Human Insulin Isophane 300 UNIT/3 ML VIAL SC SCH (09:00)
[2018-05-15] MEDS ORDERED: Ventilator Sedation Protocol 1 EACH FS SCH (10:00)
[2018-05-15] MEDS ORDERED: Fentanyl BOLUS 250 ML IVPB PRN (10:03)
[2018-05-15] MEDS ORDERED: Propofol BOLUS 1,000 MG/100 ML VIAL IV PRN (10:03)
[2018-05-15] MEDS ORDERED: Morphine 2 MG/ML SYRINGE SLOW IVP PRN (10:03)
[2018-05-15] MEDS ORDERED: DISCONTINUE PREVIOUS NARCOTIC PAIN MEDICATIONS AND BENZODIAZEPINES FS SCH (10:03)
[2018-05-15] MEDS ORDERED: Lorazepam 2 MG/ML VIAL SLOW IVP PRN (10:03)
--- NOTE | 2018-05-15 10:09 | PDOC.EVN ---
Event Note - Event Note Event Note: Consulted neurology to see if patient would benefit from eeg 2/2 recurrent seizures
--- NOTE | 2018-05-15 11:12 | PRG ---
DATE OF SERVICE: 05/14/2018 SUBJECTIVE: Mr. Felipe is clinically stable. He is still on the ventilator. His CBC this morning showed white count of 13.7, his hemoglobin is 10.4, and hematocrit 32. Job ID: [id number]
[2018-05-15] MEDS ORDERED: Pancrelipase DR 12000 1 CAP FS PRN (12:56)
[2018-05-15] MEDS ORDERED: Sodium Bicarbonate Tab 325 MG TAB PER TUBE PRN (12:56)
[2018-05-15] MEDS ORDERED: [UNRECOGNIZED DRUG - OTHER] IV SCH (14:00)
[2018-05-15] MEDS ORDERED: SODIUM CHLORIDE IV SCH (14:00)
[2018-05-15] MEDS ORDERED: SODIUM ACETATE IV SCH (14:00)
[2018-05-15] MEDS ORDERED: POTASSIUM CHLORIDE IV SCH (14:00)
--- NOTE | 2018-05-15 14:13 | PRG ---
DATE OF SERVICE: 05/15/2018 SUBJECTIVE: David Felipe is a 62-year-old male patient, currently in A3 ICU. The patient was seen by Dr. Manley on 05/10/2018. The patient underwent colectomy with ileostomy for C. diff colitis. The patient has had altered mental status and he has been slightly confused. He has become more wake suddenly and interactive. CAT scan of the brain without acute changes. The patient currently is on pressure support and is not weanable due to periods of apnea and severe weakness. His pressures have been discontinued. Tube feedings initiated and will advance as tolerated. NG tube output has been minimal. OBJECTIVE: VITAL SIGNS: Heart rate 113 and 98/53. Currently while on room, blood pressure is 110 systolic. Gastric output NG tube very little, 250 before tube feedings started. Ileostomy output is present with some stool. Urine output is good, 1460 for 24 hours. LUNGS: Clear. No wheezing. CARDIAC: Regular rate and rhythm. ABDOMEN: Soft. Bowel sounds present. LABORATORY DATA: White count 10.8 and hemoglobin 8.9, given 1 unit of blood yesterday. Sodium 148, potassium 4.1, chloride 113, BUN 48, creatinine 0.61, and glucose 116. ASSESSMENT AND PLAN: 1. Respiratory failure. Continue supportive care. 2. Status post colectomy and ileostomy. Advance tube feeds as tolerated. Job ID: [id number]
--- NOTE | 2018-05-15 15:43 | EEG ---
Referring Physician: Akhil ATKINSON EEG # [id number] TEST TYPE: ROUTINE PORTABLE INPATIENT REPORT: AN EEG USING THE INTERNATIONAL TEN-TWENTY SYSTEM OF ELECTRODE PLACEMENT WAS PERFORMED. The best waking background is a 7-8 hertz frequency occipitally. Intermittent bursts of phase-reversing sharp transients with slowing were seen in the right temporal chain. No sustained epileptiform activity was present. Photic stimulation was unremarkable. IMPRESSION THIS IS AN ABNORMAL STUDY FOR THE FINDINGS OF MILD SLOWING WELL SHARP TRANSIENTS IN THE RIGHT TEMPORAL LOBE SUGGESTING A SEIZURE FOCUS. Business Records Manager: [employer] Cord Weaver: [email or web address] QUINTANA
[2018-05-15] MEDS: NPH, Human Insulin Isophane 300 UNIT/3 ML VIAL SC SCH (20:58)
[2018-05-15] MEDS: Insulin Regular 300 UNITS/3 ML VIAL SC PRN (20:58)
[2018-05-16] MEDS: Insulin Regular 300 UNITS/3 ML VIAL SC PRN (00:28)
[2018-05-16] MEDS: metroNIDAZOLE 500 MG in Premix Bag 1 BAG IVPB SCH ×3 (02:15→17:00)
[2018-05-16] MEDS: Acetaminophen 650 MG/20.3 ML UDCUP PO PRN (03:36)
[2018-05-16 05:08] LABS: INR-International Normal Ratio 1.1; PTT 36.1 SEC (22.9-36.1); Prothrombin Time 14.1 SEC (12.0-14.7)
[2018-05-16 05:09] LABS: Band 9 % (5-11); Eosinophils 3 % (0-10); Hemoglobin 10.4 g/dL (14.0-18.0); Lymphocytes 19 % (21-51); MDiff Complete? YES; Mean Corpuscular HGB CONC 31.2 g/dL (32.0-36.0); Mean Corpuscular Hemoglobin 27.7 pg (27.0-31.0); Mean Corpuscular Volume 88.9 fL (78.0-98.0); Mean Platelet Volume 9.7 fL (7.4-10.4); Metamyelocyte 1 % (0-0); Monocytes 4 % (0-10); Neutrophil 64 % (42-75); Platelet Count 162 thou/uL (130-400); Platelet Morphology Comment Appears Adequate; RBC Distribution Width 17.8 % (11.5-14.5); Red Blood Cell (RBC) Count 3.75 mill/uL (4.70-6.10); White Blood Cell (WBC) Count 16.1 thou/uL (4.8-10.8)
[2018-05-16 05:23] LABS: Phosphorus 2.9 mg/dL (2.3-4.7)
--- NOTE | 2018-05-16 05:26 | PDOC.FM ---
- Subjective Subjective: This morning patient is alert, but does not follow my commands to global sales executive or nod. There were no seizures overnight. Tube feeds were started yesterday. - Objective Vital Signs & Weight: Vital Signs (12 hours) Temp Pulse Resp BP Pulse Ox 05/16/18 04:00 19 05/16/18 03:00 99.6 F 05/16/18 02:04 120 H 92/59 L 05/16/18 02:00 25 H 05/16/18 00:00 21 H 05/15/18 23:24 122 H 110/64 05/15/18 23:00 99.1 F 05/15/18 22:08 120 H 97/54 L 05/15/18 22:00 19 05/15/18 20:00 15 100 05/15/18 19:00 98.1 F 05/15/18 18:15 120 H 112/69 05/15/18 18:00 18 Weight Admit Weight 71.214 kg Weight 86.6 kg Most Recent Monitor Data Heart Rate from ECG 120 NIBP 104/57 NIBP BP-Mean 72 Respiration from ECG 17 SpO2 95 I&O: 05/14/18 05/15/18 05/16/18 06:59 06:59 06:59 Intake Total 2910 3109.5 2276.7 Output Total 2275 3050 3070 Balance 635 59.5 -793.3 Result Diagrams: 05/16/18 04:30 05/16/18 04:30 Phys Exam - Physical Examination Constitutional: NAD HEENT: PERRLA, moist MMs Respiratory: no wheezing mild crackles on L lower lobe Cardiovascular: RRR, no significant murmur, no rub Gastrointestinal: soft, non-tender, no distention, positive bowel sounds Musculoskeletal: no edema, pulses present Neurological: non-focal, moves all 4 limbs Psychiatric: normal affect, A&O x 3 Skin: no rash, cap refill <2 seconds Dx/Plan (1) C. difficile diarrhea Code(s): A04.72 - ENTEROCOLITIS D/T CLOSTRIDIUM DIFFICILE, NOT SPCF RECUR Status: Acute (2) Seizure Code(s): R56.9 - UNSPECIFIED CONVULSIONS Status: Acute (3) Sepsis Code(s): A41.9 - SEPSIS, UNSPECIFIED ORGANISM Status: Acute (4) Toxic megacolon due to Clostridium difficile Code(s): A04.72 - ENTEROCOLITIS D/T CLOSTRIDIUM DIFFICILE, NOT SPCF RECUR Status: Acute (5) Mental retardation Code(s): F79 - UNSPECIFIED INTELLECTUAL DISABILITIES Status: Acute (6) Pressure ulcer Code(s): L89.90 - PRESSURE ULCER OF UNSPECIFIED SITE, UNSPECIFIED STAGE Status : Acute Qualifiers: Laterality: left (7) Diabetes mellitus type 2, insulin dependent Code(s): E11.9 - TYPE 2 DIABETES MELLITUS WITHOUT COMPLICATIONS; Z79.4 - SKILLED NURSING (CURRENT) USE OF INSULIN Status: Chronic (8) HTN (hypertension) Code(s): I10 - ESSENTIAL (PRIMARY) HYPERTENSION Status: Chronic Qualifiers: Hypertension type: essential hypertension Qualified Code(s): I10 - Essential (primary) hypertension (9) Hyperlipidemia Code(s): E78.5 - HYPERLIPIDEMIA, UNSPECIFIED Status: Chronic Qualifiers: Hyperlipidemia type: mixed hyperlipidemia Qualified Code(s): E78.2 - Mixed hyperlipidemia (10) Urinary retention with incomplete bladder emptying Code(s): R33.9 - RETENTION OF URINE, UNSPECIFIED Status: Chronic - Plan Plan: This is a 62 yo M admitted for septic shock 2/2 uti, toxic megacolon 2/2 c diff. He has a pertinent history including: Mental retardation (baseline AxOx1), [place] resident since 2008, HTN, seizure disorder, chronic urinary retention, dmII Interval Hx: will attempt for family meeting in next day or two. EEG shows seizure focus. Tachycardic, leukocytosis, check CXR. Toxic Megacolon 2/2 C. diff infection -Post Op Day 6 total colectomy with ileostomy. Ileostomy draining at this time. -Will continue for 7 days of abx after surgery, Flagyl and oral Vancomycin to cover for infection Per GI -GI consulted- Sultz- follow recs -General Surgery Consulted- Ohaju- follow recs - started tube feeds yesterday, titrate down on TPN as able Seizure Activity, chronic seizure disorder - no seizures overnight - started keppra 05/15 - EEG shows seizure focus in rt temporal lobe Acute Hypoxic respiratory failure - on vent - unable to wean yesterday - tachycardia, leukocytosis, tmax 99.6 overnight, will check CXR this AM - sister, SCOTT, is not interested in trach/LTAC MARIO 2/2 ATN Pt had ATN likley 2/2 hypotension vs supratherapeutic vanc Continue to trend urine output Sepsis (resolved) On flaggyl, oral vanc Vanc IV was discontinued early in stay as he was supratherapeutic. Palliative care consulted to help with goals of care discussion with family- Pt DNR at this time. Urinary tract infection (resolved) Pt Urine Cx shows E. Faecalis. Sensitive to current tx. Blood culture found gram positive cocci, consider strep/staph. Blood cx /. Likely contaminant. Pressure ulcer Please see wound care note. As of now, noted to have sacral ulcer, illiac crest ulcer and heel ulcer. Diabetes mellitus type 2, insulin dependent - On TPN, will monitor, glucose = stopped hydrocortisone, now on NPH 15U BID Hypernatremia -On minimal fluids and TPN. Na 150. will want to continue to trend. Hyperlipidemia Chronic issue on admission. -continue home meds Hypothyroidism Chronic stable issue. TSH in appropriate range on admission -continue home meds Metabolic acidosis (resolved) Mental retardation Chronic stable issue. AxOx1 at baseline IVC Filter in place On abx per above. cont PPX Lines/Tubes: rt subclavian 05/14, indwelling catheter chronic Code status: DNR PPx: Protonix, lovenox Dispo: off pressors, cont to wean vent, POD 5, continue to monitor, will attempt to schedule family meeting this week Addendum - Attending - Attending Attestation Date/Time: 05/16/18 1122 I personally evaluated the patient and discussed the management with Dr. Miller. I agree with and repeated the History, Examination, Assessment and Plan documented above with any addition or exceptions noted below. No ROS as intubated and does not follow commands. On exam MARINO. Tachy, regular , diffuse edema. Rhonchi bilaterally with good air movement. Bs+, distended, NTTP, dressing c/d/i. Ostomy well appearing. SC site clean. 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 No seizure activity. Resp continue to wean vent and SBT daily. He has remained with periods of apnea and tachycardia during trials. FEN/GI TF at goal, d/c TPN, monitory output. Monitor lytes and add FW PRN for hyperNa. Heme stable. ID continue flagyl and vanc until POD 7 (tomorrow). AF but high risk for VAP and IA sepsis. Renal stable. Continue diuresis. Endo stable. Continue SC CVC. Continue chen. DVT/GI ppx. Family meeting with sister who lives in town. We discussed prognosis, possible need for trach/peg if continued care, likely LTAC with prolonged recovery and possibility of setbacks. She will discuss with family and try to decide what would want and what's best for him.
[2018-05-16 05:39] LABS: Anion Gap 8 mmol/L (10-20); BUN (Urea Nitrogen) 44 mg/dL (8.4-25.7); Calc. Creatinine Clearance 151 mL/min (70-130); Calcium 8.5 mg/dL (7.8-10.44); Carbon Dioxide 28 mmol/L (23-31); Cardiac Risk 5.6 (Less than 4.5); Chloride 110 mmol/L (98-107); Cholesterol 89 mg/dl (< 200 Desired); Estimated GFR-MDRD Greater than 90; Glucose 139 mg/dL (80-115); HDL Cholesterol 16 mg/dL (>60 Neg Risk); LDL Cholesterol, Calculated 23 mg/dL; Potassium 3.8 mmol/L (3.5-5.1); Sodium 142 mmol/L (136-145); Triglycerides 251 mg/dL (Less than 150)
[2018-05-16 06:45] LABS: Actual Bicarbonate (HCO3a) 28.9 mEq/L (22-28); Base Excess (BEa) 5.3 mEq/L (-2.0 to +3.0); CO2 Tension 38.6 mmHg (35.0-45.0); Calcium, Ionized 1.17 mmol/L (1.12-1.30); Carboxyhemoglobin (COHb) 0.9 gm% (0.0-3.0); Hemoglobin (Hb) 10.7 g/dL (14.0-18.0); O2 Tension (PaO2) 67.9 mmHg (> 80.0); Potassium - ABG Lab 3.83 mmol/L (3.70-5.30); Puncture Site RRA; pH, Arterial 7.49 (7.35-7.45)
--- NOTE | 2018-05-16 08:35 | RAD ---
CHEST ONE VIEW: HISTORY: Dyspnea. Followup. COMPARISON: 05/14/2018 FINDINGS: The cardiac silhouette is magnified by projection. Shallow inspiration accentuates pulmonary marking s. Bibasilar atelectasis is similar in appearance to the previous exam. The mediastinum is midline. Lines and tubes appear unchanged in position. No evidence of pneumothorax. IMPRESSION: Bibasilar atelectasis and other findings are stable. POS: TPC
[2018-05-16] MEDS: Pantoprazole 40 MG VIAL IVP SCH (08:40)
[2018-05-16] MEDS: Enoxaparin Sodium 40 MG/0.4 ML SYRINGE SC SCH (08:40)
[2018-05-16] MEDS: Furosemide 40 MG/4 ML VIAL SLOW IVP SCH ×2 (08:40→21:18)
[2018-05-16] MEDS: levETIRAcetam 500 mg/5 ml Oral Solution PER TUBE SCH ×2 (08:40→20:53)
[2018-05-16] MEDS: NPH, Human Insulin Isophane 300 UNIT/3 ML VIAL SC SCH ×2 (08:41→20:54)
[2018-05-16] MEDS: Vancomycin HCl 25 MG/ML Oral PO SCH ×4 (08:44→20:53)
--- NOTE | 2018-05-16 09:34 | PRG ---
DATE OF SERVICE: 05/16/2018 TIME SPENT: 35 minutes of critical care time. SUBJECTIVE: The patient remains intubated on mechanical ventilation. There have been no acute changes overnight. OBJECTIVE: VITAL SIGNS: On exam, his temperature is 99.6, pulse 123, blood pressure 123/69, O2 saturation running generally in the mid 90s. A 24-hour intake 4137 and output 3120. Weight 190 pounds. HEENT: Remarkable for a left cataract formation. Oropharynx has an OG tube and an endotracheal tube in place. NECK: No JVD. LUNGS: Coarse rhonchi. CARDIAC: S1 and S2. Tachycardic without murmur. ABDOMEN: Mildly tender over the abdomen generally. No focal rebound. Right side ileostomy appears to be functioning well. EXTREMITIES: 3 to 4+ edema throughout. LABORATORY DATA: Sodium 142, potassium 3.8, chloride 110, CO2 of 28, BUN 44, creatinine 6.6, and glucose 139. A pH of 7.49, pCO2 of 38, and pO2 of 67, that is on pressure support 13, PEEP 5, and FiO2 of 29%. White blood cell count 16.1, hematocrit 33.3, and platelet count 152. ASSESSMENT: 1. Acute respiratory failure requiring mechanical ventilation. 2. Status post colectomy for impending toxic megacolon from Clostridium difficile colitis. 3. Severe neuromuscular weakness. PLAN: 1. He continues to be very fluid overloaded. Today will be the last day of his TPN. I will double his Lasix. He seems to be tolerating tube feeds very well so far. 2. I would like to diurese him some more to see if we can drop his edema prior to extubation. 3. I am not confident that he would do well extubated and the family needs to know that he has a very high chance of failure from that. Plan to extubate tomorrow if everything looks okay otherwise. Job ID: [id number]
[2018-05-16] MEDS: fentaNYL Citrate/PF 2,000 MCG in Sodium Chloride 0.9% 60 ML IV SCH (16:05)
[2018-05-16] MEDS ORDERED: Norepinephrine 8 MG/250 ML BAG IVPB PRN (20:20)
[2018-05-16] MEDS ORDERED: Albumin 25% 25 GM/100 ML BOT IVPB SCH (20:30)
--- NOTE | 2018-05-17 00:32 | CON ---
DATE OF CONSULTATION: 05/16/2018 CONSULTING PHYSICIAN: Hospitalist Service. IMPRESSION: 1. Seizure disorder. 2. Mental retardation. 3. Respiratory failure. 4. Diabetes. PLAN: Continue Keppra at current dosing. HISTORY OF PRESENT ILLNESS: Mr. Felipe is a 62-year-old man who is a halfway resident. He came in to the hospital with sepsis and respiratory distress. He was thought to possibly had some seizure activity and an EEG done yesterday which showed a normal background except for intermittent phase reversing sharp activity in the right temporal chain. His Keppra was continued. Nurses have not witnessed any further seizure activity. Unfortunately, his respiratory status has remained poor. He has bilateral pleural effusions, there are tenting to diuresing. The family is contemplating whether to place a trach and PEG versus comfort measures. PAST MEDICAL HISTORY: As listed above. ALLERGIES: METFORMIN. SOCIAL HISTORY: shelter resident. No tobacco or alcohol use. FAMILY HISTORY: Noncontributory. REVIEW OF SYSTEMS: Not obtainable due to his current medical state and mental retardation. PHYSICAL EXAMINATION: GENERAL: He is overweight, middle-aged man, on ventilatory support. VITAL SIGNS: Pulse 121, respirations 14, saturations 95%. HEENT: Cornea is opaque on the left. His pupil is reactive on the right. Conjunctiva is clear on the right. He is orally intubated. NECK: No lymphadenopathy noted. EXTREMITIES: There is moderately severe edema in both lower extremities. NEUROLOGIC: He would awake to light stimulation. I could get him to move his hands on command. He tended to drift back off to sleep when left alone. I could not get him to move either lower extremity. He has no clear response to stimulation to either foot. No abnormal movements were seen. IMAGING DATA: CT of the brain was reviewed and appears unremarkable. LABORATORY DATA: Laboratory studies were unremarkable other than a BUN of 46. SUMMARY: Man with reportedly fairly severe mental retardation, seizure disorder, respiratory failure. He seems to be stable from a neurologic perspective, although his overall status looks poor. I will be available for help if there is discretion. Job ID: [id number]
[2018-05-17] MEDS: metroNIDAZOLE 500 MG in Premix Bag 1 BAG IVPB SCH ×3 (02:16→17:04)
[2018-05-17 05:54] LABS: Band 2 % (5-11); Hemoglobin 8.6 g/dL (14.0-18.0); Hypochromia SLIGHT = 6-15 cells (100X) (0-5/hpf); Lymphocytes 13 % (21-51); MDiff Complete? YES; Mean Corpuscular HGB CONC 31.3 g/dL (32.0-36.0); Mean Corpuscular Hemoglobin 27.5 pg (27.0-31.0); Mean Corpuscular Volume 87.9 fL (78.0-98.0); Mean Platelet Volume 9.4 fL (7.4-10.4); Neutrophil 85 % (42-75); Platelet Count 150 thou/uL (130-400); Platelet Morphology Comment Appears Adequate; RBC Distribution Width 17.9 % (11.5-14.5); Red Blood Cell (RBC) Count 3.14 mill/uL (4.70-6.10); White Blood Cell (WBC) Count 18.3 thou/uL (4.8-10.8)
[2018-05-17 05:56] LABS: Phosphorus 3.4 mg/dL (2.3-4.7)
[2018-05-17 05:57] LABS: Anion Gap 12 mmol/L (10-20); BUN (Urea Nitrogen) 38 mg/dL (8.4-25.7); Calc. Creatinine Clearance 140 mL/min (70-130); Calcium 8.6 mg/dL (7.8-10.44); Carbon Dioxide 29 mmol/L (23-31); Chloride 110 mmol/L (98-107); Estimated GFR-MDRD Greater than 90; Glucose 151 mg/dL (80-115); Magnesium 1.5 mg/dL (1.6-2.6); Potassium 3.8 mmol/L (3.5-5.1); Sodium 147 mmol/L (136-145)
--- NOTE | 2018-05-17 06:15 | PDOC.FM ---
- Subjective Subjective: Last night levophed was started 2/2 systolic pressure to 70s and need for lasix. This AM pressures 131/71. He did nod in response to questions this AM. Had family discussion with SCOTT yesterday. She is going to discuss with family to come up with a plan for going forward. Discussed LTAC, peg, trach and comfort measures. - Objective Vital Signs & Weight: Vital Signs (12 hours) Temp Pulse Resp BP Pulse Ox 05/17/18 04:00 98.2 F 14 05/17/18 02:02 117 H 126/78 05/17/18 02:00 14 05/17/18 00:00 98.6 F 14 05/16/18 23:29 113 H 117/72 05/16/18 22:00 14 05/16/18 21:27 113 H 133/82 05/16/18 20:00 98.9 F 14 100 05/16/18 18:35 121 H 85/60 L Weight Admit Weight 71.214 kg Weight 86.999 kg Most Recent Monitor Data Heart Rate from ECG 114 NIBP 127/73 NIBP BP-Mean 91 Respiration from ECG 14 SpO2 94 I&O: 05/15/18 05/16/18 05/17/18 06:59 06:59 06:59 Intake Total 3109.5 4137.7 2539.5 Output Total 3050 3120 3599 Balance 59.5 1017.7 -1059.5 Result Diagrams: 05/17/18 05:32 05/17/18 05:32 Phys Exam - Physical Examination Constitutional: NAD HEENT: PERRLA, moist MMs crackles at bases Cardiovascular: RRR, no significant murmur, no rub Gastrointestinal: soft, non-tender, no distention, positive bowel sounds Musculoskeletal: no edema, pulses present Neurological: non-focal, moves all 4 limbs Psychiatric: normal affect, A&O x 3 Skin: no rash, cap refill <2 seconds Dx/Plan (1) C. difficile diarrhea Code(s): A04.72 - ENTEROCOLITIS D/T CLOSTRIDIUM DIFFICILE, NOT SPCF RECUR Status: Acute (2) Seizure Code(s): R56.9 - UNSPECIFIED CONVULSIONS Status: Acute (3) Sepsis Code(s): A41.9 - SEPSIS, UNSPECIFIED ORGANISM Status: Acute (4) Toxic megacolon due to Clostridium difficile Code(s): A04.72 - ENTEROCOLITIS D/T CLOSTRIDIUM DIFFICILE, NOT SPCF RECUR Status: Acute (5) Mental retardation Code(s): F79 - UNSPECIFIED INTELLECTUAL DISABILITIES Status: Acute (6) Pressure ulcer Code(s): L89.90 - PRESSURE ULCER OF UNSPECIFIED SITE, UNSPECIFIED STAGE Status : Acute Qualifiers: Laterality: left (7) Diabetes mellitus type 2, insulin dependent Code(s): E11.9 - TYPE 2 DIABETES MELLITUS WITHOUT COMPLICATIONS; Z79.4 - RN NICU (CURRENT) USE OF INSULIN Status: Chronic (8) HTN (hypertension) Code(s): I10 - ESSENTIAL (PRIMARY) HYPERTENSION Status: Chronic Qualifiers: Hypertension type: essential hypertension Qualified Code(s): I10 - Essential (primary) hypertension (9) Hyperlipidemia Code(s): E78.5 - HYPERLIPIDEMIA, UNSPECIFIED Status: Chronic Qualifiers: Hyperlipidemia type: mixed hyperlipidemia Qualified Code(s): E78.2 - Mixed hyperlipidemia (10) Urinary retention with incomplete bladder emptying Code(s): R33.9 - RETENTION OF URINE, UNSPECIFIED Status: Chronic - Plan Plan: This is a 62 yo M admitted for septic shock 2/2 uti, toxic megacolon 2/2 c diff. He has a pertinent history including: Mental retardation (baseline AxOx1), [place] resident [place] 2008, HTN, seizure disorder, chronic urinary retention, dmII Leukocytosis - WBC trending up, now 18.2, pressures decreased overnight now on levophed - tachycardic, no fever, CXR shows bibasilar atelectasis - will discuss escalation of abx and bcx on rounds today patient would be susceptible for VAP, post-op wound infection, or bactremia from pressure ulcers Toxic Megacolon 2/2 C. diff infection - Post Op Day 7 total colectomy with ileostomy. Ileostomy draining at this time. - Will continue for 7 days of abx after surgery, Flagyl and oral Vancomycin to cover for infection Per GI - GI consulted- Roberto- follow recs - General Surgery Consulted- Ohaevonne- follow recs - off tpn, now on tube feeds Seizure Activity, chronic seizure disorder - no seizures overnight - started keppra 05/15 - EEG shows seizure focus in rt temporal lobe - neurology consulted Acute Hypoxic respiratory failure - on vent - patient not tolerating CPAP - sister, SCOTT, is not interested in trach/LTAC per note, after family discussion she is still contemplating MARIO 2/2 ATN Pt had ATN likley 2/2 hypotension vs supratherapeutic vanc Continue to trend urine output Sepsis (resolved) On flaggyl, oral vanc Vanc IV was discontinued early in stay as he was supratherapeutic. Palliative care consulted to help with goals of care discussion with family- Pt DNR at this time. Urinary tract infection (resolved) Pt Urine Cx shows E. Faecalis. Sensitive to current tx. Blood culture found gram positive cocci, consider strep/staph. Blood cx /2. Likely contaminant. Pressure ulcer Please see wound care note. As of now, noted to have sacral ulcer, illiac crest ulcer and heel ulcer. Diabetes mellitus type 2, insulin dependent - On TPN, will monitor, glucose = stopped hydrocortisone, now on NPH 15U BID Hypernatremia -will continue to trend. Hyperlipidemia Chronic issue on admission. -continue home meds Hypothyroidism Chronic stable issue. TSH in appropriate range on admission -continue home meds Metabolic acidosis (resolved) Mental retardation Chronic stable issue. AxOx1 at baseline IVC Filter in place cont PPX Lines/Tubes: rt subclavian 05/14, indwelling catheter chronic Code status: DNR PPx: Protonix, lovenox Dispo: back on pressors, pending family decision on goals of care, may try extubation today per pulm, poor prognosis Addendum - Attending - Attending Attestation Date/Time: 05/17/18 1018 I personally evaluated the patient and discussed the management with Dr. Miller. I agree with and repeated the History, Examination, Assessment and Plan documented above with any addition or exceptions noted below. Now febrile. Multiple potential sources. Rosario culture, broaden coverage, CXR. PCT.
--- NOTE | 2018-05-17 06:27 | PDOC.EVN ---
Event Note - Event Note Event Note: called family to attempt to f/u on family discussion from yesterday yesterday MPOA stated 5-7 was a good time to talk as she is up all night spoke to who states she is asleep and will have her f/u when she awakens
[2018-05-17 06:47] LABS: Actual Bicarbonate (HCO3a) 29.9 mEq/L (22-28); Base Excess (BEa) 6.5 mEq/L (-2.0 to +3.0); CO2 Tension 38.1 mmHg (35.0-45.0); Calcium, Ionized 1.12 mmol/L (1.12-1.30); Hemoglobin (Hb) 10.2 g/dL (14.0-18.0); O2 Tension (PaO2) 63.9 mmHg (> 80.0); pH, Arterial 7.51 (7.35-7.45)
[2018-05-17 06:49] LABS: Puncture Site RR
[2018-05-17 06:50] LABS: ALV-art Gradient 95.245 (0-20)
[2018-05-17] MEDS: Furosemide 40 MG/4 ML VIAL SLOW IVP SCH (08:20)
[2018-05-17] MEDS: Pantoprazole 40 MG VIAL IVP SCH (08:20)
[2018-05-17] MEDS: Enoxaparin Sodium 40 MG/0.4 ML SYRINGE SC SCH (08:20)
[2018-05-17] MEDS: levETIRAcetam 500 mg/5 ml Oral Solution PER TUBE SCH ×2 (08:21→21:46)
[2018-05-17] MEDS: Vancomycin HCl 25 MG/ML Oral PO SCH ×4 (08:28→22:00)
--- NOTE | 2018-05-17 08:36 | PRG ---
DATE OF SERVICE: 05/17/2018 TIME SPENT: 35 minutes critical time. SUBJECTIVE: The patient remains intubated on mechanical ventilation. He will wake up. He does not seem to be breathing on his own very much. OBJECTIVE: VITAL SIGNS: Temperature is 98.2, pulse 119, blood pressure 122/51, he is currently on Levophed at 5 mcg/min after sustaining a hypotension last night. He is also on fentanyl 50 mcg/hr. 24-hour intake 2539, output 3674. Weight 191 pounds. HEENT: Left cataract. NECK: No JVD. LUNGS: Clear anteriorly. CARDIAC: S1, S2. Tachycardic. ABDOMEN: Softer. EXTREMITIES: Less edema. LABORATORY DATA: White blood cell count 18.3, hemoglobin 8.6, hematocrit 27.6, and platelet count 150. PH 7.51, pCO2 of 38, pO2 of 63 on SIMV rate 14, tidal volume 500, PEEP 5, pressure support 13, FiO2 29%. Sodium 147, potassium 3.8, chloride 110, CO2 29, BUN 38, creatinine 0.6, glucose 151, magnesium 1.5. ASSESSMENT: 1. Prolonged respiratory failure, requiring mechanical ventilation. 2. Clostridium difficile colitis, requiring colectomy. 3. Profound neuromuscular weakness. PLAN: 1. I will back down on the rate on his ventilator. 2. Replace magnesium. 3. Decrease diuretic dose today to once daily. 4. Residents are still trying to get hold the family to discuss end of life issues. Job ID: [id number]
[2018-05-17] MEDS: NPH, Human Insulin Isophane 300 UNIT/3 ML VIAL SC SCH ×2 (08:56→21:48)
[2018-05-17] MEDS ORDERED: Furosemide 40 MG/4 ML VIAL SLOW IVP SCH (09:00)
--- NOTE | 2018-05-17 09:30 | PDOC.EVN ---
Event Note - Event Note Event Note: spiked fever, tachycardic, back on pressors will start vanc, cefepime bcx, ucx, cxr ordered differential: vap, bacteremia from pressure sores, or post-op wound infection
[2018-05-17] MEDS: Vancomycin HCl 1.25 GM in Sodium Chloride 0.9% 250 ML 250 ML IVPB SCH ×2 (11:26→23:49)
[2018-05-17 11:36] LABS: Vancomycin, Random Less than 1.1 ug/mL (See Comment)
--- NOTE | 2018-05-17 12:05 | RAD ---
CHEST ONE VIEW: HISTORY: Fever. COMPARISON: Radiograph from the prior day. FINDINGS: The patient is intubated, with the endotracheal tube tip at the level of the clavicles. There is als o another catheter projecting over the left side of the trachea, above the level of the clavicles, of unknown significance, and could be outside the patient. Enteric tube tip is below the diaphragm and out of the field of view. Central venous catheter, right subclavian approach, is unchanged. Small effusions. Lungs are hypoinflated. IMPRESSION: Similar examination of the chest. A second catheter projecting over the trachea, aside from the endo tracheal tube, which may be outside the patient. POS: CET
--- NOTE | 2018-05-17 12:30 | PRG ---
DATE OF SERVICE: 05/17/2018 SUBJECTIVE: Mr. Felipe is a 62-year-old man who is postoperative day #7, status post exploratory laparotomy with total colectomy and ileostomy. He remains on mechanical ventilator support. Ostomy has been viable and functional. The patient is tolerating tube feeds at goal. OBJECTIVE: VITAL SIGNS: Today includes blood pressure 119/74, pulse 114, respiratory rate is 18, maximum temperature in the last 24 hours is 100.9 degrees Fahrenheit. ABDOMINAL: Reveals soft and markedly distended abdomen. Incision is intact, clean, dry. Ileostomy is viable and functional with stool and gas. There is excoriation of the skin surrounding the ileostomy. IMPRESSION: Postop day #7, status post total colectomy with ileostomy. There is no acute intraabdominal process. PLAN: Local wound care to the ostomy site. [place] will be removed postoperative day #10. Job ID: [id number]
[2018-05-17] MEDS: Acetaminophen 650 MG/20.3 ML UDCUP PO PRN (13:53)
[2018-05-17] MEDS: Cefepime 1 GM in Sodium Chloride 0.9% 100 ML IVPB SCH (21:47)
[2018-05-18] MEDS: Insulin Regular 300 UNITS/3 ML VIAL SC PRN ×4 (00:04→17:17)
[2018-05-18] MEDS: metroNIDAZOLE 500 MG in Premix Bag 1 BAG IVPB SCH ×3 (02:30→17:14)
[2018-05-18 05:35] LABS: Hemoglobin 8.9 g/dL (14.0-18.0); Mean Corpuscular HGB CONC 30.7 g/dL (32.0-36.0); Mean Corpuscular Hemoglobin 27.6 pg (27.0-31.0); Mean Corpuscular Volume 89.9 fL (78.0-98.0); Mean Platelet Volume 9.4 fL (7.4-10.4); Platelet Count 124 thou/uL (130-400); RBC Distribution Width 17.7 % (11.5-14.5); White Blood Cell (WBC) Count 14.4 thou/uL (4.8-10.8)
[2018-05-18 05:46] LABS: Phosphorus 3.4 mg/dL (2.3-4.7)
[2018-05-18 05:48] LABS: Anion Gap 12 mmol/L (10-20); BUN (Urea Nitrogen) 32 mg/dL (8.4-25.7); Calc. Creatinine Clearance 140 mL/min (70-130); Calcium 8.4 mg/dL (7.8-10.44); Carbon Dioxide 29 mmol/L (23-31); Chloride 113 mmol/L (98-107); Estimated GFR-MDRD Greater than 90; Glucose 179 mg/dL (80-115); Magnesium 1.5 mg/dL (1.6-2.6); Potassium 3.8 mmol/L (3.5-5.1); Sodium 150 mmol/L (136-145)
[2018-05-18 05:50] LABS: Band 14 % (5-11); Lymphocytes 10 % (21-51); MDiff Complete? YES; Monocytes 2 % (0-10); Neutrophil 74 % (42-75); Platelet Morphology Comment Appears Adequate
--- NOTE | 2018-05-18 06:03 | PDOC.FM ---
- Subjective Subjective: This morning patient is off of pressors. 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 He remains tachycardic but has not spiked any temps overnight. Patient's sister called back last night and states she would like physician team to speak with her son mohinder who is an ICU nurse in [place], [place]. Will plan to call about 0630 this AM. - Objective Vital Signs & Weight: Vital Signs (12 hours) Temp Pulse Resp BP Pulse Ox 05/18/18 04:00 99.2 F 16 05/18/18 02:17 125 H 114/66 05/18/18 02:00 17 05/18/18 00:00 100 F H 12 05/17/18 23:46 127 H 104/61 05/17/18 22:00 16 05/17/18 21:12 124 H 123/64 05/17/18 19:36 12 92 L 05/17/18 19:00 99.7 F H 05/17/18 18:24 119 H 86/50 L Weight Admit Weight 71.214 kg Weight 86.999 kg Most Recent Monitor Data Heart Rate from ECG 123 NIBP 103/68 NIBP BP-Mean 79 Respiration from ECG 20 SpO2 99 I&O: 05/16/18 05/17/18 05/18/18 06:59 06:59 06:59 Intake Total 4137.7 2539.5 1182 Output Total 3120 3674 3265 Balance 1017.7 -1134.5 -2083 Result Diagrams: 05/18/18 05:00 05/18/18 05:00 Phys Exam - Physical Examination Constitutional: NAD HEENT: PERRLA, moist MMs crackles bilaterally Cardiovascular: RRR, no significant murmur, no rub Gastrointestinal: soft, non-tender, no distention excoriation around site of -ostomy +3 pitting edema bilaterally Neurological: non-focal, moves all 4 limbs Skin: no rash, cap refill <2 seconds Dx/Plan (1) C. difficile diarrhea Code(s): A04.72 - ENTEROCOLITIS D/T CLOSTRIDIUM DIFFICILE, NOT SPCF RECUR Status: Acute (2) Seizure Code(s): R56.9 - UNSPECIFIED CONVULSIONS Status: Acute (3) Sepsis Code(s): A41.9 - SEPSIS, UNSPECIFIED ORGANISM Status: Acute (4) Toxic megacolon due to Clostridium difficile Code(s): A04.72 - ENTEROCOLITIS D/T CLOSTRIDIUM DIFFICILE, NOT SPCF RECUR Status: Acute (5) Mental retardation Code(s): F79 - UNSPECIFIED INTELLECTUAL DISABILITIES Status: Acute (6) Pressure ulcer Code(s): L89.90 - PRESSURE ULCER OF UNSPECIFIED SITE, UNSPECIFIED STAGE Status : Acute Qualifiers: Laterality: left (7) Diabetes mellitus type 2, insulin dependent Code(s): E11.9 - TYPE 2 DIABETES MELLITUS WITHOUT COMPLICATIONS; Z79.4 - SHELTER (CURRENT) USE OF INSULIN Status: Chronic (8) HTN (hypertension) Code(s): I10 - ESSENTIAL (PRIMARY) HYPERTENSION Status: Chronic Qualifiers: Hypertension type: essential hypertension Qualified Code(s): I10 - Essential (primary) hypertension (9) Hyperlipidemia Code(s): E78.5 - HYPERLIPIDEMIA, UNSPECIFIED Status: Chronic Qualifiers: Hyperlipidemia type: mixed hyperlipidemia Qualified Code(s): E78.2 - Mixed hyperlipidemia (10) Urinary retention with incomplete bladder emptying Code(s): R33.9 - RETENTION OF URINE, UNSPECIFIED Status: Chronic - Plan Plan: This is a 62 yo M admitted for septic shock 2/2 uti, toxic megacolon 2/2 c diff. He has a pertinent history including: Mental retardation (baseline AxOx1), [place] resident since 2008, HTN, seizure disorder, chronic urinary retention, dmII Leukocytosis - WBC now 14.4 - on Vanc, cefepime - afebrile overnight, 100.9 yesterday, differential: VAP, post-op wound infection, bacteremia from pressure ulcers - CXR no acute infectious process, Bcx, Ucx pending Acute Hypoxic respiratory failure - on vent - patient not tolerating CPAP, apneic spells, has not met extubation criteria - continuing to attempt diuresis will managing BP - sister, SCOTT, is not interested in trach/LTAC per note, after family discussion she is still contemplating Toxic Megacolon 2/2 C. diff infection - Post Op Day 8 total colectomy with ileostomy. Ileostomy draining at this time. - GI consulted- Roberto- follow recs - General Surgery Consulted- Sindhu- follow recs - off tpn, now on tube feeds Seizure Activity, chronic seizure disorder - no seizures overnight - started keppra 05/15 - EEG shows seizure focus in rt temporal lobe - neurology consulted MARIO 2/2 ATN Pt had ATN likley 2/2 hypotension vs supratherapeutic vanc Continue to trend urine output Sepsis (resolved) On flaggyl, oral vanc Vanc IV was discontinued early in stay as he was supratherapeutic. Palliative care consulted to help with goals of care discussion with family- Pt DNR at this time. Urinary tract infection (resolved) Pt Urine Cx shows E. Faecalis. Sensitive to current tx. Blood culture found gram positive cocci, consider strep/staph. Blood cx 04/05. Likely contaminant. Pressure ulcer Please see wound care note. As of now, noted to have sacral ulcer, illiac crest ulcer and heel ulcer. Diabetes mellitus type 2, insulin dependent - On TPN, will monitor, glucose = stopped hydrocortisone, now on NPH 15U BID Hypernatremia -will continue to trend. Hyperlipidemia Chronic issue on admission. -continue home meds Hypothyroidism Chronic stable issue. TSH in appropriate range on admission -continue home meds Metabolic acidosis (resolved) Mental retardation Chronic stable issue. AxOx1 at baseline IVC Filter in place cont PPX Lines/Tubes: rt subclavian 05/14, indwelling catheter chronic Code status: DNR PPx: Protonix, lovenox Dispo: poor prognosis, awaiting family decision on pursuing trach and LTAC vs. Comfort care Addendum - Attending - Attending Attestation Date/Time: 05/18/18 1051 I personally evaluated the patient and discussed the management with Dr. Miller. I agree with and repeated the History, Examination, Assessment and Plan documented above with any addition or exceptions noted below.
--- NOTE | 2018-05-18 06:38 | PDOC.EVN ---
Event Note - Event Note Event Note: Reviewed case with the son of SCOTT (laxmi) Ovidio is an ICU nurse in [place], [place] [phone] States he is supporting mother in process of understanding comfort care and per their discussions they think trach/LTAC would not be a good route for David Nolan states he will call mother and have her call hospital today to confirm DNI/DNAR and finalize plans for comfort cares Re-iterated that we will not transition to comfort cares until hearing from Laxmi SCOTT Will place hospice consult
[2018-05-18] MEDS: fentaNYL Citrate/PF 2,000 MCG in Sodium Chloride 0.9% 60 ML IV SCH (06:49)
[2018-05-18 07:25] LABS: Actual Bicarbonate (HCO3a) 29.1 mEq/L (22-28); Base Excess (BEa) 4.7 mEq/L (-2.0 to +3.0); CO2 Tension 42.2 mmHg (35.0-45.0); Calcium, Ionized 1.12 mmol/L (1.12-1.30); Carboxyhemoglobin (COHb) 1.2 gm% (0.0-3.0); Hemoglobin (Hb) 10.2 g/dL (14.0-18.0); O2 Tension (PaO2) 64.1 mmHg (> 80.0); Potassium - ABG Lab 3.57 mmol/L (3.70-5.30); pH, Arterial 7.46 (7.35-7.45)
[2018-05-18 07:28] LABS: Puncture Site LR
--- NOTE | 2018-05-18 08:04 | PRG ---
DATE OF SERVICE: 05/18/2018 TIME SPENT: 35 minutes of critical care time. SUBJECTIVE: The patient remains intubated on mechanical ventilation. OBJECTIVE: VITAL SIGNS: On exam, his temperature is 99.2, his T-max is 100.9, pulse 120, and blood pressure 113/70. A 24-hour intake 2267, output 3365. HEENT: Unremarkable. NECK: No JVD. CHEST: Coarse breath sounds. CARDIAC: S1 and S2, tachycardic. ABDOMEN: Slightly distended, nontender. Suture line looks like it is healing. Right-sided ileostomy clean. EXTREMITIES: Edematous. LABORATORY DATA: Sodium 150, potassium 3.8, chloride 113, CO2 of 29, BUN 32, creatinine 0.6, glucose 179, and magnesium 1.5. White blood cell count 14.4, hematocrit 28.8, and platelet count 124. ABG; pH of 7.46, pCO2 of 43, and pO2 of 92. ASSESSMENT: 1. Persistent respiratory failure. Current situation is being aggravated by severe neuromuscular weakness. 2. Clostridium difficile colitis, requiring colectomy. 3. Hypernatremia. PLAN: 1. Back down diuresis and give some free water. 2. I do not think this patient is going to be weanable without a tracheostomy. 3. I have decreased respiratory rate somewhat. I am increasing his FiO2 a little because of persistent hypoxemia. Prognosis is poor. Job ID: [id number]
[2018-05-18] MEDS ORDERED: Pantoprazole 40 MG VIAL IVP SCH (09:00)
[2018-05-18] MEDS: Cefepime 1 GM in Sodium Chloride 0.9% 100 ML IVPB SCH ×2 (09:35→21:29)
[2018-05-18] MEDS: Dextrose 5% in Water 1,000 ML IV SCH ×2 (09:35→21:07)
[2018-05-18] MEDS: Vancomycin HCl 25 MG/ML Oral PO SCH ×4 (09:35→21:06)
[2018-05-18] MEDS: levETIRAcetam 500 mg/5 ml Oral Solution PER TUBE SCH ×2 (09:36→21:06)
[2018-05-18] MEDS: NPH, Human Insulin Isophane 300 UNIT/3 ML VIAL SC SCH ×2 (09:37→21:07)
[2018-05-18] MEDS: Enoxaparin Sodium 40 MG/0.4 ML SYRINGE SC SCH (11:19)
[2018-05-18] MEDS: Vancomycin HCl 1.25 GM in Sodium Chloride 0.9% 250 ML 250 ML IVPB SCH ×2 (11:35→23:37)
--- NOTE | 2018-05-18 16:08 | PDOC.EVN ---
Event Note - Event Note Event Note: Talked with SCOTT uribe Still not quite sure about what to do but does understand that being on ventilator in ICU is a stressful experience for juan She states she is going to call Juliana of palliative care and speak with her
--- NOTE | 2018-05-18 16:33 | PDOC.EVN ---
Event Note - Event Note Event Note: SCOTT spoke with Juliana Wants to plan on compassionate extubation on 05/21
[2018-05-18] MEDS ORDERED: Propofol 1,000 MG/100 ML VIAL IV PRN (21:06)
[2018-05-18] MEDS ORDERED: Potassium Chloride 40 MEQ in Premix Bag 1 BAG IVPB PRN (21:07)
[2018-05-18] MEDS ORDERED: Potassium Chloride 40 MEQ in Sodium Chloride 0.9% 250 ML 250 ML IVPB PRN (21:07)
[2018-05-18] MEDS ORDERED: Potassium Chloride 20 MEQ TAB PO PRN (21:07)
[2018-05-18] MEDS ORDERED: CCU ELECTROLYTE REPLACEMENT PROTOCOL FS PRN (21:08)
[2018-05-18] MEDS ORDERED: Magnesium 2 GM/NS 0.9% 100 ML 2 GM in Premix Bag 1 BAG IVPB PRN (21:08)
[2018-05-18] MEDS ORDERED: Magnesium Oxide 400 MG TAB PO PRN (21:08)
[2018-05-18] MEDS ORDERED: Potassium Phosphate 15 MMOL in Sodium Chloride 0.9% 250 ML 250 ML IV PRN (21:09)
[2018-05-18] MEDS ORDERED: Potassium Phosphate 9 MMOL in Sodium Chloride 0.9% 100 ML IVPB PRN (21:09)
[2018-05-18] MEDS ORDERED: Potassium Phosphate 12 MMOL in Sodium Chloride 0.9% 250 ML 250 ML IV PRN (21:09)
[2018-05-18] MEDS ORDERED: Propofol BOLUS 1,000 MG/100 ML VIAL IV PRN (21:10)
[2018-05-18] MEDS ORDERED: Norepinephrine 8 MG/250 ML BAG IVPB PRN (21:10)
[2018-05-18] MEDS ORDERED: Ventilator Sedation Protocol 1 EACH FS SCH (21:15)
[2018-05-18] MEDS ORDERED: CCU Electrolyte Replacement 1 EACH FS SCH (21:15)
[2018-05-18] MEDS: SYSTANE 3.5 GM TUBE EA EYE PRN (23:42)
[2018-05-19] MEDS: Insulin Regular 300 UNITS/3 ML VIAL SC PRN ×3 (00:33→15:46)
[2018-05-19] MEDS: metroNIDAZOLE 500 MG in Premix Bag 1 BAG IVPB SCH ×3 (01:15→17:17)
[2018-05-19 05:05] LABS: Anion Gap 13 mmol/L (10-20); BUN (Urea Nitrogen) 26 mg/dL (8.4-25.7); Calc. Creatinine Clearance 151 mL/min (70-130); Carbon Dioxide 27 mmol/L (23-31); Chloride 112 mmol/L (98-107); Estimated GFR-MDRD Greater than 90; Glucose 184 mg/dL (80-115); Magnesium 1.6 mg/dL (1.6-2.6); Phosphorus 3.1 mg/dL (2.3-4.7); Potassium 3.5 mmol/L (3.5-5.1); Sodium 148 mmol/L (136-145)
[2018-05-19 05:41] LABS: Band 19 % (5-11); Hemoglobin 8.1 g/dL (14.0-18.0); Lymphocytes 10 % (21-51); MDiff Complete? YES; Mean Corpuscular HGB CONC 30.1 g/dL (32.0-36.0); Mean Corpuscular Hemoglobin 27.5 pg (27.0-31.0); Mean Corpuscular Volume 91.6 fL (78.0-98.0); Mean Platelet Volume 9.5 fL (7.4-10.4); Neutrophil 71 % (42-75); Platelet Count 126 thou/uL (130-400); RBC Distribution Width 17.5 % (11.5-14.5); Red Blood Cell (RBC) Count 2.95 mill/uL (4.70-6.10); White Blood Cell (WBC) Count 11.1 thou/uL (4.8-10.8)
--- NOTE | 2018-05-19 07:05 | PDOC.FM ---
- Subjective Subjective: Yesterday patient's sister Laxmi decided on compassionate extubation on Tuesday. this morning patient is more alert than he has been the last few days. he is able to nod yes/no to questions and acknowledges provider upon entering the room. Patient indicates he is not experiencing pain at the moment. - Objective Vital Signs & Weight: Vital Signs (12 hours) Temp Pulse Resp Pulse Ox 05/19/18 06:00 12 05/19/18 04:00 97 F L 15 05/19/18 02:16 102 H 05/19/18 02:00 12 05/19/18 00:00 97 F L 16 05/18/18 23:34 108 H 18 97 05/18/18 22:34 110 H 05/18/18 22:00 18 05/18/18 20:00 97.8 F 13 100 Weight Admit Weight 71.214 kg Weight 76.771 kg Most Recent Monitor Data Heart Rate from ECG 103 NIBP 113/75 NIBP BP-Mean 87 Respiration from ECG 12 SpO2 100 I&O: 05/18/18 05/19/18 05/20/18 06:59 06:59 06:59 Intake Total 2267 4133.7 Output Total 3365 2008 Balance -1098 2125.7 Result Diagrams: 05/19/18 03:50 05/19/18 03:50 Phys Exam - Physical Examination Constitutional: NAD HEENT: PERRLA, moist MMs Respiratory: no wheezing, clear to auscultation bilateral Cardiovascular: RRR, no significant murmur Gastrointestinal: soft mild tenderness to palpation of abdomen, no oozing Musculoskeletal: pulses present Neurological: non-focal, moves all 4 limbs Skin: no rash, cap refill <2 seconds Dx/Plan (1) C. difficile diarrhea Code(s): A04.72 - ENTEROCOLITIS D/T CLOSTRIDIUM DIFFICILE, NOT SPCF RECUR Status: Acute (2) Seizure Code(s): R56.9 - UNSPECIFIED CONVULSIONS Status: Acute (3) Sepsis Code(s): A41.9 - SEPSIS, UNSPECIFIED ORGANISM Status: Acute (4) Toxic megacolon due to Clostridium difficile Code(s): A04.72 - ENTEROCOLITIS D/T CLOSTRIDIUM DIFFICILE, NOT SPCF RECUR Status: Acute (5) Mental retardation Code(s): F79 - UNSPECIFIED INTELLECTUAL DISABILITIES Status: Acute (6) Pressure ulcer Code(s): L89.90 - PRESSURE ULCER OF UNSPECIFIED SITE, UNSPECIFIED STAGE Status : Acute Qualifiers: Laterality: left (7) Diabetes mellitus type 2, insulin dependent Code(s): E11.9 - TYPE 2 DIABETES MELLITUS WITHOUT COMPLICATIONS; Z79.4 - PHARMACY AFFAIRS ASSISTANT (CURRENT) USE OF INSULIN Status: Chronic (8) HTN (hypertension) Code(s): I10 - ESSENTIAL (PRIMARY) HYPERTENSION Status: Chronic Qualifiers: Hypertension type: essential hypertension Qualified Code(s): I10 - Essential (primary) hypertension (9) Hyperlipidemia Code(s): E78.5 - HYPERLIPIDEMIA, UNSPECIFIED Status: Chronic Qualifiers: Hyperlipidemia type: mixed hyperlipidemia Qualified Code(s): E78.2 - Mixed hyperlipidemia (10) Urinary retention with incomplete bladder emptying Code(s): R33.9 - RETENTION OF URINE, UNSPECIFIED Status: Chronic - Plan Plan: This is a 62 yo M admitted for septic shock 2/2 uti, toxic megacolon 2/2 c diff. He has a pertinent history including: Mental retardation (baseline AxOx1), [place] resident since 2008, HTN, seizure disorder, chronic urinary retention, dmII Leukocytosis - WBC 14.4 -> 11.1 - on Vanc, cefepime - afebrile yesterday differential: VAP, post-op wound infection, bacteremia/ osteo from pressure ulcers, UTI - CXR no acute infectious process - Urine from chen grew out gram - mariella, will await sensitivities - bcx NGTD Acute Hypoxic respiratory failure- compassionate extubation 05/21 - on vent - patient not tolerating CPAP, apneic spells, has not met extubation criteria - continuing to attempt diuresis will managing BP Toxic Megacolon 2/2 C. diff infection - Post Op Day 9 total colectomy with ileostomy. Ileostomy draining at this time. - GI consulted- Roberto- follow recs - General Surgery Consulted- Ohaevonne- follow recs - off tpn, now on tube feeds Seizure Activity, chronic seizure disorder - no seizures overnight - started keppra 05/15 - EEG shows seizure focus in rt temporal lobe - neurology consulted MARIO 2/2 ATN Pt had ATN likley 2/2 hypotension vs supratherapeutic vanc Continue to trend urine output Sepsis (resolved) s/p flaggyl, vanc 8 days post op Vanc IV was discontinued early in stay as he was supratherapeutic. Palliative care consulted to help with goals of care discussion with family- Pt DNR at this time. Urinary tract infection (resolved) Pt Urine Cx shows E. Faecalis. Sensitive to current tx. Blood culture found gram positive cocci, consider strep/staph. Blood cx 04/05. Likely contaminant. Pressure ulcer Please see wound care note. As of now, noted to have sacral ulcer, illiac crest ulcer and heel ulcer. Diabetes mellitus type 2, insulin dependent - On TPN, will monitor, glucose = stopped hydrocortisone, now on NPH 15U BID Hypernatremia -will continue to trend. Hyperlipidemia Chronic issue on admission. -continue home meds Hypothyroidism Chronic stable issue. TSH in appropriate range on admission -continue home meds Metabolic acidosis (resolved) Mental retardation Chronic stable issue. AxOx1 at baseline IVC Filter in place cont PPX Lines/Tubes: rt subclavian 05/14, indwelling catheter chronic Code status: DNR PPx: Protonix, lovenox Dispo: extubation trial 05/21, family elects not to pursue re-intubation/trach at this time Addendum - Attending - Attending Attestation Date/Time: 05/19/18 1211 I personally evaluated the patient and discussed the management with Dr. Miller. I agree with and repeated the History, Examination, Assessment and Plan documented above with any addition or exceptions noted below.
[2018-05-19 07:23] LABS: Actual Bicarbonate (HCO3a) 26.3 mEq/L (22-28); Base Excess (BEa) 2.3 mEq/L (-2.0 to +3.0); CO2 Tension 38.5 mmHg (35.0-45.0); Calcium, Ionized 1.16 mmol/L (1.12-1.30); Carboxyhemoglobin (COHb) 1.3 gm% (0.0-3.0); O2 Tension (PaO2) 110.1 mmHg (> 80.0); Potassium - ABG Lab 4.48 mmol/L (3.70-5.30); pH, Arterial 7.45 (7.35-7.45)
[2018-05-19 07:26] LABS: ALV-art Gradient 112.715 (0-20); Puncture Site RRA
[2018-05-19] MEDS: Cefepime 1 GM in Sodium Chloride 0.9% 100 ML IVPB SCH ×2 (08:17→22:03)
[2018-05-19] MEDS: Enoxaparin Sodium 40 MG/0.4 ML SYRINGE SC SCH (08:18)
[2018-05-19] MEDS: levETIRAcetam 500 mg/5 ml Oral Solution PER TUBE SCH ×2 (08:19→22:07)
[2018-05-19] MEDS: Pantoprazole 40 MG VIAL IVP SCH (08:19)
[2018-05-19] MEDS: NPH, Human Insulin Isophane 300 UNIT/3 ML VIAL SC SCH ×2 (08:23→22:08)
--- NOTE | 2018-05-19 08:48 | PRG ---
DATE OF SERVICE: 05/19/2018 TIME SPENT: 35 minutes critical time. SUBJECTIVE: The patient remains intubated on mechanical ventilation. He is more awake today than he was. OBJECTIVE: VITAL SIGNS: Temperature 97.0, pulse 103, blood pressure 113/75, O2 saturation 100%. He is currently on fentanyl drip. He is off all vasopressors. Total intake for last 24 hours 4197, output 2008. HEENT: Unremarkable except for left eye cataract. Oropharynx, ET tube and orogastric tube in place. NECK: No JVD. CHEST: Clear anteriorly. CARDIAC: S1, S2. Regular without murmur. ABDOMEN: Soft. Midline ned look clean. Right ileostomy looks clean. EXTREMITIES: 1+ edema throughout. LABORATORY DATA: White cell count 11, hematocrit 27, platelet count 126. PH 7.45, pCO2 of 38, pO2 of 110 that is on SIMV rate 6, tidal volume 500, PEEP 5, pressure support 13, FiO2 of 38%. Sodium 148, down from 150; potassium 3.5; chloride 112; CO2 of 27; BUN 26; creatinine 0.5; glucose 184. ASSESSMENT AND PLAN: 1. Acute respiratory failure requiring mechanical ventilation. 2. Status post C difficile colitis with impending toxic megacolon requiring colectomy. 3. Hyponatremia, which is better after some D5W. PLAN: The family is comfortable with extubating on Tuesday. I have slowly decreased his SIMV rate in preparation for that extubation. I think he could perhaps do well extubated, but I am not sure if he is going to be able to clear his airway or not. They have instituted DNR and do not want him reintubated in the event that he fails. Job ID: [id number]
[2018-05-19] MEDS: Vancomycin HCl 1.25 GM in Sodium Chloride 0.9% 250 ML 250 ML IVPB SCH ×2 (10:49→23:31)
--- NOTE | 2018-05-19 13:07 | PRG ---
DATE OF SERVICE: 05/19/2018 TRANSITION OF CARE NOTE. SUBJECTIVE: This is a 62-year-old gentleman on hospital day #14. He was originally admitted for septic shock secondary to UTI from Enterococcus faecalis. After treatment of the UTI and septic shock, he developed Clostridium difficile, which eventually led to toxic megacolon. He then had a total colectomy. He is currently on postop day #9. He completed seven days of oral vancomycin and IV Flagyl after the total colectomy. After the total colectomy, he was never able to be weaned off the ventilator. Whenever he was put on the CPAP settings, he had long apneic spells and always had to go back on machine ventilation. For the last few days, we have been continuing to try to wean the patient. Today, he did make some progress, but is still not needing extubation criteria. Long discussions were had with the family regarding aggressive care versus comfort care. The family ultimately decided that they would like to pursue comfort care. Compression and extubation are planned for May 21. Hospice has been consulted. The patient has a baseline mental status of about a 13-year-old per family and alert and oriented x1 per chart review. Family decided that LTAC, trach, and PEG would not be good options for his quality of life. Hospice has been consulted to assist. Should the patient continue to breathe on his own after extubation, he can be transferred to inpatient hospice care as he does have a poor prognosis at this time. Two days ago on 05/17/2018, the patient has spiked a fever. Various sources were considered for this fever including UTI versus osteo secondary to multiple pressure ulcers versus ventilator assisted pneumonia. The most likely source at this time seems to be UTI as urine cultures grew back Gram-negative rods. Sensitivities are pending. He is on vancomycin, cefepime, and IV Flagyl at this time. The patient has also been having treatment for hypernatremia. He received 2 L of D5W over the last two days, which has helped to keep his sodium down, it is currently 148. We will continue to trend this. Earlier this week, May 15 and , the patient had some seizure activity. He was started on Keppra. Since having the Keppra started, he has not had any seizure activity. He does have a history of seizure disorder. EEG was performed, which showed foci in the right temporal lobe. The seizures lasted about 2 minutes and resolved without event. The patient also does have an IVC filter in place and is on continued prophylaxis. Job ID: [id number]
[2018-05-19 13:43] VITALS: BMI 28.1
[2018-05-19] MEDS: fentaNYL Citrate/PF 2,000 MCG in Sodium Chloride 0.9% 60 ML IV SCH (22:13)
[2018-05-20] MEDS: Insulin Regular 300 UNITS/3 ML VIAL SC PRN ×3 (01:15→14:07)
[2018-05-20] MEDS: metroNIDAZOLE 500 MG in Premix Bag 1 BAG IVPB SCH ×3 (03:03→18:08)
[2018-05-20 05:31] LABS: Phosphorus 2.6 mg/dL (2.3-4.7)
[2018-05-20 05:32] LABS: Anion Gap 11 mmol/L (10-20); BUN (Urea Nitrogen) 19 mg/dL (8.4-25.7); Calc. Creatinine Clearance 156 mL/min (70-130); Calcium 8.4 mg/dL (7.8-10.44); Carbon Dioxide 27 mmol/L (23-31); Chloride 111 mmol/L (98-107); Estimated GFR-MDRD Greater than 90; Glucose 145 mg/dL (80-115); Magnesium 1.5 mg/dL (1.6-2.6); Potassium 3.8 mmol/L (3.5-5.1); Sodium 145 mmol/L (136-145)
--- NOTE | 2018-05-20 05:33 | PDOC.FM ---
- Subjective Subjective: No acute events overnight. No seizures, blood pressures stable. Persistent tachycardia. Unable to elicit further hx from patient due to nonverbal state - Objective MAR Reviewed: Yes Vital Signs & Weight: Vital Signs (12 hours) Temp Pulse Resp BP Pulse Ox 05/20/18 04:00 98.8 F 12 05/20/18 02:14 115 H 105/66 05/20/18 02:00 6 L 05/20/18 00:13 118 H 16 100 05/20/18 00:00 98.7 F 10 L 05/19/18 22:14 118 H 120/74 05/19/18 22:00 14 05/19/18 20:00 98.8 F 12 98 05/19/18 18:17 115 H 127/77 05/19/18 18:00 28 H Weight Admit Weight 71.214 kg Weight 76.771 kg Most Recent Monitor Data Heart Rate from ECG 115 NIBP 117/72 NIBP BP-Mean 87 Respiration from ECG 13 SpO2 100 I&O: 05/18/18 05/19/18 05/20/18 06:59 06:59 06:59 Intake Total 2267 4197.2 2157 Output Total 3365 2007 1420 Balance -1098 2189.2 737 Result Diagrams: 05/20/18 05:00 05/20/18 05:00 Phys Exam - Physical Examination Constitutional: NAD E3, V1T, M5 HEENT: PERRLA, moist MMs intubated Gastrointestinal: soft ileostomy at mid right abd quadrant , mild distention peripheral edema unable to assess Dx/Plan (1) Acute respiratory failure with hypoxia Code(s): J96.01 - ACUTE RESPIRATORY FAILURE WITH HYPOXIA Status: Acute (2) UTI (urinary tract infection), bacterial Code(s): N39.0 - URINARY TRACT INFECTION, SITE NOT SPECIFIED; A49.9 - BACTERIAL INFECTION, UNSPECIFIED Status: Acute (3) Gram-negative bacteremia Code(s): R78.81 - BACTEREMIA Status: Acute (4) Metabolic acidosis Code(s): E87.2 - ACIDOSIS Status: Acute (5) Seizure Code(s): R56.9 - UNSPECIFIED CONVULSIONS Status: Acute (6) Sepsis Code(s): A41.9 - SEPSIS, UNSPECIFIED ORGANISM Status: Acute (7) Toxic megacolon due to Clostridium difficile Code(s): A04.72 - ENTEROCOLITIS D/T CLOSTRIDIUM DIFFICILE, NOT SPCF RECUR Status: Acute (8) Pressure ulcer Code(s): L89.90 - PRESSURE ULCER OF UNSPECIFIED SITE, UNSPECIFIED STAGE Status : Acute Qualifiers: Laterality: left - Plan Plan: This is a 62 yo M admitted for septic shock 2/2 uti, toxic megacolon 2/2 c diff. He has a pertinent history including: Mental retardation (baseline AxOx1), [place] 2008, HTN, seizure disorder, chronic urinary retention, dmII Sepsis 2/2 to Gram negative UTI - WBC resolved - on Vanc, cefepime, flagyl - Gram negative rods from UA, covered with cefepime - Consider abx deescalation- will d/c vanc - Pending sensitivities - afebrile yesterday differential: VAP, post-op wound infection, bacteremia/ osteo from pressure ulcers, UTI - CXR no acute infectious process - bcx NGTD Acute Hypoxic respiratory failure- compassionate extubation 05/21 - on vent - patient not tolerating CPAP, apneic spells, has not met extubation criteria - continuing to attempt diuresis will managing BP Impending toxic Megacolon 2/2 C. diff infection, resolved - Post Op Day 9 total colectomy with ileostomy. Ileostomy draining at this time. - gen surg following Seizure Activity, chronic seizure disorder - no seizures overnight - confirmed seizure activity with EEG, started keppra 05/15 MARIO 2/2 ATN Pt had ATN likley 2/2 hypotension vs supratherapeutic vanc Continue to trend urine output Pressure ulcer -Please see wound care note. As of now, noted to have sacral ulcer, illiac crest ulcer and heel ulcer. Diabetes mellitus type 2, insulin dependent - stopped hydrocortisone, now on NPH 15U BID - followed by nutrition Hypernatremia -will continue to trend. Hyperlipidemia Chronic issue on admission. -continue home meds Hypothyroidism Chronic stable issue. TSH in appropriate range on admission -continue home meds IVC Filter in place cont PPX Lines/Tubes: rt subclavian 05/14, indwelling catheter chronic Code status: DNR PPx: Protonix, lovenox Dispo: extubation trial 05/21, family elects not to pursue re-intubation/trach at this time Addendum - Attending - Attending Attestation Date/Time: 05/20/18 6541 I personally evaluated the patient and discussed the management with Dr. Juan I agree with the History, Examination, Assessment and Plan documented above with any addition or exceptions noted below.Patient for elective extubation tomorrow and continue palliative /hospice care. de-escalate rx as tolerated.
[2018-05-20 06:08] LABS: Anisocytosis SLIGHT = 6-15 cells (100X) (0-5/hpf); Band 13 % (5-11); Hemoglobin 8.9 g/dL (14.0-18.0); Hypochromia SLIGHT = 6-15 cells (100X) (0-5/hpf); Large Platelets SLIGHT; Lymphocytes 11 % (21-51); MDiff Complete? YES; Mean Corpuscular HGB CONC 30.1 g/dL (32.0-36.0); Mean Corpuscular Hemoglobin 27.2 pg (27.0-31.0); Mean Corpuscular Volume 90.6 fL (78.0-98.0); Mean Platelet Volume 9.2 fL (7.4-10.4); Monocytes 3 % (0-10); Neutrophil 73 % (42-75); Platelet Count 152 thou/uL (130-400); Platelet Morphology Comment Appears Adequate; RBC Distribution Width 17.5 % (11.5-14.5); Red Blood Cell (RBC) Count 3.26 mill/uL (4.70-6.10); White Blood Cell (WBC) Count 10.1 thou/uL (4.8-10.8)
[2018-05-20] MEDS: Cefepime 1 GM in Sodium Chloride 0.9% 100 ML IVPB SCH ×2 (10:03→21:54)
[2018-05-20] MEDS: Enoxaparin Sodium 40 MG/0.4 ML SYRINGE SC SCH (10:04)
[2018-05-20] MEDS: levETIRAcetam 500 mg/5 ml Oral Solution PER TUBE SCH ×2 (10:04→21:55)
[2018-05-20] MEDS: Pantoprazole 40 MG VIAL IVP SCH (10:05)
[2018-05-20] MEDS: Magnesium Oxide 400 MG TAB PO PRN ×2 (10:08→21:57)
[2018-05-20] MEDS: NPH, Human Insulin Isophane 300 UNIT/3 ML VIAL SC SCH ×2 (10:11→21:55)
--- NOTE | 2018-05-20 17:53 | PRG ---
DATE OF SERVICE: SUBJECTIVE: Mr. Felipe was evaluated today. OBJECTIVE: VITAL SIGNS: He is afebrile. Heart rate this afternoon 128, blood pressure 138/88, respiratory rates in the low 20s. LUNGS: Clear. HEART: Regular rhythm. S1 and S2 are audible. No murmur is heard. ABDOMEN: Soft. Ileostomy is viable and he has had continuous ileostomy output. EXTREMITIES: Remarkable for trace edema. LABORATORY DATA: His lab is remarkable for white count 10.1, hemoglobin 8.9, platelets 152. Sodium 145, potassium 3.8, chloride 111, bicarb 27, BUN 19, and creatinine 0.54. IMPRESSION: 1. Toxic megacolon, status post ileostomy. 2. History of severe learning disability. 3. History of diabetes. 4. History of peripheral neuropathy. 5. History of seizure disorder. 6. History of chronically residing in a retirement. PLAN: Unfortunately living in a retirement with an ileostomy will be fraught with difficulty because of the volume needs. His intake and output have to be carefully balanced prior to discharge to make sure he is getting adequate free water since he no longer has a colon. His prognosis long-term is quite guarded, even though he survive this illness. Job ID: [id number]
[2018-05-20] MEDS: Acetaminophen 650 MG/20.3 ML UDCUP PO PRN (21:57)
[2018-05-21] MEDS: Insulin Regular 300 UNITS/3 ML VIAL SC PRN ×2 (00:16→11:43)
[2018-05-21] MEDS: metroNIDAZOLE 500 MG in Premix Bag 1 BAG IVPB SCH ×3 (02:13→10:16)
[2018-05-21] MEDS: fentaNYL Citrate/PF 2,000 MCG in Sodium Chloride 0.9% 60 ML IV SCH (02:30)
[2018-05-21] MEDS: Acetaminophen 650 MG/20.3 ML UDCUP PO PRN (05:05)
[2018-05-21 05:21] LABS: Phosphorus 2.1 mg/dL (2.3-4.7)
[2018-05-21 05:22] LABS: Anion Gap 13 mmol/L (10-20); BUN (Urea Nitrogen) 15 mg/dL (8.4-25.7); Calc. Creatinine Clearance 182 mL/min (70-130); Calcium 8.6 mg/dL (7.8-10.44); Carbon Dioxide 26 mmol/L (23-31); Chloride 110 mmol/L (98-107); Estimated GFR-MDRD Greater than 90; Glucose 113 mg/dL (80-115); Magnesium 1.4 mg/dL (1.6-2.6); Potassium 3.6 mmol/L (3.5-5.1); Sodium 145 mmol/L (136-145)
--- NOTE | 2018-05-21 05:28 | PDOC.FM ---
- Subjective Subjective: Fever overnight, remains tachycardic. Status is unchanged from yesterday per nurse. - Objective MAR Reviewed: Yes Vital Signs & Weight: Vital Signs (12 hours) Temp Pulse Resp BP Pulse Ox 05/21/18 02:08 130 H 144/85 H 05/21/18 00:01 131 H 31 H 95 05/20/18 22:54 132 H 139/90 05/20/18 22:00 101.8 F H 39 H 05/20/18 20:00 100.3 F H 05/20/18 18:09 132 H 146/93 H 05/20/18 18:00 31 H Weight Admit Weight 71.214 kg Weight 81.193 kg Most Recent Monitor Data Heart Rate from ECG 133 NIBP 106/60 NIBP BP-Mean 75 Respiration from ECG 15 SpO2 93 I&O: 05/19/18 05/20/18 05/21/18 06:59 06:59 06:59 Intake Total 4197.2 2829 1232.1 Output Total 2007 1730 1490 Balance 2189.2 1099 -257.9 Result Diagrams: 05/21/18 04:45 05/21/18 04:45 Phys Exam - Physical Examination Constitutional: NAD on mechanical ventilator. GCS 10T ([id number]) HEENT: PERRLA green mucous on ventilator Cardiovascular: no rub tachycardic mildly distended, ileosotomy present, no periteonal signs Musculoskeletal: pulses present lower extremity edema Deviation from normal: unable to assess Deviation from normal: sacral ulcer-see wound care note Dx/Plan (1) Acute respiratory failure with hypoxia Code(s): J96.01 - ACUTE RESPIRATORY FAILURE WITH HYPOXIA Status: Acute (2) UTI (urinary tract infection), bacterial Code(s): N39.0 - URINARY TRACT INFECTION, SITE NOT SPECIFIED; A49.9 - BACTERIAL INFECTION, UNSPECIFIED Status: Acute (3) Gram-negative bacteremia Code(s): R78.81 - BACTEREMIA Status: Acute (4) Metabolic acidosis Code(s): E87.2 - ACIDOSIS Status: Acute (5) Seizure Code(s): R56.9 - UNSPECIFIED CONVULSIONS Status: Acute (6) Sepsis Code(s): A41.9 - SEPSIS, UNSPECIFIED ORGANISM Status: Acute (7) Toxic megacolon due to Clostridium difficile Code(s): A04.72 - ENTEROCOLITIS D/T CLOSTRIDIUM DIFFICILE, NOT SPCF RECUR Status: Acute (8) Pressure ulcer Code(s): L89.90 - PRESSURE ULCER OF UNSPECIFIED SITE, UNSPECIFIED STAGE Status : Acute Qualifiers: Laterality: left - Plan Plan: This is a 62 yo M admitted for septic shock 2/2 uti, toxic megacolon 2/2 c diff. He has a pertinent history including: Mental retardation (baseline AxOx1), [place] resident [place] 2008, HTN, seizure disorder, chronic urinary retention, dmII Sepsis 2/2 to Gram negative UTI - persistently tachy, febrile - Gram negative rods from UA, covered with cefepime, flagyl - Pending sensitivities - Also consider VAP, bacteremia/osteo sacral pressure ulcer-wound care on board - general surgery doing wound check-no signs of active infection - CXR no acute infectious process - bcx NGTD Acute Hypoxic respiratory failure- compassionate extubation 05/21 - on vent - patient not tolerating CPAP, apneic spells, has not met extubation criteria - continuing to attempt diuresis will managing BP Impending toxic Megacolon 2/2 C. diff infection, resolved - Post Op Day 9 total colectomy with ileostomy. Ileostomy draining at this time. - gen surg following Seizure Activity, chronic seizure disorder - no seizures overnight - confirmed seizure activity with EEG, started keppra 05/15 MARIO 2/2 ATN Pt had ATN likley 2/2 hypotension vs supratherapeutic vanc Hour UO appropriate Pressure ulcer -Please see wound care note. As of now, noted to have sacral ulcer, illiac crest ulcer and heel ulcer. Diabetes mellitus type 2, insulin dependent - stopped hydrocortisone, now on NPH 15U BID - followed by nutrition Hypernatremia -will continue to trend. Hyperlipidemia Chronic issue on admission. -continue home meds Hypothyroidism Chronic stable issue. TSH in appropriate range on admission -continue home meds IVC Filter in place cont PPX Lines/Tubes: rt subclavian 05/14, indwelling catheter chronic Code status: DNR PPx: Protonix, lovenox Dispo: extubation trial 05/21, family elects not to pursue re-intubation/trach at this time Addendum - Attending - Attending Attestation Date/Time: 05/21/18 8997 I personally evaluated the patient and discussed the management with Dr. Juan I agree with the History, Examination, Assessment and Plan documented above with any addition or exceptions noted below.Family gathering for elective extubation today /hospice care.
[2018-05-21 05:30] LABS: Anisocytosis SLIGHT = 6-15 cells (100X) (0-5/hpf); Band 25 % (5-11); Hemoglobin 8.9 g/dL (14.0-18.0); Hypochromia SLIGHT = 6-15 cells (100X) (0-5/hpf); Large Platelets SLIGHT; Lymphocytes 8 % (21-51); MDiff Complete? YES; Mean Corpuscular HGB CONC 30.3 g/dL (32.0-36.0); Mean Corpuscular Hemoglobin 27.6 pg (27.0-31.0); Mean Platelet Volume 9.1 fL (7.4-10.4); Metamyelocyte 1 % (0-0); Monocytes 2 % (0-10); Neutrophil 64 % (42-75); Platelet Count 154 thou/uL (130-400); Platelet Morphology Comment Appears Adequate; RBC Distribution Width 17.5 % (11.5-14.5); Red Blood Cell (RBC) Count 3.21 mill/uL (4.70-6.10)
[2018-05-21] MEDS: Pantoprazole 40 MG VIAL IVP SCH ×2 (08:43→10:15)
[2018-05-21] MEDS: Enoxaparin Sodium 40 MG/0.4 ML SYRINGE SC SCH ×2 (08:43→10:15)
[2018-05-21] MEDS: Cefepime 1 GM in Sodium Chloride 0.9% 100 ML IVPB SCH (10:14)
[2018-05-21] MEDS: levETIRAcetam 500 mg/5 ml Oral Solution PER TUBE SCH (10:17)
[2018-05-21] MEDS: NPH, Human Insulin Isophane 300 UNIT/3 ML VIAL SC SCH (10:17)
[2018-05-21] MEDS ORDERED: Morphine 2 MG/ML SYRINGE SLOW IVP PRN (10:28)
[2018-05-21] MEDS ORDERED: Scopolamine 1.5 mg/72 hour Patch TD SCH (11:00)
[2018-05-21] MEDS ORDERED: Lorazepam 2 MG/ML VIAL SLOW IVP PRN (15:15)
--- NOTE | 2018-05-21 20:00 | PRG ---
DATE OF SERVICE: 05/21/2018 Family is at the bedside today. Sister was on her way. Apparently, the family was made a decision to withdraw care. 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 Chip in [place] and clearly, has a great grasp of everything. I told him that might be coming down stream with ongoing tube feeds, tracheostomy, and an ileostomy, etc. They do not want to progress with this aggressive form of care. They wanted to be a do not resuscitate and have opted for extubating for comfort care. VITAL SIGNS: H is vital signs have been stable. GENERAL: He has been extubated and as I explained to the patient and to the family, he might do well for a while once extubated. LUNGS: Prior to extubation, his lungs are clear. HEART: Regular rhythm. ABDOMEN: Soft. His ileostomy was functioning. He has been transferred out at the time of this dictation to medical bed. His hemoglobin is 8.9 today. Electrolytes were essentially unremarkable. There is no reason to continue with daily lab. He will proceed forward with comfort meds. I will discontinue all of his routine lab draws. We will likely sign off with transfer out of critical care unit. Job ID: [id number] MTDD
[2018-05-21] MEDS: Morphine 2 MG/ML SYRINGE SLOW IVP PRN ×2 (20:21→21:48)
[2018-05-22] MEDS: Morphine 2 MG/ML SYRINGE SLOW IVP PRN ×5 (04:44→18:30)
--- NOTE | 2018-05-22 06:39 | PDOC.FM ---
- Subjective Subjective: Patient is able to grasp hand on command this morning. Patient is alert to voice. Mildly stridorous on exam. - Objective Vital Signs & Weight: Vital Signs (12 hours) Temp Pulse Resp BP Pulse Ox 05/21/18 20:40 71 L 05/21/18 20:37 97.5 F L 116 H 24 H 147/83 H 71 L Weight Admit Weight 81.9 kg Weight 81.9 kg Most Recent Monitor Data Heart Rate from ECG 112 NIBP 151/81 NIBP BP-Mean 104 Respiration from ECG 30 SpO2 82 I&O: 05/20/18 05/21/18 05/22/18 06:59 06:59 06:59 Intake Total 2829 2491.2 350 Output Total 1730 2215 1405 Balance 1099 276.2 -1055 Result Diagrams: 05/21/18 04:45 05/21/18 04:45 Phys Exam - Physical Examination mildly increased work of breathing, sat 84% on NC HEENT: PERRLA Neck: no nodes mild stridor bilaterally, mild retractions, crackles bilateraly Cardiovascular: RRR, no significant murmur Gastrointestinal: soft ned removed, tender to palpation Musculoskeletal: pulses present Neurological: non-focal Deviation from normal: alert, non-verbal Skin: no rash, cap refill <2 seconds Dx/Plan (1) C. difficile diarrhea Code(s): A04.72 - ENTEROCOLITIS D/T CLOSTRIDIUM DIFFICILE, NOT SPCF RECUR Status: Acute (2) Seizure Code(s): R56.9 - UNSPECIFIED CONVULSIONS Status: Acute (3) Sepsis Code(s): A41.9 - SEPSIS, UNSPECIFIED ORGANISM Status: Acute (4) Toxic megacolon due to Clostridium difficile Code(s): A04.72 - ENTEROCOLITIS D/T CLOSTRIDIUM DIFFICILE, NOT SPCF RECUR Status: Acute (5) Mental retardation Code(s): F79 - UNSPECIFIED INTELLECTUAL DISABILITIES Status: Acute (6) Pressure ulcer Code(s): L89.90 - PRESSURE ULCER OF UNSPECIFIED SITE, UNSPECIFIED STAGE Status : Acute Qualifiers: Laterality: left (7) Diabetes mellitus type 2, insulin dependent Code(s): E11.9 - TYPE 2 DIABETES MELLITUS WITHOUT COMPLICATIONS; Z79.4 - CUSTODIAL (CURRENT) USE OF INSULIN Status: Chronic (8) HTN (hypertension) Code(s): I10 - ESSENTIAL (PRIMARY) HYPERTENSION Status: Chronic Qualifiers: Hypertension type: essential hypertension Qualified Code(s): I10 - Essential (primary) hypertension (9) Hyperlipidemia Code(s): E78.5 - HYPERLIPIDEMIA, UNSPECIFIED Status: Chronic Qualifiers: Hyperlipidemia type: mixed hyperlipidemia Qualified Code(s): E78.2 - Mixed hyperlipidemia (10) Urinary retention with incomplete bladder emptying Code(s): R33.9 - RETENTION OF URINE, UNSPECIFIED Status: Chronic - Plan Plan: This is a 62 yo M admitted for septic shock 2/ uti, toxic megacolon 2/ c diff. s/p colectomy. Patient is now on comfort cares. He has a pertinent history including: Mental retardation (baseline AxOx1), [place] resident since 2008, HTN, seizure disorder, chronic urinary retention, dmII Comfort Cares - extubated on 05/21/18 - family does not wish for aggressive treatment/measures - comfort measures only, ativan, fentanyl, morphine - hospice is consulted, anticipate transfer to inpatient hospice today - sats in mid 80s on NC Lines/Tubes: rt subclavian 05/14, indwelling catheter chronic Code status: DNR Dispo: extubation 05/21, family elects not to pursue re-intubation/trach, DNAR, anticipate transfer to inpatient hospice Addendum - Attending - Attending Attestation Date/Time: 05/22/18 0810 I personally evaluated the patient and discussed the management with Dr. Miller I agree with the History, Examination, Assessment and Plan documented above with any addition or exceptions noted below. Awaiting inpatient hospice. Narcisa
--- NOTE | 2018-05-22 09:51 | PRG ---
DATE OF SERVICE: 05/22/2018 SUBJECTIVE: Mr. Felipe has been moved up to the floor. He was extubated over the weekend. OBJECTIVE: GENERAL: He is lethargic and noncommunicative. He has agonal respirations. VITAL SIGNS: His temperature is 98.2, pulse 120, O2 saturation 86% on 3 L, blood pressure 132/81. RESPIRATIONS: Breath sounds are diminished bilaterally. CARDIAC: S1 and S2. Regular. ABDOMEN: Soft. EXTREMITIES: Edematous. ASSESSMENT: Status post terminal extubation. PLAN: Comfort measures. Pulmonary available for advice as needed. Job ID: [id number]
[2018-05-22 11:27] VITALS: TEMP 98
[2018-05-22] MEDS ORDERED: Lorazepam 2 MG/ML VIAL SLOW IVP PRN (20:13)
[2018-05-22] MEDS ORDERED: Ondansetron PF 4 MG/2 ML Vial IVP PRN (20:13)
[2018-05-22] MEDS ORDERED: Haloperidol Lactate 5 MG/ML VIAL SLOW IVP PRN (20:13)
[2018-05-22] MEDS ORDERED: diphenhydrAMINE 50 MG/ML VIAL IVP PRN (20:13)
[2018-05-22] MEDS ORDERED: Acetaminophen 650 MG Suppository PR PRN (20:13)
[2018-05-22] MEDS ORDERED: Morphine 10 MG/0.5 ML ORAL SYRINGE SL PRN (20:13)
[2018-05-22] MEDS ORDERED: Hyoscyamine Sulfate SL 0.125 mg Tablet SL PRN (20:13)
[2018-05-22 20:38] VITALS: BP 125/77
--- NOTE | 2018-05-23 13:53 | DIS ---
DATE OF ADMISSION: 05/05/2018 DATE OF DISCHARGE: 05/22/2018 RESIDENT: Gen Miller MD ADMITTING ATTENDING: Andrew Barriga MD DISCHARGE ATTENDING: Joelle Zhong MD CONSULT: General surgery, GI, Pulmonology, Neurology, hospice, palliative. PROCEDURES: Total colectomy, intubation. PRIMARY DIAGNOSIS: Septic shock secondary to urinary tract infection. SECONDARY DIAGNOSES: Toxic megacolon secondary to Clostridium difficile, hypernatremia, acute hypoxic respiratory failure, seizure, diabetes mellitus type 2, acute kidney injury secondary to acute tubular necrosis, pressure ulcer, hyperlipidemia, hypothyroidism, metabolic acidosis, IVC filter historical. DISCHARGE MEDICATIONS: 1. Morphine. 2. Fentanyl. 3. Ativan. 4. Scopolamine. Discontinued medications, all other medications. HOSPITAL COURSE: Please see progress note from 05/05/2018. This is a 62-year-old gentleman on hospital day 14, he originally was admitted for septic shock secondary to UTI from Enterococcus faecalis. After treatment of UTI and septic shock, he developed C diff, which ultimately led to toxic megacolon and then had a colectomy. He completed 7 days of oral vancomycin and IV Flagyl after this. He had trouble weaning off the ventilator after this. He had long periods of apnea when he was put on spontaneous breathing mode. Long discussions were had with the family regarding aggressive care versus comfort care. The family ultimately decided that they wanted to pursue comfort care. Then, the patient was extubated compassionately on May 21. The patient was transitioned to hospice care with [facility]. The patient has a baseline mental status of about a 13-year-old per the family and he is A and O x1 per the chart. They discussed doing LTAC, trach, and PEG, but ultimately decided that would not be a good option for his quality of life. Discharge to inpatient hospice with Kahlil, hospice team. DISPOSITION: Stable. DISCHARGE INSTRUCTIONS: 1. Location: Inpatient hospice, [facility]. 2. Diet: As tolerated. 3. Activity: As tolerated. 4. Followup: Kahlil, the patient hospice. Job ID: [id number]
--- NOTE | 2018-05-24 11:17 | PQF ---
CECI MCNEIL AMANDA MD *fadi [id number] CLINICAL DOCUMENTATION CLARIFICATION FORM: POST DISCHARGE DATE: 05/24/2018 ATTN : Dr. Zhong Please exercise your independent, professional judgment in responding to the clarification form. Clinical indicators are provided on the bottom of this form for your review Please check appropriate box(s): [ x ] UTI please specify if due to or related to (as applicable): [ x] Indwelling catheter [ ] Other (please specify) [ ] Unable to determine etiology UTI Site: [ ] Kidney [ ] Ureter [ x ] Bladder [ ] Urethra [ ] Unable to determine [ ] Other diagnosis (please specify) [ ] Unable to determine In addition, please specify: Present on Admission (POA): [x ] Yes [ ] No [ ] Unable to determine For continuity of documentation, please document condition throughout progress notes and discharge summary. Thank You. CLINICAL INDICATORS - SIGNS / SYMPTOMS / LABS Positive urinalysis for Enterococcus faecalis. Fever of 103 (per EMS). Documentation: UTI Per ED: I suspect his most likely source is urinary given his chronic indwelling chen. This was changed out. Per DS: Septic shock secondary to urinary tract infection. RISK FACTORS History of neurogenic bladder History indwelling catheter assisted resident Profound mental retardation TREATMENT: IV Vancomycin. IV Zosyn. IVF. Change chen catheter. (This form is maintained as a part of the permanent medical record) 2014 [employer]. All Rights Reserved [email or web address] [phone] Patient was managed by Dr. Barriga. Document has been forwarded to him. Narcisa [place]
--- NOTE | 2018-05-31 08:37 | PQF ---
[employer] Primary Montessori Teacher Crystal Reports Winform ViewerHECECI MILLER Grady MD *r [id number] CLINICAL DOCUMENTATION CLARIFICATION FORM: POST DISCHARGE Addendum to original discharge summary date: ____ Late entry note date: __ DATE: 05/24/2018 ATTN : Dr. Barriga Please exercise your independent, professional judgment in responding to the clarification form. Clinical indicators are provided on the bottom of this form for your review Please check appropriate box(s): [ x ] UTI please specify if due to or related to (as applicable): [x ] Indwelling catheter [ ] Other (please specify) [ ] Unable to determine etiology UTI Site: [ ] Kidney [ ] Ureter [x ] Bladder [ ] Urethra [ ] Unable to determine [ ] Other diagnosis (please specify) [ ] Unable to determine In addition, please specify: Present on Admission (POA): [ xxx ] Yes [ ] No [ ] Unable to determine For continuity of documentation, please document condition throughout progress notes and discharge summary. Thank You. CLINICAL INDICATORS - SIGNS / SYMPTOMS / LABS: Positive urinalysis for Enterococcus faecalis. Fever of 103 (per EMS). Documentation: UTI Per ED: I suspect his most likely source is urinary given his chronic indwelling chen. This was changed out. Per DS: Septic shock secondary to urinary tract infection. RISK FACTORS: History of neurogenic bladder History indwelling catheter longterm resident Profound mental retardation TREATMENTS: IV Vancomycin. IV Zosyn. IVF. Change chen catheter. (This form is maintained as a part of the permanent medical record) 2014 [employer]. All Rights Reserved [email or web address] [phone] MTDD
== END 2018-05-22 21:00 | disposition hospice, inpatient (51) | DRG 981 ==
LOC: ERS 03:14 → CCU 07:05 → UNDODISIN 05-17 18:03 → T4-B 05-21 18:33 → CCU 05-21 19:17 → T4-B 05-21 21:16
PROVIDERS: ADMIT Family Medicine; ATTEND Family Medicine
PROC: 3E033XZ Introduction of Vasopressor into Peripheral Vein, Percutaneous Approach (ICD-10-PCS; 2018-05-05)
PROC: 0BH17EZ Insertion of Endotracheal Airway into Trachea, Via Natural or Artificial Opening (ICD-10-PCS; 2018-05-05)
PROC: 5A1955Z Respiratory Ventilation, Greater than 96 Consecutive Hours (ICD-10-PCS; 2018-05-05)
PROC: 06HM33Z Insertion of Infusion Device into Right Femoral Vein, Percutaneous Approach (ICD-10-PCS; 2018-05-05)
PROC: 0DTE0ZZ Resection of Large Intestine, Open Approach (ICD-10-PCS; principal; 2018-05-10)
PROC: 0D1B0Z4 Bypass Ileum to Cutaneous, Open Approach (ICD-10-PCS; 2018-05-10)
PROC: 30233K1 Transfusion of Nonautologous Frozen Plasma into Peripheral Vein, Percutaneous Approach (ICD-10-PCS; 2018-05-10)
PROC: 30233N1 Transfusion of Nonautologous Red Blood Cells into Peripheral Vein, Percutaneous Approach (ICD-10-PCS; 2018-05-10)
PROC: 30233R1 Transfusion of Nonautologous Platelets into Peripheral Vein, Percutaneous Approach (ICD-10-PCS; 2018-05-10)
PROC: 3E0436Z Introduction of Nutritional Substance into Central Vein, Percutaneous Approach (ICD-10-PCS; 2018-05-10)
PROC: 02H633Z Insertion of Infusion Device into Right Atrium, Percutaneous Approach (ICD-10-PCS; 2018-05-14)
DX: T83.511A Infection and inflammatory reaction due to indwelling urethral catheter, initial encounter (principal); A41.81 Sepsis due to Enterococcus; L89.324 Pressure ulcer of left buttock, stage 4; R65.21 Severe sepsis with septic shock; N17.0 Acute kidney failure with tubular necrosis; J96.01 Acute respiratory failure with hypoxia; F73 Profound intellectual disabilities; A04.72 Enterocolitis due to Clostridium difficile, not specified as recurrent; E87.0 Hyperosmolality and hypernatremia; E87.1 Hypo-osmolality and hyponatremia; E87.2 Acidosis; Z51.5 Encounter for palliative care; N30.90 Cystitis, unspecified without hematuria; Z66 Do not resuscitate; E87.5 Hyperkalemia; G40.909 Epilepsy, unspecified, not intractable, without status epilepticus; E03.9 Hypothyroidism, unspecified; I95.9 Hypotension, unspecified; K21.9 Gastro-esophageal reflux disease without esophagitis; E87.70 Fluid overload, unspecified; E87.6 Hypokalemia; E83.42 Hypomagnesemia; E83.39 Other disorders of phosphorus metabolism; E11.65 Type 2 diabetes mellitus with hyperglycemia; L89.891 Pressure ulcer of other site, stage 1; R33.9 Retention of urine, unspecified; E78.2 Mixed hyperlipidemia; Z88.8 Allergy status to other drugs, medicaments and biological substances; Z79.4 Long term (current) use of insulin; Z79.899 Other long term (current) drug therapy; Y84.6 Urinary catheterization as the cause of abnormal reaction of the patient, or of later complication, without mention of misadventure at the time of the procedure
CPT/HCPCS: 31500; 36415; 36416; 36430; 36556; 51702; 70450; 71045; 74018; 74176; 80048; 80053; 80061; 80202; 80306; 80307; 81003; 81015; 82330; 82570; 82803; 82805; 83605; 83690; 83735; 84100; 84134; 84145; 84300; 84443; 84484; 85007; 85025; 85027; 85060; 85610; 85730; 86850; 86900; 86901; 87040; 87077; 87086; 87149; 87186; 87324; 87449; 88307; 93005; 94002; 94003; 94640; 95816; 95819; 96365; 96366; 96368; 96375; 99292; C9113; J0171; J0692; J1644; J1650; J1720; J1815; J1825; J1940; J2060; J2250; J2270; J2543; J2704; J2930; J3010; J3370; J3411; J3475; J3480; J7050; J7070; J7620; P9016; P9035; P9045; P9047; P9059